=== PATIENT | female | born 1980 | race Caucasian/White ===

== ENCOUNTER 2017-04-14 06:51 | Observation (INO) | payer MEDICAID ==
[~2017-04-14] VITALS: Ht 165.1 cm; Wt 86.0 kg
[~2017-04-14 06:51] MED LIST: CIPRO 500MG TA500 MG PO; COLACE100 MG PO; DARVOCET-N 1001 EACH PO; DOXEPIN100 MG; EC NAPROSYN500 MG PO; FLAGYL 500MG.500 MG PO; FLAGYL500 MG PO; GABAPENTIN300 MG PO; HYDROCHLOROTHIA25 M1; HYDROCODONE/ACE1 T11 PO; K-DUR 2020 MEQ PO; LORTAB 5/500 501 TAB PO; MACROBID 100MG100 MG PO; MACROBID100 M3 PO; MONODOX100 MG PO; OLANZAPINE20 MG PO; PERCOCET 5/3251 EACH PO; PHENERGAN 25MG.25 M1 PO; TRAMADOL 50MG T50 MG PO; TYLENOL W/CODEI1 TAB PO; VIBRA-TABS100 MG PO; XANAX1 MG; ZOFRAN ODT4 MG PO; ZYPREXA 5MG TAB5 MG PO
[2017-04-14 06:55] VITALS: BP 136/62
[2017-04-14 07:07] LABS: HEMOGLOBIN 13.7 g/dL (12.2-16.2)
[2017-04-14 07:08] LABS: LYMPH # 3.2 K/mm3 (0.7-4.5); LYMPH % 36.7 % (10-50.0)
[2017-04-14 07:35] LABS: BUN 10 mg/dL (7-18)
[2017-04-14 07:38] LABS: GFR (ESTIMATED) 42 ML/MIN (59-)
--- NOTE | 2017-04-14 07:47 | Emergency Room Report ---
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 N Clinical Suspician of Infection? N Mental Status: 1 - Regular (Normal Baseline) Sepsis Risk:Low Sepsis Risk Have you (or family members/close friends) recently traveled outside the [place]? N If Yes, where/when: Have you had exposure to infectious disease within the past month? N TB? Other? Specify: Source patient, RN notes reviewed, family, old records Exam Limitations no limitations Comment pt with known low kcl and presents for eval as she is weak and has not responded to op rx Cardiac Chest Pain Chest pain indicative of cardiac No Timing/Duration this evening Severity moderate ALLERGIES Coded Allergies: Penicillins (Mild, 06/20/16) Home Medications Active Scripts Docusate Sodium (Colace 100MG CAP) 100 MG PO DAILY #12 CAP Prov: 11/16/16 Reported Medications Doxepin Hcl (Doxepin) Gabapentin (Gabapentin 300MG) 300 MG PO BID Potassium Chloride (K-Dur) 20 MEQ PO DAILY #60 Olanzapine 20 MG PO DAILY #30 History Medical History General CAD? No Angina: No [place]: No Hypertension? No Hyperlipidemia? No CHF? No DVT? No PE? No COPD? No Asthma? No Anemia? No GERD? No Gastric ulcers? No GI Bleed? No Hernia? No Thyroid Problems? No Hypothyroidism? No CVA? No Seizures? No Diabetes? No Renal Insuffiency? No End Stage Renal Disease? No UTI? Yes Stones? Yes BPH? No GB Disease: Yes Nephritic Syndrome? No Asplenia? No Hepatitis? No Sickle Cell Disease? No Arthritis? No Migraines? No Cataracts? No Glaucoma? No MRSA? No HIV? No TB? No Anxiety? No Depression? No Cancer? No More? Yes Additional hx: BARTTER SYNDROME CHRONIC HYPOKALEMIA Immunization Hx DT/Tetanus 1-4 Years Ago Flu Refused Pneumonia Never Had Surgical Hx Previous Surgery?Y TUBAL Appendectomy GALL BLADDER EXP LAP-ENDOMETRIOSIS L EYE KIDNEY STONE URETEROSCOPY 04/22/15 DIETARY AID Hx LMP N/A Family History Family Hx Diabetes Yes CAD Yes Hypertension Yes Hyperlipidemia Yes Cancer No TB No Social History Smoking Hx Smoker: Current Every Day Smoker Tobacco: Yes Type Cigarettes Packs/day < 1 Pack Alcohol Alcohol: No Drugs none Review of Systems All Other Systems Reviewed and Negative Constitutional see HPI, denies fever, weakness Eyes denies drainage ENT denies: ear discharge, epistaxis, throat pain. Respiratory denies cough, denies shortness of breath, denies wheezing Cardiovascular denies chest pain, denies syncope Gastrointestinal denies abdominal pain, denies diarrhea, denies vomiting Genitourinary denies: dysuria, frequency, hesitancy, hematuria. Musculoskeletal denies back pain, denies joint pain, denies joint swelling, denies neck pain Skin denies rash Psychiatric/Neurological denies headache, denies seizure Physical Exam Vital Signs Vital Signs Date Time Temp Pulse Resp B/P Pulse O2 O2 Flow FiO2 Ox Delivery Rate 04/14 0818 70 18 127/85 99 04/14 0655 98.0 74 16 136/62 98 - WBC >12,000 or <4,000 or 10% bands? 2 or more SIRS Criteria Met? B/P:136/62 MAP:86 Creatinine >2.0? UA output<0.5ml/kg/hr for 2 hrs? Platelet count >100,000? Lactate >2.0mmol/1? INR >1.2 or PTT > than 60 sec? Evidence of Organ Dysfunction? Provider documented clinical suspician of infection? N Sepsis Criteria Count: 0 Sepsis Risk: Low Sepsis Risk General Appearance no apparent distress Eye Exam - bilateral eye PERRL, bilateral eye EOMI Ear, Nose, Throat normal ENT inspection Neck supple Respiratory Status No: respiratory distress. 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 No Results/Orders Laboratory Tests 04/14/17 0656: Sodium 138, Potassium 2.2 *L, Chloride 105, Carbon Dioxide 23, BUN 10, Creatinine 1.4 H, Estimated Creat Clear 69, Estimated GFR (MDRD) 42 L, Glucose 131 H, Calcium 9.2, Total Bilirubin 0.5, AST 40 H, ALT 35, Alkaline Phosphatase 112, Creatine Kinase 56, CK-MB (CK-2) Rel Index 0.9, CK and CKMB Interp < 0.5, Troponin I < 0.02, Total Protein 8.9 H, Albumin 3.7, Globulin 5.2 H, Albumin/Globulin Ratio 0.7 L, WBC 8.6, RBC 4.73, Hgb 13.7, Hct 41.5, MCV 87.8, RDW 14.2, Plt Count 316, Gran % 57.8, Gran # 5.0, Lymphocytes % 36.7, Monocytes % 5.5, Lymphocytes # 3.2, Monocytes # 0.5, PUBS MCHC 33.0, MCH 29.0 Current Medication Orders Sig/Damien Start time Last Medication Dose Route Stop Time Status Admin Potassium Chloride 0 .STK-MED ONE 04/14 0815 DC PO Sodium Chloride 500 ML .STK-MED ONE 04/14 0806 DC IV Potassium Chloride 40 MEQ ONCE ONE 04/14 0800 DC 04/14 PO 04/14 0801 0816 Potassium Chloride/ 100 ML ONCE ONE 04/14 0800 AC 04/14 Water IV 04/14 0959 0817 Potassium Chloride/ 100 ML .STK-MED ONE 04/14 0754 DC Water IV Sodium Chloride 10 ML PRN PRN 04/14 0700 AC IV 04/15 0654 Orders Procedure Date/time Status THYROID STIMULATING HORMONE 04/14 827 Active THYROXINE (T4) 04/14 08 Active LIPID PROFILE 04/14 08 Active OP COURTSEY MEAL 04/14 0753 Active 12 LEAD EKG-LUISSON (INITIAL) 04/14 654 Active ELECTROCARDIOGRAM REQUEST 04/14 654 Active IV SALINE LOCK 04/14 654 Active URINALYSIS/COMPLETE 04/14 654 Active CBC WITH AUTO DIFF 04/14 654 Complete CARDIAC ENZYMES 04/14 654 Complete CHEM 12 PROFILE 04/14 654 Complete CM/EKG CM/digital marketing coordinator Rhythm Normal Sinus Rhythm EKG non-spec. ST/Twave chgs Departure Departure Time of Disposition 0809 Disposition Still a Patient Clinical Impression Primary Impression: Hypokalemia Condition STABLE Referrals Brennon Ayala MD discussed dr ayala ED Critical Care Critical Care No at 0837
--- NOTE | 2017-04-14 07:47 | Emergency Room Report ---
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 N Clinical Suspician of Infection? N Mental Status: 1 - Regular (Normal Baseline) Sepsis Risk:Low Sepsis Risk Have you (or family members/close friends) recently traveled outside the [place]? N If Yes, where/when: Have you had exposure to infectious disease within the past month? N TB? Other? Specify: Source patient, RN notes reviewed, family, old records Exam Limitations no limitations Comment pt with known low kcl and presents for eval as she is weak and has not responded to op rx Cardiac Chest Pain Chest pain indicative of cardiac No Timing/Duration this evening Severity moderate ALLERGIES Coded Allergies: Penicillins (Mild, 06/20/16) Home Medications Active Scripts Docusate Sodium (Colace 100MG CAP) 100 MG PO DAILY #12 CAP Prov: 11/16/16 Reported Medications Doxepin Hcl (Doxepin) Gabapentin (Gabapentin 300MG) 300 MG PO BID Potassium Chloride (K-Dur) 20 MEQ PO DAILY #60 Olanzapine 20 MG PO DAILY #30 History Medical History General CAD? No Angina: No [place]: No Hypertension? No Hyperlipidemia? No CHF? No DVT? No PE? No COPD? No Asthma? No Anemia? No GERD? No Gastric ulcers? No GI Bleed? No Hernia? No Thyroid Problems? No Hypothyroidism? No CVA? No Seizures? No Diabetes? No Renal Insuffiency? No End Stage Renal Disease? No UTI? Yes Stones? Yes BPH? No GB Disease: Yes Nephritic Syndrome? No Asplenia? No Hepatitis? No Sickle Cell Disease? No Arthritis? No Migraines? No Cataracts? No Glaucoma? No MRSA? No HIV? No TB? No Anxiety? No Depression? No Cancer? No More? 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 Respiratory denies cough, denies shortness of breath, denies wheezing Cardiovascular denies chest pain, denies syncope Gastrointestinal denies abdominal pain, denies diarrhea, denies vomiting Genitourinary denies: dysuria, frequency, hesitancy, hematuria. Musculoskeletal denies back pain, denies joint pain, denies joint swelling, denies neck pain Skin denies rash Psychiatric/Neurological denies headache, denies seizure Physical Exam Vital Signs Vital Signs Date Time Temp Pulse Resp B/P Pulse O2 O2 Flow FiO2 Ox Delivery Rate 04/14 0818 70 18 127/85 99 04/14 0655 98.0 74 16 136/62 98 - WBC >12,000 or <4,000 or 10% bands? 2 or more SIRS Criteria Met? B/P:136/62 MAP:86 Creatinine >2.0? UA output<0.5ml/kg/hr for 2 hrs? Platelet count >100,000? Lactate >2.0mmol/1? INR >1.2 or PTT > than 60 sec? Evidence of Organ Dysfunction? Provider documented clinical suspician of infection? N Sepsis Criteria Count: 0 Sepsis Risk: Low Sepsis Risk General Appearance no apparent distress Eye Exam - bilateral eye PERRL, bilateral eye EOMI Ear, Nose, Throat normal ENT inspection Neck supple Respiratory Status No: respiratory distress. 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 No Results/Orders Laboratory Tests 04/14/17 0656: Sodium 138, Potassium 2.2 *L, Chloride 105, Carbon Dioxide 23, BUN 10, Creatinine 1.4 H, Estimated Creat Clear 69, Estimated GFR (MDRD) 42 L, Glucose 131 H, Calcium 9.2, Total Bilirubin 0.5, AST 40 H, ALT 35, Alkaline Phosphatase 112, Creatine Kinase 56, CK-MB (CK-2) Rel Index 0.9, CK and CKMB Interp < 0.5, Troponin I < 0.02, Total Protein 8.9 H, Albumin 3.7, Globulin 5.2 H, Albumin/Globulin Ratio 0.7 L, WBC 8.6, RBC 4.73, Hgb 13.7, Hct 41.5, MCV 87.8, RDW 14.2, Plt Count 316, Gran % 57.8, Gran # 5.0, Lymphocytes % 36.7, Monocytes % 5.5, Lymphocytes # 3.2, Monocytes # 0.5, PUBS MCHC 33.0, MCH 29.0 Current Medication Orders Sig/Damien Start time Last Medication Dose Route Stop Time Status Admin Potassium Chloride 0 .STK-MED ONE 04/14 0815 DC PO Sodium Chloride 500 ML .STK-MED ONE 04/14 0806 DC IV Potassium Chloride 40 MEQ ONCE ONE 04/14 0800 DC 04/14 PO 04/14 0801 0816 Potassium Chloride/ 100 ML ONCE ONE 04/14 0800 AC 04/14 Water IV 04/14 0959 0817 Potassium Chloride/ 100 ML .STK-MED ONE 04/14 0754 DC Water IV Sodium Chloride 10 ML PRN PRN 04/14 0700 AC IV 04/15 0654 Orders Procedure Date/time Status THYROID STIMULATING HORMONE 04/14 827 Active THYROXINE (T4) 04/14 08 Active LIPID PROFILE 04/14 08 Active OP COURTSEY MEAL 04/14 0753 Active 12 LEAD EKG-LUISSON (INITIAL) 04/14 654 Active ELECTROCARDIOGRAM REQUEST 04/14 654 Active IV SALINE LOCK 04/14 654 Active URINALYSIS/COMPLETE 04/14 654 Active CBC WITH AUTO DIFF 04/14 654 Complete CARDIAC ENZYMES 04/14 654 Complete CHEM 12 PROFILE 04/14 654 Complete CM/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 ST/Twave chgs Departure Departure Time of Disposition 0809 Disposition Still a Patient Clinical Impression Primary Impression: Hypokalemia Condition STABLE Referrals Brennon Ayala MD discussed dr ayala ED Critical Care Critical Care No at 0837
[2017-04-14 08:39] LABS: URINE BILIRUBIN - DIPSTICK NEGATIVE (NEG); URINE BLOOD NEGATIVE (NEG)
[2017-04-14 09:30] VITALS: BP 127/73
[2017-04-14 09:31] LABS: URINE SQUAMOUS CELLS 20-50 #/hpf (0-5)
[2017-04-14] MEDS ORDERED: ALDACTONE25 MG NG (09:44)
[2017-04-14] MEDS ORDERED: LEADER OMEPRAZO20 MG PO (09:45)
[2017-04-14] MEDS ORDERED: ZYRTEC10 M2 PO (09:46)
[2017-04-14] MEDS ORDERED: K-DUR 20MEQ TA20 MEQ PO (10:17)
[2017-04-14] MEDS ORDERED: ZOFRAN ODT4 MG PO (10:18)
[2017-04-14] MEDS ORDERED: GABAPENTIN800 MG PO (10:18)
[2017-04-14] MEDS ORDERED: ACETAMINOPHEN500 M3 PO (10:19)
--- NOTE | 2017-04-14 10:25 | HISTORY AND PHYSICAL REPORT ---
See Addendum History and Physical (FCA) Date of admission: 04/14/17 Chief complaint: Hypokalemia History: History of Present Illness: Ms. 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 She is a patient of PCP Dr. Rodriguez at [facility] and Dr. Bella at [facility], however, she has not followed up in either office for a while. Pt presented to [facility] ED this morning after she experienced some cramping and weakness overnight which did not respond to outpatient prescription. She also notes that she has been SOBOE over the past 2 days. Upon arrival, her potassium was found to be low at 2.2. EKG showed NSR with non- specific ST/T wave changes. The case was discussed with Dr. Hodge and she was admitted for IV replacement. Past Medical History: Medical History: CAD? No Angina: No CA: No Hypertension? No Hyperlipidemia? Yes CHF? No DVT? No PE? No COPD? Yes Asthma? No Anemia? No GERD? Yes Gastric ulcers? No GI Bleed? No Hernia? No Thyroid Problems? Yes Hypothyroidism? No CVA? No Seizures? No Diabetes? No Renal Insuffiency? Yes UTI? Yes Stones? Yes BPH? No GB Disease: Yes Nephritic Syndrome? No Asplenia? No Hepatitis? No Sickle Cell Disease? 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 No Cataracts? No Glaucoma? No MRSA? No HIV? No TB? No Anxiety? Yes Depression? Yes Cancer? No More? Yes Additional hx: BARTTER SYNDROME CHRONIC HYPOKALEMIA Surgical history: Previous Surgery? 1. Tubal Ligation 2. Appendectomy 3. GALL BLADDER 4. EXP LAP - ENDOMETRIOSIS 5. Left EYE 6. KIDNEY STONE 7. URETEROSCOPY 04/22/15 Medications: Active Scripts Docusate Sodium (Colace 100MG CAP) 100 MG PO DAILY #12 CAP Prov: 11/16/16 Reported Medications POTASSIUM CHL (Potassium Chloride) 20 MEQ PO BID Gabapentin (Gabapentin 800MG) 800 MG PO TID Ondansetron (Zofran 4MG Odt) 4 MG PO DAILYP PRN nausea Acetaminophen (Acetaminophen Extra Strength) 1,000 MG PO Q6HP PRN pain Spironolactone (Aldactone) 25 MG NG DAILY Omeprazole 20 MG PO DAILY CETIRIZINE HCL (Zyrtec) 10 MG PO DAILY Doxepin Hcl (Doxepin) Olanzapine 20 MG PO DAILY #30 Discontinued Reported Medications Gabapentin (Gabapentin 300MG) 300 MG PO BID Potassium Chloride (K-Dur) 20 MEQ PO DAILY #60 DC: 04/14/17 1019 Allergies: Coded Allergies: Penicillins (Mild, 06/20/16) Family History: Family history: Postive for: CAD, CAD under 40 yrs of age (father), DM, HTN, TIA, hyperlipidemia , stroke. Negative for: cancer, seizure. Social History: Smoking Hx Tobacco: Yes Smoker: Current Every Day Smoker Type: Cigarettes Packs/day: < 1 Pack Are you exposed to second hand Yes Alcohol: Alcohol: Yes How much do you drink 3-6 beers per year socially For how long Longer Than 5 Years When was your last drink several months ago Hx of Drug Use: Drug Use? 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 No Constitutional Positive for: weak. No: chills, lethargy. ENT No: nasal congestion, sore throat. Cardiovascular Positive for: CALLEJAS. No: chest pain, edema, palpitations. Respiratory Positive for: dyspnea on exertion, non-productive. No: shortness of air, productive cough (sputum). GI Positive for: diarrhea. No: abdominal pain, constipation, hematochezia, nausea, vomitting. (female) No: frequency, hematuria, pelvic pain, urgency. Skin No: bruising, itching, rash. Neurological No: bladder dysfunction, bowel dysfunction, confusion, dizziness, gait problem, headache, numbness, slurred speech, syncope, vision change. Immune/allergy No: itching. Eyes No: blurry vision, itching, redness. Musculoskeletal Positive for: myalgias. No: extremity pain, extremity swelling. Heme No: bleeding, bruising. Psychiatric No: confused, change in mental status. Physical Exam: Vital signs: Laboratory Tests 04/14/17 0810: Urine Color YELLOW, Urine Appearance CLEAR, Urine pH 7.5, Ur Specific [place] 1.010, Urine Protein 1+ H, Urine Ketones NEGATIVE, Urine Blood NEGATIVE, Urine Nitrate NEGATIVE, Urine Bilirubin NEGATIVE, Urine Urobilinogen 0.2, Ur Leukocyte Esterase NEGATIVE, Urine RBC NONE, Urine WBC 3-5, Ur Squamous Epith Cells 20-50, Urine Bacteria 1+, Urine Glucose NEGATIVE 04/14/1756: TSH 4.96 H, Thyroxine (T4) 10.2 04/14/17 0656: Triglycerides 208 H, Cholesterol 231 H, LDL Cholesterol 158.4 H, VLDL Cholesterol 41.6 H, HDL Cholesterol 31.0 L 04/14/17 06: Sodium 138, Potassium 2.2 *L, Chloride 105, Carbon Dioxide 23, BUN 10, Creatinine 1.4 H, Estimated Creat Clear 69, Estimated GFR (MDRD) 42 L, Glucose 131 H, Calcium 9.2, Total Bilirubin 0.5, AST 40 H, ALT 35, Alkaline Phosphatase 112, Creatine Kinase 56, CK-MB (CK-2) Rel Index 0.9, CK and CKMB Interp < 0.5, Troponin I < 0.02, Total Protein 8.9 H, Albumin 3.7, Globulin 5.2 H, Albumin/Globulin Ratio 0.7 L, WBC 8.6, RBC 4.73, Hgb 13.7, Hct 41.5, MCV 87.8, RDW 14.2, Plt Count 316, Gran % 57.8, Gran # 5.0, Lymphocytes % 36.7, Monocytes % 5.5, Lymphocytes # 3.2, Monocytes # 0.5, PUBS MCHC 33.0, MCH 29.0 Vital Signs Date Time Temp Pulse Resp B/P Pulse O2 O2 Flow FiO2 Ox Delivery Rate 04/14 930 89 04/14 930 97.9 89 18 127/73 04/14 930 98 ROOM AIR 04/14 930 97.9 89 18 12773 98 ROOM AIR 04/14 0921 75 18 118/79 99 04/14 0818 70 18 127/85 99 04/14 0655 98.0 74 16 136/62 98 1ST Vital Signs Result Date Time Pulse Ox 98 04/14 655 B/P 136/62 04/14 655 Temp 98.0 04/14 655 Pulse 74 09/28 0655 Resp 16 04/14 655 O2 Delivery ROOM AIR 04/14 930 Exam: General appearance: alert, awake, no acute distress Eyes: anicteric, PERRLA ENT: mucous membranes moist, pharynx normal, nares patent Neck: non-tender, supple, no LAD Cardiovascular: regular rate & rhythm, normal peripheral pulses Respiratory: CTAB A&P ABD: non-distended, no rebound, soft, no tenderness, no guarding, no organomegaly, no palpable mass, bowel sounds present Extremities: moves all, no peripheral edema, warm Musculoskeletal: sensation intact Skin: dry, intact, warm Neuro: alert, oriented, speech clear, no focal deficit Lab data: Labs: Laboratory Tests 04/14/17 0810: Urine Color YELLOW, Urine Appearance CLEAR, Urine pH 7.5, Ur Specific [place] 1.010, Urine Protein 1+ H, Urine Ketones NEGATIVE, Urine Blood NEGATIVE, Urine Nitrate NEGATIVE, Urine Bilirubin NEGATIVE, Urine Urobilinogen 0.2, Ur Leukocyte Esterase NEGATIVE, Urine RBC NONE, Urine WBC 3-5, Ur Squamous Epith Cells 20-50, Urine Bacteria 1+, Urine Glucose NEGATIVE 04/14/17 0656: TSH 4.96 H, Thyroxine (T4) 10.2 04/14/17 0656: Triglycerides 208 H, Cholesterol 231 H, LDL Cholesterol 158.4 H, VLDL Cholesterol 41.6 H, HDL Cholesterol 31.0 L 04/14/17 0656: Sodium 138, Potassium 2.2 *L, Chloride 105, Carbon Dioxide 23, BUN 10, Creatinine 1.4 H, Estimated Creat Clear 69, Estimated GFR (MDRD) 42 L, Glucose 131 H, Calcium 9.2, Total Bilirubin 0.5, AST 40 H, ALT 35, Alkaline Phosphatase 112, Creatine Kinase 56, CK-MB (CK-2) Rel Index 0.9, CK and CKMB Interp < 0.5, Troponin I < 0.02, Total Protein 8.9 H, Albumin 3.7, Globulin 5.2 H, Albumin/Globulin Ratio 0.7 L, WBC 8.6, RBC 4.73, Hgb 13.7, Hct 41.5, MCV 87.8, RDW 14.2, Plt Count 316, Gran % 57.8, Gran # 5.0, Lymphocytes % 36.7, Monocytes % 5.5, Lymphocytes # 3.2, Monocytes # 0.5, PUBS MCHC 33.0, MCH 29.0 Radiology results: Results: 04/14/17 EKG: NSR with non-specific ST/T wave changes Diagnosis(es): 1. Hypokalemia 2. Bartter syndrome Status: Chronic Plan: Continue K+ replacement. Monitor labs. Telemetry. at 1025 at 0666
--- NOTE | 2017-04-14 10:25 | HISTORY AND PHYSICAL REPORT ---
See Addendum History and Physical ([facility]CA) Date of admission: 04/14/17 Chief complaint: Hypokalemia History: History of Present Illness: Ms. 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 She is a patient of PCP Dr. Rodriguez at [facility] and Dr. Bella at [facility], however, she has not followed up in either office for a while. Pt presented to [facility] ED this morning after she experienced some cramping and weakness overnight which did not respond to outpatient prescription. She also notes that she has been SOBOE over the past 2 days. Upon arrival, her potassium was found to be low at 2.2. EKG showed NSR with non- specific ST/T wave changes. The case was discussed with Dr. Hodge and she was admitted for IV replacement. Past Medical History: Medical History: CAD? No Angina: No UT: No Hypertension? No Hyperlipidemia? Yes CHF? No DVT? No PE? No COPD? Yes Asthma? No Anemia? No GERD? Yes Gastric ulcers? No GI Bleed? No Hernia? No Thyroid Problems? Yes Hypothyroidism? No CVA? No Seizures? No Diabetes? No Renal Insuffiency? Yes UTI? Yes Stones? Yes BPH? No GB Disease: Yes Nephritic Syndrome? No Asplenia? No Hepatitis? No Sickle Cell Disease? 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 No Cataracts? No Glaucoma? No MRSA? No HIV? No TB? No Anxiety? Yes Depression? Yes Cancer? No More? Yes Additional hx: BARTTER SYNDROME CHRONIC HYPOKALEMIA Surgical history: Previous Surgery? 1. Tubal Ligation 2. Appendectomy 3. GALL BLADDER 4. EXP LAP - ENDOMETRIOSIS 5. Left EYE 6. KIDNEY STONE 7. URETEROSCOPY 04/22/15 Medications: Active Scripts Docusate Sodium (Colace 100MG CAP) 100 MG PO DAILY #12 CAP Prov: 11/16/16 Reported Medications POTASSIUM CHL (Potassium Chloride) 20 MEQ PO BID Gabapentin (Gabapentin 800MG) 800 MG PO TID Ondansetron (Zofran 4MG Odt) 4 MG PO DAILYP PRN nausea Acetaminophen (Acetaminophen Extra Strength) 1,000 MG PO Q6HP PRN pain Spironolactone (Aldactone) 25 MG NG DAILY Omeprazole 20 MG PO DAILY CETIRIZINE HCL (Zyrtec) 10 MG PO DAILY Doxepin Hcl (Doxepin) Olanzapine 20 MG PO DAILY #30 Discontinued Reported Medications Gabapentin (Gabapentin 300MG) 300 MG PO BID Potassium Chloride (K-Dur) 20 MEQ PO DAILY #60 DC: 04/14/17 1019 Allergies: Coded Allergies: Penicillins (Mild, 06/20/16) Family History: Family history: Postive for: CAD, CAD under 40 yrs of age (father), DM, HTN, TIA, hyperlipidemia , stroke. Negative for: cancer, seizure. Social History: Smoking Hx Tobacco: Yes Smoker: Current Every Day Smoker Type: Cigarettes Packs/day: < 1 Pack Are you exposed to second hand Yes Alcohol: Alcohol: Yes How much do you drink 3-6 beers per year socially For how long Longer Than 5 Years When was your last drink several months ago Hx of Drug Use: Drug Use? 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 No Constitutional Positive for: weak. No: chills, lethargy. ENT No: nasal congestion, sore throat. Cardiovascular Positive for: CALLEJAS. No: chest pain, edema, palpitations. Respiratory Positive for: dyspnea on exertion, non-productive. No: shortness of air, productive cough (sputum). GI Positive for: diarrhea. No: abdominal pain, constipation, hematochezia, nausea, vomitting. (female) No: frequency, hematuria, pelvic pain, urgency. Skin No: bruising, itching, rash. Neurological No: bladder dysfunction, bowel dysfunction, confusion, dizziness, gait problem, headache, numbness, slurred speech, syncope, vision change. Immune/allergy No: itching. Eyes No: blurry vision, itching, redness. Musculoskeletal Positive for: myalgias. No: extremity pain, extremity swelling. Heme No: bleeding, bruising. Psychiatric No: confused, change in mental status. Physical Exam: Vital signs: Laboratory Tests 04/14/17 0810: Urine Color YELLOW, Urine Appearance CLEAR, Urine pH 7.5, Ur Specific [place] 1.010, Urine Protein 1+ H, Urine Ketones NEGATIVE, Urine Blood NEGATIVE, Urine Nitrate NEGATIVE, Urine Bilirubin NEGATIVE, Urine Urobilinogen 0.2, Ur Leukocyte Esterase NEGATIVE, Urine RBC NONE, Urine WBC 3-5, Ur Squamous Epith Cells 20-50, Urine Bacteria 1+, Urine Glucose NEGATIVE 04/14/1756: TSH 4.96 H, Thyroxine (T4) 10.2 04/14/17 0656: Triglycerides 208 H, Cholesterol 231 H, LDL Cholesterol 158.4 H, VLDL Cholesterol 41.6 H, HDL Cholesterol 31.0 L 04/14/17 06: Sodium 138, Potassium 2.2 *L, Chloride 105, Carbon Dioxide 23, BUN 10, Creatinine 1.4 H, Estimated Creat Clear 69, Estimated GFR (MDRD) 42 L, Glucose 131 H, Calcium 9.2, Total Bilirubin 0.5, AST 40 H, ALT 35, Alkaline Phosphatase 112, Creatine Kinase 56, CK-MB (CK-2) Rel Index 0.9, CK and CKMB Interp < 0.5, Troponin I < 0.02, Total Protein 8.9 H, Albumin 3.7, Globulin 5.2 H, Albumin/Globulin Ratio 0.7 L, WBC 8.6, RBC 4.73, Hgb 13.7, Hct 41.5, MCV 87.8, RDW 14.2, Plt Count 316, Gran % 57.8, Gran # 5.0, Lymphocytes % 36.7, Monocytes % 5.5, Lymphocytes # 3.2, Monocytes # 0.5, PUBS MCHC 33.0, MCH 29.0 Vital Signs Date Time Temp Pulse Resp B/P Pulse O2 O2 Flow FiO2 Ox Delivery Rate 04/14 930 89 04/14 930 97.9 89 18 127/73 04/14 930 98 ROOM AIR 04/14 930 97.9 89 18 12773 98 ROOM AIR 04/14 0921 75 18 118/79 99 04/14 0818 70 18 127/85 99 04/14 0655 98.0 74 16 136/62 98 1ST Vital Signs Result Date Time Pulse Ox 98 04/14 655 B/P 136/62 04/14 655 Temp 98.0 04/14 655 Pulse 74 09/28 0655 Resp 16 04/14 655 O2 Delivery ROOM AIR 04/14 930 Exam: General appearance: alert, awake, no acute distress Eyes: anicteric, PERRLA ENT: mucous membranes moist, pharynx normal, nares patent Neck: non-tender, supple, no LAD Cardiovascular: regular rate & rhythm, normal peripheral pulses Respiratory: CTAB A&P ABD: non-distended, no rebound, soft, no tenderness, no guarding, no organomegaly, no palpable mass, bowel sounds present Extremities: moves all, no peripheral edema, warm Musculoskeletal: sensation intact Skin: dry, intact, warm Neuro: alert, oriented, speech clear, no focal deficit Lab data: Labs: Laboratory Tests 04/14/17 0810: Urine Color YELLOW, Urine Appearance CLEAR, Urine pH 7.5, Ur Specific [place] 1.010, Urine Protein 1+ H, Urine Ketones NEGATIVE, Urine Blood NEGATIVE, Urine Nitrate NEGATIVE, Urine Bilirubin NEGATIVE, Urine Urobilinogen 0.2, Ur Leukocyte Esterase NEGATIVE, Urine RBC NONE, Urine WBC 3-5, Ur Squamous Epith Cells 20-50, Urine Bacteria 1+, Urine Glucose NEGATIVE 04/14/17 0656: TSH 4.96 H, Thyroxine (T4) 10.2 04/14/17 0656: Triglycerides 208 H, Cholesterol 231 H, LDL Cholesterol 158.4 H, VLDL Cholesterol 41.6 H, HDL Cholesterol 31.0 L 04/14/17 0656: Sodium 138, Potassium 2.2 *L, Chloride 105, Carbon Dioxide 23, BUN 10, Creatinine 1.4 H, Estimated Creat Clear 69, Estimated GFR (MDRD) 42 L, Glucose 131 H, Calcium 9.2, Total Bilirubin 0.5, AST 40 H, ALT 35, Alkaline Phosphatase 112, Creatine Kinase 56, CK-MB (CK-2) Rel Index 0.9, CK and CKMB Interp < 0.5, Troponin I < 0.02, Total Protein 8.9 H, Albumin 3.7, Globulin 5.2 H, Albumin/Globulin Ratio 0.7 L, WBC 8.6, RBC 4.73, Hgb 13.7, Hct 41.5, MCV 87.8, RDW 14.2, Plt Count 316, Gran % 57.8, Gran # 5.0, Lymphocytes % 36.7, Monocytes % 5.5, Lymphocytes # 3.2, Monocytes # 0.5, PUBS MCHC 33.0, MCH 29.0 Radiology results: Results: 04/14/17 EKG: NSR with non-specific ST/T wave changes Diagnosis(es): 1. Hypokalemia 2. Bartter syndrome Status: Chronic Plan: Continue K+ replacement. Monitor labs. Telemetry. at 1025 at [id number]
[2017-04-14] MEDS ORDERED: K-DUR 2020 MEQ PO (13:58)
[2017-04-14 14:07] VITALS: BP 127/73
== END 2017-04-14 14:25 | disposition home or self-care (01) ==
LOC: ER 06:51 → 2ND 08:38 → ER 08:38 → 2ND 08:51
PROVIDERS: Emergency Medicine
DX: E87.6 Hypokalemia (principal); E26.81 Bartter's syndrome; J44.9 Chronic obstructive pulmonary disease, unspecified; F17.210 Nicotine dependence, cigarettes, uncomplicated; Z87.898 Personal history of other specified conditions; Z79.818 Long term (current) use of other agents affecting estrogen receptors and estrogen levels
CPT/HCPCS: G0378

== ENCOUNTER 2017-05-09 01:22 | Observation (INO) | payer MEDICAID ==
[~2017-05-09] VITALS: Ht 165.1 cm; Wt 89.1 kg
[~2017-05-09 01:22] MED LIST changes: +ACETAMINOPHEN500 M3 PO; +ALDACTONE25 MG NG; +DOXEPIN HCL100 MG PO; -DOXEPIN100 MG; +GABAPENTIN800 MG PO; +K-DUR 20MEQ TA20 MEQ PO; +LEADER OMEPRAZO20 MG PO; +ZYRTEC10 M2 PO
[2017-05-09 01:27] VITALS: BP 144/94
--- OUTSIDE RECORDS SUMMARY | 2017-05-09 02:15 | External Medical Summary Rpt | CCD ---
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 OLGUIN LE R Q- 00 08 09 24 30 00 TO Ac PA 60 -1 -1 0. 00 TA ti P 30 0- 5- 00 00 L ve EX 26 20 20 0 95 CA -S 83 17 17 08 RE TR 2 09 PH 50 AR 0 MA MG CY TA #5 BL ET BR 00 08 09 60 30 00 TO Ac EO 17 -0 -0 .0 00 TA ti 30 4- 8- 00 00 L ve EL 88 20 20 95 CA LI 21 17 17 81 RE PT 0 07 A PH 20 AR 0- MA 25 CY MC #5 G IN H GA 71 08 09 90 30 00 TO Ac BA 09 -0 -0 .0 00 TA ti PE 30 4- 8- 00 00 L ve NT 11 20 20 95 CA IN 20 17 17 81 RE 5 08 80 PH 0 AR MG MA CY TA BL #5 ET ON 00 08 09 30 30 00 TO Ac DA 37 -0 -0 .0 00 TA ti NS 87 9- 8- 00 00 L ve ET 73 20 20 95 CA RO 29 17 17 85 RE N 3 05 OD PH T AR 4 MA MG CY TA #5 BL ET OL 33 07 09 30 30 00 TO Ac AN 34 -2 -0 .0 00 TA ti ZA 20 9- 1- 00 00 L ve PI 07 20 20 95 CA NE 21 17 17 54 RE 5 68 20 PH AR MG MA CY TA BL #5 ET CE 65 07 09 20 5 00 TO Ac PH 86 -2 -0 .0 00 TA ti AL 20 9- 1- 00 00 L ve EX 01 20 20 95 CA IN 90 17 17 74 RE 5 75 50 PH 0 AR MG MA CY CA PS #5 UL E SP 53 07 09 30 30 00 TO Ac IR 48 -2 -0 .0 00 TA ti ON 90 9- 1- 00 00 L ve OL 14 20 20 95 CA AC 31 17 17 74 RE TO 0 76 NE PH AR 25 MA CY MG #5 TA BL ET NI 00 07 09 14 14 00 TO Ac CO 53 -2 -0 .0 00 TA ti TI 65 9- 1- 00 00 L ve NE 89 20 20 95 CA 68 17 17 74 RE 21 8 77 PH MG AR /2 MA 4H CY R PA #5 TC H CE 16 07 08 30 30 00 TO Ac TI 71 -1 -1 .0 00 TA ti RI 40 4- 8- 00 00 L ve ZI 27 20 20 94 CA NE 10 17 17 18 RE 3 01 HC PH L AR 10 MA CY MG #5 TA BL ET ON 00 07 08 10 10 00 TO Ac DA 37 -1 -1 .0 00 TA ti NS 87 4- 8- 00 00 L ve ET 73 20 20 95 CA RO 29 17 17 61 RE N 3 11 OD PH T AR 4 MA MG CY TA #5 BL ET Q- 00 07 08 24 30 00 TO Ac PA 60 -1 -1 0. 00 TA ti P 30 4- 8- 00 00 L ve EX 26 20 20 0 95 CA -S 83 17 17 08 RE TR 2 09 PH 50 AR 0 MA MG CY TA #5 BL ET GA 68 07 08 90 30 00 GR Ac BA 46 -0 -1 .0 00 AN ti PE 20 7- 1- 00 01 T ve NT 12 20 20 53 CO IN 70 17 [address] 80 UG 0 S MG WI LL TA IA BL MS ET TO WN PO 00 07 08 60 30 00 TO Ac TA 78 -0 -1 .0 00 TA ti SS 15 8- 1- 00 00 L ve IU 72 20 20 92 CA M 01 17 17 75 RE CL 0 20 PH ER AR MA 20 CY ME #5 Q TA BL ET OM 00 07 08 30 30 00 TO Ac EP 78 -0 -1 .0 00 TA ti RA 12 8- 1- 00 00 L ve ZO 79 20 20 95 CA LE 01 17 [address] PH AR 20 MA CY MG #5 CA PS UL E DO 00 07 08 30 30 00 TO Ac XE 37 -0 -1 .0 00 TA ti PI 86 8- 1- 00 00 L ve N 41 20 20 95 CA 10 00 17 17 54 RE 0 1 67 MG PH AR CA MA PS CY UL E #5 BR 00 07 08 60 30 00 GR Ac EO 17 -0 -1 .0 00 AN ti 30 7- 1- 00 01 T ve EL 88 20 20 52 CO LI 21 17 [address] A UG 20 S 0- WI 25 LL IA MC MS G TO IN WN H VE 00 07 08 18 30 00 TO Ac NT 17 -1 -1 .0 00 TA ti OL 30 0- 1- 00 00 L ve IN 68 20 20 95 CA 22 17 17 55 RE HF 0 49 A PH 90 AR MA MC CY G IN #5 OLGUIN LE R OL 33 07 08 15 15 00 TO Ac AN 34 -0 -0 .0 00 TA ti ZA 20 3- 4- 00 00 L ve PI 07 20 20 95 CA NE 21 17 17 49 RE 5 89 20 PH AR MG MA CY TA BL #5 ET CL 63 06 07 21 7 00 CV Ac IN 30 -2 -2 .0 00 S ti DA 40 7- 8- 00 01 PH ve MY 69 20 20 08 AR CI 30 17 17 55 MA N 1 43 CY HC L #0 30 61 0 13 MG CA PS UL E GA 68 06 07 90 30 00 GR Ac BA 46 -0 -1 .0 00 AN ti PE 20 9- 4- 00 01 T ve NT 12 20 20 53 CO IN 70 17 [address] 80 UG 0 S MG WI LL TA IA BL MS ET TO WN VE 00 06 07 18 30 00 TO Ac NT 17 -0 -0 .0 00 TA ti OL 30 6- 7- 00 00 L ve IN 68 20 20 94 CA 22 17 17 80 RE HF 0 51 A PH 90 AR MA MC CY G IN #5 OLGUIN LE R DO 00 06 07 30 30 00 TO Ac XE 37 -0 -0 .0 00 TA ti PI 86 6- 7- 00 00 L ve N 41 20 20 95 CA 10 00 17 17 24 RE 0 1 27 MG PH AR CA MA PS CY UL E #5 OM 57 06 07 30 30 00 TO Ac EP 23 -0 -0 .0 00 TA ti RA 70 5- 7- 00 00 L ve ZO 16 20 20 95 CA LE 19 17 [address] PH AR 20 MA CY MG #5 CA PS UL E ON 00 06 07 10 10 00 TO Ac DA 78 -0 -0 .0 00 TA ti NS 15 5- 7- 00 00 L ve ET 23 20 20 95 CA RO 86 17 17 23 RE N 4 72 OD PH T AR 4 MA MG CY TA #5 BL ET CE 16 05 06 30 30 00 TO TI 71 -1 -1 .0 00 TA ti RI 40 7- 6- 00 00 L ve ZI 27 20 20 94 CA NE 10 17 17 18 RE 3 01 HC PH L AR 10 MA CY MG #5 TA BL ET MA 00 05 24 30 00 TO PA 90 -1 -1 0. 00 TA ti P 41 7- 6- 00 00 L ve 50 98 20 20 0 95 CA 0 38 17 17 08 RE MG [address] MA ET CY #5 OL 33 05 30 30 00 TO AN 34 -1 -1 .0 00 TA ti ZA 20 7- 6- 00 00 L ve PI 07 20 20 92 CA NE 21 17 17 96 RE 5 14 20 PH AR MG MA CY TA BL #5 ET PO 00 11 20 60 30 00 TO TA 78 -1 -1 .0 00 TA ti SS 15 7- 6- 00 00 L ve IU 72 20 20 92 CA M 01 17 17 75 RE CL 0 20 PH ER AR MA 20 CY ME #5 Q TA BL ET DO 00 05 06 12 12 00 TO C- 60 -0 -0 .0 00 TA ti Q- 30 5- 9- 00 00 L ve LA 15 20 20 94 CA CE 03 17 17 97 RE 2 41 10 PH 0 AR MG MA CY SO FT #5 GE L NI 16 05 06 14 7 00 TO TR 71 -0 -0 .0 00 TA ti OF 40 5- 9- 00 00 L ve UR 43 20 20 94 CA AN 90 17 17 97 RE TO 1 42 IN PH AR MO MA NO CY -M CR #5 10 0 MG OM 00 11 20 30 30 00 TO EP 78 -0 -0 .0 00 TA ti RA 12 3- 2- 00 00 L ve ZO 79 20 20 48 CA LE 01 17 [address] PH AR 20 MA CY MG # 3 CA PS UL E ON 00 11 20 30 30 00 TO DA 37 -0 -0 .0 00 TA ti NS 87 3- 2- 00 00 L ve ET 73 20 20 48 CA RO 29 17 17 51 RE N 3 96 OD PH T AR 4 MA MG CY # TA 3 BL ET GA 67 05 06 45 15 00 TO BA 87 -0 -0 .0 00 TA ti PE 70 3- 2- 00 00 L ve NT 42 20 20 48 CA IN 90 17 17 51 RE 5 58 80 PH 0 AR MG MA CY TA # BL 3 ET TR 16 04 05 15 3 00 TO Ac AM 71 -2 -2 .0 00 TA ti AD 40 5- 6- 00 00 L ve OL 48 20 20 94 CA 10 17 17 86 RE HC 3 59 L PH 50 AR MA MG CY TA #5 BL ET VE 00 04 05 18 30 00 TO Ac NT 17 -2 -2 .0 00 TA ti OL 30 0- 6- 00 00 L ve IN 68 20 20 94 CA 22 17 17 80 RE HF 0 51 A PH 90 AR MA MC CY G IN #5 OLGUIN LE R CE 65 04 05 28 7 00 TO Ac PH 86 -1 -1 .0 00 TA ti AL 20 0- 2- 00 00 L ve EX 01 20 20 94 CA IN 80 17 17 71 RE 1 89 25 PH 0 AR MG MA CY CA PS #5 UL E MENDENHALL 65 04 05 20 10 00 TO Ac LF 86 -1 -1 .0 00 TA ti AM 20 0- 2- 00 00 L ve ET 42 20 20 94 CA HO 00 17 17 71 RE XA 5 90 ZO PH LE AR -T MA MP CY DS #5 TA BL ET GA 16 04 05 90 30 00 TO Ac BA 71 -0 -0 .0 00 TA ti PE 40 4- 5- 00 00 L ve NT 33 20 20 48 CA IN 20 17 17 32 RE 2 44 80 PH 0 AR MG MA CY TA # BL 3 ET PA 36 04 05 24 30 00 TO Ac IN 80 -0 -0 0. 00 TA ti 00 4- 5- 00 00 L ve RE 48 20 20 0 48 CA LI 47 17 17 32 RE EF 8 45 PH 50 AR 0 MA MG CY # CA 3 PL ET SY 00 03 04 10 30 00 TO Ac MB 18 -2 -2 .1 00 TA ti IC 60 4- 8- 99 00 L ve OR 37 20 20 94 CA T 02 17 17 18 RE 16 0 00 0- PH 4. AR 5 MA MC CY G IN #5 OLGUIN LE R VE 00 03 04 18 30 00 TO Ac NT 17 -2 -2 .0 00 TA ti OL 30 4- 8- 00 00 L ve IN 68 20 20 94 CA 22 17 17 18 RE HF 0 05 A PH 90 AR MA MC CY G IN #5 OLGUIN LE R DO 00 03 04 30 30 00 TO Ac XE 37 -0 -0 .0 00 TA ti PI 86 3- 7- 00 00 L ve N 41 20 20 92 CA 10 00 17 17 96 RE 0 1 13 MG PH AR CA MA PS CY UL E #5 OL 33 03 04 30 30 00 TO Ac AN 34 -0 -0 .0 00 TA ti ZA 20 3- 7- 00 00 L ve PI 07 20 20 92 CA NE 21 17 17 96 RE 5 14 20 PH AR MG MA CY TA BL #5 ET GA 16 03 04 90 30 00 TO Ac BA 71 -0 -0 .0 00 TA ti PE 40 3- 7- 00 00 L ve NT 33 20 20 93 CA IN 20 17 17 77 RE 2 95 80 PH 0 AR MG MA CY TA BL #5 ET SY 00 02 03 10 30 00 TO Ac MB 18 -1 -2 .1 00 TA ti IC 60 6- 4- 99 00 L ve OR 37 20 20 94 CA T 02 17 17 18 RE 16 0 00 0- PH 4. AR 5 MA MC CY G IN #5 OLGUIN LE R CE 16 02 03 30 30 00 TO Ac TI 71 -1 -2 .0 00 TA ti RI 40 6- 4- 00 00 L ve ZI 27 20 20 94 CA NE 10 17 17 18 RE 3 01 HC PH L AR 10 MA CY MG #5 TA BL ET MA 00 02 03 24 30 00 TO Ac PA 90 -1 -2 0. 00 TA ti P 41 6- 4- 00 00 L ve 50 98 20 20 0 94 CA 0 38 17 17 18 RE MG [address] MA ET CY #5 VE 00 02 03 18 30 00 TO Ac NT 17 -1 -2 .0 00 TA ti OL 30 6- 4- 00 00 L ve IN 68 20 20 94 CA 22 17 17 18 RE HF 0 05 A PH 90 AR MA MC CY G IN #5 OLGUIN LE R DO 00 02 03 30 30 00 TO Ac XE 37 -1 -2 .0 00 TA ti PI 86 6- 4- 00 00 L ve N 41 20 20 92 CA 10 00 17 17 96 RE 0 1 13 MG PH AR CA MA PS CY UL E #5 OL 13 02 03 30 30 00 TO Ac AN 66 -1 -2 .0 00 TA ti ZA 80 6- 4- 00 00 L ve PI 17 20 20 92 CA NE 13 17 17 96 RE 0 14 20 PH AR MG MA CY TA BL #5 ET GA 16 02 03 90 30 00 TO Ac BA 71 -0 -1 .0 00 TA ti PE 40 6- 0- 00 00 L ve NT 33 20 20 93 CA IN 20 17 17 77 RE 2 95 80 PH 0 AR MG MA CY TA BL #5 ET VE 00 01 02 18 31 00 TO Ac NT 17 -1 -1 .0 00 TA ti OL 30 7- 7- 00 00 L ve IN 68 20 20 93 CA 22 17 17 25 RE HF 0 28 A PH 90 AR MA MC CY G IN #5 OLGUIN LE R SY 00 01 02 10 30 00 TO Ac MB 18 -1 -1 .1 00 TA ti IC 60 7- 7- 99 00 L ve OR 37 20 20 93 CA T 02 17 17 87 RE 16 0 66 0- PH 4. AR 5 MA MC CY G IN #5 OLGUIN LE R DO 00 01 02 30 30 00 TO Ac XE 37 -1 -1 .0 00 TA ti PI 86 7- 7- 00 00 L ve N 41 20 20 92 CA 10 00 17 17 96 RE 0 1 13 MG PH AR CA MA PS CY UL E #5 OL 13 02 30 30 00 TO Ac AN 66 -1 -1 .0 00 TA ti ZA 80 7- 7- 00 00 L ve PI 17 20 20 92 CA NE 13 17 17 96 RE 0 14 20 PH AR MG MA CY TA BL #5 ET GA 16 01 02 90 30 00 TO Ac BA 71 -0 -1 .0 00 TA ti PE 40 6- 0- 00 00 L ve NT 33 20 20 93 CA IN 20 17 17 77 RE 2 95 80 PH 0 AR MG MA CY TA BL #5 ET SY 00 12 01 10 30 00 TO Ac MB 18 -1 -2 .1 00 TA ti IC 60 6- 0- 99 00 L ve OR 37 20 20 92 CA T 02 16 17 39 RE 16 0 31 0- PH 4. AR 5 MA MC CY G IN #5 OLGUIN LE R VE 00 12 01 18 31 00 TO Ac NT 17 -1 -2 .0 00 TA ti OL 30 6- 0- 00 00 L ve IN 68 20 20 93 CA 22 16 17 25 RE HF 0 28 A PH 90 AR MA MC CY G IN #5 OLGUIN LE R DO 00 12 01 30 30 00 TO Ac XE 37 -1 -2 .0 00 TA ti PI 86 6- 0- 00 00 L ve N 41 20 20 92 CA 10 00 16 17 96 RE 0 1 13 MG PH AR CA MA PS CY UL E #5 PO 00 12 01 60 30 00 TO Ac TA 78 -1 -2 .0 00 TA ti SS 15 6- 0- 00 00 L ve IU 72 20 20 92 CA M 01 16 17 75 RE CL 0 20 PH ER AR MA 20 CY ME #5 Q TA BL ET OL 33 12 01 30 30 00 TO Ac AN 34 -1 -2 .0 00 TA ti ZA 20 6- 0- 00 00 L ve PI 07 20 20 92 CA NE 21 16 17 96 RE 5 14 20 PH AR MG MA CY TA BL #5 ET GA 62 12 01 90 30 00 RI Ac BA 75 -0 -1 .0 00 TE ti PE 60 8- 3- 00 01 ve NT 20 20 20 15 AI IN 40 16 17 73 D 1 73 PH 80 AR 0 MA MG CY TA #3 BL 93 ET 8 NH 00 10 10 1 12 4 TO 49 OLGUIN Ac OM 60 -2 -2 0. TA 21 RT ti ET 31 4- 4- 00 L 55 IG ve OLGUIN 58 20 20 0 CA ZI 55 11 11 RE DORA NE 8 SE -C PH PH OD AR E EI MA NE CY # SY 4 RU P 00 10 10 1 12 30 TO 49 OLGUIN Ac 59 -2 -2 0. TA 21 RT ti 10 4- 4- 00 L 48 IG ve 38 20 20 0 CA 50 11 11 RE DORA 5 SE PH PH AR E MA CY # 4 DO 00 08 10 5 60 30 TO 48 OLGUIN Ac XE 37 -3 -2 .0 TA 69 RT ti PI 84 0- 4- 00 L 29 IG ve N 25 20 20 CA 50 00 11 11 RE DORA 1 SE MG PH PH AR E CA MA PS CY UL # E 4 AL 59 10 10 1 90 30 TO 49 OLGUIN Ac NH 76 -0 -0 .0 TA 01 RT ti AZ 23 3- 3- 00 L 70 IG ve OL 72 20 20 CA AM 10 11 11 RE DORA 1 4 SE PH PH MG AR E MA TA CY BL # ET 4 00 10 10 5 30 30 TO 49 OLGUIN Ac 14 -0 -0 .0 TA 01 RT ti 31 3- 3- 00 L 69 IG ve 25 20 20 CA 61 11 11 RE DORA 0 SE PH PH AR E MA CY # 4 00 08 09 1 12 30 TO 48 OLGUIN Ac 59 -3 -2 0. TA 69 RT ti 10 0- 6- 00 L 28 IG ve 38 20 20 0 CA 50 11 11 RE DORA 5 SE PH PH AR E MA CY # 4 DO 00 08 09 5 60 30 TO 48 OLGUIN Ac XE 37 -3 -2 .0 TA 69 RT ti PI 84 0- 6- 00 L 29 IG ve N 25 20 20 CA 50 00 11 11 RE DORA 1 SE MG PH PH AR E CA MA PS CY UL # E 4 ZY 00 07 09 5 30 30 TO 48 OLGUIN Ac NH 00 -0 -1 .0 TA 19 RT ti EX 24 5- 9- 00 L 85 IG ve A 11 20 20 CA 10 73 11 11 RE DORA 0 SE MG PH PH AR E TA MA BL CY ET # 4 OX 00 09 09 0 30 5 TO 25 AD Ac YC 40 -0 -0 .0 TA 58 KI ti OD 60 6- 6- 00 L 64 NS ve ON 51 20 20 CA E- 20 11 11 RE TI AC 5 MO ET PH TH AM AR Y IN MA D OP CY HE # N 4 5- 32 5 AL 59 08 09 1 90 30 TO 48 OLGUIN Ac NH 76 -0 -0 .0 TA 48 RT ti AZ 23 8- 6- 00 L 59 IG ve OL 72 20 20 CA AM 10 11 11 RE DORA 1 4 SE PH PH MG AR E MA TA CY BL # ET 4 00 08 08 1 12 30 TO 48 OLGUIN Ac 59 -3 -3 0. TA 69 RT ti 10 0- 0- 00 L 28 IG ve 38 20 20 0 CA 50 11 11 RE DORA 5 SE PH PH AR E MA CY # 4 DO 00 08 08 5 60 30 TO 48 OLGUIN Ac XE 37 -3 -3 .0 TA 69 RT ti PI 84 0- 0- 00 L 29 IG ve N 25 20 20 CA 50 01 11 11 RE DORA 0 SE MG PH PH AR E CA MA PS CY UL # E 4 EN 60 08 08 0 20 3 CL 24 GR Ac DO 95 -2 -2 .0 IN 46 AY ti CE 10 9- 9- 00 IC 54 ve T 60 20 20 RO 5- 28 11 11 PH BE 32 5 AR RT 5 MA B TA CY BL ET LL C AL 59 08 08 1 90 30 TO 48 OLGUIN Ac NH 76 -0 -0 .0 TA 48 RT ti AZ 23 8- 8- 00 L 59 IG ve OL 72 20 20 CA AM 10 11 11 RE DORA 1 4 SE PH PH MG AR E MA TA CY BL # ET 4 AZ 00 08 08 0 6. 5 TO 48 OLGUIN Ac IT 78 -0 -0 00 TA 48 RT ti HR 11 8- 8- 0 L 64 IG ve OM 49 20 20 CA YC 66 11 11 RE DORA IN 8 SE PH PH 25 AR E 0 MA MG CY # TA 4 BL ET ZY 00 07 08 5 30 30 TO 48 OLGUIN Ac NH 00 -0 -0 .0 TA 19 RT ti EX 24 5- 1- 00 L 85 IG ve A 11 20 20 CA 10 73 11 11 RE DORA 0 SE MG PH PH AR E TA MA BL CY ET # 4 DO 00 07 08 5 60 30 TO 48 OLGUIN Ac XE 37 -0 -0 .0 TA 19 RT ti PI 84 5- 1- 00 L 87 IG ve N 25 20 20 CA 50 01 11 11 RE DORA 0 SE MG PH PH AR E CA MA PS CY UL # E 4 00 07 08 1 12 30 TO 48 OLGUIN Ac 59 -0 -0 0. TA 19 RT ti 10 5- 1- 00 L 88 IG ve 38 20 20 0 CA 50 11 11 RE DORA 5 SE PH PH AR E MA CY # 4 AL 59 07 07 0 90 30 TO 34 PA Ac NH 76 -1 -1 .0 TA 38 TE ti AZ 23 1- 1- 00 L 36 L ve OL 72 20 20 CA AM 10 11 11 RE RA 1 4 L PH MG AR MA TA CY BL # ET 3 ZY 00 07 07 5 30 30 TO 48 OLGUIN Ac NH 00 -0 -0 .0 TA 19 RT ti EX 24 5- 5- 00 L 85 IG ve A 11 20 20 CA 10 73 11 11 RE DORA 0 SE MG PH PH AR E TA MA BL CY ET # 4 DO 00 07 07 5 60 30 TO 48 OLGUIN Ac XE 37 -0 -0 .0 TA 19 RT ti PI 84 5- 5- 00 L 87 IG ve N 25 20 20 CA 50 01 11 11 RE DORA 0 SE MG PH PH AR E CA MA PS CY UL # E 4 00 07 07 1 12 30 TO 48 OLGUIN Ac 59 -0 -0 0. TA 19 RT ti 10 5- 5- 00 L 88 IG ve 38 20 20 0 CA 50 11 11 RE DORA 5 SE PH PH AR E MA CY # 4 AL 59 05 06 0 90 30 TO 34 PA Ac NH 76 -1 -1 .0 TA 22 TE ti AZ 23 6- 3- 00 L 68 L ve OL 72 20 20 CA AM 10 11 11 RE RA 1 4 L PH MG AR MA TA CY BL # ET 3 ZY 00 01 06 5 30 30 TO 46 OLGUIN Ac NH 00 -1 -0 .0 TA 53 RT ti EX 24 7- 6- 00 L 19 IG ve A 11 20 20 CA 10 73 11 11 RE DORA 0 SE MG PH PH AR E TA MA BL CY ET # 4 00 05 06 1 12 30 TO 47 QU Ac 59 -0 -0 0. TA 68 AT ti 10 9- 6- 00 L 39 KE ve 38 20 20 0 CA ME 50 11 11 RE YE 5 R PH BR AR AD MA FO CY RD # A 4 AL 59 05 05 1 90 30 TO 47 PA Ac NH 76 -1 -1 .0 TA 75 TE ti AZ 23 6- 6- 00 L 33 L ve OL 72 20 20 CA AM 10 11 11 RE RA 1 4 L PH MG AR MA TA CY BL # ET 4 00 05 05 1 12 30 TO 47 QU Ac 59 -0 -0 0. TA 68 AT ti 10 9- 9- 00 L 39 KE ve 38 20 20 0 CA ME 50 11 11 RE YE 5 R PH BR AR AD MA FO CY RD # A 4 00 05 05 0 53 28 TO 47 QU Ac 06 -0 -0 .0 TA 68 AT ti 90 9- 9- 00 L 40 KE ve 47 20 20 CA ME 19 11 11 RE YE 7 R PH BR AR AD MA FO CY RD # A 4 AZ 00 05 05 0 3. 3 TO 47 QU Ac IT 78 -0 -0 00 TA 68 AT ti HR 11 9- 9- 0 L 41 KE ve OM 94 20 20 CA ME YC 13 11 11 RE YE IN 3 R PH BR 50 AR AD 0 MA FO MG CY RD # A TA 4 BL ET NH 68 05 05 5 30 7 TO 47 QU Ac OM 38 -0 -0 .0 TA 68 AT ti ET 20 9- 9- 00 L 42 KE ve OLGUIN 04 20 20 CA ME ZI 11 11 11 RE YE NE 0 R PH BR 25 AR AD MA FO MG CY RD # A TA 4 BL ET DO 00 01 05 0 60 30 TO 46 QU Ac XE 37 -2 -0 .0 TA 59 AT ti PI 84 4- 6- 00 L 69 KE ve N 25 20 20 CA ME 50 01 11 11 RE YE 0 R MG PH BR AR AD CA MA FO PS CY RD UL # A E 4 ZY 00 01 04 5 30 30 TO 46 OLGUIN Ac NH 00 -1 -2 .0 TA 53 RT ti EX 24 7- 9- 00 L 19 IG ve A 11 20 20 CA 10 73 11 11 RE DORA 0 SE MG PH PH AR E TA MA BL CY ET # 4 AL 00 03 04 1 90 30 TO 47 PA Ac NH 78 -2 -1 .0 TA 22 TE ti AZ 11 2- 8- 00 L 54 L ve OL 07 20 20 CA AM 91 11 11 RE RA 1 0 L PH MG AR MA TA CY BL # ET 4 00 03 04 1 90 30 TO 47 PA Ac 59 -1 -1 .0 TA 17 TE ti 10 6- 2- 00 L 28 L ve 38 20 20 CA 50 11 11 RE RA 5 L PH AR MA CY # 4 FL 00 04 04 0 2. 5 TO 47 QU Ac UC 17 -1 -1 00 TA 41 AT ti ON 25 1- 1- 0 L 26 KE ve AZ 41 20 20 CA ME OL 21 11 11 RE YE E 1 R 15 PH BR 0 AR AD MG MA FO CY RD TA # A BL 4 ET DO 00 12 03 3 60 30 TO 33 ME Ac XE 37 -2 -2 .0 TA 16 LT ti PI 84 9- 2- 00 L 41 ON ve N 25 20 20 CA 50 00 10 11 RE GA 1 RY MG PH J AR CA MA PS CY UL # E 3 AL 00 03 03 1 90 30 TO 47 PA Ac NH 78 -2 -2 .0 TA 22 TE ti AZ 11 2- 2- 00 L 54 L ve OL 07 20 20 CA AM 91 11 11 RE RA 1 0 L PH MG AR MA TA CY BL # ET 4 ZY 00 01 03 5 30 30 TO 46 OLGUIN Ac NH 00 -1 -2 .0 TA 53 RT ti EX 24 7- 2- 00 L 19 IG ve A 11 20 20 CA 10 73 11 11 RE DORA 0 SE MG PH PH AR E TA MA BL CY ET # 4 MENDENHALL 00 03 03 0 14 7 TO 47 PA Ac LF 60 -1 -1 .0 TA 17 TE ti AM 35 6- 6- 00 L 26 L ve ET 78 20 20 CA HO 02 11 11 RE RA XA 1 L ZO PH LE AR -T MA MP CY # SS 4 TA BL ET 00 03 03 1 90 30 TO 47 PA Ac 59 -1 -1 .0 TA 17 TE ti 10 6- 6- 00 L 28 L ve 38 20 20 CA 50 11 11 RE RA 5 L PH AR MA CY # 4 AL 00 02 02 0 90 30 TO 46 ME Ac NH 78 -2 -2 .0 TA 94 LT ti AZ 11 3- 3- 00 L 44 ON ve OL 07 20 20 CA AM 91 11 11 RE GA 1 0 RY PH J MG AR MA TA CY BL # ET 4 NH 68 01 02 1 30 7 TO 46 OLGUIN Ac OM 38 -1 -1 .0 TA 53 RT ti ET 20 7- 4- 00 L 18 IG ve OLGUIN 04 20 20 CA ZI 11 11 11 RE DORA NE 0 SE PH PH 25 AR E MA MG CY # TA 4 BL ET ZY 00 01 02 5 30 30 TO 46 OLGUIN Ac NH 00 -1 -1 .0 TA 53 RT ti EX 24 7- 4- 00 L 19 IG ve A 11 20 20 CA 10 73 11 11 RE DORA 0 SE MG PH PH AR E TA MA BL CY ET # 4 00 01 02 1 90 30 TO 46 OLGUIN Ac 59 -1 -1 .0 TA 53 RT ti 10 7- 4- 00 L 21 IG ve 38 20 20 CA 50 11 11 RE DORA 5 SE PH PH AR E MA CY # 4 DO 00 12 02 3 60 30 TO 33 ME Ac XE 37 -2 -0 .0 TA 16 LT ti PI 84 9- 3- 00 L 41 ON ve N 25 20 20 CA 50 00 10 11 RE GA 1 RY MG PH J AR CA MA PS CY UL # E 3 AL 00 01 01 0 90 30 TO 46 ME Ac NH 78 -2 -2 .0 TA 62 LT ti AZ 11 6- 6- 00 L 29 ON ve OL 07 20 20 CA AM 91 11 11 RE GA 1 0 RY PH J MG AR MA TA CY BL # ET 4 NH 68 01 01 1 30 7 TO 46 OLGUIN Ac OM 38 -1 -1 .0 TA 53 RT ti ET 20 7- 7- 00 L 18 IG ve OLGUIN 04 20 20 CA ZI 11 11 11 RE DORA NE 0 SE PH PH 25 AR E MA MG CY # TA 4 BL ET ZY 00 01 01 5 30 30 TO 46 OLGUIN Ac NH 00 -1 -1 .0 TA 53 RT ti EX 24 7- 7- 00 L 19 IG ve A 11 20 20 CA 10 73 11 11 RE DORA 0 SE MG PH PH AR E TA MA BL CY ET # 4 00 01 01 1 90 30 TO 46 OLGUIN Ac 59 -1 -1 .0 TA 53 RT ti 10 7- 7- 00 L 21 IG ve 38 20 20 CA 50 11 11 RE DORA 5 SE PH PH AR E MA CY # 4 AL 00 12 12 0 90 30 TO 33 ME Ac NH 78 -2 -2 .0 TA 16 LT ti AZ 11 9- 9- 00 L 40 ON ve OL 07 20 20 CA AM 91 10 10 RE GA 1 0 RY PH J MG AR MA TA CY BL # ET 3 DO 00 12 12 3 60 30 TO 33 ME Ac XE 37 -2 -2 .0 TA 16 LT ti PI 84 9- 9- 00 L 41 ON ve N 25 20 20 CA 50 00 10 10 RE GA 1 RY MG PH J AR CA MA PS CY UL # E 3 00 12 12 0 90 30 TO 46 PA Ac 59 -2 -2 .0 TA 26 TE ti 10 0- 0- 00 L 14 L ve 38 20 20 CA 50 10 10 RE RA 5 L PH AR MA CY # 4 NH 68 12 12 0 30 8 TO 46 PA Ac OM 38 -2 -2 .0 TA 26 TE ti ET 20 0- 0- 00 L 15 L ve OLGUIN 04 20 20 CA ZI 11 10 10 RE RA NE 0 L PH 25 AR MA MG CY # TA 4 BL ET ZY 00 07 12 1 30 30 WA 76 QU Ac NH 00 -3 -1 .0 L- 06 AT ti EX 24 0- 8- 00 MA 64 KE ve A 11 20 20 RT 5 ME 10 73 10 10 YE 0 PH R MG AR BR MA AD TA CY FO BL # RD ET A 10 05 84 AL 00 11 11 0 90 30 TO 46 ME Ac NH 78 -3 -3 .0 TA 08 LT ti AZ 11 0- 0- 00 L 19 ON ve OL 07 20 20 CA AM 91 10 10 RE GA 1 0 RY PH J MG AR MA TA CY BL # ET 4 ER 45 07 11 5 46 30 TO 44 QU Ac YT 80 -1 -3 .6 TA 74 AT ti HR 20 4- 0- 00 L 83 KE ve OM 08 20 20 CA ME YC 38 10 10 RE YE IN 6 R -B PH BR EN AR AD ZO MA FO YL CY RD # A GE 4 L DO 00 10 11 5 60 30 TO 45 QU Ac XE 37 -2 -3 .0 TA 80 AT ti PI 84 7- 0- 00 L 57 KE ve N 25 20 20 CA ME 50 01 10 10 RE YE 0 R MG PH BR AR AD CA MA FO PS CY RD UL # A E 4 00 11 11 0 90 30 TO 46 OLGUIN Ac 59 -2 -2 .0 TA 02 RT ti 10 3- 3- 00 L 21 IG ve 38 20 20 CA 50 10 10 RE DORA 5 SE PH PH AR E MA CY # 4 NH 68 11 11 0 30 8 TO 46 OLGUIN Ac OM 38 -2 -2 .0 TA 02 RT ti ET 20 3- 3- 00 L 18 IG ve OLGUIN 04 20 20 CA ZI 11 10 10 RE DORA NE 0 SE PH PH 25 AR E MA MG CY # TA 4 BL ET ZY 00 07 11 5 30 30 TO 44 QU Ac NH 00 -1 -0 .0 TA 74 AT ti EX 24 4- 9- 00 L 84 KE ve A 11 20 20 CA ME 10 73 10 10 RE YE 0 R MG PH BR AR AD TA MA FO BL CY RD ET # A 4 AL 00 11 11 0 90 30 TO 45 QU Ac NH 78 -0 -0 .0 TA 81 AT ti AZ 11 3- 3- 00 L 80 KE ve OL 07 20 20 CA ME AM 91 10 10 RE YE 1 0 R PH BR MG AR AD MA FO TA CY RD BL # A ET 4 DO 00 10 11 5 60 30 TO 45 QU Ac XE 37 -2 -0 .0 TA 80 AT ti PI 84 7- 2- 00 L 57 KE ve N 25 20 20 CA ME 50 01 10 10 RE YE 0 R MG PH BR AR AD CA MA FO PS CY RD UL # A E 4 NH 68 10 10 0 30 8 TO 45 QU Ac OM 38 -2 -2 .0 TA 75 AT ti ET 20 7- 7- 00 L 10 KE ve OLGUIN 04 20 20 CA ME ZI 11 10 10 RE YE NE 0 R PH BR 25 AR AD MA FO MG CY RD # A TA 4 BL ET 00 10 10 0 90 30 TO 45 QU Ac 59 -2 -2 .0 TA 75 AT ti 10 7- 7- 00 L 12 KE ve 38 20 20 CA ME 50 10 10 RE YE 5 R PH BR AR AD MA FO CY RD # A 4 00 07 10 2 30 30 TO 44 QU Ac 14 -1 -1 .0 TA 74 AT ti 31 4- 4- 00 L 80 KE ve 25 20 20 CA ME 61 10 10 RE YE 0 R PH BR AR AD MA FO CY RD # A 4 NH 68 10 10 0 20 5 TO 32 OLGUIN Ac OM 38 -0 -0 .0 TA 66 RT ti ET 20 8- 8- 00 L 54 IG ve OLGUIN 04 20 20 CA ZI 11 10 10 RE DORA NE 0 SE PH PH 25 AR E MA MG CY # TA 3 BL ET ME 00 09 10 2 90 15 TO 45 QU Ac TH 14 -0 -0 .0 TA 19 AT ti OC 31 2- 8- 00 L 75 KE ve AR 29 20 20 CA ME BA 20 10 10 RE YE MO 5 R L PH BR 75 AR AD 0 MA FO MG CY RD # A TA 4 BL ET AL 00 10 10 0 90 30 TO 45 OLGUIN Ac NH 78 -0 -0 .0 TA 53 RT ti AZ 11 6- 6- 00 L 68 IG ve OL 07 20 20 CA AM 91 10 10 RE DOAR 1 0 SE PH PH MG AR E MA TA CY BL # ET 4 DO 00 06 09 1 60 30 TO 44 ME Ac XE 37 -2 -3 .0 TA 56 LT ti PI 84 2- 0- 00 L 39 ON ve N 25 20 20 CA 50 01 10 10 RE GA 0 RY MG PH J AR CA MA PS CY UL # E 4 00 09 09 0 90 30 TO 45 PA Ac 59 -3 -3 .0 TA 48 TE ti 10 0- 0- 00 L 83 L ve 38 20 20 CA 50 10 10 RE RA 5 L PH AR MA CY # 4 ZY 00 07 09 5 30 30 TO 44 QU Ac NH 00 -1 -3 .0 TA 74 AT ti EX 24 4- 0- 00 L 84 KE ve A 11 20 20 CA ME 10 73 10 10 RE YE 0 R MG PH BR AR AD TA MA FO BL CY RD ET # A 4 AL 00 09 09 0 60 30 TO 45 QU Ac NH 78 -0 -0 .0 TA 26 AT ti AZ 11 9- 9- 00 L 62 KE ve OL 07 20 20 CA ME AM 91 10 10 RE YE 1 0 R PH BR MG AR AD MA FO TA CY RD BL # A ET 4 ZY 00 07 09 5 30 30 TO 44 QU Ac NH 00 -1 -0 .0 TA 74 AT ti EX 24 4- 2- 00 L 84 KE ve A 11 20 20 CA ME 10 73 10 10 RE YE 0 R MG PH BR AR AD TA MA FO BL CY RD ET # A 4 PE 45 09 09 1 60 1 TO 45 QU Ac RM 80 -0 -0 .0 TA 19 AT ti ET 20 2- 2- 00 L 74 KE ve HR 26 20 20 CA ME IN 93 10 10 RE YE 7 R 5% PH BR AR AD CR MA FO EA CY RD M # A 4 ME 00 09 09 2 90 15 TO 45 QU Ac TH 14 -0 -0 .0 TA 19 AT ti OC 31 2- 2- 00 L 75 KE ve AR 29 20 20 CA ME BA 20 10 10 RE YE MO 5 R L PH BR 75 AR AD 0 MA FO MG CY RD # A TA 4 BL ET 00 09 09 0 90 30 TO 45 QU Ac 59 -0 -0 .0 TA 19 AT ti 10 2- 2- 00 L 76 KE ve 38 20 20 CA ME 50 10 10 RE YE 5 R PH BR AR AD MA FO CY RD # A 4 DO 00 07 09 5 60 30 TO 32 QU Ac XE 37 -3 -0 .0 TA 45 AT ti PI 84 0- 1- 00 L 25 KE ve N 25 20 20 CA ME 50 00 10 10 RE YE 1 R MG PH BR AR AD CA MA FO PS CY RD UL # A E 3 00 07 08 2 30 30 44 QU Ac 14 -1 -0 .0 74 AT ti 31 4- 9- 00 80 KE ve 25 20 20 ME 61 10 10 YE 0 R BR AD FO RD A AZ 00 08 08 0 3. 3 44 QU Ac IT 78 -0 -0 00 97 AT ti HR 11 9- 9- 0 17 KE ve OM 94 20 20 ME YC 13 10 10 YE IN 3 R BR 50 AD [address] A TA BL ET NH 60 08 08 0 24 6 44 QU Ac OM 43 -0 -0 0. 97 AT ti ET 20 9- 9- 00 19 KE ve OLGUIN 60 20 20 0 ME ZI 41 10 10 YE NE 6 R -D BR M AD SY FO RU RD P A FL 00 08 08 0 2. 5 44 QU Ac UC 17 -0 -0 00 94 AT ti ON 25 5- 5- 0 22 KE ve AZ 41 20 20 ME OL 21 10 10 YE E 1 R 15 BR [address] TA A BL ET 00 08 08 0 90 30 44 QU Ac 59 -0 -0 .0 94 AT ti 10 5- 5- 00 24 KE ve 38 20 20 ME 50 10 10 YE 5 R BR AD FO RD A ZY 00 07 07 5 30 30 44 QU Ac NH 00 -1 -3 .0 74 AT ti EX 24 4- 0- 00 84 KE ve A 11 20 20 ME 10 73 10 10 YE 0 R MG BR AD TA FO BL RD ET A DO 00 07 07 5 60 30 44 QU Ac XE 37 -1 -3 .0 74 AT ti PI 84 4- 0- 00 85 KE ve N 25 20 20 ME 50 01 10 10 YE 0 R MG BR AD CA FO PS RD UL A E HY 00 07 07 2 [address] 17 -1 -1 .0 74 AT ti OC 22 4- 4 00 80 KE ve HL 08 20 20 ME OR 38 10 10 YE OT 0 R HI BR AZ AD ID FO E RD 25 A MG TA B M[place] 00 07 07 0 20 10 44 QU Ac LF 60 -1 -1 .0 74 AT ti AM 35 4 4 00 81 KE ve ET 78 20 20 ME HO 12 10 10 YE XA 8 R ZO BR LE AD -T FO MP RD A DS TA BL ET MU 45 07 07 0 22 10 44 QU Ac PI 80 -1 -1 .0 74 AT ti RO 20 4 82 KE ve CI 11 20 20 ME N 22 10 10 YE 2% 2 R BR OI AD NT FO ME RD NT A ER 45 07 07 5 46 30 44 QU Ac YT 80 -1 -1 .6 74 AT ti HR 20 4 4 00 83 KE ve OM 08 20 20 ME YC 38 10 10 YE IN 6 R -B BR EN AD ZO FO YL RD A GE L 00 07 07 0 75 25 44 QU Ac 59 -1 -1 .0 74 AT ti 10 87 KE ve 38 20 20 ME 70 10 10 YE 5 R BR AD FO RD A NA 68 09 06 5 60 30 41 ME Ac NH 46 -2 -2 .0 91 LT ti OX 20 8- 2- 00 15 ON ve EN 19 20 20 00 09 10 GA 50 5 RY 0 J MG TA BL ET DO 00 06 06 1 60 30 44 ME Ac XE 37 -2 -2 .0 56 LT ti PI 84 2- 2- 00 39 ON ve N 25 20 20 50 01 10 10 GA 0 RY MG J CA PS UL E AL 00 06 06 0 60 30 44 ME Ac NH 78 -2 -2 .0 56 LT ti AZ 11 2- 2- 00 40 ON ve OL 07 20 20 AM 91 10 10 GA 1 0 RY J MG TA BL ET ZY 00 01 06 6 30 30 42 PA Ac NH 00 -0 -2 .0 93 TE ti EX 24 5- 2- 00 11 L ve A 11 20 20 10 73 10 10 RA 0 L MG TA BL ET 00 06 06 0 60 30 44 PA Ac 59 -2 -2 .0 56 TE ti 10 1- 2- 00 10 L ve 38 20 20 70 10 10 RA 5 L DO 00 09 05 2 60 30 41 ME Ac XE 37 -2 -2 .0 91 LT ti PI 84 8- 4 14 ON ve N 25 20 20 50 01 09 10 GA 0 RY MG J CA PS UL E AL 00 04 05 1 60 30 44 ME Ac NH 78 -2 -2 .0 04 LT ti AZ 11 03 ON ve OL 07 20 20 AM 91 10 10 GA 1 0 RY J MG TA BL ET 00 05 05 0 60 30 44 PA Ac 59 -2 -2 .0 30 TE ti 10 4 4- 00 29 L ve 38 20 20 70 10 10 RA 5 L GA 53 05 05 0 60 30 44 PA Ac BA 74 -2 -2 .0 30 TE ti PE 60 4- 4- 00 30 L ve NT 10 20 20 IN 10 10 10 RA 5 L 10 0 MG CA PS UL E MEND[place]ALL 00 04 04 0 20 10 44 ME Ac LF 60 -2 -2 .0 04 LT ti AM 35 7- 7 00 ON ve ET 78 20 20 HO 12 10 10 GA XA 8 RY ZO J LE -T MP DS TA BL ET CE 68 04 04 0 30 10 44 ME Ac PH 18 -2 -2 .0 04 LT ti AL 00 02 ON ve EX 12 20 20 IN 20 10 10 GA 2 RY 50 J 0 MG CA PS UL E AL 00 04 04 1 60 30 44 ME Ac NH 78 -2 -2 .0 04 LT ti AZ 11 7 7 03 ON ve OL 07 20 20 AM 91 10 10 GA 1 0 RY J MG TA BL ET 00 03 04 1 60 30 43 PA Ac 59 -2 -2 .0 77 TE ti 10 9- 4- 00 03 L ve 38 20 20 50 10 10 RA 5 L LO 45 09 04 2 30 30 41 ME Ac RA 80 -2 -2 .0 91 LT ti TA 20 8 3 13 ON ve DI 65 20 20 NE 08 09 10 GA 7 RY 10 J MG TA BL ET DO 00 09 04 2 60 30 41 ME Ac XE 37 -2 -2 .0 91 LT ti PI 84 8- 3- 00 14 ON ve N 25 20 20 50 01 09 10 GA 0 RY MG J CA PS UL E ZY 00 01 04 6 30 30 42 PA Ac NH 00 -0 -2 .0 93 TE ti EX 24 5- 3- 00 11 L ve A 11 20 20 10 73 10 10 RA 0 L MG TA BL ET 63 03 03 0 30 10 43 PA Ac 30 -2 -2 .0 77 TE ti 40 9- 9- 00 02 L ve 65 20 20 70 10 10 RA 5 L 00 03 03 1 60 30 43 PA Ac 59 -2 -2 .0 77 TE ti 10 9- 9- 00 03 L ve 38 20 20 50 10 10 RA 5 L AL 00 03 03 0 60 30 43 PA Ac NH 78 -2 -2 .0 77 TE ti AZ 11 5- 9- 00 06 L ve OL 07 20 20 AM 91 10 10 RA 1 0 L MG TA BL ET ZY 00 01 03 6 30 30 42 PA Ac NH 00 -0 -2 .0 93 TE ti EX 24 5- 7- 00 11 L ve A 11 20 20 10 73 10 10 RA 0 L MG TA BL ET DO 00 03 03 1 60 30 43 PA Ac XE 37 -0 -2 .0 50 TE ti PI 84 1- 7- 00 27 L ve N 25 20 20 50 00 10 10 RA 1 L MG CA PS UL E ZY 00 10 11 00 30 30 TO 30 ME Ac NH 00 -2 -0 .0 TA 87 LT ti EX 24 8- 5- 00 L 96 ON ve A 11 20 20 CA 10 73 09 09 RE GA 0 RY MG PH J AR TA MA BL CY ET # 3 00 09 10 00 60 30 TO 41 ME Ac 59 -1 -2 .0 TA 82 LT ti 10 7- 2- 00 L 14 ON ve 38 20 20 CA 50 09 09 RE GA 5 RY PH J AR MA CY # 4 NA 68 07 10 02 60 30 TO 41 ME Ac NH 46 -0 -2 .0 TA 39 LT ti OX 20 9- 2- 00 L 14 ON ve EN 19 20 20 CA 00 09 09 RE GA 50 5 RY 0 PH J MG AR MA TA CY BL # ET 4 AL 00 09 10 01 60 30 TO 41 ME Ac NH 78 -1 -2 .0 TA 77 LT ti AZ 11 4- 2- 00 L 75 ON ve OL 07 20 20 CA AM 91 09 09 RE GA 1 0 RY PH J MG AR MA TA CY BL # ET 4 SE 00 09 10 00 45 30 TO 41 ME Ac RO 31 -1 -0 .0 TA 82 LT ti QU 00 7- 8- 00 L 13 ON ve EL 27 20 20 CA 11 09 09 RE GA 10 0 RY 0 PH J MG AR MA TA CY BL # ET 4 DO 00 09 10 00 60 30 TO 41 ME Ac XE 37 -2 -0 .0 TA 91 LT ti PI 84 8- 8- 00 L 14 ON ve N 25 20 20 CA 50 00 09 09 RE GA 1 RY MG PH J AR CA MA PS CY UL # E 4 LO 51 09 10 00 30 30 TO 41 ME Ac RA 66 -2 -0 .0 TA 91 LT ti TA 00 8- 8- 00 L 13 ON ve DI 52 20 20 CA NE 60 09 09 RE GA 5 RY 10 PH J AR MG MA CY TA # BL 4 ET AZ 00 09 10 00 6. 5 TO 41 ME Ac IT 78 -2 -0 00 TA 91 LT ti HR 11 8- 8- 0 L 16 ON ve OM 49 20 20 CA YC 66 09 09 RE GA IN 8 RY PH J 25 AR 0 MA MG CY # TA 4 BL ET ZY 00 09 10 00 30 30 GR 93 LE Ac NH 00 -2 -0 .0 AN 80 HM ti EX 24 5- 8- 00 T 29 KU ve A 11 20 20 CO HL 10 [address] RA MG UG CH S EL TA WI J BL LL ET IA MS TO WN NH 68 09 10 00 12 3 CL 20 CL Ac OM 38 -2 -0 .0 IN 13 AR ti ET 20 4- 8- 00 IC 09 KE ve OLGUIN 04 20 20 ZI 10 09 09 PH DE NE 1 AR RE MA K 25 CY J MG TA BL ET 00 09 09 00 60 30 TO 41 ME Ac 59 -1 -2 .0 TA 76 LT ti 10 1- 4- 00 L 88 ON ve 38 20 20 CA 50 09 09 RE GA 5 RY PH J AR MA CY # 4 FL 00 09 09 00 3. 5 TO 41 ME Ac UC 17 -1 -2 00 TA 81 LT ti ON 25 7- 4- 0 L 93 ON ve AZ 41 20 20 CA OL 21 09 09 RE GA E 1 RY 15 PH J 0 AR MG MA CY TA # BL 4 ET NA 68 07 09 01 60 30 TO 41 ME Ac NH 46 -0 -2 .0 TA 39 LT ti OX 20 9- 4- 00 L 14 ON ve EN 19 20 20 CA 00 09 09 RE GA 50 5 RY 0 PH J MG AR MA TA CY BL # ET 4 DO 00 08 09 01 30 30 TO 41 ME Ac XE 37 -0 -2 .0 TA 39 LT ti PI 84 6- 4- 00 L 15 ON ve N 25 20 20 CA 50 00 09 09 RE GA 1 RY MG PH J AR CA MA PS CY UL # E 4 AL 00 09 09 00 60 30 TO 41 ME Ac NH 78 -1 -2 .0 TA 77 LT ti AZ 11 4- 4- 00 L 75 ON ve OL 07 20 20 CA AM 91 09 09 RE GA 1 0 RY PH J MG AR MA TA CY BL # ET 4 SE 00 08 09 01 60 30 TO 41 PA Ac RO 31 -1 -2 .0 TA 42 TE ti QU 00 1- 4- 00 L 37 L ve EL 27 20 20 CA 51 09 09 RE RA 25 0 L PH MG AR MA TA CY BL # ET 4 CI 60 08 09 01 15 30 TO 41 PA Ac TA 50 -1 -2 .0 TA 42 TE ti LO 52 1- 4- 00 L 36 L ve NH 51 20 20 CA AM 90 09 09 RE RA 1 L HB PH R AR 20 MA CY MG # 4 TA BL ET 00 08 08 00 60 30 TO 24 PA Ac 05 -1 -2 .0 TA 47 TE ti 44 1- 7- 00 L 59 L ve 65 20 20 CA 02 09 09 RE RA 9 L PH AR MA CY # 4 SE 00 08 08 00 60 30 TO 41 PA Ac RO 31 -1 -2 .0 TA 42 TE ti QU 00 1- 7- 00 L 37 L ve EL 27 20 20 CA 51 09 09 RE RA 25 0 L PH MG AR MA TA CY BL # ET 4 AL 00 07 08 00 60 30 TO 41 ME Ac NH 78 -0 -2 .0 TA 39 LT ti AZ 11 7- 7- 00 L 18 ON ve OL 07 20 20 CA AM 91 09 09 RE GA 1 0 RY PH J MG AR MA TA CY BL # ET 4 CI 60 08 08 00 15 30 TO 41 PA Ac TA 50 -1 -2 .0 TA 42 TE ti LO 52 1- 7- 00 L 36 L ve NH 51 20 20 CA AM 90 09 09 RE RA 1 L HB PH R AR 20 MA CY MG # 4 TA BL ET DO 00 08 08 00 30 30 TO 41 ME Ac XE 37 -0 -1 .0 TA 39 LT ti PI 84 6- 3- 00 L 15 ON ve N 25 20 20 CA 50 00 09 09 RE GA 1 RY MG PH J AR CA MA PS CY UL # E 4 NA 68 07 08 00 60 30 TO 41 ME Ac NH 46 -0 -1 .0 TA 39 LT ti OX 20 9- 3- 00 L 14 ON ve EN 19 20 20 CA 00 09 09 RE GA 50 5 RY 0 PH J MG AR MA TA CY BL # ET 4 00 07 08 00 60 30 TO 41 ME Ac 59 -0 -1 .0 TA 39 LT ti 10 9- 3- 00 L 16 ON ve 38 20 20 CA 50 09 09 RE GA 5 RY PH J AR MA CY # 4 ZY 00 07 08 00 30 30 TO 41 ME Ac NH 00 -0 -1 .0 TA 39 LT ti EX 24 7- 3- 00 L 13 ON ve A 11 20 20 CA 10 73 09 09 RE GA 0 RY MG PH J AR TA MA BL CY ET # 4 AL 00 07 07 00 60 30 TO 30 ME Ac NH 78 -0 -1 .0 TA 38 LT ti AZ 11 7- 6- 00 L 04 ON ve OL 07 20 20 CA AM 91 09 09 RE GA 1 0 RY PH J MG AR MA TA CY BL # ET 3 NA 68 07 07 00 60 30 TO 30 ME Ac NH 46 -0 -1 .0 TA 38 LT ti OX 20 9- 6- 00 L 74 ON ve EN 19 20 20 CA 00 09 09 RE GA 50 5 RY 0 PH J MG AR MA TA CY BL # ET 3 00 07 07 00 60 30 TO 30 ME Ac 59 -0 -1 .0 TA 38 LT ti 10 7- 6- 00 L 02 ON ve 38 20 20 CA 50 09 09 RE GA 1 RY PH J AR MA CY # 3 DO 00 07 07 00 30 30 TO 30 ME Ac XE 37 -0 -1 .0 TA 38 LT ti PI 84 9- 6- 00 L 73 ON ve N 25 20 20 CA 50 00 09 09 RE GA 1 RY MG PH J AR CA MA PS CY UL # E 3 ZY 00 05 07 01 30 30 TO 40 ME Ac NH 00 -1 -0 .0 TA 62 LT ti EX 24 8- 2- 00 L 04 ON ve A 11 20 20 CA 10 73 09 09 RE GA 0 RY MG PH J AR TA MA BL CY ET # 4 AL 00 05 07 01 60 30 TO 40 ME Ac NH 78 -1 -0 .0 TA 62 LT ti AZ 11 8- 2- 00 L 06 ON ve OL 07 20 20 CA AM 91 09 09 RE GA 1 0 RY PH J MG AR MA TA CY BL # ET 4 DO 00 05 07 01 30 30 TO 40 ME Ac XE 37 -1 -0 .0 TA 62 LT ti PI 84 8- 2- 00 L 03 ON ve N 25 20 20 CA 50 00 09 09 RE GA 1 RY MG PH J AR CA MA PS CY UL # E 4 00 06 07 00 12 2 RI 78 SO Ac 40 -2 -0 .0 TE 90 KA ti 60 2- 2- 00 86 N ve 35 20 20 AI BA 70 09 09 D BA 5 PH TU AR ND M E #3 O 93 8 NA 68 05 07 01 60 30 TO 40 ME Ac NH 46 -1 -0 .0 TA 62 LT ti OX 20 8- 2- 00 L 07 ON ve EN 19 20 20 CA 00 09 09 RE GA 50 5 RY 0 PH J MG AR MA TA CY BL # ET 4 00 05 07 01 60 30 TO 40 ME Ac 59 -1 -0 .0 TA 62 LT ti 10 8- 2- 00 L 02 ON ve 38 20 20 CA 50 09 09 RE GA 5 RY PH J AR MA CY # 4 00 06 07 00 20 4 TO 30 SW Ac 59 -1 -0 .0 TA 30 EE ti 10 8- 2- 00 L 49 NE ve 34 20 20 CA Y 90 09 09 RE GR 5 EG PH OR AR Y MA D CY # 3 AL 00 05 06 00 60 30 TO 40 ME Ac NH 78 -1 -0 .0 TA 62 LT ti AZ 11 8- 4- 00 L 06 ON ve OL 07 20 20 CA AM 91 09 09 RE GA 1 0 RY PH J MG AR MA TA CY BL # ET 4 HY 45 05 06 00 28 21 TO [address] 80 -1 -0 .0 TA 62 LT ti OC 20 8- 4- 00 L 08 ON ve OR 00 20 20 CA TI 40 09 09 RE GA SO 3 RY NE PH J AR 2. MA 5% CY # CR 4 EA M 00 05 06 00 60 30 TO 40 ME Ac 59 -1 -0 .0 TA 62 LT ti 10 8- 4- 00 L 02 ON ve 38 20 20 CA 50 09 09 RE GA 5 RY PH J AR MA CY # 4 ZY 00 05 06 00 30 30 TO 40 ME Ac NH 00 -1 -0 .0 TA 62 LT ti EX 24 8- 4- 00 L 04 ON ve A 11 20 20 CA 10 73 09 09 RE GA 0 RY MG PH J AR TA MA BL CY ET # 4 00 05 06 00 12 2 TO 30 BR Ac 59 -2 -0 .0 TA 19 OW ti 10 3- 4- 00 L 99 N ve 34 20 20 CA DORA 90 09 09 RE SE 5 PH PH J AR MA CY # 3 NA 68 05 06 00 60 30 TO 40 ME Ac NH 46 -1 -0 .0 TA 62 LT ti OX 20 8- 4- 00 L 07 ON ve EN 19 20 20 CA 00 09 09 RE GA 50 5 RY 0 PH J MG AR MA TA CY BL # ET 4 FL 55 05 06 00 30 30 TO 40 ME Ac UO 11 -1 -0 .0 TA 62 LT ti XE 10 8- 4- 00 L 05 ON ve TI 14 20 20 CA NE 90 09 09 RE GA 1 RY HC PH J L AR 40 MA CY MG # 4 CA PS UL E 00 05 06 00 20 4 TO 30 BR Ac 59 -2 -0 .0 TA 18 OW ti 10 0- 4- 00 L 65 N ve 54 20 20 CA DORA 00 09 09 RE SE 5 PH PH J AR MA CY # 3 DO 00 05 06 00 30 30 TO 40 ME Ac XE 37 -1 -0 .0 TA 62 LT ti PI 84 8- 4- 00 L 03 ON ve N 25 20 20 CA 50 00 09 09 RE GA 1 RY MG PH J AR CA MA PS CY UL # E 4 DO 00 12 05 05 30 30 TO 35 ME Ac XE 37 -0 -0 .0 TA 59 LT ti PI 84 9- 7- 00 L 54 ON ve N 25 20 20 CA 50 00 08 09 RE GA 1 RY MG PH J AR CA MA PS CY UL # E 4 00 03 05 01 60 30 TO 40 ME Ac 59 -2 -0 .0 TA 02 LT ti 10 6- 7- 00 L 38 ON ve 38 20 20 CA 50 09 09 RE GA 5 RY PH J AR MA CY # 4 DI 00 03 05 01 30 8 TO 40 ME Ac CY 59 -2 -0 .0 TA 02 LT ti CL 10 6- 7- 00 L 37 ON ve OM 79 20 20 CA IN 51 09 09 RE GA E 0 RY 20 PH J AR MG MA CY TA # BL 4 ET NA 68 12 05 05 60 30 TO 35 ME Ac NH 46 -0 -0 .0 TA 59 LT ti OX 20 9- 7- 00 L 50 ON ve EN 19 20 20 CA 00 08 09 RE GA 50 5 RY 0 PH J MG AR MA TA CY BL # ET 4 FL 55 12 05 03 30 30 TO 35 ME Ac UO 11 -0 -0 .0 TA 59 LT ti XE 10 9- 7- 00 L 51 ON ve TI 14 20 20 CA NE 90 08 09 RE GA 1 RY HC PH J L AR 40 MA CY MG # 4 CA PS UL E ZY 00 12 05 05 30 30 TO 35 ME Ac NH 00 -0 -0 .0 TA 59 LT ti EX 24 9- 7- 00 L 53 ON ve A 11 20 20 CA 10 73 08 09 RE GA 0 RY MG PH J AR TA MA BL CY ET # 4 AL 00 03 05 01 60 30 TO 40 ME Ac NH 78 -2 -0 .0 TA 02 LT ti AZ 11 6- 7- 00 L 39 ON ve OL 07 20 20 CA AM 91 09 09 RE GA 1 0 RY PH J MG AR MA TA CY BL # ET 4 AL 00 03 04 00 60 30 TO 40 ME Ac NH 78 -2 -0 .0 TA 02 LT ti AZ 11 6- 9- 00 L 39 ON ve OL 07 20 20 CA AM 91 09 09 RE GA 1 0 RY PH J MG AR MA TA CY BL # ET 4 DO 49 12 04 04 30 30 TO 35 ME Ac XE 88 -0 -0 .0 TA 59 LT ti PI 40 9- 9- 00 L 54 ON ve N 21 20 20 CA 50 90 08 09 RE GA 1 RY MG PH J AR CA MA PS CY UL # E 4 CI 00 03 04 00 14 7 RI 77 SW Ac NH 17 -2 -0 .0 TE 66 EE ti OF 25 3- 9- 00 12 NE ve LO 31 20 20 AI Y XA 26 09 09 D GR CI 0 PH EG N AR OR HC M Y L #3 D 50 93 0 8 MG TA B NA 68 12 04 04 60 30 TO 35 ME Ac NH 46 -0 -0 .0 TA 59 LT ti OX 20 9- 9- 00 L 50 ON ve EN 19 20 20 CA 00 08 09 RE GA 50 5 RY 0 PH J MG AR MA TA CY BL # ET 4 00 03 04 00 60 30 TO 40 ME Ac 59 -2 -0 .0 TA 02 LT ti 10 6- 9- 00 L 38 ON ve 38 20 20 CA 50 09 09 RE GA 5 RY PH J AR MA CY # 4 DI 00 03 04 00 30 8 TO 40 ME Ac CY 59 -2 -0 .0 TA 02 LT ti CL 10 6- 9- 00 L 37 ON ve OM 79 20 20 CA IN 51 09 09 RE GA E 0 RY 20 PH J AR MG MA CY TA # BL 4 ET ZY 00 12 04 04 30 30 TO 35 ME Ac NH 00 -0 -0 .0 TA 59 LT ti EX 24 9- 9- 00 L 53 ON ve A 11 20 20 CA 10 73 08 09 RE GA 0 RY MG PH J AR TA MA BL CY ET # 4 OX 00 03 04 00 15 2 RI 77 SW Ac YC 40 -2 -0 .0 TE 66 EE ti OD 60 3- 9- 00 15 NE ve ON 51 20 20 AI Y E- 20 09 09 D GR AC 1 PH EG ET AR OR AM M Y IN #3 D OP 93 HE 8 N 5- 32 5 FL 55 12 04 02 30 30 TO 35 ME Ac UO 11 -0 -0 .0 TA 59 LT ti XE 10 9- 9- 00 L 51 ON ve TI 14 20 20 CA NE 90 08 09 RE GA 1 RY HC PH J L AR 40 MA CY MG # 4 CA PS UL E MEND[place]ALL 00 12 03 00 20 10 TO 35 ME Ac LF 60 -0 -1 .0 TA 59 LT ti AM 35 9- 2- 00 L 59 ON ve ET 78 20 20 CA HO 12 08 09 RE GA XA 8 RY ZO PH J LE AR -T MA MP CY # DS 4 TA BL ET NA 68 12 03 03 60 30 TO 35 ME Ac NH 46 -0 -1 .0 TA 59 LT ti OX 20 9- 2- 00 L 50 ON ve EN 19 20 20 CA 00 08 09 RE GA 50 5 RY 0 PH J MG AR MA TA CY BL # ET 4 DO 49 12 03 03 30 30 TO 35 ME Ac XE 88 -0 -1 .0 TA 59 LT ti PI 40 9- 2- 00 L 54 ON ve N 21 20 20 CA 50 90 08 09 RE GA 1 RY MG PH J AR CA MA PS CY UL # E 4 AL 00 02 03 01 60 30 TO 36 ME Ac NH 78 -0 -1 .0 TA 24 LT ti AZ 11 3- 2- 00 L 62 ON ve OL 07 20 20 CA AM 91 09 09 RE GA 1 0 RY PH J MG AR MA TA CY BL # ET 4 ZY 00 12 03 03 30 30 TO 35 ME Ac NH 00 -0 -1 .0 TA 59 LT ti EX 24 9- 2- 00 L 53 ON ve A 11 20 20 CA 10 73 08 09 RE GA 0 RY MG PH J AR TA MA BL CY ET # 4 00 02 03 01 60 30 TO 36 ME Ac 59 -0 -1 .0 TA 24 LT ti 10 3- 2- 00 L 63 ON ve 38 20 20 CA 50 09 09 RE GA 5 RY PH J AR MA CY # 4 ZY 00 12 02 02 30 30 TO 35 ME Ac NH 00 -0 -1 .0 TA 59 LT ti EX 24 9- 2- 00 L 53 ON ve A 11 20 20 CA 10 73 08 09 RE GA 0 RY MG PH J AR TA MA BL CY ET # 4 AL 00 02 02 00 60 30 TO 36 ME Ac NH 78 -0 -1 .0 TA 24 LT ti AZ 11 3- 2- 00 L 62 ON ve OL 07 20 20 CA AM 91 09 09 RE GA 1 0 RY PH J MG AR MA TA CY BL # ET 4 DO 49 12 02 02 30 30 TO 35 ME Ac XE 88 -0 -1 .0 TA 59 LT ti PI 40 9- 2- 00 L 54 ON ve N 21 20 20 CA 50 90 08 09 RE GA 1 RY MG PH J AR CA MA PS CY UL # E 4 00 02 02 00 60 30 TO 36 ME Ac 59 -0 -1 .0 TA 24 LT ti 10 3- 2- 00 L 63 ON ve 38 20 20 CA 50 09 09 RE GA 5 RY PH J AR MA CY # 4 NA 68 12 02 02 60 30 TO 35 ME Ac NH 46 -0 -1 .0 TA 59 LT ti OX 20 9- 2- 00 L 50 ON ve EN 19 20 20 CA 00 08 09 RE GA 50 5 RY 0 PH J MG AR MA TA CY BL # ET 4 ZY 00 12 01 01 30 30 TO 35 ME Ac NH 00 -0 -1 .0 TA 59 LT ti EX 24 9- 5- 00 L 53 ON ve A 11 20 20 CA 10 73 08 09 RE GA 0 RY MG PH J AR TA MA BL CY ET # 4 FL 55 12 01 01 30 30 TO 35 ME Ac UO 11 -0 -1 .0 TA 59 LT ti XE 10 9- 5- 00 L 51 ON ve TI 14 20 20 CA NE 90 08 09 RE GA 1 RY HC PH J L AR 40 MA CY MG # 4 CA PS UL E DO 49 12 01 01 30 30 TO 35 ME Ac XE 88 -0 -1 .0 TA 59 LT ti PI 40 9- 5- 00 L 54 ON ve N 21 20 20 CA 50 90 08 09 RE GA 1 RY MG PH J AR CA MA PS CY UL # E 4 NA 68 12 01 01 60 30 TO 35 ME Ac NH 46 -0 -1 .0 TA 59 LT ti OX 20 9- 5- 00 L 50 ON ve EN 19 20 20 CA 00 08 09 RE GA 50 5 RY 0 PH J MG AR MA TA CY BL # ET 4 AL 00 12 01 01 60 30 TO 35 ME Ac NH 78 -0 -1 .0 TA 59 LT ti AZ 11 9- 5- 00 L 49 ON ve OL 07 20 20 CA AM 91 08 09 RE GA 1 0 RY PH J MG AR MA TA CY BL # ET 4 CI 00 12 01 00 14 7 CL 18 AD Ac NH 14 -3 -1 .0 IN 48 KI ti OF 39 1- 5- 00 IC 88 NS ve LO 92 20 20 XA 80 08 09 PH TI CI 1 AR MO N MA TH HC CY Y L D 50 0 MG TA B NA 68 12 12 00 60 30 TO 35 ME Ac NH 46 -0 -1 .0 TA 59 LT ti OX 20 9- 8- 00 L 50 ON ve EN 19 20 20 CA 00 08 08 RE GA 50 5 RY 0 PH J MG AR MA TA CY BL # ET 4 AL 59 12 12 00 60 30 TO 35 ME Ac NH 76 -0 -1 .0 TA 59 LT ti AZ 23 9- 8- 00 L 49 ON ve OL 72 20 20 CA AM 10 08 08 RE GA 1 4 RY PH J MG AR MA TA CY BL # ET 4 DO 49 12 12 00 30 30 TO 35 ME Ac XE 88 -0 -1 .0 TA 59 LT ti PI 40 9- 8- 00 L 54 ON ve N 21 20 20 CA 50 90 08 08 RE GA 1 RY MG PH J AR CA MA PS CY UL # E 4 FL 55 12 12 00 30 30 TO 35 ME Ac UO 11 -0 -1 .0 TA 59 LT ti XE 10 9- 8- 00 L 51 ON ve TI 14 20 20 CA NE 90 08 08 RE GA 1 RY HC PH J L AR 40 MA CY MG # 4 CA PS UL E MEND[place]ALL 00 12 12 00 20 10 TO 35 ME Ac LF 60 -0 -1 .0 TA 59 LT ti AM 35 9- 8- 00 L 59 ON ve ET 78 20 20 CA HO 12 08 08 RE GA XA 8 RY ZO PH J LE AR -T MA MP CY # DS 4 TA BL ET ZY 00 12 12 00 30 30 TO 35 ME Ac NH 00 -0 -1 .0 TA 59 LT ti EX 24 9- 8- 00 L 53 ON ve A 11 20 20 CA 10 73 08 08 RE GA 0 RY MG PH J AR TA MA BL CY ET # 4 CL 00 09 12 01 60 30 CL 17 ME Ac ON 22 -3 -0 .0 IN 93 LT ti AZ 83 0- 4- 00 IC 31 ON ve EP 00 20 20 AM 41 08 08 PH GA 1 1 AR RY MA J MG CY TA BL ET 00 11 12 00 30 5 CL 18 AD Ac 05 -2 -0 .0 IN 26 KI ti 44 5- 4- 00 IC 48 NS ve 39 20 20 22 08 08 PH TI 5 AR MO MA TH CY Y D NH 00 11 12 00 20 5 CL 18 AD Ac OM 78 -2 -0 .0 IN 26 KI ti ET 11 5- 4- 00 IC 50 NS ve OLGIUN 83 20 20 ZI 01 08 08 PH TI NE 0 AR MO MA TH 25 CY Y D MG TA BL ET 64 11 12 00 30 10 KR 62 AD Ac 37 -2 -0 .0 OG 23 KI ti 60 6- 4- 00 ER 58 NS ve 81 20 20 2 20 08 08 PH TI 1 AR MO M TH L- Y 35 D 9 00 11 12 00 30 5 CL 18 AD Ac 05 -2 -0 .0 IN 28 KI ti 44 8- 4- 00 IC 04 NS ve 39 20 20 22 08 08 PH TI 5 AR MO MA TH CY Y D NA 68 07 11 03 60 30 PH 33 ME Ac NH 46 -0 -0 .0 AR 76 LT ti OX 20 8- 7- 00 MC 87 ON ve EN 19 20 20 AR 00 08 08 E GA 50 5 CR RY 0 IT J MG TE ND TA EN BL N ET ZY 00 07 11 03 30 30 PH 33 ME Ac NH 00 -0 -0 .0 AR 76 LT ti EX 24 8 7 MC 89 ON ve A 11 20 20 AR 10 73 08 08 E GA 0 CR RY MG IT J TE TA ND BL EN ET N CL 00 09 10 00 60 30 CL 17 No Ac ON 22 -3 -2 .0 IN 93 t ti AZ 83 0- 3- 00 IC 31 Av ve EP 00 20 20 ai AM 41 08 08 PH la 1 1 AR bl MA e MG CY TA BL ET 00 09 10 00 14 7 CL 17 No Ac 09 -2 -2 .0 IN 93 t ti 30 9- 3- 00 IC 32 Av ve 85 20 20 ai 20 08 08 PH la 5 AR bl MA e CY DO 00 09 10 00 30 30 CL 17 No Ac XE 37 -0 -2 .0 IN 93 t ti PI 84 3 IC 30 Av ve N 25 20 20 ai 50 00 08 08 PH la 1 AR bl MG MA e CY CA PS UL E ZY 00 07 09 02 30 30 PH 33 ME Ac NH 00 -0 -2 .0 AR 76 LT ti EX 24 8 MC 89 ON ve A 11 20 20 AR 10 73 08 08 E GA 0 CR RY MG IT J TE TA ND BL EN ET N CL 00 08 09 01 60 30 PH 68 ME Ac ON 09 -1 -2 .0 AR 91 LT ti AZ 30 2 MC 2 ON ve EP 83 20 20 AR AM 31 08 08 E GA 1 0 CR RY IT J MG TE ND TA EN BL ET LL C NA 00 07 09 02 60 30 PH 33 ME Ac NH 09 -0 -2 .0 AR 76 LT ti OX 30 8 6 MC 87 ON ve EN 14 20 20 AR 90 08 08 E GA 50 5 CR RY 0 IT J MG TE ND TA EN BL N ET DO 00 09 09 00 30 30 PH 34 ME Ac XE 37 -0 -1 .0 AR 37 LT ti PI 84 3- 1- 00 MC 76 ON ve N 25 20 20 AR 50 00 08 08 E GA 1 CR RY MG IT J TE CA ND PS EN UL N E CL 00 08 08 00 60 30 PH 68 ME Ac ON 09 -1 -2 .0 AR 91 LT ti AZ 30 2 MC 2 ON ve EP 83 20 20 AR AM 31 08 08 E GA 1 0 CR RY IT J MG TE ND TA EN BL ET LL C CL 00 07 08 00 60 30 PH 33 ME Ac ON 09 -0 -1 .0 AR 76 LT ti AZ 30 MC 88 ON ve EP 83 20 20 AR AM 31 08 08 E GA 1 0 CR RY IT J MG TE ND TA EN BL N ET NA 00 07 08 01 60 30 PH 33 ME Ac NH 09 -0 -1 .0 AR 76 LT ti OX 30 MC 87 ON ve EN 14 20 20 AR 90 08 08 E GA 50 5 CR RY 0 IT J MG TE ND TA EN BL N ET FL 00 07 08 01 30 30 PH 33 ME Ac UO 78 -0 -1 .0 AR 76 LT ti XE 12 MC 91 ON ve TI 82 20 20 AR NE 40 08 08 E GA 1 CR RY HC IT J L TE 40 ND EN MG N CA PS UL E DO 00 08 08 00 14 7 RI 74 GA Ac XY 14 -0 -1 .0 TE 45 IN ti CY 33 7- 4 00 85 EY ve CL 14 20 20 AI IN 20 08 08 D WI E 5 PH CH HY AR AE CL M L AT #3 S E 93 10 8 0 MG CA P AC 00 08 08 00 8. 2 RI 74 GA Ac ET 09 -0 -1 00 TE 45 IN ti AM 30 7- 4- 0 84 EY ve IN 15 20 20 AI OP 01 08 08 D WI HE 0 PH CH N- AR AE CO M L D #3 S #3 93 8 TA BL ET ZY 00 07 08 01 30 30 PH 33 ME Ac NH 00 -0 -1 .0 AR 76 LT ti EX 24 MC 89 ON ve A 11 20 20 AR 10 73 08 08 E GA 0 CR RY MG IT J TE TA ND BL EN ET N FL 00 07 07 00 30 30 PH 33 ME Ac UO 78 -0 -1 .0 AR 76 LT ti XE 12 MC 91 ON ve TI 82 20 20 AR NE 40 08 08 E GA 1 CR RY HC IT J L TE 40 ND EN MG N CA PS UL E ZY 00 07 07 00 30 30 PH 33 ME Ac NH 00 -0 -1 .0 AR 76 LT ti EX 24 MC 89 ON ve A 11 20 20 AR 10 73 08 08 E GA 0 CR RY MG IT J TE TA ND BL EN ET N CL 00 07 07 00 60 30 CL 17 No Ac ON 09 -0 -1 .0 IN 37 t ti AZ 30 3- 7- 00 IC 53 Av ve EP 83 20 20 ai AM 31 08 08 PH la 1 0 AR bl MA e MG CY TA BL ET NA 00 07 07 00 60 30 PH 33 ME Ac NH 09 -0 -1 .0 AR 76 LT ti OX 30 8 7 MC 87 ON ve EN 14 20 20 AR 90 08 08 E GA 50 5 CR RY 0 IT J MG TE ND TA EN BL N ET SK 60 06 06 00 90 30 PH 33 ME Ac EL 79 -0 -1 .0 AR 42 LT ti AX 30 5- 2 MC 43 ON ve IN 13 20 20 AR 60 08 08 E GA 80 5 CR RY 0 IT J MG TE ND TA EN BL N ET 57 06 06 00 30 30 PH 33 ME Ac 66 -0 -1 .0 AR 42 LT ti 40 5- 2- MC 44 ON ve 51 20 20 AR 31 08 08 E GA 8 CR RY IT J TE ND EN N FL 50 06 06 00 30 30 PH 33 ME Ac UO 11 -0 -1 .0 AR 42 LT ti XE 10 5 2- MC 42 ON ve TI 64 20 20 AR NE 80 08 08 E GA 3 CR RY HC IT J L TE 20 ND EN MG N CA PS UL E CL 00 06 06 00 60 30 PH 33 ME Ac ON 09 -0 -1 .0 AR 42 LT ti AZ 30 5- 2- MC 46 ON ve EP 83 20 20 AR AM 31 08 08 E GA 1 0 CR RY IT J MG TE ND TA EN BL N ET ZY 00 04 05 01 30 30 KR 61 No Ac NH 00 -0 -0 .0 OG 92 t ti EX 24 4 8 00 ER 95 Av ve A 11 20 20 3 ai 10 73 08 08 PH la 0 AR bl MG M e L- TA 35 BL 9 ET DI 00 04 05 01 60 30 KR 44 No Ac AZ 37 -0 -0 .0 OG 91 t ti EP 80 4- 8- 00 ER 11 Av ve AM 47 20 20 6 ai 70 08 08 PH la 10 5 AR bl M e MG L- 35 TA 9 BL ET 00 04 05 00 7. 7 KR 60 No Ac 04 -2 -0 00 OG 13 t ti 51 9- 8- 0 ER 33 Av ve 52 20 20 6 ai 55 08 08 PH la 0 AR bl M e L- 31 5 ZY 00 02 04 00 30 30 RI 32 No Ac NH 00 -0 -1 .0 TE 76 t ti EX 24 7- 7- 00 93 Av ve A 11 20 20 AI ai 10 73 08 08 D la 0 PH bl MG AR e M TA #3 BL 94 ET 7 00 04 04 00 30 30 KR 61 No Ac 55 -0 -1 .0 OG 92 t ti 50 4- 0- 00 ER 95 Av ve 87 20 20 4 ai 70 08 08 PH la 2 AR bl M e L- 35 9 LO 60 04 04 00 30 30 KR 61 No Ac RA 50 -0 -1 .0 OG 92 t ti TA 50 4- 0- 00 ER 95 Av ve DI 14 20 20 1 ai NE 70 08 08 PH la 1 AR bl 10 M e L- MG 35 9 TA BL ET ZY 00 04 04 00 30 30 KR 61 No Ac NH 00 -0 -1 .0 OG 92 t ti EX 24 4- 0- 00 ER 95 Av ve A 11 20 20 3 ai 10 73 08 08 PH la 0 AR bl MG M e L- TA 35 BL 9 ET DI 00 04 04 00 60 30 KR 44 No Ac AZ 37 -0 -1 .0 OG 91 t ti EP 80 4- 0- 00 ER 11 Av ve AM 47 20 20 6 ai 70 08 08 PH la 10 5 AR bl M e MG L- 35 TA 9 BL ET 00 02 04 00 21 6 WA 67 No Ac 07 -2 -0 .0 LG 52 t ti 46 9- 7- 00 RE 57 Av ve 31 20 20 EN ai 61 08 08 la 3 #0 bl 55 e 74 00 02 04 00 12 2 RI 61 No Ac 40 -2 -0 .0 TE 26 t ti 60 6- 7- 00 93 Av ve 35 20 20 AI ai 70 08 08 D la 5 PH bl AR e M #3 34 7 00 02 04 00 60 30 RI 32 No Ac 40 -0 -0 .0 TE 76 t ti 60 7- 7- 00 91 Av ve 35 20 20 AI ai 80 08 08 D la 1 PH bl AR e M #3 94 7 DI 00 02 04 00 60 30 RI 32 No Ac AZ 17 -0 -0 .0 TE 76 t ti EP 23 7- 7- 00 92 Av ve AM 92 20 20 AI ai 77 08 08 D la 10 0 PH bl AR e MG M #3 TA 94 BL 7 ET 00 02 03 00 60 30 PH 31 No Ac 59 -0 -2 .0 AR 91 t ti 10 7- 6- 00 MC 81 Av ve 38 20 20 AR ai 50 08 08 E la 5 CR bl IT e TE ND EN N 00 02 03 00 12 2 RI 72 No Ac 40 -1 -2 .0 TE 02 t ti 60 5- 6- 00 25 Av ve 35 20 20 AI ai 90 08 08 D la 1 PH bl AR e M #3 93 8 63 02 03 00 20 10 PH 31 No Ac 30 -0 -2 .0 AR 91 t ti 40 7- 6- 00 MC 77 Av ve 75 20 20 AR ai 12 08 08 E la 0 CR bl IT e TE ND EN N 60 02 03 00 24 6 PH 31 No Ac 25 -0 -2 0. AR 91 t ti 80 7- 6- 00 MC 79 Av ve 23 20 20 0 AR ai 91 08 08 E la 6 CR bl IT e TE ND EN N 00 01 03 00 12 2 RI 71 No Ac 40 -1 -2 .0 TE 47 t ti 60 3- 5- 00 62 Av ve 35 20 20 AI ai 70 08 08 D la 5 PH bl AR e M #3 93 8 NH 00 01 03 00 12 2 RI 71 No Ac OM 60 -1 -2 .0 TE 47 t ti ET 35 3- 5- 00 61 Av ve OLGUIN 43 20 20 AI ai ZI 82 08 08 D la NE 1 PH bl AR e 25 M #3 MG 93 8 TA BL ET 00 01 03 00 60 30 PH 31 No Ac 59 -1 -2 .0 AR 52 t ti 10 0- 4- 00 MC 43 Av ve 38 20 20 AR ai 50 08 08 E la 5 CR bl IT e TE ND EN N DI 00 01 03 00 60 30 PH 31 No Ac AZ 17 -1 -2 .0 AR 52 t ti EP 23 0- 4- 00 MC 42 Av ve AM 92 20 20 AR ai 77 08 08 E la 10 0 CR bl IT e MG TE ND TA EN BL N ET Results Labs Lab Lab Date Result Refere Interp Status Commen Order Detail nces retati t Range on LIPASE (07-16-2014 19:00) LIPASE 12-30-2 127 U/L 23-300 complet 014 ed 19:00 COMPREHENSIVE METABOLIC PANEL (07-16-2014 19:00) ALKALIN 74 U/L 38-126 complet E 014 ed PHOSPHA 19:00 TASE ALANINE 31 U/L 13-69 complet 014 ed AMINOTR 19:00 ANSFERA SE/ALT ASPARTA 31 U/L 15-46 complet TE 014 ed AMINOTR 19:00 ANSFERA SE/AST BILIRUB 0.3 0.2-1.3 complet IN,TOTA 014 mg/dL ed L 19:00 ALBUMIN 4.5 3.5-5.0 complet 014 g/dL ed 19:00 TOTAL 8.9 6.3-8.2 complet PROTEIN 014 g/dL ed 19:00 CALCIUM 9.3 8.4-10. complet 014 mg/dL 5 ed 19:00 CARBON 23.0 22.0-30 complet DIOXIDE 014 mEq/L .0 ed 19:00 CHLORID 107 98-109 complet E 014 mEq/L ed 19:00 POTASSI 3.5 3.5-5.1 complet UM 014 mEq/L ed 19:00 SODIUM 142 137-145 complet 014 mEq/L ed 19:00 BUN/CRE 8.7 10.0-20 complet ATININE 014 .0 ed RATIO 19:00 GLOMERU > 60 >60 complet LAR 014 ed FILTRAT 19:00 ION RATE Comment: GFR is only calculated for patients over 18 years of age and Comment: does not allow for race. Units are mL/min/1.73 m2. CREATIN 0.92 0.70-1. complet INE 014 mg/dL 30 ed 19:00 BLOOD 8 mg/dL 7-25 complet UREA 014 ed NITROGE 19:00 N GLUCOSE 84 70-100 complet 014 mg/dL ed 19:00 CBC WITH AUTO DIFFERENTIAL (07-16-2014 19:00) BASO, 0.04 0.00-0. complet ABSOLUT 014 THOU/uL 20 ed E 19:00 EOS, 12-30-2 0.12 0.00-0. complet ABSOLUT 014 THOU/uL 40 ed E 19:00 MONO, 12-30-2 0.57 0.00-1. complet ABSOLUT 014 THOU/uL 00 ed E 19:00 LYMPH, 12-30-2 3.23 1.00-4. complet ABSOLUT 014 THOU/uL 00 ed E 19:00 NEUTROP 12-30-2 4.28 1.50-7. complet HIL, 014 THOU/uL 00 ed ABSOLUT 19:00 E BASO % 12-30-2 0.5 % complet 014 ed 19:00 EOS % 12-30-2 1.5 % complet 014 ed 19:00 MONO % 12-30-2 6.9 % complet 014 ed 19:00 LYMPH % 12-30-2 39.1 % complet 014 ed 19:00 NEUTROP 12-30-2 51.6 % complet HILS % 014 ed 19:00 IMM 1230-2 < 3 % <3 complet GRANULO 014 ed CYTE % 19:00 MEAN 1230-2 10.3 fL 8.6-11. complet PLATELE 014 7 ed T 19:00 VOLUME PLATELE 12-30-2 358 150-375 complet T COUNT 014 THOU/uL ed 19:00 RED 12-30-2 12.5 % 11.5-14 complet CELL 014 .5 ed DISTRIB 19:00 UTION WIDTH MEAN 30-2 33.8 31.0-36 complet CORPUSC 014 g/dL .0 ed ULAR 19:00 HGB CONC MEAN 1230-2 29.2 pg 26.0-33 complet CORPUSC 014 .0 ed ULAR 19:00 HEMOGLO BIN MEAN 12-30-2 86.3 fL 82.0-10 complet CORPUSC 014 0.0 ed ULAR 19:00 VOLUME HEMATOC 12-30-2 42.9 % 38.0-47 complet RIT 014 .0 ed 19:00 HEMOGLO 12-30-2 14.5 12.0-16 complet BIN 014 g/dL .0 ed 19:00 RED 12-30-2 4.97 4.20-5. complet BLOOD 014 MILL/uL 40 ed COUNT 19:00 WHITE 12-30-2 8.27 4.00-11 complet BLOOD 014 THOU/uL .00 ed COUNT 19:00 ,QUALITATIVE URINE (07-16-2014 18:33) SPECIFI 1.013 complet C 014 ed GRAVITY 18:33 PREGNAN 2 NEGATIV complet CY,QUAL 014 E ed ITATIVE 18:33 URINE Comment: Sensitivity: 20mIU/mL UA C\T\S IF INDICATED W/MICRO (07-16-2014 18:33) Specime CLEAN complet n Type 014 CATCH ed 18:33 MUCUS 07-16- TRACE complet 014 /lpf ed 18:33 BACTERI TRACE complet A 014 /hpf ed 18:33 SQUAMOU 5-15 complet S 014 /hpf ed EPITHEL 18:33 IAL CELLS WBC 07-16- 0-5 complet 014 /hpf ed 18:33 RBC 07-16- 0-2 complet 014 /hpf ed 18:33 LEUKOCY NEGATIV NEGATIV complet TE 014 E E ed ESTERAS 18:33 SANJIV/uL E NITRITE NEGATIV NEGATIV complet 014 E E ed 18:33 UROBILI NORMAL <2 complet NOGEN 014 mg/dL ed 18:33 PROTEIN NEGATIV NEGATIV complet 014 E mg/dL E ed 18:33 pH 7.0 5.0-9.0 complet 014 ed 18:33 BLOOD NEGATIV NEGATIV complet 014 E mg/dL E ed 18:33 SPECIFI 1.013 1.003-1 complet C 014 .035 ed GRAVITY 18:33 KETONE NEGATIV NEGATIV complet 014 E mg/dL E ed 18:33 BILIRUB NEGATIV NEGATIV complet IN 014 E mg/mL E ed 18:33 GLUCOSE 07-16-2 NEGATIV NEGATIV complet 014 E mg/dL E ed 18:33 APPEARA CLEAR complet NCE 014 ed 18:33 COLOR YELLOW complet 014 ed 18:33 THYROID STIMULATING HORMONE (06-20-2014 14:53) THYROID 1.18 0.46-4. complet 014 uIU/mL 68 ed STIMULA 14:53 TING HORMONE FREE T4 (06-20-2014 14:53) FREE T4 0.76 0.78-2. complet 014 ng/dL 19 ed 14:53 LIPID PROFILE (04-08-2014 15:02) Is the Y complet Patient 014 ed 15:02 Fasting CHOLEST 6.7 complet NELLY/HD 014 ed L RATIO 15:02 NON-HDL 176 complet 014 mg/dL ed CHOLEST 15:02 NELLY Comment: Non-HDL goal is equivalent to the LDL goal plus 30. VLDL 66 complet CHOLEST 014 mg/dL ed NELLY 15:02 LDL 110 <100 complet CHOLEST 014 mg/dL ed NELLY 15:02 Comment: Near or above Optimal (NCEP) HDL 31 >39 complet CHOLEST 014 mg/dL ed NELLY 15:02 Comment: Major risk for Heart Disease (NCEP) TRIGLYC 328 <150 complet ERIDES 014 mg/dL ed 15:02 CHOLEST 207 115-200 complet NELLY 014 mg/dL ed 15:02 Comment: Borderline High (NCEP) COMPREHENSIVE METABOLIC PANEL (04-08-2014 15:02) ALANINE 15 U/L 13-69 complet 014 ed AMINOTR 15:02 ANSFERA SE/ALT ASPARTA 27 U/L 15-46 complet TE 014 ed AMINOTR 15:02 ANSFERA SE/AST BILIRUB 0.3 0.2-1.3 complet IN,TOTA 014 mg/dL ed L 15:02 ALBUMIN 3.9 3.5-5.0 complet 014 g/dL ed 15:02 TOTAL 7.3 6.3-8.2 complet PROTEIN 014 g/dL ed 15:02 ALKALIN 75 U/L 38-126 complet E 014 ed PHOSPHA 15:02 TASE GLOMERU > 60 >60 complet LAR 014 ed FILTRAT 15:02 ION RATE Comment: GFR is only calculated for patients over 18 years of age and Comment: does not allow for race. Units are mL/min/1.73 m2. CREATIN 1.00 0.70-1. complet INE 014 mg/dL 30 ed 15:02 BLOOD 14 7-25 complet UREA 014 mg/dL ed NITROGE 15:02 N GLUCOSE 79 70-100 complet 014 mg/dL ed 15:02 BUN/CRE 14.0 10.0-20 complet ATININE 014 .0 ed RATIO 15:02 CALCIUM 9.9 8.4-10. complet 014 mg/dL 5 ed 15:02 CARBON 23.0 22.0-30 complet DIOXIDE 014 mmol/L .0 ed 15:02 CHLORID 109 98-109 complet E 014 mmol/L ed 15:02 POTASSI 4.0 3.5-5.1 complet UM 014 mmol/L ed 15:02 SODIUM 143 137-145 complet 014 mmol/L ed 15:02 CBC WITHOUT DIFFERENTIAL (04-08-2014 15:02) MEAN 33.8 31.0-36 complet CORPUSC 014 g/dL .0 ed ULAR 15:02 HGB CONC MEAN 29.5 pg 26.0-33 complet CORPUSC 014 .0 ed ULAR 15:02 HEMOGLO BIN MEAN 87.4 fL 82.0-10 complet CORPUSC 014 0.0 ed ULAR 15:02 VOLUME HEMATOC 38.8 % 38.0-47 complet RIT 014 .0 ed 15:02 HEMOGLO 13.1 12.0-16 complet BIN 014 g/dL .0 ed 15:02 RED 4.44 4.20-5. complet BLOOD 014 MILL/uL 40 ed COUNT 15:02 WHITE 7.76 4.00-11 complet BLOOD 014 THOU/uL .00 ed COUNT 15:02 MEAN 10.9 fL 8.6-11. complet PLATELE 014 7 ed T 15:02 VOLUME PLATELE 366 150-375 complet T COUNT 014 THOU/uL ed 15:02 RED 13.4 % 11.5-14 complet CELL 014 .5 ed DISTRIB 15:02 UTION WIDTH UA C\T\S IF INDICATED W/MICRO (04-02-2014 19:40) Comment: Comment repeat, prior specimen contaminated KETONE -16-2 NEGATIV NEGATIV complet 014 E mg/dL E ed 19:40 BILIRUB -16-2 NEGATIV NEGATIV complet IN 014 E mg/mL E ed 19:40 GLUCOSE -16-2 NEGATIV NEGATIV complet 014 E mg/dL E ed 19:40 APPEARA -16-2 CLEAR complet NCE 014 ed 19:40 COLOR -16-2 STRAW complet 014 ed 19:40 PROTEIN -16-2 NEGATIV NEGATIV complet 014 E mg/dL E ed 19:40 pH -16-2 6.0 5.0-9.0 complet 014 ed 19:40 BLOOD -16-2 NEGATIV NEGATIV complet 014 E mg/dL E ed 19:40 UROBILI -16-2 NORMAL <2 complet NOGEN 014 mg/dL ed 19:40 LEUKOCY -16-2 NEGATIV NEGATIV complet TE 014 E E ed ESTERAS 19:40 SANJIV/uL E NITRITE -16-2 NEGATIV NEGATIV complet 014 E E ed 19:40 BACTERI -16-2 NONE complet A 014 OBSERVE ed 19:40 D /hpf SQUAMOU -16-2 0-5 complet S 014 /hpf ed EPITHEL 19:40 IAL CELLS WBC -16-2 0-5 complet 014 /hpf ed 19:40 Specime -16-2 CLEAN complet n Type 014 CATCH ed 19:40 SPECIFI -16-2 1.009 1.003-1 complet C 014 .035 ed GRAVITY 19:40 RBC -16-2 0-2 complet 014 /hpf ed 19:40 URINE CULTURE (04-02-2014 18:34) URINE -16-2 SENSITI complet CULTURE 014 VITY ed REPORT 18:34 URINE -16-2 >100,00 complet CULTURE 014 0 ed REPORT 18:34 CFU/ml URINE -16-2 COLONY complet CULTURE 014 COUNT ed REPORT 18:34 URINE -16-2 LACSPLA complet CULTURE 014 CTOBACI ed REPORT 18:34 LLUS SPECIES URINE -16-2 SENSITI complet CULTURE 014 VITIES ed REPORT 18:34 NOT PERFORM ED UA C\T\S IF INDICATED W/MICRO (04-02-2014 18:34) Specime CLEAN complet n Type 014 CATCH ed 18:34 BACTERI 04-02- TRACE complet A 014 /hpf ed 18:34 CALCIUM 04-02-2 1+ /hpf complet 014 ed OXALATE 18:34 CRYSTAL S SQUAMOU 04-02- 15-30 complet S 014 /hpf ed EPITHEL 18:34 IAL CELLS WBC 04-02- 15-30 complet 014 /hpf ed 18:34 RBC -16-2 >30 complet 014 /hpf ed 18:34 LEUKOCY 04-02- 250 NEGATIV complet TE 014 SANJIV/uL E ed ESTERAS 18:34 E NITRITE 04-02- NEGATIV NEGATIV complet 014 E E ed 18:34 UROBILI NORMAL <2 complet NOGEN 014 mg/dL ed 18:34 PROTEIN 16- NEGATIV NEGATIV complet 014 E mg/dL E ed 18:34 pH 04-02- 6.0 5.0-9.0 complet 014 ed 18:34 BLOOD 16-2 >=1.0 NEGATIV complet 014 mg/dL E ed 18:34 SPECIFI 04-02- 1.014 1.003-1 complet C 014 .035 ed GRAVITY 18:34 KETONE 04-02-2 NEGATIV NEGATIV complet 014 E mg/dL E ed 18:34 BILIRUB 04-02- NEGATIV NEGATIV complet IN 014 E mg/mL E ed 18:34 GLUCOSE 16- NEGATIV NEGATIV complet 014 E mg/dL E ed 18:34 APPEARA 04-02- CLOUDY complet NCE 014 ed 18:34 COLOR 16- YELLOW complet 014 ed 18:34 Procedures Procedure DOS Code Location Performer Comment ALS A0398 [facility] ROUTINE 7 AMBULANCE AMBULANCE DISPOSABL SERVICE SERVICE E SUPPLIES GROUND A0425 [facility] MILEAGE 7 AMBULANCE AMBULANCE PER SERVICE SERVICE STATUTE MILE AMB A0427 [facility] SERVICE 7 AMBULANCE AMBULANCE ALS SERVICE SERVICE EMERGENCY TRANSPORT LEVEL [address] [facility] [address] [facility] DISCHARGE MANAGEMEN PHYSICIAN T > 30 S MIN SBSQ 40287 [facility] 7 KIRK CARE/DAY 25 PHYSICIAN MINUTES S INITIAL 89249 [facility] 7 DISEASE CARE/DAY CONSULTAN 50 TS I MINUTES GROUND A0425 DENNIS DENNIS MILEAGE 7 CO CO PER AMBULANCE AMBULANCE STATUTE TAXIN TAXIN MILE CRITICAL 94738 [facility] 7 EMERGENCY ILL/INJUR ED PHYSICIAN PATIENT S INIT 30-74 MIN AMBULANCE A0429 DENNIS DENNIS SERVICE 7 CO CO BLS AMBULANCE AMBULANCE EMERGENCY TAXIN TAXIN TRANSPORT CRITICAL 29736 [facility] 7 EMERGENCY ILL/INJUR ED PHYSICIAN PATIENT [place] [address] [place] [address] RADIOLOGY BRANDSER HEAD/BRAI 7 N W/O ASSOCIATE CONTRAST S OF [facility] MATERIAL COLLECTIO [address] N VENOUS 7 [facility]LOOD MARIO MARIO VENIPUNCT URE POTASSIUM 05150 [facility] SERUM 7 [facility] PLASMA/[place] [address] [facility] MAGNESIUM 7 [facility] [place] [address] VIJAY LINARES MAGNESIUM 7 [place] [address] VIJAY LINARES ABDOMEN & 7 [facility] PELVIS INC INC W/[place] [address] VIJAY LINARES LIPASE 7 [facility] INC INC BLOOD 19782 VIJAY LINARES COUNT 7 [facility] COMPLETE INC INC AUTO&AUTO DIFRNTL WBC ECG 49181 VIJAY GARCIA JR ROUTINE 7 [facility] W/LEAST P 12 LDS I&R ONLY URNLS DIP 73877 VIJAY LINARES 7 [facility] STICK/TAB INC INC [place] [address] VIJAY LINARES PHOSPHORU 7 [facility] S INC INC INORGANIC ECG 20503 VIJAY LINARES ROUTINE 7 [facility] ECG INC INC W/LEAST 12 LDS TRCG ONLY W/O [place] [address] VIJAY LINARES INFUSION 7 [facility] THERAPY/P INC INC ROPHYLAXI S /DX 1ST TO 1 HR SUSCEPTIB 94302 VIJAY LINARES LTY STDY 7 [facility] ANTIMICRB INC INC IAL MICRO/AGA R DILUTJ FINAL G9551 MIGUELITO JOHNS REPR ABD 7 MEDICAL IMAG STS IMAGING W/O ASS INCIDNT FND LES NTD: FINAL G9638 MIGUELITO JOHNS REPORTS 7 MEDICAL W/O DOC IMAGING 1/MORE ASS DOSE REDUCTION TECH CULTURE 99711 VIJAY LINARES BCT 7 [facility] ISOL&PRSM INC INC PTV ID ISOLATE EA URINE CULTURE 12969 VIJAY LINARES BACTERIAL 7 [facility] INC INC QUANTTATI VE COLONY COUNT URINE COMPREHEN 15331 VIJAY LINARES SIVE 7 [facility] [place] [address] VIJAY LINARES AMYLASE 7 [place] [address] VIJAY LINARES INFUSION 7 [facility] THER INC INC PROPH ADDL SEQUENTIA L TO 1 HR URINE 02786 VIJAY LINARES 7 [facility] TEST INC INC VISUAL COLOR CMPRSN METHS RADEX 31937 RADIOLOGY WALI FOOT 7 COMPLETE ASSOCIATE MINIMUM 3 S OF NOTH VIEWS RADEX 77632 RADIOLOGY BRANDSER ANKLE 7 COMPLETE ASSOCIATE MINIMUM 3 S OF NOTH VIEWS RADIOLOGI 29343 RADIOLOGY BRANDSER C EXAM 7 KNEE ASSOCIATE COMPLETE S OF NOTH 4/MORE VIEWS INCISION 62093 [facility] & 7 EMERGENCY DRAINAGE ABSCESS PHYSICIAN SIMPLE/SI S NGLE COMPREHEN [address] SIVE 7 [facility] METABOLIC [facility] EDGE E EDGE OBSERVATI 88979 [facility] WARNER ON CARE 6 MEDICAL DISCHARGE SERV FOUNDATIO MANAGEMEN N T CRITICAL 19805 [facility] 6 PHYSICIAN ILL/INJUR S, PLLC ED PATIENT INIT 30-74 MIN AMB A0427 [facility] SERVICE 6 AMBULANCE AMBULANCE ALS SERVICE SERVICE EMERGENCY TRANSPORT LEVEL 1 INITIAL 96264 GLADYS WARNER OBSERVATI 6 MEDICAL ON SERV CARE/DAY FOUNDATIO 70 N MINUTES GROUND A0425 ULISSES [facility] MILEAGE 6 AMBULANCE AMBULANCE PER SERVICE SERVICE STATUTE MILE RADEX 68443 GLADYS TRUE QASIM FOOT 6 MEDICAL COMPLETE SERV MINIMUM 3 FOUNDATIO VIEWS N RADIOLOGI 36218 [place] CK QASIM C 6 MEDICAL EXAMINATI SERV ON KNEE 3 FOUNDATIO VIEWS N MRI BRAIN 50098 GLADYS MEJIA BRAIN 6 MEDICAL STEM W/[place] [address] MIGUELITO JOHNS HEAD/BRAI 6 MEDICAL N W/[place] [address] [facility] CERVICAL 6 MEDICAL SPINE W/O IMAGING CONTRAST ASS MATERIAL ECG 14935 VIJAY MEYERS ROUTINE 6 [facility] W/LEAST P 12 LDS I&R ONLY BLOOD 64246 VIJAY LINARES COUNT 6 [facility] COMPLETE INC INC AUTO&AUTO DIFRNTL WBC URNLS DIP 97715 VIJAY LINARES 6 [facility] STICK/TAB INC INC [place] [address] VIJAY LINARES MAGNESIUM 6 [place] [address] VIJAY LINARES PHOSPHORU 6 [facility] [place] [address] VIJAY LINARES INFUSION 6 [facility] THERAPY/P INC INC ROPHYLAXI S /DX 1ST TO 1 HR THERAPEUT 61549 VIJAY LINARES IC 6 [facility] INJECTION INC INC IV PUSH EACH NEW DRUG URINE 29601 VIJAY LINARES 6 [facility] TEST INC INC VISUAL COLOR CMPRSN METHS COMPREHEN 93947 VIJAY LINARES SIVE 6 [facility] METABOLIC INC INC PANEL SUSCEPTIB 50091 VIJAY LINARES LTY STDY 6 [facility] ANTIMICRB INC INC IAL MICRO/AGA R DILUTJ CULTURE 35237 VIJAY LINARES BCT 6 [facility] ISOL&PRSM INC INC PTV ID ISOLATE EA URINE CULTURE 08972 VIJAY LINARES BACTERIAL 6 [facility] INC INC QUANTTATI VE COLONY COUNT URINE INJECTION J1040 ST [facility] KELSI 6 KIRK METHYLPRE DNISOLONE PHYSICIAN ACETATE S [address] SERUM 6 KIRK KIRK PLASMA/ MED CTR MED CTR OLE BLOOD FIREBRICK LAYER ST FIREBRICK [facility]AYER ST THERAPEUT [address] ST LOPEZ KELSI IC 6 KIRK PROPHYLAC TIC/DX PHYSICIAN INJECTION S SUBQ/[place] [address] MAGNESIUM 6 [facility] CTR MED CTR [address] [place] [address] VIJAY LINARES TROPONIN 6 [facility] QUANTITAT INC INC KATHIA CREATINE 64426 VIJAY LINARES KINASE 6 [facility] TOTAL INC INC BLOOD 72584 VIJAY LINARES COUNT 6 [facility] COMPLETE INC INC AUTO&AUTO DIFRNTL WBC ECG 00658 VIJAY GARCIA JR ROUTINE 6 [facility] W/LEAST P 12 LDS I&[place] [address] VIJAY LINARES HEAD/BRAI 6 [facility] N W/O INC INC CONTRAST MATERIAL RADIOLOGI 31233 VIJAY LINARES C 6 [facility] EXAMINATI INC INC ON CHEST S[place] FRONTAL ECG 56563 VIJYA LINARES ROUTINE 6 [facility] ECG INC INC W/LEAST 12 LDS TRCG ONLY W/O I&[place] [address] VIJAY LINARES INFUSION 6 [facility] THERAPY/P INC INC ROPHYLAXI S /DX 1ST TO 1 HR CULTURE 72103 VIJAY LINARES BACTERIAL 6 [facility] INC INC QUANTTATI VE COLONY COUNT URINE CULTURE 49602 VIJAY LINARES BCT 6 [facility] ISOL&PRSM INC INC PTV ID ISOLATE EA URINE AMB A0427 [facility] SERVICE 6 AMBULANCE AMBULANCE ALS SERVICE SERVICE EMERGENCY TRANSPORT LEVEL 1 DRUG TST G0477 VIJAY LINARES PRESUMP;C 6 [facility] PBL BEING INC INC READ DC OPT OBV ONLY DRUG TEST G0480 VIJAY LINARES DEFINITV [address] [facility] [address] [address] ID INC INC METH P DAY 1-7 DRUG CL GROUND A0425 [facility] 6 AMBULANCE AMBULANCE PER SERVICE SERVICE STATUTE MILE [facility] [address] VIJAY LINARES SIVE 6 [facility] METABOLIC INC INC PANEL SUSCEPTIB 46461 VIJAY LINARES LTY STDY 6 [facility] ANTIMICRB INC [place] IAL [place] [address] VIJAY LINARES INFUSION 6 [facility] THER INC INC PROPH ADDL SEQUENTIA L TO 1 HR CREATINE 44769 VIJAY LINARES KINASE MB 6 [facility] FRACTION INC INC ONLY URINE 27167 VIJAY LINARES 6 [facility] TEST INC INC VISUAL COLOR CMPRSN METHS UNCLASSIF J3490 VIJAY LINARES IED DRUGS 6 [facility] INC INC CULTURE [address] BACTERIAL 6 [facility] KIRK MARIO MARIO QUANTTATI VE COLONY COUNT URINE COLLECTIO [address] N VENOUS 6 [facility] BLOOD MARIO MARIO VENIPUNCT URE POTASSIUM [address] SERUM 6 [facility] PLASMA/WH MARIO MARIO OLE BLOOD SUSCEPTIB [address] LTY STDY 6 [facility] ANTIMICRB MED CTR MED CTR IAL FIREBRICK LAYER ST FIREBRICK LAYER ST MICRO/AGA R DILUTJ BLOOD [address] COUNT 6 [facility] COMPLETE MED CTR MED CTR AUTO&AUTO FIREBRICK LAYER ST [place] [address] MAGNESIUM 6 [facility] MED CTR [facility]REBRICK LAYER [facility] FI[address] ST CULTURE [address] BACTERIAL 6 [facility] MED CTR MED CTR QUANTTATI FIREBRICK LAYER ST FIREBRICK LAYER ST VE COLONY COUNT URINE CULTURE [address] BCT 6 [facility] ISOL&PRSM MED CTR MED CTR PTV ID FIREBRICK LAYER ST FIREBRICK LAYER ST ISOLATE EA URINE BASIC [address] ST [address] METABOLIC 6 [facility] PANEL MED CTR MED CTR CALCIUM FIREBRICK LAYER ST FIREBRICK [facility]AYER ST TOTAL URINE 76629 VIJAY LINARES 5 [facility] TEST INC INC VISUAL COLOR CMPRSN METHS CULTURE 08614 VIJAY VIJAY BACTERIAL 5 [facility] INC INC QUANTTATI VE COLONY COUNT URINE CYSTO 29435 VIJAY LINARES W/SIMPLE 5 [facility] REMOVAL INC INC STONE & STENT URNLS DIP 66709 VIJAY LINARES 5 [facility] STICK/TAB INC INC LET REAGENT AUTO MICROSCOP Y RADEX 78667 VIJAY LINARES ABDOMEN 1 5 [facility] INC INC ANTEROPOS TERIOR VIEW ANES 14938 COMMUNITY NEVAREZ ECHO TRURL 5 ANESTH FRAGMNTJ OF THE MANJ&/RMV BLUE L URETERAL CALCULUS INJECTION J0131 VIJAY LINARES 5 [facility] ACETAMINO INC INC PHEN 10 MG CYSTO/URE 76385 VIJAY ARCOS TERO 5 [facility] IPSY P &INDWELL STENT INSRT STENT C2617 VIJYA ZAMORANOON NON-COR 5 [facility] TEMPORARY [place] [address] VIJAY LINARES INFUSION 5 [facility] THERAPY INC INC PROPHYLAX IS/DX EA HOUR URINE 36875 VIJAY LINARES 5 [facility] TEST INC INC VISUAL COLOR CMPRSN METHS INTRO 63718 VIJAY LINARES URETERAL 5 [facility] CATH/STEN INC INC T PRQ RS&I INJECTION J2405 VIJAY LINARES 5 [facility] ONDANSETR INC INC ON HCL [place] [address] [place] [address] [facility] ABDOMEN & 5 MEDICAL BRIE PELVIS IMAGING W/O ASS CONTRAST MATERIAL BLOOD 03566 DANA Dempsey COUNT 5 [facility] TY COMPLETE [facility] AUTO&AUTO DIFRNTL WBC COLLECTIO 34071 KARSON Gordon VENOUS 5 PRIMARY BLOOD CARE VENIPUNCT URE BASIC 16637 DANA Dempsey METABOLIC 5 HAGGIN HAGGIN PANEL [facility] CALCIUM TOTAL CULTURE 52027 DANA Dempsey BACTERIAL 5 [facility]GIN HAGGIN [facility] QUANTTATI VE COLONY COUNT URINE INJECTION A9579 DANA Dempsey 5 HAGGIN [facility]GIN GADOLINIU [facility] M BASED MR CONTRAST NOS ML MRI BRAIN 88328 DANA Dempsey BRAIN 5 HAGGIN HAGGIN STEM W/O [facility] W/CONTRAS T MATERIAL MRI ORBIT 91642 [facility] & 5 RADIOLOGY NECK W/O & ASSOCIATE W/CONTRAS T MATRL URNLS DIP 37308 KARSON QUEEN 5 PRIMARY STICK/TAB CARE LET RGNT NON-AUTO W/O MICRSCP COMPREHEN 08123 DANA Dempsey SIVE 5 HAGGIN HAGGIN METABOLIC [place] [address] DANA Dempsey THYROID 5 HAGGIN HAGGIN STIMULATI [facility] [place] [place] [address] DANA Dempsey BLOOD/URI 5 HAGGIN HAGGIN C ACID [facility] CYANOCOBA 27274 DANA Dempsey LOLY 5 HAGGIN [facility]AGGIN VITAMIN [facility] B-12 THER 66406 DANA Dempsey PROPH/DX 5 HAGGIN HAGGIN NJX IV [facility] PUSH SINGLE/1S T SBST/[place] [address] [facility] ABDOMEN & 5 RADIOLOGY RADIOLOGY PELVIS W/O ASSOCIATE ASSOCIATE CONTRST 1/> BODY RE BASIC 38807 SURAJ SURAJ METABOLIC 5 HERNANDEZ HERNANDEZ PANEL REGIONAL REGIONAL CALCIUM ME ME TOTAL THER 02289 SURAJ SURAJ PROPH/DX 5 HERNANDEZ HERNANDEZ NJX IV REGIONAL REGIONAL PUSH ME ME SINGLE/1S T SBST/DRUG BLOOD 31140 SURAJ SURAJ COUNT 5 HERNANDEZ HERNANDEZ COMPLETE REGIONAL REGIONAL AUTO&[place] [address] SURAJ SURAJ ABDOMEN & 5 HERNANDEZ HERNANDEZ PELVIS REGIONAL REGIONAL W/O ME ME CONTRAST MATERIAL URNLS DIP 47704 SURAJ SURAJ 5 HERNANDEZ HERNANDEZ STICK/TAB REGIONAL REGIONAL LET ME ME REAGENT AUTO MICROSCOP Y ANES 17090 [facility] TRURL 5 ANESTHESI CRY FRAGMNTJ A MANJ&/RMV ASSOCIAT L URETERAL CALCULUS CYSTO 54433 [facility] TRAVIS W/INSERT 5 [facility] STENT PSC LEVEL I 21417 [facility] SURG 5 PATHOLOGY MOHAMUD PATHOLOGY ASSOCIAT GROSS EXAMINATI ON ONLY CYSTO 50758 MILY ROBLES W/URETERO 5 [facility] W/RMVL/MA PSC [place] STONES GROUND A0425 [facility] [employer] MILEAGE 5 EMERG EMERG PER MEDICALSE MEDICALSE STATUTE R R MILE INITIAL 16613 [facility] CLINIC [address] [place] [address] [facility] ABDOMEN & 5 RADIOLOGY PELVIS W/O ASSOCIATE CONTRAST MATERIAL ECG 09180 SURAJ HEMPEL ROUTINE 5 HERNANDEZ ANTONINO ECG REGG MED W/LEAST CT 12 LDS I&[place] [address] DANA Dempsey ABDOMEN & 5 KARSON HAGGIN PELVIS [facility] W/O CONTRAST MATERIAL URNLS DIP 53248 DANA Dempsey 5 HAGGIN HAGGIN STICK/TAB [facility] LET REAGENT AUTO MICROSCOP Y INJECTION J2175 DANA Dempsey 5 KARSON HAGGIN MEPERIDIN [facility] E HCL PER 100 MG THERAPEUT 21723 DANA Dempsey IC 5 HAGGIN HAGGIN PROPHYLAC [facility] TIC/DX INJECTION SUBQ/IM INJECTION J2550 DANA Dempsey 5 TRINAGIN HAGGIN PROMETHAZ [facility] INE HCL UP TO 50 MG INJECTION J1885 DANA Dempsey 5 HAGGIN HAGGIN KETOROLAC [facility] TROMETHAM INE PER 15 MG MRI [address] [facility] SPINAL 5 RADIOLOGY RUPA CANAL LUMBAR ASSOCIATE W/O CONTRAST MATERIAL RADEX 82375 [facility] RADIOLOGY LUMBOSACR AL ASSOCIATE MINIMUM 4 VIEWS THERAPEUT 21821 DANA Dempsey IC 5 HAGGIN HAGGIN INJECTION [facility] IV PUSH EACH NEW DRUG COLLECTIO 14619 DANA Dempsey N VENOUS 5 HAGGIN HAGGIN BLOOD [facility] VENIPUNCT URE THER 70720 DANA Dempsey PROPH/DX 5 HAGGIN TRIANGIN NJX IV [facility] PUSH SINGLE/1S T SBST/DRUG URNLS DIP 88955 DANA Dempsey 5 HAGGIN HAGGIN STICK/TAB [facility] LET REAGENT AUTO MICROSCOP Y BLOOD 63416 DANA Dempsey COUNT 5 HAGGIN HAGGIN COMPLETE [facility] AUTO&[place] [address] DANA Dempsey ABDOMEN & 5 HAGGIN [facility]AGGIN PELVIS [facility] W/O CONTRAST MATERIAL GONADOTRO 65701 DANA Dempsey PIN 5 HAGGIN [facility]AGGIN CHORIONIC [facility] QUALITATI VE INJECTION J1885 DANA Dempsey 5 HAGGIN [facility]AGGIN KETOROLAC [facility] TROMETHAM INE PER 15 MG UNCLASSIF J3490 DANA Dempsey IED DRUGS 5 HAGGIN HAGGIN [facility] COMPREHEN 74219 DANA Dempsey SIVE 5 HAGGIN [facility]AGGIN METABOLIC [facility] PANEL INJECTION J2405 DANA Dempsey 5 HAGGIN [facility]AGGIN ONDANSETR [facility] ON HCL PER 1 MG GROUND A0425 [employer] MILEAGE 5 EMERG EMERG PER MEDICALSE MEDICALSE STATUTE R R MILE AMBULANCE A0429 [employer] SERVICE 5 EMERG EMERG BLS MEDICALSE MEDICALSE EMERGENCY R R TRANSPORT THERAPEUT 04432 DANA Dempsey IC 5 HAGGIN HAGGIN PROPHYLAC [facility] TIC/DX INJECTION SUBQ/IM RADEX 66810 [facility] ABDOMEN 4 RADIOLOGY COMPL W/DCBTS&/ ASSOCIATE ERC VIEWS RADEX 78665 [facility] ANKLE 4 RADIOLOGY RUPA COMPLETE MINIMUM 3 ASSOCIATE VIEWS RADEX 21263 [facility] FOOT 4 RADIOLOGY RUPA COMPLETE MINIMUM 3 [place] [address] [place] FREE 4 [facility] [place] [address] [place] THYROID [facility] STIMULATI HOSP HOSP NG HORMONE TSH RADEX 22841 [facility] SPINE 4 KARIME LUMBOSACR FAMILY AL MEDICAL MINIMUM 4 VIEWS RADEX 95468 [facility] SMOOTH SPINE 4 RADIOLOGY ADA LUMBOSACR AL 2/3 ASSOCIATE VIEWS THERAPEUT 59551 SURAJ SURAJ IC 4 HERNANDEZ HERNANDEZ INJECTION REGIONAL REGIONAL [place] [address] SURAJ SURAJ INFUSION 4 HERNANDEZ HERNANDEZ THERAPY/P REGIONAL REGIONAL ROPHYLAXI ME ME S /DX 1ST TO 1 HR RADEX 64895 [facility] ABDOMEN 4 RADIOLOGY RUPA COMPL W/DCBTS&/ ASSOCIATE ERC VIEWS URNLS DIP 54344 SURAJ SURAJ 4 HERNANDEZ HERNANDEZ STICK/TAB REGIONAL REGIONAL LET [place] [address] [facility] ABDOMEN & 4 RADIOLOGY RUPA PELVIS W/O ASSOCIATE CONTRAST MATERIAL CULTURE 86461 SURAJ SURAJ BACTERIAL 4 HERNANDEZ HERNANDEZ REGIONAL REGIONAL QUANTTAT[place] [address] [place] TRANSVAGI 4 MEDICAL MEDICAL NAL SERV SERV FOUNDATIO FOUNDATIO US PELVIC [address] [place] MICHELLE 4 MEDICAL LEANNE NONOBSTET SERV ANTONINO IMAGE FOUNDATIO DCMTN LIMITED/F /U RADEX 63569 [facility] [place] WESTERFIE RIBS UNI 4 RADIOLOGY LD IV ALL W/POSTERO ANT CH MINIMUM 3 [place] [address] NICKELS NICKELS EXTREMITY 4 LATOYA LATOYA NON-VASC REAL-TIME IMG LMTD RADEX ABD 30098 NICKELS NICKELS COMPL 4 LATOYA LATOYA AQT ABD W/S/E/D VIEWS 1 VIEW CH WRIST L3908 ADVANCED ADVANCED HAND 3 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 ORTHOSIS IES INC IES INC EXT CONTROL COCK-UP PREFAB RADEX 91069 WALI WALI WRIST 3 TREVIN TREVIN COMPLETE MINIMUM 3 VIEWS AMB A0427 [place] SERVICE 3 MET[facility] OF METRO OF [facility] TRANSPORT LEVEL 1 GROUND A0425 [place] MILEAGE 3 MET[facility] OF [facility]RO OF [facility] MILE ALS A0398 [place] ROUTINE 3 METRO OF METRO OF [facility] SUPPLIES RADEX HIP 66730 [place] LERMA 3 BRA BRA UNILATERA L COMPLE[place] [address] [place] [address] UNIVERSIT MEZA ABDOMEN & 3 Y OF RAFAEL PELVIS [place] W/O I PHY CONTRAST MATERIAL RADEX 52375 BRANDSER BRANDSER SACRUM & 3 NOELLE NOELLE COCCYX MINIMUM 2 VIEWS ALS A0398 [place] ROUTINE 3 METRO OF [facility] OF [facility] SUPPLIES GROUND A0425 [place] MILEAGE 3 METRO OF METRO OF [facility] A0427 [place]URAL SERVICE 3 METRO OF METRO OF [facility] TRANSPORT LEVEL 1 RADEX 29703 RADIOLOGY LERMA ABDOMEN 1 2 BRA ASSOCIATE ANTEROPOS S OF [facility] [place] [address] RISON ALL RISON ALL DX/THER 2 SBST EPIDURAL/ SUBARACH LUMBAR/SA CRAL RINGERS J7120 RISON ALL RISON ALL LACTATE 2 INFUSION UP TO 1000 CC FLUOR 06017 RISON ALL RISON ALL NEEDLE/CA 2 TH SPINE/PAR ASPINAL DX/THER ADDON MODERATE 26909 RISON ALL RISON ALL SEDATJ 2 SAME PHYS/QHP 5/>YRS INIT 30 MIN LOCM Q9967 RISON ALL INES CAM 300-399 2 MG/ML IODINE CONCENTRA TION PER ML INJ J0702 RISON ALL RISON ALL BETAMETHA 2 SONE ACETATE & PHOSPHATE 3 MG INJ J0702 RISON ALL RISON ALL BETAMETHA 2 SONE ACETATE & PHOSPHATE 3 MG LOCM Q9967 RISON ALL RISON ALL 300-399 2 MG/ML IODINE CONCENTRA TION PER ML FLUOR 74415 RISON ALL RISON ALL NEEDLE/CA 2 TH SPINE/PAR ASPINAL DX/THER ADDON NJX 13403 RISON ALL RISON ALL DX/THER 2 SBST EPIDURAL/ SUBARACH LUMBAR/SA CRAL RADEX 12387 RADIOLOGY DOERGER FOOT 2 KIR COMPLETE ASSOCIATE MINIMUM 3 S OF NOTH VIEWS CRTCHS E0114 ADVANCED ADVANCED UNDARM 2 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 OTH THAN IES INC IES INC WOOD PAIR PAD TIP&HNDGR IP SURGICAL L3260 ADVANCED ADVANCED BOOT/SHOE 2 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 EACH IES INC IES INC THERAPEUT 73028 [facility] IC 2 RUPA RUPA PROPHYLAC TIC/DX INJECTION SUBQ/IM INJECTION J1040 CAT SPRINGKARINA CAT SPRINGIG 2 RUPA RUPA METHYLPRE DNISOLONE ACETATE 80 MG AMBULANCE A0429 RURAL/MET RURAL/MET SERVICE 1 RO RO BLS AMBULANCE AMBULANCE EMERGENCY TRANSPORT GROUND A0425 RURAL/MET RURAL/MET MILEAGE 1 RO RO PER AMBULANCE AMBULANCE STATUTE MILE INJECTION J0696 [facility] 1 KIRK GOODE CEFTRIAXO NE SODIUM PHYSICIAN PER 250 S MG THERAPEUT 38794 [facility] IC 1 KIRK GOODE PROPHYLAC TIC/DX PHYSICIAN INJECTION S SUBQ/IM GROUND A0425 [facility] MILEAGE 1 AMBULANCE AMBULANCE PER SERVICE SERVICE STATUTE MILE AMB A0427 [facility] SERVICE 1 AMBULANCE AMBULANCE ALS SERVICE SERVICE EMERGENCY TRANSPORT LEVEL 1 [place] [address] [facility] SURG 1 [place] PATHOLOGY [facility] CTR GROSS&JALYN ROSCOPIC EXAM IMHISTOCH 76617 [facility] EM/CYTCHM [address] ANTIBODY STAIN PROCEDURE ANESTHESI 67700 INDEPENDE COSTANTIN A EYE NOT 1 NT I CAR ANESTHESI OTHERWISE OLOGIST SPECIFIED CJP 39250 [facility] CEPELA RCNSTJ 1 [facility] CUL-DE-SA FOR C BUCCAL SIGHT, GRF/XTNSV REARRGMT ORBITOTOM 71676 [facility] CE[facility] Y W/O 1 CENTERS MAR BONE FLAP FOR SIGHT, W/REMOVAL LESION ANES 96917 ANESTHESI GRABMAYER TRURL 1 A RUPA JUVEMNTJ ASSOCIATE MANJ&/RMV S, PSC L URETERAL CALCULUS CYSTO 44958 NEW NEW W/INSERT 1 [facility]INIC STENT PSC PSC PROSTHETI L8699 NEW NEW C IMPLANT 1 [facility] NOT CLINIC CLINIC OTHERWISE PSC PSC SPECIFIED CYSTO 53494 NEW NEW W/URETERO 1 [facility] SCOPY [facility] CLINIC W/LITHOTR PSC PSC IPSY URNLS DIP 93378 VIJAY ARCOS 1 [facility] LET RGNT P NON-AUTO W/O MICRSCP CT ORBIT 79672 [facility] SELLA/POS 1 KIRK BRADLEY T MARIO MARIO FOSSA/EAR W/CONTRAS T MATRL XTRNL 65017 [facility] CEPELA OCULAR 1 CENTERS MAR PHOTOG FOR W/I&[place], [place] [address] VIJAY LINARES INFUSION 1 [facility] THERAPY/P INC INC ROPHYLAXI S /DX 1ST [place] [address] [place] [address] VIJAY LINARES ABDOMEN & 1 [facility] PELVIS INC INC W/O CONTRAST MATERIAL URNLS DIP 54672 VIJAY LINARES 1 [facility] STICK/TAB INC INC LET REAGENT AUTO MICROSCOP Y URINE 22929 VIJAY LINARES 1 [facility] TEST INC INC VISUAL COLOR CMPRSN METHS 3D 92826 VIJAY LINARES RENDERING 1 [facility] INC INC W/INTERP& POSTPROC DIFF WORK STATION DETERMINA 03190 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 TION 1 VLADIMIR GABY REFRACTIV E STATE RADIOLOGI 72436 VIJAY LINARES C 0 [facility] EXAMINATI INC INC ON PELVIS 1/2 VIEWS RADEX 72362 VIJAY LINARES SPINE 0 [facility] CERVICAL INC INC 6 OR MORE VIEWS RADEX 97726 VIJAY LINARES ANKLE 0 [facility] COMPLETE INC INC MINIMUM 3 VIEWS RADIOLOGI 84811 VIJAY LINARES C 0 [facility] EXAMINATI INC INC ON CHEST SINGLE VIEW FRONTAL RADEX 15868 VIJAY LINARES ELBOW 0 [facility] COMPLETE INC INC MINIMUM 3 VIEWS RADEX 45967 VIJAY LINARES HAND 0 [facility] MINIMUM 3 INC INC VIEWS THERAPEUT 09061 [facility] IC 0 KIRK URPA PROPHYLAC TIC/DX PHYSICIAN INJECTION S SUBQ/IM BLOOD [address] COUNT 0 KIRK BRADLEY COMPLETE AUTO&AUTO MEDICALCE MEDICALCE DIFRNTL NTER NTER WBC HEMOGLOBI [address] N 0 KIRK BRADLEY GLYCOSYLA BLAIRE A1C MEDICALCE MEDICALCE NTER NTER GROUND A0425 GALLATIN GALLATIN MILEAGE 0 CO KERRI CO KERRI PER COURT COURT STATUTE MILE AMBULANCE A0429 GALLATIN GALLATIN SERVICE 0 CO KERRI CO KERRI BLS [address] [place] [address] SURG 0 KIRK BRADLEY PATHOLOGY MEDICALCE MEDICALCE GROSS&JALYN NTER NTER ROSCOPIC EXAM ANTIBODY 12113 COMBINED COMBINED CHLAMYDIA 9 PHYSICIAN PHYSICIAN S LAB S LAB CUL BACT 30040 COMBINED COMBINED XCPT 9 PHYSICIAN PHYSICIAN URINE S LAB S LAB BLOOD/STO OL AEROBIC ISOL MRI 13941 RADIOLOGY AVI, SPINAL 9 HEAVEN G CANAL ASSOCIATE LUMBAR S PSC W/O CONTRAST MATERIAL SERVICES 44270 Christian FLORES PROVIDED 9 MEDICAL J OFFICE GROUP OTH/THN REG SCHED HOURS URINE 82242 VIJAY VIJAY 9 [facility] TEST INC INC VISUAL COLOR CMPRSN METHS RADEX 44415 VIJAY LINARES ANKLE 9 [facility] COMPLETE INC INC MINIMUM 3 VIEWS RADEX 87797 VIJAYMARCUS LINARES FOOT 9 [facility] COMPLETE INC INC MINIMUM 3 VIEWS RADEX 69222 KUNATH, COLGLAZIE SPINE 9 LOPEZ & R, LUMBOSACR TEMMING MAYCO AL 2/3 ER L VIEWS RADEX 98455 KUNATH, COLGLAZIE HAND 2 9 LOPEZ & R, VIEWS TEMLEO MAYCO ER L RADIOLOGI 66318 KUNATH, COLGLAZIE C 9 LOPEZ & R, EXAMINATI TEMLEO SOLOMONOPH ON FOOT 2 ER L VIEWS BLOOD 02535 SUMMDIAMOND Christian WEBB COUNT 9 MEDICAL J COMPLETE GROUP AUTO&AUTO DIFRNTL WBC RADEX 09905 OFFICE NATA, ABDOMEN 1 8 ISA Gonzales DIAGNOSTI ANTEROPOS C TERIOR SERVICES VIEW CYSTO 18545 COMMONWEA ARCOS, W/SIMPLE 8 LTH MAGY D REMOVAL UROLOGY STONE & PSC STENT URNLS DIP 05057 COMMONWEA ARCOS, 8 LTH MAGY D STICK/TAB UROLOGY LET RGNT PSC AUTO W/O MICROSCOP Y URNLS DIP 98107 TRUMANChristian HILTON 8 MEDICAL J STICK/TAB GROUP LET RGNT AUTO W/O MICROSCOP Y CULTURE [address] BACTERIAL 8 KIRK BRADLEY QUANTTATI MEDICALCE MEDICALCE VE COLONY NTER NTER COUNT URINE CYSTO 95281 COMMONWEA ARCOS, W/URETERO 8 LTH MAGY D SCOPY UROLOGY W/LITHOTR PSC IPSY ANES 47282 ANESTHESI KIRK, LITHOTRP 8 A SAM A [employer] ASSOCIATE SHOCK S, PSC WAVE W/O WATER BATH RADEX 93537 [facility] [place] TAMI, ABDOMEN 1 8 RADIOLOGY NUPUR M ANTEROPOS TERIOR VIEW URNLS DIP 64073 VIJAY LINARES 8 [facility] STICK/TAB INC INC LET REAGENT AUTO MICROSCOP Y BLOOD 56908 VIJAY LINARES COUNT 8 [facility] COMPLETE INC INC AUTO&AUTO DIFRNTL WBC SUSCEPTIB 93518 VIJAY LINARES LTY STDY 8 [facility] ANTIMICRB INC INC IAL MICRO/AGA R DILUTJ CULTURE 89722 VIJAY LINARES BACTERIAL 8 [facility] INC INC QUANTTATI VE COLONY COUNT URINE URINE 45549 VIJAY LINARES 8 [facility] TEST INC INC VISUAL COLOR CMPRSN METHS CT PELVIS 71934 VIJAY LINARES W/O 8 [facility] [place] [address] [place] [facility], ABDOMEN 8 MEDICAL PHIL P W/O IMAGING CONTRAST ASSOCIATE MATERIAL S 3D 46411 [place] PHYLLIS, RENDERING 8 MEDICAL PHIL P IMAGING W/INTERP& ASSOCIATE POSTPROC S DIFF WORK STATION BASIC 63844 VIJAY LINARES METABOLIC 8 [facility] PANEL INC INC CALCIUM TOTAL BASIC [address] [facility]OLIC 8 [facility] PANEL CALCIUM MEDICALCE [place] [address] ST BLOOD/URI 8 [facility] C ACID MEDICALCE MEDICALCE NTER NTER SEDIMENTA [address] ST TION RATE 8 [facility] RBC AUTOMATED [place] [address] ST THYROID 8 [facility] STIMULATI NG MEDICALCE MEDICALCE HORMONE NTER NTER TSH RHEUMATOI [address] D [facility] VE MEDICALCE MEDICALCE NTER NTER HEPATIC [address]0916 ST FUNCTION 8 KIRK [facility] PANEL MEDICALCE MEDICALCE NTER NTER COLLECTIO 99342 [facility] WEBB N VENOUS 8 MEDICAL J BLOOD GROUP VENIPUNCT URE CHOLESTER [address]1076 ST OL 8 [facility] SERUM/WHO LE BLOOD MEDICALCE MEDICALCE TOTAL NTER NTER BLOOD [address] COUNT 8 [facility] COMPLETE AUTO&AUTO MEDICALCE MEDICALCE DIFRNTL NTER NTER WBC RADEX [address] SPINE 8 [facility] AL 2/3 VIEWS RADEX 13104 RADIOLOGY KERMAN, SPINE 8 [facility] THORACIC ASSOCIATE 3 VIEWS S PSC INCISION 46675 ATA BECERRIL, & 8 EMERG DREUX DRAINAGE SERV ABSCESS ASSOC COMPLICAT ED/MULTIP LE AMBULANCE A0429 TRANSCARE TRANSCARE SERVICE 8 OF OF [facility] EMERGENCY , INC. , INC. TRANSPORT GROUND A0425 TRANSCARE TRANSCARE MILEAGE 8 OF OF [facility] , [employer]. , INC. MILE BASIC 46199 VIJAY LINARES METABOLIC 8 [facility] PANEL INC INC CALCIUM TOTAL URINE 78282 VIJAY LINARES 8 [facility] TEST INC [place] [address] VIJAY LINARES TRANSVAGI 8 [facility] NAL INC INC BLOOD 57601 VIJAY LINARES COUNT 8 [facility] COMPLETE INC INC AUTO&AUTO DIFRNTL WBC URNLS DIP 63371 VIJAY LINARES 8 [facility] STICK/TAB INC INC LET REAGENT AUTO MICROSCOP Y Encounters Encounter Start End Date Code Location Performer Type Date EMERGENCY 26004 FRANCO LALA DEPT 7 7 PHYSICIAN VISIT S, PLLC HIGH SEVERITY& THREAT FUNJ OFFICE 24525 [facility] OUTPATI 7 7 KIRK T VISIT 15 PHYSICIAN MINUTES S OFFICE 42008 [facility] OUTPATI 7 7 KIRK T VISIT 25 PHYSICIAN [address]ES S [facility] [facility] - 7 7 KIRK OUTPATIEN MARIO T EMERGENCY 67633 VIJAY 7 7 [facility] DEPARTMEN INC T VISIT HIGH/URGE NT SEVERITY HOSPITAL VIJAY - 7 7 [facility] OUTPATIEN INC T EMERGENCY 61336 MAISHA MURRIETA 7 7 EMERGENCY DEPARTMEN T VISIT PHYSICIAN HIGH/URGE S NT SEVERITY EMERGENCY 89856 MAISHA GUZMAN 7 7 EMERGENCY DEPARTMEN T VISIT PHYSICIAN HIGH/URGE S NT SEVERITY [facility]OSPITAL ST - 7 7 [facility] OUTPATIEN [facility]ER[facility] 07537 [facility] DEPT 6 6 MEDICAL VISIT SERV HIGH FOUNDATIO SEVERITY& N THREAT FUNCJ EMERGENCY 73304 FRANCO LALA 6 6 PHYSICIAN JALYN DEPARTMEN S, [facility] T VISIT HIGH/URGE NT SEVERITY EMERGENCY 34617 VIJAY 6 6 MEM H[facility]P DEPARTMEN [facility] T VISIT MODERATE SEVERITY HOSPITAL VIJAY - 6 6 [facility] OUTPATIEN [facility] HOSPITAL ST - 6 6 [facility] OUTPATIEN MED CTR T [facility] OFFICE 86709 [facility] OUTPATI 6 6 KIRK T VISIT 25 PHYSICIAN MINUTES S EMERGENCY 22786 VIJAY DEPT 6 6 MEM HOS[facility] VISIT INC HIGH SEVERITY& THREAT [facility] HOSPITAL VIJAY - 6 6 [facility] OUTPATIEN [facility] OFFICE 25970 KIDNEY KATIA OUTPATIEN 6 6 DISEASE HORACIO T NEW 60 CONSULTAN MINUTES [facility] - 6 6 [facility] OUTPATIEN [facility] OFFICE 08164 [facility] 6 KIRK II ALETHA T VISIT 15 PHYSICIAN MINUTES [facility] ST - 6 6 [facility] OUTPATIEN MED CTR T [facility] VIJAY - 5 5 MEM [facility] OUTPATIEN [facility] HOSPITAL VIJAY - 5 5 [facility] OUTPATIEN [facility] VIJAY - 5 5 [facility] OUTPATIEN [facility] VIJAY - 5 5 [facility] OUTPATIEN [facility] T OFFICE 99870 VIJAY ARCOS OUTPATIEN 5 5 [facility] ST[facility] T NEW 20 HOSPITAL MINUTES HOSPITAL DANA Dempsey - OTHER 5 5 [facility] OFFICE 78065 [facility] 5 5 [facility] T VISIT CARE 15 MINUTES HOSPITAL DANA Dempsey - 5 5 [facility] T OFFICE 10425 [facility] 5 5 PRIMARY T VISIT CARE 15 MINUTES HOSPITAL DANA B - OTHER 5 5 [facility] EMERGENCY 01434 [facility] GENE W DEPT 5 5 RIMMA VISIT EMERGENCY HIGH PHYS SEVERITY& THREAT [facility] DANA Dempsey - 5 5 [facility] OUTPATIEN [facility] T EMERGENCY 42640 SURAJ 5 5 [facility] REGIONAL T VISIT ME MODERATE SEVERITY EMERGENCY 94597 [facility] DEPT 5 5 RIMMA VISIT EMERGENCY HIGH PHYS SEVERITY& THREAT [facility] SURAJ - 5 5 HERNANDEZ OUTPATIEN REGIONAL T [facility] DANA Dempsey - 5 5 [facility] OUT[facility]IEN [facility] T EMERGENCY 91160 DANA Dempsey 5 5 [facility] DEPARTMEN MEM HOS T VISIT MODERATE SEVERITY EMERGENCY 39147 [facility] DEPT 5 5 RIMMA SANTOSH VISIT EMERGENCY HIGH PHYS SEVERITY& THREAT [facility] DANA Dempsey - 5 5 [facility] T EMERGENCY 53815 DANA Dempsey 5 5 [facility] DEPARTMEN MEM HOS T VISIT MODERATE SEVERITY EMERGENCY 95250 [facility] FISH 5 5 RIMMA MAGDALENA DEPARTMEN EMERGENCY T VISIT PHYS MODERATE SEVERITY HOSPITAL DANA Dempsey - 5 5 [facility]EN [facility] T EMERGENCY 44484 [facility] [place] 5 5 RIMMA DEPARTMEN EMERGENCY T VISIT PHYS HIGH/URGE NT SEVERITY EMERGENCY 98170 [facility] WELLS SHA 5 5 RIMMA DEPARTMEN EMERGENCY T VISIT PHYS HIGH/URGE NT SEVERITY EMERGENCY 38064 DANA Dempsey 5 5 [facility] DEPARTMEN [facility] H[facility] T VISIT MODERATE SEVERITY HOSPITAL DANA B - 5 5 [facility]EN [facility] T EMERGENCY 83521 [facility] GREISER DEPT 5 5 RIMMA ALETHA VISIT EMERGENCY HIGH PHYS SEVERITY& THREAT [facility] DA[facility] B - 5 5 [facility] T EMERGENCY 03260 DANA Dempsey 5 5 [facility] DEPARTMEN [facility] H[facility] T VISIT HIGH/URGE NT SEVERITY HOSPITAL DANA Dempsey - 5 5 [facility] T EMERGENCY 82297 [facility] 5 5 RIMMA DEPARTMEN EMERGENCY T VISIT PHYS MODERATE SEVERITY EMERGENCY 26911 [facility] DEPT 4 4 RIMMA VISIT EMERGENCY HIGH PHYS SEVERITY& THREAT [facility] SUR[facility] - 4 4 [facility] ME EMERGENCY 91373 SURAJ 4 4 [facility] REG[facility]AL T VISIT ME HIGH/URGE NT SEVERITY EMERGENCY 83295 [facility] 4 4 RIMMA DEPARTMEN EMERGENCY T VISIT PHYS HIGH/URGE NT SEVERITY HOSPITAL [facility] - 4 4 [facility] T EMERGENCY 63197 [facility] 4 4 [facility] DEPARTMEN HOSP T VISIT MODERATE SEVERITY HOSPITAL FORT - 4 4 [facility]P T EMERGENCY 81171 [facility] DE[facility] 4 4 RIMMA N RUPA VISIT EMERGENCY HIGH PHYS SEVERITY& THREAT [facility] EMERGENCY 13296 SURAJ 4 4 [facility] REGIONAL T VISIT ME MODERATE SEVERITY HOSPITAL SURAJ - 4 4 HERNANDEZ OUTPATIEN REGIONAL T ME OFFICE 76694 [facility] GRIFFIN OUTPATIEN 4 4 KARIME T VISIT FAMILY 15 MEDICAL MINUTES EMERGENCY 32742 [facility] ITZEL 4 4 RIMMA PENG DEPARTMEN EMERGENCY T VISIT SERV HIGH/URGE NT SEVERITY EMERGENCY 58474 [facility] PASCALE CASTRO 4 4 RIMMA DEPARTMEN EMERGENCY T VISIT PHYS MODERATE SEVERITY OFFICE 04450 [facility] GRI[facility] OUTPATIEN 4 4 KARIME T VISIT FAMILY 15 MEDICAL MINUTES EMERGENCY 73571 [facility] JEF REEDER 4 4 RIMMA DEPARTMEN EMERGENCY T VISIT PHYS MODERATE SEVERITY OFFICE 79838 [facility] GRIFFIN OUTPATIEN 4 4 KARIME T NEW 30 FAMILY MINUTES MEDICAL EMERGENCY 21189 SURAJ DEPT 4 4 HERNANDEZ VISIT REGIONAL HIGH ME SEVERITY& THREAT [facility] SURAJ - 4 [facility] 92289 [facility] PARI TANGF DEPT 4 4 RIMMA VISIT EMERGENCY HIGH PHYSI SEVERITY& THREAT FUN EMERGENCY 12962 FAM GOODE DEPT 4 4 VISIT HIGH SEVERITY& THREAT FUN EMERGENCY 97447 [facility] 4 4 DEPARTMEN T VISIT HIGH/URGE NT SEVERITY [facility]OSPITAL [facility] 98736 [facility] 4 4 Y [facility] T VISIT HIGH/URGE NT SEVERITY OFFICE 24228 REILLY GROVER OUTPATIEN 3 3 ANTONINO ANTONINO T NEW 30 MINUTES EMERGENCY 74904 MADINA Justin 3 3 HOWIE DENISE DEPARTMEN T VISIT MODERATE SEVERITY EMERGENCY 84187 TIMMY CHRIS 3 3 DEPARTMEN T VISIT MODERATE SEVERITY EMERGENCY 25760 KEITA Anastacia KEITA Anastacia 3 3 DEPARTMEN T VISIT HIGH/URGE NT SEVERITY EMERGENCY 65735 RONNA FRIEND 3 3 MARK FLORES DEPARTMEN T VISIT MODERATE SEVERITY EMERGENCY 43543 MEGAN GUZMAN 3 3 LATOYA LATOYA DEPARTMEN T VISIT HIGH/URGE NT SEVERITY EMERGENCY 45444 DENISE HAMMONDY 3 3 GRE GRE DEPARTMEN T VISIT MODERATE SEVERITY EMERGENCY 02284 SELPH SCO SELPH SCO 3 3 DEPARTMEN T VISIT HIGH/URGE NT SEVERITY EMERGENCY 89033 TIMMY ARIES TIMMY CHRIS 3 3 DEPARTMEN T VISIT HIGH/URGE NT SEVERITY OFFICE 08325 RISON ALL RISON ALL OUTPATIEN 2 2 T VISIT 10 MINUTES OFFICE 60855 PARIS PARIS OUTPATIEN 2 2 JALYN JALYN T VISIT 10 MINUTES OFFICE 88758 [facility] PARIS OUTPATIEN 2 2 JALYN JALYN T VISIT [address] [facility] 2 [facility] T VISIT MODERATE SEVERITY OFFICE 36363 RISON ALL RISON ALL OUTPATIEN 2 2 T VISIT [address] [facility] 2 2 [facility]IS[facility] HIGH/URGE NT SEVERITY OFFICE 35977 CASEY VIR CASEY VIR OUTPATIEN 2 2 T VISIT 25 MINUTES EMERGENCY 53235 GANIM HUGH GANIM HUGH 2 2 DEPARTMEN T VISIT MODERATE SEVERITY OFFICE 87704 MELISSA HARTIG OUTPATIEN 2 2 RUPA RUPA T VISIT 25 MINUTES OFFICE 58642 RISON ALL RISON ALL OUTPATIEN 2 2 T NEW 30 MINUTES OFFICE 90253 HARTKARINA HARTIG OUTPATIEN 2 2 RUPA RUPA T VISIT 15 MINUTES OFFICE 97098 HARTKARINA HARTKARINA OUTPATIEN 2 2 RUPA RUPA T VISIT [address] [facility] 1 1 [facility] T VISIT PRACTICE MODERATE SEVERITY OFFICE 35068 CASEY VIR CASEY VIR OUTPATIEN 1 1 T VISIT [address] [facility] OUTPATIEN 1 1 [facility] JOHNS T VISIT 15 PHYSICIAN MINUTES S OFFICE 7[address] [facility] 1 [facility] JOHNS T VISIT 15 PHYSICIAN MINUTES [facility] VIJAY - 1 1 [facility] T EMERGENC[facility] 80766 ATA MELO 1 1 EMERGENCY III [facility] SERVICES T VISIT MODERATE SEVERITY EMERGENCY 37558 VIJAY 1 1 [facility] [place] T VISIT LIMITED/M INOR PROB OFFICE 08125 [facility] CEPELA OUTPATIEN 1 1 [facility]AT [facility] VISIT FOR 25 SIGHT, MINUTES OFFICE 81307 VIJAY ARCOS OUTPATIEN 1 1 [facility] [address] [facility] 51392 [facility] CEPELA [facility]PATIEN 1 1 RETREAT [facility] NEW 30 FOR MINUTES SIGHT, HOSPITAL VIJAY - 1 1 [facility] T EMERGENCY 78012 VIJAY 1 1 [facility] INC T VISIT HIGH/URGE NT SEVERITY EMERGENCY 12469 ATA FROST DEPT 1 1 EMERGENCY VISIT SERVICES HIGH SEVERITY& THREAT FUNCJ OFFICE 33323 [facility] OUTPATIEN 1 1 [facility] RUPA T VISIT 15 PHYSICIAN MINUTES S OFFICE 42501 SHEWMAKER SHEWMAKER OUTPATIEN 1 1 VLADIMIR GRIFFIN T NEW [address] [facility]ARTIG OUTPATIEN 0 0 [facility] RUPA T VISIT 15 PHYSICIAN MINUTES S EMERGENCY 90464 ATA MAOEY DEPT 0 0 EMERGENCY JALYN VISIT SERVICES HIGH SEVERITY& THREAT FUNCJ EMERGENCY 49646 [facility]JAY 0 0 [facility] DEPART[facility] T VISIT LOW/MODER SEVERITY [facility]OSPITAL [facility]JAY - 0 0 [facility] OUTPAT[facility] T OFFICE [address] [facility]ARTIG OUTPATIEN 0 0 [facility] RUPA T VISIT 15 PHYSICIAN MINUTES S EMERGENCY 83957 ST PERAZZO 0 0 [facility] GIOVANY DEPARTMEN MED CTR T VISIT MODERATE SEVERITY OFFICE 03746 [facility] OUTPATIEN 0 0 [facility] RUPA T VISIT 15 PHYSICIAN MINUTES S OFFICE 04523 [facility] OUTPATIEN 0 0 [facility] RUPA T VISIT 15 PHYSICIAN MINUTES S OFFICE [address] [facility] QUATKEMEY OUTPATIEN 0 0 [facility] ER BRA T VISIT 25 PHYSICIAN MINUTES S OFFICE 918[address] [facility] OUTPATIEN 0 0 [facility] ER BRA T VISIT [address] - 0 0 [facility] OUTPATIEN T MEDICALCE NTER OFFICE [facility]64 [facility] OUTPATIEN 0 0 [facility] ER BRA T VISIT 15 PHYSICIAN MINUTES S OFFICE 76920 [facility] OUTPATIEN 0 0 [facility] ER, T VISIT CRANE 25 PHYSICIAN A MINUTES [facility] - 0 0 [facility] OUTPATIEN T MEDICALCE NTER OFFICE 77567 [facility] 9 [facility] T VISIT CLINIC OF 25 MINUTES [facility] OFFICE 51203 Christian FLORES 9 9 MEDICAL J T VISIT GROUP [address] - 9 9 [facility] T EMERGENCY 71322 ATA RANDALL, 9 9 EMERGENCY MOHAN DEPARTMEN SERVICES O T VISIT MODERATE ASSOCIATE SEVERITY S EMERGENCY 39996 VIJAY 9 9 [facility] DEPARTMEN INC T VISIT LOW/MODER SEVERITY HOSPITAL VIJYA - 9 9 [facility] INC T EMERGENCY 44140 [facility], 9 9 [facility] H[facility]/URGE NT SEVERITY EMERGENCY 42361 [facility], 9 9 KIRK [place] DEPARTMEN MED CTR T VISIT HIGH/URGE NT SEVERITY OFFICE 38771 FAITH DASILVA CONSULTAT 9 9 LOPEZ & RKHOI/ESTAB ER L PATIENT 60 MIN OFFICE 45752 Christian FLORES 9 9 MEDICAL J T VISIT GROUP 15 MINUTES OFFICE 60819 Christian FLORES 9 9 MEDICAL J T VISIT GROUP 25 MINUTES EMERGENCY 48229 WALKER, DEPT 9 9 KIRK [place] VISIT MED CTR HIGH SEVERITY& THREAT FUNCJ OFFICE 59808 Christian FLORES 9 9 MEDICAL J T VISIT GROUP [address] - 8 8 [facility] NTER OFFICE 66005 [facility]O DAS 8 8 [place] [place] T VISIT UROLOGY 25 PSC MINUTES EMERGENCY 98537 VIJAY 8 8 [facility] DEPARTMEN INC T VISIT HIGH/URGE NT SEVERITY HOSPITAL VIJAY - 8 8 [facility]EN [facility] HOSPITAL VIJAY - 8 8 [facility]PAT[facility]EN [facility] T EMERGENCY 92192 MARK ANTHONY VARELA, 8 8 [facility] CORPORATI T VISIT ON HIGH/URGE NT SEVERITY EMERGENCY 94581 VIJAY 8 8 [facility] LOW/MODER SEVERITY [facility] - 8 8 [facility] T OFFICE 22447 [facility] J T VISIT GROUP 25 MINUTES HOSPITAL - 8 8 [facility] MEDICALCE [facility] - 8 8 [facility] T OFFICE 47264 Christian FL[facility] 8 MEDICAL J T VISIT GROUP 25 MINUTES EMERGENCY 58476 ATA BECERRIL, 8 8 [facility]ERG [facility] SERV T VISIT ASSOC HIGH/URGE NT SEVERITY EMERGENCY 52244 ATA YAO, 8 8 EMERG SONY D DEPARTMEN SERV T VISIT ASSOC HIGH/URGE NT SEVERITY OFFICE 46118 WOMEN'S ROLANDO VU 8 8 HEALTH QUYEN J T VISIT CLINIC OF 15 MINUTES [facility] EMERGENCY 23359 VIJAY 8 8 [facility] DEPARTMEN INC T VISIT HIGH/URGE NT SEVERITY HOSPITAL VIJAY - 8 8 [facility]
--- OUTSIDE RECORDS SUMMARY | 2017-05-09 02:15 | External Medical Summary Rpt | CCD ---
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 35 ME Ac FL 00 -0 -1 .0 TA 59 LT [...] 01 60 30 TO 35 ME Ac FL 46 -0 -1 .0 TA 59 LT ti OX 20 9- 5- 00 L 50 ON ve EN 19 20 20 CA 00 08 09 RE GA 50 5 RY 0 PH J MG AR MA TA CY BL # ET 4 AL 00 12 01 01 60 30 TO 35 ME Ac FL 78 -0 -1 .0 TA 59 LT ti AZ 11 9- 5- 00 L 49 ON ve OL 07 20 20 CA AM 91 08 09 RE GA 1 0 RY PH J MG AR MA TA CY BL # ET 4 CI 00 12 01 00 14 7 CL 18 AD Ac FL 14 -3 -1 .0 IN 48 KI ti OF 39 1- 5- 00 IC 88 NS ve LO 92 20 20 XA 80 08 09 PH TI CI 1 AR MO N MA TH HC CY Y L D 50 0 MG TA B NA 68 12 12 00 60 30 TO 35 ME Ac FL 46 -0 -1 .0 TA 59 LT ti OX 20 9- 8- 00 L 50 ON ve EN 19 20 20 CA 00 08 08 RE GA 50 5 RY 0 PH J MG AR MA TA CY BL # ET 4 AL 59 12 12 00 60 30 TO 35 ME Ac FL 76 -0 -1 .0 TA 59 LT [...] 00 30 30 TO 35 ME Ac FL 00 -0 -1 .0 TA 59 LT [...] AR MO MA TH CY Y D FL 00 11 12 00 20 5 CL 18 AD Ac OM 78 -2 -0 .0 IN 26 KI ti ET 11 5- 4- 00 IC 50 NS ve OLGUIN 83 20 20 ZI 01 08 08 [...] 03 60 30 PH 33 ME Ac FL 46 -0 -0 .0 AR 76 LT ti OX 20 8- 7- 00 MC 87 ON ve EN 19 20 20 AR 00 08 08 E GA 50 5 CR RY 0 IT J MG TE ND TA EN BL N ET ZY 00 07 11 03 30 30 PH 33 ME Ac FL 00 -0 -0 .0 AR 76 LT [...] 02 30 30 PH 33 ME Ac FL 00 -0 -2 .0 AR 76 LT [...] 02 60 30 PH 33 ME Ac FL 09 -0 -2 .0 AR 76 LT [...] 01 60 30 PH 33 ME Ac FL 09 -0 -1 .0 AR 76 LT [...] 20 AI IN 20 08 08 D NM E 5 PH CH HY AR AE CL M L AT #3 S E 93 10 8 0 MG CA P AC 00 08 08 00 8. 2 RI 74 GA Ac ET 09 -0 -1 00 TE 45 IN ti AM 30 7- 4- 0 84 EY ve IN 15 20 20 AI OP 01 08 08 D NM HE 0 PH CH N- AR AE CO M L D #3 S #3 93 8 TA BL ET ZY 00 07 08 01 30 30 PH 33 ME Ac FL 00 -0 -1 .0 AR 76 LT [...] 00 30 30 PH 33 ME Ac FL 00 -0 -1 .0 AR 76 LT [...] 00 60 30 PH 33 ME Ac FL 09 -0 -1 .0 AR 76 LT [...] 01 30 30 KR 61 No Ac FL 00 -0 -0 .0 OG 92 t [...] 00 30 30 RI 32 No Ac FL 00 -0 -1 .0 TE 76 t [...] 00 30 30 KR 61 No Ac FL 00 -0 -1 .0 OG 92 t [...] bl AR e M #3 93 8 FL 00 01 03 00 12 2 RI [...] ALS SERVICE SERVICE EMERGENCY TRANSPORT LEVEL 1 [facility] [address] [facility] DISCHARGE MANAGEMEN PHYSICIAN T > 30 S MIN SBSQ 18819 [facility] 7 KIRK CARE/DAY 25 PHYSICIAN MINUTES S INITIAL 30947 [facility] 7 DISEASE CARE/DAY CONSULTAN 50 TS I MINUTES GROUND A0425 DENNIS DENNIS MILEAGE 7 CO CO PER AMBULANCE AMBULANCE STATUTE TAXIN TAXIN MILE CRITICAL 83267 [facility] 7 EMERGENCY ILL/INJUR ED PHYSICIAN PATIENT S INIT 30-74 MIN AMBULANCE A0429 DENNIS DENNIS SERVICE 7 CO CO BLS AMBULANCE AMBULANCE EMERGENCY TAXIN TAXIN TRANSPORT CRITICAL 18733 [facility] 7 EMERGENCY ILL/INJUR ED PHYSICIAN PATIENT [place] [place] [address] RADIOLOGY BRANDSER HEAD/BRAI 7 N W/O ASSOCIATE CONTRAST S OF [facility] MATERIAL COLLECTIO [address] N VENOUS 7 [facility] BLOOD MARIO MAROI VENIPUNCT URE POTASSIUM [address] [facility] SERUM 7 [facility] PLASMA/[place] [address] [facility] MAGNESIUM 7 [facility] [place] [address] VIJAY LINARES MAGNESIUM 7 [place] [address] VIJAY LINARES ABDOMEN & 7 [facility] PELVIS INC INC W/[place] [address] VIJAY LINARES LIPASE 7 [facility] H[facility] INC INC BLOOD 97203 VIJAY LINARES COUNT 7 [facility] COMPLETE INC INC AUTO&AUTO DIFRNTL WBC ECG 88205 VIJAY GARCIA JR ROUTINE 7 [facility] W/LEAST P 12 LDS I&R ONLY URNLS DIP 62082 VIJAY LINARES 7 [facility] STICK/TAB INC INC [place] [address] VIJAY LINARES PHOSPHORU 7 [facility] S INC INC INORGANIC ECG 46910 VIJAY LINARES ROUTINE 7 [facility] ECG INC INC W/LEAST 12 LDS TRCG ONLY W/[place] [address] VIJAY LINARES INFUSION 7 [facility] THERAPY/P INC INC ROPHYLAXI S /DX 1ST TO 1 HR SUSCEPTIB 91487 VIJAY LINARES LTY STDY 7 [facility] ANTIMICRB INC INC IAL MICRO/AGA R DILUTJ FINAL G9551 MIGUELITO JOHNS REPR ABD 7 MEDICAL IMAG STS IMAGING W/O ASS INCIDNT FND LES NTD: FINAL G9638 MIGUELITO JOHNS REPORTS 7 MEDICAL W/O DOC IMAGING 1/MORE ASS DOSE REDUCTION TECH CULTURE 65998 VIJAY LINARES BCT 7 [facility] ISOL&PRSM INC INC PTV ID ISOLATE EA URINE CULTURE 01119 VIJAY LINARES BACTERIAL 7 [facility] INC INC QUANTTATI VE COLONY COUNT URINE COMPREHEN 01433 VIJAY LINARES SIVE 7 [facility] [address] VIJAY LINARES AMYLASE 7 [place] [address] VIJAY LINARES INFUSION 7 [facility] THER INC INC PROPH ADDL SEQUENTIA L TO 1 HR URINE 33518 VIJAY LINARES 7 [facility] TEST INC INC VISUAL COLOR CMPRSN METHS RADEX 76903 RADIOLOGY WALI FOOT 7 COMPLETE ASSOCIATE MINIMUM 3 S OF NOTH VIEWS RADEX 48081 RADIOLOGY BRANDSER ANKLE 7 COMPLETE ASSOCIATE MINIMUM 3 S OF NOTH VIEWS RADIOLOGI 26868 RADIOLOGY BRANDSER C EXAM 7 KNEE ASSOCIATE COMPLETE S OF NOTH 4/MORE VIEWS INCISION 07844 [facility] & 7 EMERGENCY DRAINAGE ABSCESS PHYSICIAN SIMPLE/SI S NGLE COMPREHEN [address] ST ST SIVE 7 [facility] METABOLIC [facility] ED[facility] E EDGE OBSERVATI 70727 [facility] WARNER ON CARE 6 MEDICAL DISCHARGE SERV FOUNDATIO MANAGEMEN N T CRITICAL 92984 [facility] 6 PHYSICIAN ILL/INJUR S, PLLC ED PATIENT INIT 30-74 MIN AMB A0427 [facility] SERVICE 6 AMBULANCE AMBULANCE ALS SERVICE SERVICE EMERGENCY TRANSPORT LEVEL 1 INITIAL 14587 [facility] WARNER OBSERVATI 6 MEDICAL ON SERV CARE/DAY FOUNDATIO 70 N MINUTES GROUND A0425 ULISSES [facility] MILEAGE 6 AMBULANCE AMBULANCE PER SERVICE SERVICE STATUTE MILE RADEX 10495 [facility] TRUE QASIM FOOT 6 MEDICAL COMPLETE SERV MINIMUM 3 FOUNDATIO VIEWS N RADIOLOGI 02962 [place] CK QASIM C 6 MEDICAL EXAMINATI SERV ON KNEE 3 FOUNDATIO VIEWS N MRI BRAIN 79038 [facility] MEJIA BRAIN 6 MEDICAL STEM W/[place] [address] MIGUELITO JOHNS HEAD/BRAI 6 MEDICAL N W/[place] [address] [facility] C[facility] 6 MEDICAL SPINE W/O IMAGING CONTRAST ASS MATERIAL ECG 04669 VIJAY MEYERS ROUTINE 6 [facility] W/LEAST P 12 LDS I&R ONLY BLOOD 64802 VIJAY LINARES COUNT 6 [facility] COMPLETE INC INC AUTO&AUTO DIFRNTL WBC URNLS DIP 56439 VIJAY LINARES 6 [facility] STICK/TAB INC INC [place] [address] VIJAY LINARES MAGNESIUM 6 [place] [address] VIJAY LINARES PHOSPHORU 6 [facility] [place] [place] [address] VIJAY LINARES INFUSION 6 [facility] THERAPY/P INC INC ROPHYLAXI S /DX 1ST TO 1 HR THERAPEUT 13114 VIJAY LINARES IC 6 [facility] INJECTION INC INC IV PUSH EACH NEW DRUG URINE 30127 VIJAY LINARES 6 [facility] TEST INC INC VISUAL COLOR CMPRSN METHS COMPREHEN 73183 VIJAY LINARES SIVE 6 [facility] METABOLIC INC INC PANEL SUSCEPTIB 17606 VIJAY LINARES LTY STDY 6 [facility] ANTIMICRB INC INC IAL MICRO/AGA R DILUTJ CULTURE 73420 VIJAY LINARES BCT 6 [facility] ISOL&PRSM INC INC PTV ID ISOLATE EA URINE CULTURE 78058 VIJAY LINARES BACTERIAL 6 [facility] INC INC QUANTTATI VE COLONY COUNT URINE INJECTION J1040 ST [facility] KELSI 6 KIRK METHYLPRE DNISOLONE PHYSICIAN ACETATE S [address] SERUM 6 KIRK KIRK PLASMA/ MED CTR MED CTR OLE BLOOD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 ST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 ST THERAPEUT [address] ST LOPEZ KELSI IC 6 KIRK PROPHYLAC TIC/DX PHYSICIAN INJECTION S SUBQ/[place] [address] MAGNESIUM 6 [facility] CTR MED CTR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 [address] VIJAY LINARES TROPONIN 6 [facility] QUANTITAT INC INC KATHIA CREATINE 67583 VIJAY LINARES KINASE 6 [facility] TOTAL INC INC BLOOD 97442 VIJAY LINARES COUNT 6 [facility] COMPLETE INC INC AUTO&AUTO DIFRNTL WBC ECG 38079 VIJAY GARCIA JR ROUTINE 6 [facility] W/LEAST P 12 LDS I&[place] [address] VIJAY LINARES HEAD/BRAI 6 [facility] N W/O INC INC CONTRAST MATERIAL RADIOLOGI 19945 VIJAY LINARES C 6 [facility] EXAMINATI INC INC ON CHEST SINGLE VIEW FRONTAL ECG 45442 VIJAY LINARES ROUTINE 6 [facility] ECG INC INC W/LEAST 12 LDS TRCG ONLY W/[place] I&[place] [address] VIJAY LINARES INFUSION 6 [facility] THERAPY/P INC INC ROPHYLAXI S /DX 1ST TO 1 HR CULTURE 67248 VIJAY LINARES BACTERIAL 6 [facility] INC INC QUANTTATI VE COLONY COUNT URINE CULTURE 15725 VIJAY LINARES BCT 6 MEM HOS[facility] ISOL&PRSM INC INC PTV ID ISOLATE EA URINE AMB A0427 [facility] SERVICE 6 AMBULANCE AMBULANCE ALS SERVICE SERVICE EMERGENCY TRANSPORT LEVEL 1 DRUG TST G0477 VIJAY LINARES PRESUMP;C 6 [facility] PBL BEING INC INC READ DC OPT OBV ONLY DRUG TEST G0480 VIJAY LINARES DEFINITV [address] [address] ID INC INC METH P DAY 1-7 DRUG CL GROUND A0425 [facility] 6 AMBULANCE AMBULANCE PER SERVICE SERVICE STATUTE MILE [facility] 27406 VIJAY LINARES SIVE 6 [facility] METABOLIC INC INC PANEL SUSCEPTIB 53053 VIJAY LINARES LTY STDY 6 [facility] ANTIMICRB INC [place] IAL [place] [address] VIJAY LINARES INFUSION 6 [facility] THER INC INC PROPH ADDL SEQUENTIA L TO 1 HR CREATINE 38902 VIJAY LINARES KINASE MB 6 [facility] FRACTION INC INC ONLY URINE 05162 VIJAY LINARES 6 [facility] TEST INC INC VISUAL COLOR CMPRSN METHS UNCLASSIF J3490 VIJAY LINARES IED DRUGS 6 [facility] INC INC CULTURE [address] BACTERIAL 6 KIRK KIRK MARIO MARIO QUANTTATI VE COLONY COUNT URINE COLLECTIO [address] N VENOUS 6 [facility] BLOOD MARIO MARIO VENIPUNCT URE POTASSIUM [address] SERUM 6 [facility]IR[facility] PLASMA/WH MARIO MARIO OLE BLOOD SUSCEPTIB [address] LTY STDY 6 [facility] ANTIMICRB MED CTR MED CTR IAL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 ST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 ST MICRO/AGA R DILUTJ BLOOD [address] COUNT 6 [facility] COMPLETE MED CTR MED CTR AUTO&AUTO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 ST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 [address] MAGNESIUM 6 [facility] MED CTR MED CTR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 ST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 ST CULTURE [address] BACTERIAL 6 [facility] MED CTR MED CTR QUANTTATI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 ST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 ST VE COLONY COUNT URINE CULTURE [address] BCT 6 KIRK [facility] ISOL&PRSM MED CTR MED CTR PTV ID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 ST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 ST ISOLATE EA URINE BASIC [address] METABOLIC 6 KIRK KIRK PANEL MED CTR MED CTR CALCIUM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 ST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 ST TOTAL URINE 83961 VIJAY LINARES 5 [facility] TEST INC INC VISUAL COLOR CMPRSN METHS CULTURE 16301 VIJAY VIJAY BACTERIAL 5 [facility] INC INC QUANTTATI VE COLONY COUNT URINE CYSTO 13267 VIJAY LINARES W/SIMPLE 5 [facility] REMOVAL INC INC STONE & STENT URNLS DIP 93412 VIJAY LINARES 5 [facility] STICK/TAB INC INC LET REAGENT AUTO MICROSCOP Y RADEX 63697 VIJAY LINARES ABDOMEN 1 5 [facility] INC INC ANTEROPOS TERIOR VIEW ANES 28750 COMMUNITY NEVAREZ ECHO TRURL 5 ANESTH FRAGMNTJ OF THE MANJ&/RMV BLUE L URETERAL CALCULUS INJECTION J0131 VIJAY LINARES 5 [facility] H[facility] ACETAMINO INC INC PHEN 10 MG CYSTO/URE 76546 VIJAY ARCOS TERO 5 [facility] IPSY P &INDWELL STENT INSRT STENT C2617 VIJAY ZAMORANOON NON-COR 5 [facility] [place] [address] VIJAY LINARES INFUSION 5 [facility] THERAPY INC INC PROPHYLAX IS/DX EA HOUR URINE 64222 VIJAY LINARES 5 [facility] TEST INC INC VISUAL COLOR CMPRSN METHS INTRO 92156 VIJAY LINARES URETERAL 5 [facility] CATH/STEN INC INC T PRQ RS&I INJECTION J2405 VIJAY LINARES 5 [facility] H[facility] ONDANSETR INC INC ON HCL [place] [address] [place] [address] [facility] ABDOMEN & 5 MEDICAL BRIE PELVIS IMAGING W/O ASS CONTRAST MATERIAL BLOOD 86814 DANA Dempsey COUNT 5 [facility] TY COMPLETE [facility] AUTO&AUTO DIFRNTL WBC COLLECTIO 09851 KARSON Gordon VENOUS 5 PRIMARY BLOOD CARE VENIPUNCT URE BASIC 65678 DANA Dempsey METABOLIC 5 HAGGIN HAGGIN PANEL [facility] HOS CALCIUM TOTAL CULTURE 17106 DANA Dempsey BACTERIAL 5 HAGGIN HAGGIN [facility] MEM HOS QUANTTATI VE COLONY COUNT URINE INJECTION A9579 DANA Dempsey 5 HAGGIN HAGGIN GADOLINIU MEM [facility] M BASED MR CONTRAST NOS ML MRI BRAIN 79463 DANA Dempsey BRAIN 5 HAGGIN HAGGIN STEM W/O MEM H[facility] W/CONTRAS T MATERIAL MRI ORBIT 18379 [facility] & 5 RADIOLOGY NECK W/O & ASSOCIATE W/CONTRAS T MATRL URNLS DIP 81530 KARSON QUEEN 5 PRIMARY STICK/TAB CARE LET RGNT NON-AUTO W/O MICRSCP COMPREHEN 91143 DANA Dempsey SIVE 5 HAGGIN HAGGIN METABOLIC [place] [address] DANA Dempsey THYROID 5 HAGGIN HAGGIN STIMULATI [facility] [place] [address] DANA Dempsey BLOOD/URI 5 HAGGIN HAGGIN C ACID [facility] CYANOCOBA 14210 DANA Dempsey LOLY 5 HAGGIN HAGGIN VITAMIN [facility] MEM HOS B-12 THER 82473 DANA Dempsey PROPH/DX 5 HAGGIN HAGGIN NJX IV [facility] PUSH SINGLE/1S T SBST/[place] [address] [facility] ABDOMEN & 5 RADIOLOGY RADIOLOGY PELVIS W/O ASSOCIATE ASSOCIATE CONTRST 1/> BODY RE BASIC 87982 SURAJ SURAJ METABOLIC 5 HERNANDEZ HERNANDEZ PANEL REGIONAL REGIONAL CALCIUM ME ME TOTAL THER 59345 SURAJ SURAJ PROPH/DX 5 HERNANDEZ HERNANDEZ NJX IV REGIONAL REGIONAL PUSH ME ME SINGLE/1S T SBST/DRUG BLOOD 95030 SURAJ SURAJ COUNT 5 HERNANDEZ HERNANDEZ COMPLETE REGIONAL REGIONAL AUTO&[place] [address] SURAJ SURAJ ABDOMEN & 5 HERNANDEZ HERNANDEZ PELVIS REGIONAL REGIONAL W/O ME ME CONTRAST MATERIAL URNLS DIP 68864 SURAJ SURAJ 5 HERNANDEZ HERNANDEZ STICK/TAB REGIONAL REGIONAL LET ME ME REAGENT AUTO MICROSCOP Y ANES 20557 [place] BARCLAY TRURL 5 ANESTHESI CRY FRAGMNTJ A MANJ&/RMV ASSOCIAT L URETERAL CALCULUS CYSTO 05779 [facility] TRAVIS W/INSERT 5 [facility] [place]AL [place] [address] [place] [facility] SURG 5 PATHOLOGY MOHAMUD PATHOLOGY ASSOCIAT GROSS EXAMINATI ON ONLY CYSTO 44527 MILY ROBLES W/URETERO 5 [facility] SCOPY CLINIC W/RMVL/MA PSC [place] STONES GROUND A0425 JEAN [facility] [employer] (IM[employer]) CO MILEAGE 5 EMERG EMERG PER MEDICALSE MEDICALSE STATUTE R R MILE INITIAL 58383 [facility] 5 [facility] CARE/DAY CLINIC CLINIC [address] [place] [address] [facility] ABDOMEN & 5 RADIOLOGY PELVIS W/O ASSOCIATE CONTRAST MATERIAL ECG 90759 SURAJ HEMPEL ROUTINE 5 HERNANDEZ ANTONINO ECG REGG MED W/LEAST CT 12 LDS I&[place] [address] DANA Dempsey ABDOMEN & 5 KARSON HAGGIN PELVIS [facility] W/O CONTRAST MATERIAL URNLS DIP 46036 DANA Dempsey 5 HAGGIN HAGGIN STICK/TAB [facility]OS LET REAGENT AUTO MICROSCOP Y INJECTION J2175 DANA Dempsey 5 KARSON HAGGIN MEPERIDIN [facility] E HCL PER 100 MG THERAPEUT 26601 DANA Dempsey IC 5 HAGGIN HAGGIN PROPHYLAC [facility] TIC/DX INJECTION SUBQ/IM INJECTION J2550 DANA Dempsey 5 TRINAGIN HAGGIN PROMETHAZ [facility] MEM HOS INE HCL UP TO 50 MG INJECTION J1885 DANA Dempsey 5 HAGGIN HAGGIN KETOROLAC MEM HOS MEM HOS TROMETHAM INE PER 15 MG MRI 47006 [place] HOU SPINAL 5 RADIOLOGY RUPA CANAL LUMBAR ASSOCIATE W/O CONTRAST MATERIAL RADEX 21980 [facility] 5 RADIOLOGY LUMBOSACR AL ASSOCIATE MINIMUM 4 VIEWS THERAPEUT 84510 DANA Dempsey IC 5 HAGGIN HAGGIN INJECTION [facility]OS IV PUSH EACH NEW DRUG COLLECTIO 31325 DANA Dempsey N VENOUS 5 HAGGIN HAGGIN BLOOD [facility] MEM HOS VENIPUNCT URE THER 71459 DANA Dempsey PROPH/DX 5 HAGGIN TRINAGIN NJX IV MEM HOS [facility] PUSH SINGLE/1S T SBST/DRUG URNLS DIP 61014 DANA Dempsey 5 HAGGIN HAGGIN STICK/TAB [facility] MEM HOS LET REAGENT AUTO MICROSCOP Y BLOOD 27447 DANA Dempsey COUNT 5 HAGGIN HAGGIN COMPLETE [facility] AUTO&[place] [address] DANA Dempsey ABDOMEN & 5 HAGGIN HAGGIN PELVIS [facility] W/O CONTRAST MATERIAL GONADOTRO 26661 DANA Dempsey PIN 5 HAGGIN HAGGIN CHORIONIC [facility] MEM HOS QUALITATI VE INJECTION J1885 DANA Dempsey 5 HAGGIN HAGGIN KETOROLAC [facility] MEM HOS TROMETHAM INE PER 15 MG UNCLASSIF J3490 DANA Dempsey IED DRUGS 5 HAGGIN HAGGIN [facility] COMPREHEN 80819 DANA Dempsey SIVE 5 HAGGIN HAGGIN METABOLIC [facility] MEM HOS PANEL INJECTION J2405 DANA Dempsey 5 HAGGIN HAGGIN ONDANSETR MEM HOS MEM HOS ON HCL PER 1 MG GROUND A0425 Pixc MILEAGE 5 EMERG EMERG PER MEDICALSE MEDICALSE STATUTE R R MILE AMBULANCE A0429 Pixc SERVICE 5 EMERG EMERG BLS MEDICALSE MEDICALSE EMERGENCY R R TRANSPORT THERAPEUT 63718 DANA Dempsey IC 5 HAGGIN HAGGIN PROPHYLAC MEM HOS MEM [facility]OS TIC/DX INJECTION SUBQ/IM RADEX 97276 [facility] 4 RADIOLOGY COMPL W/DCBTS&/ ASSOCIATE ERC VIEWS RADEX 64979 [place] HOU ANKLE 4 RADIOLOGY RUPA COMPLETE MINIMUM 3 ASSOCIATE VIEWS RADEX 31102 [place] HOU FOOT 4 RADIOLOGY RUPA COMPLETE MINIMUM [place] [address] [place] 4 [facility] [place] [address] [place] THYROID 4 [facility] STIMULATI HOSP HOSP NG HORMONE TSH RADEX 85218 [facility] KARIME LUMBOSACR FAMILY AL MEDICAL MINIMUM 4 VIEWS RADEX 78105 [place] SMOOTH SPINE 4 RADIOLOGY ADA LUMBOSACR AL 2/3 ASSOCIATE VIEWS THERAPEUT 26176 SURAJ SURAJ IC 4 HERNANDEZ HERNANDEZ INJECTION REGIONAL REGIONAL [place] [address] SURAJ SURAJ INFUSION 4 HERNANDEZ HERNANDEZ THERAPY/P REGIONAL REGIONAL ROPHYLAXI ME ME S /DX 1ST TO 1 HR RADEX 03402 [place] HOU ABDOMEN 4 RADIOLOGY RUPA COMPL W/DCBTS&/ ASSOCIATE ERC VIEWS URNLS DIP 42331 SURAJ SURAJ 4 HERNANDEZ HERNANDEZ STICK/TAB REGIONAL REGIONAL [place] [address] [place] HOU ABDOMEN & 4 RADIOLOGY RUPA PELVIS W/O ASSOCIATE CONTRAST MATERIAL CULTURE 41138 SURAJ SURAJ BACTERIAL 4 HERNANDEZ HERNANDEZ REGIONAL REGIONAL [place]TTAT[place] [address] [place] TRANSVAGI 4 MEDICAL MEDICAL NAL SERV SERV FOUNDATIO FOUNDATIO US PELVIC [address] [place] MICHELLE 4 MEDICAL LEANNE NONOBSTET SERV ANTONINO IMAGE FOUNDATIO DCMTN LIMITED/F /U RADEX 87126 [facility] [place] WE[place] RIBS UNI 4 RADIOLOGY LD IV ALL W/POSTERO ANT CH MINIMUM 3 [place] [address] NICKELS NICKELS EXTREMITY 4 LATOYA LATOYA NON-VASC REAL-TIME IMG LMTD RADEX ABD 02796 NICKELS NICKELS COMPL 4 LATOYA LATOYA AQT ABD W/S/E/D VIEWS 1 VIEW CH WRIST L3908 ADVANCED ADVANCED HAND 3 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 ORTHOSIS IES INC IES INC EXT CONTROL COCK-UP PREFAB RADEX 52019 WALI WALI WRIST 3 TREVIN TREVIN COMPLETE MINIMUM 3 VIEWS AMB A0427 [facility] SERVICE 3 [facility] TRANSPORT LEVEL 1 GROUND A0425 [facility] MILEAGE 3 [facility] MILE ALS A0398 [facility] [place] ROUTINE 3 [facility] SUPPLIES RADEX HIP 77889 [place] LERMA 3 BRA BRA UNILATERA L [place] [address] [place] [address] UNIVERSIT MEZA ABDOMEN & 3 Y OF RAFAEL PELVIS [place] W/O I PHY CONTRAST MATERIAL RADEX 23585 BRANDSER BRANDSER SACRUM & 3 NOELLE NOELLE COCCYX MINIMUM 2 VIEWS ALS A0398 [facility] [place] ROUTINE 3 [facility] SUPPLIES GROUND A0425 [facility] MILEAGE 3 [facility] OF [facility] OF [facility] A0427 RURAL [facility]URAL SERVICE 3 [facility] TRANSPORT LEVEL 1 RADEX 65181 RADIOLOGY LERMA ABDOMEN 1 2 BRA ASSOCIATE ANTEROPOS S OF [facility] [place] [address] RISON ALL RISON ALL DX/THER 2 SBST EPIDURAL/ SUBARACH LUMBAR/SA CRAL RINGERS J7120 RISON ALL RISON ALL LACTATE 2 INFUSION UP TO 1000 CC FLUOR 16816 RISON ALL RISON ALL NEEDLE/CA 2 TH SPINE/PAR ASPINAL DX/THER ADDON MODERATE 51116 RISON ALL RISON ALL SEDATJ 2 SAME [...] MG/ML IODINE CONCENTRA TION PER ML FLUOR 03972 RISON ALL RISON ALL NEEDLE/CA 2 TH SPINE/PAR ASPINAL DX/[place]X [address] RISON ALL RISON ALL DX/THER 2 SBST EPIDURAL/ SUBARACH LUMBAR/SA CRAL RADEX 64410 RADIOLOGY DOERGER FOOT 2 KIR COMPLETE ASSOCIATE MINIMUM 3 S OF NOTH VIEWS CRTCHS E0114 ADVANCED ADVANCED UNDARM 2 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 OTH THAN IES INC IES INC WOOD PAIR PAD TIP&HNDGR IP SURGICAL L3260 ADVANCED ADVANCED BOOT/SHOE 2 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 EACH IES INC IES INC THERAPEUT 11524 [facility] IC 2 RUPA RUPA PROPHYLAC TIC/DX INJECTION SUBQ/IM INJECTION J1040 [facility] BLACK[facility]IG 2 RUPA RUPA METHYLPRE DNISOLONE ACETATE 80 MG AMBULANCE A0429 RURAL/MET RURAL/MET SERVICE 1 RO RO BLS AMBULANCE AMBULANCE EMERGENCY TRANSPORT GROUND A0425 RURAL/MET RURAL/MET MILEAGE 1 RO RO PER AMBULANCE AMBULANCE STATUTE MILE INJECTION J0696 [facility] 1 KIRK GOODE CEFTRIAXO NE SODIUM PHYSICIAN PER 250 S MG THERAPEUT 52626 [facility] IC 1 KIRK GOODE PROPHYLAC TIC/DX PHYSICIAN INJECTION S SUBQ/IM GROUND A0425 [facility] MILEAGE 1 AMBULANCE AMBULANCE PER SERVICE SERVICE STATUTE MILE AMB A0427 [facility] SERVICE 1 AMBULANCE AMBULANCE ALS SERVICE SERVICE EMERGENCY TRANSPORT LEVEL 1 [place] [address] [facility] SURG 1 [facility] CTR GROSS&JALYN ROSCOPIC EXAM IMHISTOCH 73197 [facility] EM/CYTCHM [address] CTR ANTIBODY STAIN PROCEDURE ANESTHESI 56521 INDEPENDE COSTANTIN A EYE NOT 1 NT I CAR ANESTHESI OTHERWISE OLOGIST SPECIFIED CJP 46948 [facility] CEPELA RCNSTJ 1 [facility] CUL-DE-SA FOR C BUCCAL SIGHT, GRF/XTNSV REARRGMT ORBITOTOM 85350 [facility] CEPELA Y W/O 1 [facility] MAR BONE FLAP FOR SIGHT, W/REMOVAL LESION ANES 60745 ANESTHESI GRABMAYER TRURL 1 A RUPA JUVEMNTJ ASSOCIATE MANJ&/RMV S, PSC L URETERAL CALCULUS CYSTO 69941 NEW NEW W/INSERT 1 [facility] URETERAL CLINIC CLINIC STENT PSC PSC PROSTHETI L8699 NEW NEW C IMPLANT 1 [facility] NOT CLINIC CLINIC OTHERWISE PSC PSC SPECIFIED CYSTO 66815 NEW NEW W/URETERO 1 [facility] SCOPY CLINIC CLINIC W/LITHOTR PSC PSC IPSY URNLS DIP 99863 VIJAY ARCOS 1 [facility] LET RGNT P NON-AUTO W/O MICRSCP CT ORBIT 24955 [facility] SELL[facility]POS 1 KIRK BRADLEY T MARIO MARIO FOSSA/EAR W/CONTRAS T MATRL XTRNL 67389 [facility] CE[facility] OCULAR 1 [facility]ENTERS MAR PHOTOG FOR W/I&[place], [place] [address] VIJAY LINARES INFUSION 1 [facility] THERAPY/P INC INC ROPHYLAXI S /DX [address]ST [place] [address] [place] [address] VIJAY LINARES ABDOMEN & 1 [facility] PELVIS INC INC W/O CONTRAST MATERIAL URNLS DIP 60477 VIJAY LINARES 1 [facility] STICK/TAB INC INC LET REAGENT AUTO MICROSCOP Y URINE 90280 VIJAY LINARES 1 [facility] TEST INC INC VISUAL COLOR CMPRSN METHS 3D 39478 VIJAY LINARES RENDERING 1 [facility] INC INC W/INTERP& POSTPROC DIFF WORK STATION DETERMINA 90687 SHEWMAKER SHEWMAKER TION 1 VLADIMIR GABY REFRACTIV E STATE RADIOLOGI 43434 VIJAY LINARES C 0 [facility] EXAMINATI INC INC ON PELVIS 1/2 VIEWS RADEX 45229 VIJAY LINARES SPINE 0 [facility] CERVICAL INC INC 6 OR MORE VIEWS RADEX 56428 VIJAY LINARES ANKLE 0 [facility] COMPLETE INC INC MINIMUM 3 VIEWS RADIOLOGI 68872 VIJAY LINARES C 0 [facility] EXAMINATI INC INC ON CHEST SINGLE VIEW FRONTAL RADEX 95318 VIJAY LINARES ELBOW 0 [facility] COMPLETE INC INC MINIMUM 3 VIEWS RADEX 96571 VIJAY LINARES HAND 0 [facility] MINIMUM 3 INC INC VIEWS THERAPEUT 07457 [facility] IC 0 KIRK RUPA PROPHYLAC TIC/DX PHYSICIAN INJECTION S SUBQ/IM BLOOD [address] COUNT 0 KIRK BRADLEY COMPLETE AUTO&AUTO MEDICALCE MEDICALCE DIFRNTL NTER NTER WBC HEMOGLOBI [address] N 0 KIRK BRADLEY GLYCOSYLA BLAIRE A1C MEDICALCE MEDICALCE NTER NTER GROUND A0425 GALLATIN GALLATIN MILEAGE 0 CO KERRI [place] KERRI PER COURT COURT STATUTE MILE AMBULANCE A0429 GALLATIN GALLATIN SERVICE 0 CO K[place]RI CO KERRI BLS [place] [address] SURG 0 KIRK BRADLEY PATHOLOGY MEDICALCE MEDICALCE GROSS&JALYN NTER NTER ROSCOPIC EXAM ANTIBODY 68092 COMBINED COMBINED CHLAMYDIA 9 PHYSICIAN PHYSICIAN S LAB S LAB CUL BACT 29670 COMBINED COMBINED XCPT 9 PHYSICIAN PHYSICIAN URINE S LAB S LAB BLOOD/STO OL AEROBIC ISOL MRI 09539 RADIOLOGY AVI, SPINAL 9 HEAVEN G CANAL ASSOCIATE LUMBAR S PSC W/O CONTRAST MATERIAL SERVICES 48147 Christian FLORES PROVIDED 9 MEDICAL J OFFICE GROUP OTH/THN REG SCHED HOURS URINE 03229 VIJAY VIJAY 9 [facility] TEST INC INC VISUAL COLOR CMPRSN METHS RADEX 40951 VIJAY LINARES ANKLE 9 [facility] COMPLETE INC INC MINIMUM 3 VIEWS RADEX 53855 VIJAYMARCUS LINARES FOOT 9 [facility] COMPLETE INC INC MINIMUM 3 VIEWS RADEX 16230 KUNATH, COLGLAZIE SPINE 9 LOPEZ & R, LUMBOSACR TEMMING MAYCO AL 2/3 ER L VIEWS RADEX 85403 KUNATH, COLGLAZIE HAND 2 9 LOPEZ & R, VIEWS TEMLEO MAYCO ER L RADIOLOGI 87041 KUNATH, COLGLAZIE C 9 LOPEZ & R, EXAMINATI TEMLEO SOLOMONOPH ON FOOT 2 ER L VIEWS BLOOD 15519 SUMMDIAMOND Christian WEBB COUNT 9 MEDICAL J COMPLETE GROUP AUTO&AUTO DIFRNTL WBC RADEX 97102 OFFICE NATA, ABDOMEN 1 8 ISA Gonzales DIAGNOSTI ANTEROPOS C TERIOR SERVICES VIEW CYSTO 30507 COMMONWEA ARCOS, W/SIMPLE 8 LTH MAGY D REMOVAL UROLOGY STONE & PSC STENT URNLS DIP 64019 COMMONWEA ARCOS, 8 LTH MAGY D STICK/TAB UROLOGY LET RGNT PSC AUTO W/O MICROSCOP Y URNLS DIP 60847 TRUMANChristian HILTON 8 MEDICAL J STICK/TAB GROUP LET RGNT AUTO W/O MICROSCOP Y CULTURE [address] BACTERIAL 8 KIRK BRADLEY QUANTTATI MEDICALCE MEDICALCE VE COLONY NTER NTER COUNT URINE CYSTO 16596 COMMONWEA ARCOS, W/URETERO 8 LTH MAGY D SCOPY UROLOGY W/LITHOTR PSC IPSY ANES 31154 ANESTHESI KIRK, LITHOTRP 8 A SAM A [employer] ASSOCIATE SHOCK S, PSC WAVE W/O WATER BATH RADEX 93968 CNTRL [place] TAMI, ABDOMEN 1 8 RADIOLOGY NUPUR M ANTEROPOS TERIOR VIEW URNLS DIP 28903 VIJAY LINARES 8 [facility] STICK/TAB INC INC LET REAGENT AUTO MICROSCOP Y BLOOD 12581 VIJAY LINARES COUNT 8 [facility] COMPLETE INC INC AUTO&AUTO DIFRNTL WBC SUSCEPTIB 96140 VIJAY LINARES LTY STDY 8 [facility] ANTIMICRB INC INC IAL MICRO/AGA R DILUTJ CULTURE 00497 VIJAY LINARES BACTERIAL 8 [facility] INC INC QUANTTATI VE COLONY COUNT URINE URINE 52998 VIJAY LINARES 8 [facility] TEST INC INC VISUAL COLOR CMPRSN METHS CT PELVIS 60423 VIJAY LINARES W/O 8 [facility] [place] [address] [place] PHYLLIS, ABDOMEN 8 MEDICAL PHIL P W/O IMAGING CONTRAST ASSOCIATE MATERIAL S 3D 39706 [place] PHYLLIS, RENDERING 8 MEDICAL PHIL P IMAGING W/INTERP& ASSOCIATE POSTPROC S DIFF WORK STATION BASIC 12016 VIJAY LINARES METABOLIC 8 [facility] PANEL INC INC CALCIUM TOTAL BASIC [address] METABOLIC 8 [facility] PANEL CALCIUM MEDICALCE [place] [address] ST BLOOD/URI 8 [facility] C ACID MEDICALCE MEDICALCE NTER NTER SEDIMENTA 67120 ST TION RATE 8 [facility] RBC AUTOMATED [place] [address] ST THYROID 8 [facility] STIMULATI NG MEDICALCE MEDICALCE HORMONE NTER NTER TSH RHEUMATOI [address] D FACTOR 8 [facility] QUALITATI VE MEDICALCE MEDICALCE NTER NTER HEPATIC 80725 ST FUNCTION 8 KIRK KIRK PANEL MEDICALCE MEDICALCE NTER NTER COLLECTIO 17108 [facility] WEBB N VENOUS 8 MEDICAL J BLOOD GROUP VENIPUNCT URE CHOLESTER 47508 ST OL 8 [facility] SERUM/WHO LE BLOOD MEDICALCE MEDICALCE TOTAL NTER NTER BLOOD [address] COUNT 8 [facility] COMPLETE AUTO&AUTO MEDICALCE MEDICALCE DIFRNTL NTER NTER WBC RADEX [address] SPINE 8 [facility] AL 2/3 VIEWS RADEX 08621 RADIOLOGY KERMAN, SPINE 8 [facility] THORACIC ASSOCIATE 3 VIEWS S PSC INCISION 44866 ATA BECERRIL, & 8 EMERG DREUX DRAINAGE SERV ABSCESS ASSOC COMPLICAT ED/MULTIP LE AMBULANCE A0429 TRANSCARE TRANSCARE SERVICE 8 OF OF PSYCHIATRIC EMERGENCY , INC. , INC. TRANSPORT GROUND A0425 TRANSCARE TRANSCARE MILEAGE 8 OF OF [facility] , [employer]. , INC. MILE BASIC 56983 VIJAY LINARES METABOLIC 8 [facility] PANEL INC INC CALCIUM TOTAL URINE 54137 VIJAY LINARES 8 [facility] TEST INC [place] [address] VIJAY LINARES TRANSVAGI 8 [facility] NAL INC INC BLOOD 86886 VIJAY LINARES COUNT 8 [facility] COMPLETE INC INC AUTO&AUTO DIFRNTL WBC URNLS DIP 93711 VIJAY LINARES 8 [facility] STICK/TAB INC INC LET REAGENT AUTO MICROSCOP Y Encounters Encounter Start End Date Code Location Performer Type Date EMERGENCY 06979 FRANCO LALA DEPT 7 7 PHYSICIAN VISIT S, PLLC HIGH SEVERITY& THREAT FUNJ OFFICE 10247 [facility] OUTPATI 7 7 KIRK T VISIT 15 PHYSICIAN MINUTES S OFFICE 36920 [facility] OUTPATI 7 7 KIRK T VISIT [address]IC[address] [facility] - 7 7 KIRK OUTPATIEN MARIO T EMERGENCY 88879 VIJAY 7 7 [facility] DEPARTMEN INC T VISIT HIGH/URGE NT SEVERITY HOSPITAL VIJAY - 7 7 [facility] OUTPATIEN INC T EMERGENCY 70552 MAISHA MURRIETA 7 7 EMERGENCY DEPARTMEN T VISIT PHYSICIAN HIGH/URGE S NT SEVERITY EMERGENCY 64435 MAISHA GUZMAN 7 7 EMERGENCY DEPARTMEN T VISIT PHYSICIAN HIGH/URGE S NT SEVERITY [facility]OSPITAL ST - 7 7 KIRK OUTPATIEN [facility] EMERGENCY 72461 [facility] DEPT 6 6 MEDICAL VISIT SERV HIGH FOUNDATIO SEVERITY& N THREAT FUNCJ EMERGENCY 23425 FRANCO LALA 6 6 PHYSICIAN JALYN DEPARTMEN S, [facility] T VISIT HIGH/URGE NT SEVERITY EMERGENCY 23221 VIJAY 6 6 [facility] DEPARTMEN [facility] T VISIT MODERATE SEVERITY HOSPITAL VIJAY - 6 6 [facility] OUTPATIEN [facility] H[facility]PITAL ST - 6 6 [facility] OUTPATIEN MED CTR T [facility] OFFICE 16715 [facility] OUTPATI 6 6 KIRK T VISIT 25 PHYSICIAN MINUTES S EMERGENCY 63432 VIJAY DEPT 6 6 MEM HOS[facility] VISIT INC HIGH SEVERITY& THREAT [facility] VIJAY - 6 6 [facility] OUTPATIEN [facility] OFFICE 45880 K[facility]NEY [place] OUTPATIEN 6 6 DISEASE HORACIO T NEW 60 CONSULTAN MINUTES [facility] ST[facility] - 6 6 [facility] OUTPATIEN [facility] OFFICE 12640 [facility] 6 6 KIRK II ALETHA T VISIT 15 PHYSICIAN MINUTES [facility] ST - 6 6 K[facility] OUTPATIEN MED CTR T [facility] VIJAY - 5 5 [facility] OUTPATIEN [facility] VIJAY - 5 5 [facility]PATIEN [facility] VIJAY - 5 5 [facility] VIJAY - 5 5 [facility] OUTPATIEN [facility] T OFFICE 84939 VIJAY ARCOS OUTPATIEN 5 5 [facility] STEFANY T NEW 20 HOSPITAL MINUTES HOSPITAL DANA Dempsey - OTHER 5 5 [facility] OFFICE 71705 [facility] 5 5 PRIMARY T VISIT CARE 15 MINUTES HOSPITAL DANA Dempsey - 5 5 [facility] T OFFICE 41860 [facility] 5 5 PRIMARY T VISIT CARE 15 MINUTES HOSPITAL DANA B - OTHER 5 5 [facility] EMERGENCY 54713 [facility] GENE W DEPT 5 5 RIMMA VISIT EMERGENCY HIGH PHYS SEVERITY& THREAT [facility] DANA Dempsey - 5 5 [facility] OUTPATIEN [facility] HOS T EMERGENCY 92759 SURAJ 5 5 [facility] T VISIT ME MODERATE SEVERITY EMERGENCY 50236 [facility] DEPT 5 5 RIMMA VISIT EMERGENCY HIGH PHYS SEVERITY& THREAT [facility] SURAJ - 5 5 HERNANDEZ OUTPATIEN REGIONAL T [facility] DANA Dempsey - 5 5 [facility] OUTPATIEN [facility] H[facility] T EMERGENCY 42174 DANA Dempsey 5 5 [facility] DEPARTMEN MEM HOS T VISIT MODERATE SEVERITY EMERGENCY 67128 [facility] DE[facility] 5 5 RIMMA SANTOSH VISIT EMERGENCY HIGH PHYS SEVERITY& THREAT [facility] DANA Dempsey - 5 5 [facility] OUTPATIEN [facility] H[facility] T EMERGENCY 84622 DANA Dempsey 5 5 [facility] DEPARTMEN MEM HOS T VISIT MODERATE SEVERITY EMERGENCY 88871 [facility] FISH 5 5 RIMMA MAGDALENA DEPARTMEN EMERGENCY T VISIT PHYS MODERATE SEVERITY HOSPITAL DANA Dempsey - 5 5 [facility] OUTPATIEN [facility] T EMERGENCY 56609 [facility] 5 5 RIMMA DEPARTMEN EMERGENCY T VISIT PHYS HIGH/URGE NT SEVERITY EMERGENCY 53430 [facility] WELLS SHA 5 5 RIMMA DEPARTMEN EMERGENCY T VISIT PHYS HIGH/URGE NT SEVERITY EMERGENCY 21188 DANA Dempsey 5 5 [facility] DEPARTMEN MEM H[facility] T VISIT MODERATE SEVERITY HOSPITAL DANA B - 5 5 [facility] OUTPATIEN [facility] T EMERGENCY 29179 [facility] GREISER DEPT 5 5 RIMMA ALETHA VISIT EMERGENCY HIGH PHYS SEVERITY& THREAT [facility] DANA B - 5 5 [facility] OUTPATIEN [facility] T EMERGENCY 60221 DANA Dempsey 5 5 [facility] DEPARTMEN MEM H[facility] T VISIT HIGH/URGE NT SEVERITY HOSPITAL DANA Dempsey - 5 5 [facility] OUTPATIEN [facility] T EMERGENCY 51561 [facility] 5 5 RIMMA DEPARTMEN EMERGENCY T VISIT PHYS MODERATE SEVERITY EMERGENCY 31399 [facility] DEPT 4 4 RIMMA VISIT EMERGENCY HIGH PHYS SEVERITY& THREAT [facility] SURAJ - 4 4 [facility] ME EMERGENCY 83466 SURAJ 4 4 [facility] T VISIT ME HIGH/URGE NT SEVERITY EMERGENCY 61219 [facility] 4 4 RIMMA DEPARTMEN EMERGENCY T VISIT PHYS HIGH/URGE NT SEVERITY HOSPITAL [facility] - 4 4 [facility] OUTPATIEN HOSP T EMERGENCY 25803 FORT 4 4 CYR[facility] DEPARTMEN HOSP T VISIT MODERATE SEVERITY HOSPITAL FORT - 4 4 [facility] OUTPATIEN HOSP T EMERGENCY 83167 [facility] DEPT 4 4 RIMMA N RUPA VISIT EMERGENCY HIGH PHYS SEVERITY& THREAT FUNCJ EMERGENCY 57481 SURAJ 4 4 [facility] T VISIT ME MODERATE SEVERITY HOSPITAL SURAJ - 4 4 HERNANDEZ OUTPATIEN REGIONAL T ME OFFICE 51477 SWEETSER TALIA GRIFFIN OUTPATIEN 4 4 KARIME T VISIT FAMILY 15 MEDICAL MINUTES EMERGENCY 38575 [facility] ITZEL 4 4 RIMMA PENG DEPARTMEN EMERGENCY T VISIT SERV HIGH/URGE NT SEVERITY EMERGENCY 70789 [facility] PASCALE CASTRO 4 4 RIMMA DEPARTMEN EMERGENCY T VISIT PHYS MODERATE SEVERITY OFFICE 01071 SWEETSER TALIA GRIFFIN OUTPATIEN 4 4 KARIME T VISIT FAMILY 15 MEDICAL MINUTES EMERGENCY 00042 [facility] JEF REEDER 4 4 RIMMA DEPARTMEN EMERGENCY T VISIT PHYS MODERATE SEVERITY OFFICE 19223 SWEETSER TALIA GRIFFIN OUTPATIEN 4 4 KAIRME T NEW 30 FAMILY MINUTES MEDICAL EMERGENCY 57575 SURAJ DEPT 4 4 HERNANDEZ VISIT REGIONAL HIGH ME SEVERITY& THREAT [facility] SURAJ - 4 4 HERNANDEZ [facility] ME EMERGENCY 66431 [facility] PARI TANGF DEPT 4 4 RIMMA VISIT EMERGENCY HIGH PHYSI SEVERITY& THREAT FUN EMERGENCY 97220 FAM GOODE DEPT 4 4 VISIT HIGH SEVERITY& THREAT FUN EMERGENCY 60121 [facility] 4 4 DEPARTMEN T VISIT HIGH/URGE NT SEVERITY HOSPITAL UNIVERSIT - 4 4 [facility] T EMERGENC[facility] 59858 UNIVERSIT 4 4 Y [facility] T VISIT HIGH/URGE NT SEVERITY OFFICE 40537 REILLY GROVER OUTPATIEN 3 3 ANTONINO ANTONINO T NEW 30 MINUTES EMERGENCY 94425 MADINA Justin 3 3 HOWIE DENISE DEPARTMEN T VISIT MODERATE SEVERITY EMERGENCY 72493 TIMMY CHRIS 3 3 DEPARTMEN T VISIT MODERATE SEVERITY EMERGENCY 84638 KEITA Anastacia KEITA Anastacia 3 3 DEPARTMEN T VISIT HIGH/URGE NT SEVERITY EMERGENCY 26935 RONNA FRIEND 3 3 MARK FLORES DEPARTMEN T VISIT MODERATE SEVERITY EMERGENCY 89944 MEGAN GUZMAN 3 3 LATOYA LATOYA DEPARTMEN T VISIT HIGH/URGE NT SEVERITY EMERGENCY 04799 DENISE HAMMONDY 3 3 GRE GRE DEPARTMEN T VISIT MODERATE SEVERITY EMERGENCY 46202 SELPH SCO SELPH SCO 3 3 DEPARTMEN T VISIT HIGH/URGE NT SEVERITY EMERGENCY 73819 TIMMY ARIES TIMMY CHRIS 3 3 DEPARTMEN T VISIT HIGH/URGE NT SEVERITY OFFICE 25837 RISON ALL RISON ALL OUTPATIEN 2 2 T VISIT 10 MINUTES OFFICE 44985 PARIS PARIS OUTPATIEN 2 2 JALYN JALYN T VISIT 10 MINUTES OFFICE 87253 [facility] OUTPATIEN 2 2 JALYN JALYN T VISIT [address] [facility] T VISIT MODERATE SEVERITY OFFICE 10158 RISON ALL RISON ALL OUTPATIEN 2 2 T VISIT [address] [facility] T VISIT HIGH/URGE NT SEVERITY OFFICE 51664 CASEY VIR CASEY VIR OUTPATIEN 2 2 T VISIT 25 MINUTES EMERGENCY 55864 GANIM HUGH GANIM HUGH 2 2 DEPARTMEN T VISIT MODERATE SEVERITY OFFICE 82273 MELISSA HARTIG OUTPATIEN 2 2 RUPA RUPA T VISIT 25 MINUTES OFFICE 49437 RISON ALL RISON ALL OUTPATIEN 2 2 T NEW 30 MINUTES OFFICE 53843 HARTKARINA HARTIG OUTPATIEN 2 2 RUPA RUPA T VISIT 15 MINUTES OFFICE 01670 HARTKARINA HARTKARINA OUTPATIEN 2 2 RUPA RUPA T VISIT [address] [facility] 1 1 [facility] T VISIT PRACTICE MODERATE SEVERITY OFFICE 03005 CASEY VIR CASEY VIR OUTPATIEN 1 1 T VISIT [address] [facility] OUTPATIEN 1 1 KIRK JOHNS T VISIT 15 PHYSICIAN MINUTES S OFFICE 38331 [facility] 1 1 KIRK JOHNS T VISIT 15 PHYSICIAN MINUTES [facility] VIJAY - 1 1 [facility] T EMERGENCY 65846 ATA MELO 1 1 EMERGENCY III [facility] T VISIT MODERATE SEVERITY EMERGENCY 26493 VIJAY 1 1 [facility] T VISIT LIMITED/M INOR PROB OFFICE 96610 [facility] CEPELA OUTPATIEN 1 1 [facility] VISIT FOR 25 SIGHT, MINUTES OFFICE 13297 VIJAY ARCOS OUTPATIEN 1 1 [facility] [address] - 1 1 [facility] MARIO T OFFICE 70334 [facility] CEPELA OUTPATIEN 1 1 [facility] NEW 30 FOR MINUTES SIGHT, HOSPITAL VIJAY - 1 1 [facility] OUTPATIEN INC T EMERGENCY 43999 VIJAY 1 1 [facility] INC T VISIT HIGH/URGE NT SEVERITY EMERGENCY 46653 ATA FROST DEPT 1 1 EMERGENCY VISIT SERVICES HIGH SEVERITY& THREAT FUNCJ OFFICE 76602 [facility] OUTPATIEN 1 1 KIRK RUPA T VISIT 15 PHYSICIAN MINUTES S OFFICE 06333 SHEWMAKER SHEWMAKER OUTPATIEN 1 1 VLADIMIR GRIFFIN T NEW [address] HARTIG OUTPATIEN 0 0 KIRK RUPA T VISIT 15 PHYSICIAN MINUTES S EMERGENCY 60228 ATA MAOEY DEPT 0 0 EMERGENCY JALYN VISIT SERVICES HIGH SEVERITY& THREAT FUNCJ EMERGENCY 25061 VIJAY 0 0 [facility] DEPARTMEN INC T VISIT LOW/MODER SEVERITY HOSPITAL VIJAY - 0 0 [facility] OUTPATIEN INC T OFFICE 78662 ST HARTIG OUTPATIEN 0 0 KIRK RUPA T VISIT 15 PHYSICIAN MINUTES S EMERGENCY 09563 ST PERAZZO 0 0 KIRK GIOVANY DEPARTMEN MED CTR T VISIT MODERATE SEVERITY OFFICE 23959 ST HARTIG OUTPATIEN 0 0 KIRK RUPA T VISIT 15 PHYSICIAN MINUTES S OFFICE 32620 ST HARTIG OUTPATIEN 0 0 KIRK RUPA T VISIT 15 PHYSICIAN MINUTES S OFFICE 28343 ST QUATKEMEY OUTPATIEN 0 0 KIRK ER BRA T VISIT 25 PHYSICIAN MINUTES S OFFICE 48415 [facility] QUATKEMEY OUTPATIEN 0 0 KIRK ER BRA T VISIT [address] - 0 0 KIRK OUTPATIEN T MEDICALCE NTER OFFICE 76590 ST QUATKEMEY OUTPATIEN 0 0 KIRK ER BRA T VISIT 15 PHYSICIAN MINUTES S OFFICE [address] ST QUATKEMEY OUTPATIEN 0 0 KIRK ER, T VISIT CRANE 25 PHYSICIAN A MINUTES [facility]PITAL ST - 0 0 KIRK OUTPATIEN T MEDICALCE NTER OFFICE 97058 [facility] 9 9 [facility]ALTH QUYEN J T VISIT CLINIC OF 25 MINUTES ALIZAKEYONRADHA [facility] OFFICE 80539 Christian FLORES 9 9 MEDICAL J T VISIT GROUP [address] - 9 9 [facility] T EMERGENCY 04239 ATA RANDALL, 9 9 EMERGENCY MOHAN DEPARTMEN SERVICES O T VISIT MODERATE ASSOCIATE SEVERITY S EMERGENCY 22926 VIJAY 9 9 MEM HOS[facility] DEPARTMEN INC T VISIT LOW/MODER SEVERITY HOSPITAL VIJAY - 9 9 [facility] OUTPATI INC T EMERGENCY 49537 [facility], 9 9 [facility] T VISIT HIGH/URGE NT SEVERITY EMERGENCY 51525 [facility], 9 9 KIRK [place] DEPARTMEN MED CTR T VISIT HIGH/URGE NT SEVERITY OFFICE 56717 FAITH DASILVA CONSULTAT 9 9 LOPEZ & RKHOI/ESTAB ER L PATIENT 60 MIN OFFICE 84644 Christian FLORES 9 9 MEDICAL J T VISIT GROUP 15 MINUTES OFFICE 18438 Christian FLORES 9 9 MEDICAL J T VISIT GROUP 25 MINUTES EMERGENCY 80988 [facility]ALK[facility], DEPT 9 9 KIR[place] VISIT MED CTR HIGH SEVERITY& THREAT FUNCJ OFFICE 08560 Christian FLORES 9 9 MEDICAL J T VISIT GROUP [address] - 8 8 [facility] MEDICALCE NTER OFFICE 34447 ROLANDO DAS 8 8 [place]Prince [place] T VISIT UROLOGY 25 PSC MINUTES EMERGENCY 42981 VIJAY 8 8 [facility] DEPARTMEN INC T VISIT HIGH/URGE NT SEVERITY HOSPITAL VIJAY - 8 8 [facility] OUTPATIEN [facility] HOSPITAL VIJAY - 8 8 [facility] OUTPATIEN [facility] T EMERGENCY 28471 MARK ANTHONY VARELA, 8 8 [facility] T VISIT ON HIGH/URGE NT SEVERITY EMERGENCY 32435 VIJAY 8 8 [facility] VISIT LOW/MODER SEVERITY HOSPITAL VIJAY - 8 8 [facility] OUTPATIEN [facility] T OFFICE 72393 Christian [facility] 8 8 MEDICAL J T VISIT GROUP 25 MINUTES HOSPITAL - 8 8 [facility] - 8 8 [facility] T OFFICE [id number] Christian FL[facility]ES [facility] 8 8 MEDICAL J T VISIT GROUP 25 MINUTES EMERGENCY 16372 ATA BECERRIL, 8 8 EMERG [facility] SERV T VISIT ASSOC HIGH/URGE NT SEVERITY EMERGENCY 06154 ATA YAO, 8 8 EMERG SONY D DEPARTMEN SERV T VISIT ASSOC HIGH/URGE NT SEVERITY OFFICE [id number] [facility] VU 8 8 HEALTH QU[facility] J T VISIT [facility]IN[facility] 15 MIN[facility]ES [facility] [id number] VIJAY 8 8 [facility] DEPARTMEN INC T VISIT HIGH/URGE NT SEVERITY HOSPITAL VIJAY - 8 8 [facility] T
--- OUTSIDE RECORDS SUMMARY | 2017-05-09 02:21 | External Medical Summary Rpt ---
Author Author TOAN Clemente, TOAN Clemente Organization [employer] Address Unknown Phone Unavailable
--- OUTSIDE RECORDS SUMMARY | 2017-05-09 02:21 | External Medical Summary Rpt | CCD ---
Demographics Preferred Language Samoan Marital Status Unknown Restorationist Affiliation Unknown Race Unknown Ethnic Group Unknown Author Author , TOAN JOYA Address Unknown Phone Immunization Unable to retrieve immunization data due to connection failure with Immunization Registry. Please try again later.
--- OUTSIDE RECORDS SUMMARY | 2017-05-09 02:21 | External Medical Summary Rpt | CCD ---
Demographics Preferred Language Salvadorean Marital Status Unknown Jewish Affiliation Unknown Race Unknown Ethnic Group Unknown Author Author , TOAN JOYA Address Unknown Phone Immunization Unable to retrieve immunization data due to connection failure with Immunization Registry. Please try again later.
[2017-05-09 02:33] LABS: HEMOGLOBIN 12.6 g/dL (12.2-16.2); LYMPH # 2.9 K/mm3 (0.7-4.5); LYMPH % 25.8 % (10-50.0)
[2017-05-09 03:01] LABS: URINE BLOOD TRACE-INTACT (NEG)
[2017-05-09 03:03] LABS: URINE BILIRUBIN - DIPSTICK NEGATIVE (NEG)
[2017-05-09 03:04] LABS: URINE SQUAMOUS CELLS FEW #/hpf (0-5)
[2017-05-09 03:08] LABS: AMPHETAMINES/METAMPHETAMINES POSITIVE ng/mL (<1000)
--- NOTE | 2017-05-09 03:10 | Emergency Room Report ---
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 COMES IN BY AMBULANCE STATING SHE THINKS SHE HAS A STAPH INFECTION. PT IS VERY ANXIOUS, CAN NOT SIT STILL, AND EMOTIONAL. PT. STATES SHE DID NOT TAKE ANY ILLEGEAL DRUGS. PT IS POOR HISTORIAN. 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 N Clinical Suspician of Infection? N Mental Status: 3 - Acutely Altered Sepsis Risk:Severe Sepsis Risk Have you (or family members/close friends) recently traveled outside the [place]? N If Yes, where/when: Have you had exposure to infectious disease within the past month? N TB? Other? Specify: Source patient, RN notes reviewed, RN/MD Exam Limitations no limitations Comment This is a 36-year-old female brought in by EMS with agitation, stating that she has a "staph infection", and that her brougher committed suicide 2 nights ago, by shooting himslef with a gun. Patient is an extremely poor historian. Initially she denied any drug abuse but subsequently she had advised that she has been doing heavy doses of meth. ALLERGIES Coded Allergies: Penicillins (Mild, 06/20/16) Home Medications Active Scripts Potassium Chloride (K-Dur) 20 MEQ PO TID #90 TER Prov: 04/14/17 Reported Medications Gabapentin (Gabapentin 800MG) 800 MG PO TID Ondansetron (Zofran 4MG Odt) 4 MG PO DAILYP PRN nausea Acetaminophen (Acetaminophen Extra Strength) 1,000 MG PO Q6HP PRN pain Spironolactone (Aldactone) 25 MG NG DAILY Omeprazole 20 MG PO DAILY CETIRIZINE HCL (Zyrtec) 10 MG PO DAILY Doxepin Hcl (Doxepin) Olanzapine 20 MG PO DAILY #30 History Medical History General CAD? No Angina: No [place]: No Hypertension? No Hyperlipidemia? Yes CHF? No DVT? No PE? No COPD? Yes Asthma? No Anemia? No GERD? Yes Gastric ulcers? No GI Bleed? No Hernia? No Thyroid Problems? No Hypothyroidism? No CVA? No Seizures? No Diabetes? No Renal Insuffiency? Yes End Stage Renal Disease? No UTI? Yes Stones? Yes BPH? No GB Disease: Yes Nephritic Syndrome? No Asplenia? No Hepatitis? No Sickle Cell Disease? No Arthritis? Yes Migraines? No Cataracts? No Glaucoma? No MRSA? No HIV? No TB? No Anxiety? Yes Depression? Yes Cancer? No More? Yes Additional hx: BARTTER SYNDROME CHRONIC HYPOKALEMIA Immunization Hx DT/Tetanus 1-4 Years Ago Flu Refused Pneumonia Refuses Surgical Hx Previous Surgery?Y TUBAL Appendectomy GALL BLADDER EXP LAP-ENDOMETRIOSIS L EYE KIDNEY STONE URETEROSCOPY 04/22/15 DIRECTORY COMPILER Hx LMP 3 Months Ago Family History Family Hx Diabetes Yes CAD Yes Hypertension Yes Hyperlipidemia Yes Cancer No TB No Social History Smoking Hx Smoker: Current Every Day Smoker Tobacco: No Type Cigarettes Packs/day < 1 Pack Are you/the child exposed to second-hand smoke: Yes Alcohol Alcohol: Yes Review of Systems All Other Systems Reviewed and Negative Psychiatric/Neurological emotional problems (grieving brother's loss), other (agitated) Physical Exam Vital Signs Vital Signs Date Time Temp Pulse Resp B/P Pulse O2 O2 Flow FiO2 Ox Delivery Rate 05/09 0505 20 05/09 0354 66 20 115/64 94 05/09 0342 20 05/09 0243 110 20 100/71 96 05/09 0127 99.4 121 22 144/94 97 General Appearance normal appearance, WD/WN, severe distress, very agitated, unable to hold still, walking all over the room Eye Exam - bilateral eye normal exam, bilateral eye PERRL, bilateral eye EOMI Ear, Nose, Throat hearing grossly normal, normal ENT inspection Neck normal inspection, non-tender, supple, full range of motion Respiratory Status Yes: trachea midline, chest symmetrical, non tender chest. No: respiratory distress. Lung Sounds bilateral: normal breath sounds, lungs clear. Cardiovascular normal exam, regular rate/rhythm, no peripheral edema, no gallop, no JVD, no murmur, no rub, normal peripheral pulses Gastrointestinal normal bowel sounds, normal exam, non tender, soft, no organomegaly Extremities non-tender, normal range of motion, normal inspection Neurologic alert, tailor fitter II-XII nml as tested, oriented x 3 initially +++ flight of ideas, very agitated, manic, denies hallucinations, denies being suicidal or homicidal Mental status normal mood/affect Skin intact, warm/dry, rash (erythematous lesions ), patient has multiple erythematous lesions, LEFT proximal arm, LEFT lower back, bilateral proximal thighs, RIGHT dorsal hand, RIGHT axilla, warm to touch, blanches with pressure Medical Decision Making LABS/Meds/Orders Pt receiving controlled substance in ED? No Comment 04:30am-patient's condition continued to deteriorate, unable to control her symptoms with IV Benadryl, IV Ativan. Patient is agitated, with flight of ideas, walking 05:10am-case d/w Dr Hatfield covering for Dr Cary, advised of the patient's presentation and findings, agreeable with management and admission. All right temporary admission orders per hospital protocol. Upon patient's arrival to the floor the unit nurse will contact PCP in order to obtain a full inpatient admission orders. 05;30am-after additional doses of IV Haldol and IV Ativan patient is finally calm, sleeping in bed, in no obvious distress. Results/Orders Laboratory Tests 05/09/17234: Opiates Screen NEGATIVE, Urine Methadone Screen NEGATIVE, Barbiturates NEGATIVE, Phencyclidine Screen NEGATIVE, Amphetamines Screen POSITIVE H, Benzodiazepines Screen NEGATIVE, Cocaine Screen NEGATIVE, Marijuana (THC) Screen NEGATIVE, Urine Color DK YELLOW, Urine Appearance CLOUDY, Urine pH 6.0, Ur Specific [place] >= 1.030, Urine Protein 2+ H, Urine Ketones TRACE H, Urine Blood TRACE-INTACT, Urine Nitrate POSITIVE H, Urine Bilirubin NEGATIVE, Urine Urobilinogen 1.0, Ur Leukocyte Esterase NEGATIVE, Urine RBC 3-5, Urine WBC 3-5, Ur Squamous Epith Cells FEW, Urine Bacteria 4+, Urine Glucose NEGATIVE 05/09/17219: Lactic Acid 1.0 05/09/17219: Sodium 137, Potassium 3.2 L, Chloride 104, Carbon Dioxide 20 L, BUN 15, Creatinine 1.4 H, Estimated Creat Clear 73, Estimated GFR (MDRD) 42 L, Glucose 91, Calcium 9.1, Total Bilirubin 0.6, AST 39 H, ALT 26, Alkaline Phosphatase 102, Total Protein 8.2, Albumin 3.6, Globulin 4.6 H, Albumin/Globulin Ratio 0.8 L, WBC 11.1 H, RBC 4.30, Hgb 12.6, Hct 36.8 L, MCV 85.7, RDW 13.0, Plt Count 298, MPV 8.8, Gran % 64.3, Gran # 7.2, Lymphocytes % 25.8, Monocytes % 7.0, Eosinophils % 2.5, Basophils % 0.4, Lymphocytes # 2.9, Monocytes # 0.8, Eosinophils # 0.3, Basophils # 0.0, PUBS MCHC 34.3, MCH 29.4 Current Medication Orders Sig/Damien Start time Last Medication Dose Route Stop Time Status Admin Haloperidol Lactate 5 MG ONCE ONE 05/09 515 DC 05/09 IV 05/09 516 0515 Lorazepam 2 MG ONCE ONE 05/09 515 DC 05/09 IV 05/09 516 0505 Lorazepam 0 .STK-MED ONE 05/09 456 DC .ROUTE Lorazepam 2 MG ONCE ONE 05/09 345 DC 05/09 IV 05/09 346 0342 Lorazepam 0 .STK-MED ONE 05/09 341 DC .ROUTE Diphenhydramine HCl 0 .STK-MED ONE 05/09 335 DC .ROUTE Benztropine Mesylate 2 MG ONCE ONE 05/09 330 DC 05/09 IV 05/09 033 0336 Diphenhydramine HCl 25 MG ONCE ONE 05/09 033 DC 05/09 IV 05/09 033 0338 Sodium Chloride 1,000 ML .Q1H1M 05/09 0330 DC 05/09 IV 05/09 043 0336 Sodium Chloride 10 ML PRN PRN 05/09 0330 AC IV 05/10 0320 Sodium Chloride 1,000 ML .STK-MED ONE 05/09 330 DC IV Benztropine Mesylate 0 .STK-MED ONE 05/09 0329 DC .ROUTE Potassium Chloride 40 MEQ ONCE ONE 05/09 315 DC 05/09 PO 05/09 316 0312 Trimethoprim/ 1 TABLET ONCE ONE 05/09 315 DCr 05/09 Sulfamethoxazole PO 05/09 316 031 Potassium Chloride 0 .STK-MED ONE 05/09 312 DC PO Trimethoprim/ 0 .STK-MED ONE 05/09 312 DC Sulfamethoxazole PO Diphenhydramine HCl 25 MG ONCE ONE 05/09 020 DC 05/09 IV 05/09 201 0226 Sodium Chloride 10 ML PRN PRN 05/09 0200 AC IV 05/10 0150 Sodium Chloride 1,000 ML .Q1H1M 05/09 0200 DC 05/09 IV 05/09 0300 0226 Sodium Chloride 10 ML PRN PRN 05/09 0200 AC IV 05/10 0153 Diphenhydramine HCl 0 .STK-MED ONE 05/09 0154 DC .ROUTE Sodium Chloride 1,000 ML .STK-MED ONE 05/09 015 DC IV Orders Procedure Date/time Status URINALYSIS/COMPLETE 05/09 237 Complete DRUG ABUSE SCREEN (10) 05/09 237 Complete CULTURE, URINE 05/09 235 Active IV SALINE LOCK 05/09 151 Active CULTURE, BLOOD 05/09 151 Active LACTIC ACID 05/09 151 Complete CBC WITH AUTO DIFF 05/09 151 Complete CHEM 12 PROFILE 05/09 151 Complete Departure Departure Time of Disposition 0510 Disposition Still a Patient Clinical Impression Primary Impression: [place] Secondary Impressions: Amphetamine overdose Qualifiers: Encounter type: initial encounter Injury intent: undetermined intent Qualified Code: T43.624A - Poisoning by amphetamines, undetermined, initial encounter Cellulitis Qualifiers: Site of cellulitis: unspecified site Qualified Code: L03.90 - Cellulitis, unspecified Dehydration Hypokalemia Condition STABLE ED Critical Care Critical Care Yes Time spent 30-74 min Vital system(s) involved: manic episode I was present at bedside for Coordinating pt's care, During my initial exam, Reviewing lab results, Reviewing old records, Discussing pt condition, For re- examinations If Critical Care minutes are documented, the time involved in the performance of seperately reportable procedures was not counted toward critical care time documented. I directly delivered medical care to this critically ill and/or injured patient. Timely evaluation and treatment was necessary to address the significant organ system(s) dysfunction present in this patient. at 0531 I directly delivered medical care to this critically ill and/or injured patient. Timely evaluation and treatment was necessary to address the significant organ system(s) dysfunction present in this patient.
--- OUTSIDE RECORDS SUMMARY | 2017-05-09 05:31 | External Medical Summary Rpt | CCD ---
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 OLGUIN LE R OL 33 03 04 30 30 00 [...] MG MA CY TA BL #5 ET DO 00 03 04 30 30 00 TO Ac XE 37 -0 -0 .0 00 TA ti PI 86 3- 7- 00 00 L ve N 41 20 20 92 CA 10 00 17 17 96 RE 0 1 13 MG PH AR CA MA PS CY UL E #5 CE 16 02 03 30 30 00 [...] CY G IN #5 OLGUIN LE R GA 16 02 03 90 30 00 [...] PS CY UL E #5 OL 13 01 02 30 30 00 TO Ac AN [...] MG MA CY TA BL #5 ET DO 00 12 01 30 30 00 TO Ac XE 37 -1 -2 .0 00 TA ti PI 86 6- 0- 00 00 L ve N 41 20 20 92 CA 10 00 16 17 96 RE 0 1 13 MG PH AR CA MA PS CY UL E #5 OL 33 12 01 30 30 00 TO Ac AN 34 -1 -2 .0 00 TA ti ZA 20 6- 0- 00 00 L ve PI 07 20 20 92 CA NE 21 16 17 96 RE 5 14 20 PH AR MG MA CY TA BL #5 ET PO 00 12 01 60 30 00 TO Ac TA 78 -1 -2 .0 00 TA ti SS 15 6- 0- 00 00 L ve IU 72 20 20 92 CA M 01 16 17 75 RE CL 0 20 PH ER AR MA 20 CY ME #5 Q TA BL ET SY 00 12 01 10 30 [...] CY G IN #5 OLGUIN LE R GA 62 12 01 90 30 00 RI Ac BA 75 -0 -1 .0 00 TE ti PE 60 8- 3- 00 01 ve NT 20 20 20 15 AI IN 40 16 17 73 D 1 73 PH 80 AR 0 MA MG CY TA #3 BL 93 ET 8 00 10 10 1 12 30 TO 49 OLGUIN Ac 59 -2 -2 0. TA 21 RT ti 10 4- 4- 00 L 48 IG ve 38 20 20 0 CA 50 11 11 RE DORA 5 SE PH PH AR E MA CY # 4 MO 00 10 10 1 12 4 TO 49 OLGUIN Ac OM 60 -2 -2 0. TA 21 RT ti ET 31 4- 4- 00 L 55 IG ve OLGUIN 58 20 20 0 CA ZI 55 11 11 RE DORA NE 8 SE -C PH PH OD AR E EI MA NE CY # SY 4 RU P DO 00 08 10 5 60 30 TO 48 OLGUIN Ac XE 37 -3 -2 .0 TA 69 RT ti PI 84 0- 4- 00 L 29 IG ve N 25 20 20 CA 50 00 11 11 RE DORA 1 SE MG PH PH AR E CA MA PS CY UL # E 4 00 10 10 5 30 30 TO 49 OLGUIN Ac 14 -0 -0 .0 TA 01 RT ti 31 3- 3- 00 L 69 IG ve 25 20 20 CA 61 11 11 RE DORA 0 SE PH PH AR E MA CY # 4 AL 59 10 10 1 90 30 TO 49 OLGUIN Ac MO 76 -0 -0 .0 TA 01 RT ti AZ 23 3- 3- 00 L 70 IG ve OL 72 20 20 CA AM 10 11 11 RE DORA 1 4 SE PH PH MG AR E MA TA CY BL # ET 4 00 08 09 1 12 30 [...] 5 30 30 TO 48 OLGUIN Ac MO 00 -0 -1 .0 TA 19 RT ti EX 24 5- 9- 00 L 85 IG ve A 11 20 20 CA 10 73 11 11 RE DORA 0 SE MG PH PH AR E TA MA BL CY ET # 4 AL 59 08 09 1 90 30 TO 48 OLGUIN Ac MO 76 -0 -0 .0 TA 48 RT ti AZ 23 8- 6- 00 L 59 IG ve OL 72 20 20 CA AM 10 11 11 RE DORA 1 4 SE PH PH MG AR E MA TA CY BL # ET 4 OX 00 09 09 0 30 5 TO 25 AD Ac YC 40 -0 -0 .0 TA 58 KI ti OD 60 6- 6- 00 L 64 NS ve ON 51 20 20 CA E- 20 11 11 RE TI AC 5 MO ET PH TH AM AR Y IN MA D OP CY HE # N 4 5- 32 5 00 08 08 1 12 30 TO [...] 1 90 30 TO 48 OLGUIN Ac MO 76 -0 -0 .0 TA 48 RT [...] MG CY # TA 4 BL ET 00 07 08 1 12 30 TO 48 OLGUIN Ac 59 -0 -0 0. TA 19 RT ti 10 5- 1- 00 L 88 IG ve 38 20 20 0 CA 50 11 11 RE DORA 5 SE PH PH AR E MA CY # 4 ZY 00 07 08 5 30 30 TO 48 OLGUIN Ac MO 00 -0 -0 .0 TA 19 RT [...] CY UL # E 4 AL 59 07 07 0 90 30 TO 34 PA Ac MO 76 -1 -1 .0 TA 38 TE ti AZ 23 1- 1- 00 L 36 L ve OL 72 20 20 CA AM 10 11 11 RE RA 1 4 L PH MG AR MA TA CY BL # ET 3 ZY 00 07 07 5 30 30 TO 48 OLGUIN Ac MO 00 -0 -0 .0 TA 19 RT [...] 0 90 30 TO 34 PA Ac MO 76 -1 -1 .0 TA 22 TE ti AZ 23 6- 3- 00 L 68 L ve OL 72 20 20 CA AM 10 11 11 RE RA 1 4 L PH MG AR MA TA CY BL # ET 3 ZY 00 01 06 5 30 30 TO 46 OLGUIN Ac MO 00 -1 -0 .0 TA 53 RT [...] 1 90 30 TO 47 PA Ac MO 76 -1 -1 .0 TA 75 TE [...] RD # A TA 4 BL ET MO 68 05 05 5 30 7 TO [...] 5 30 30 TO 46 OLGUIN Ac MO 00 -1 -2 .0 TA 53 RT ti EX 24 7- 9- 00 L 19 IG ve A 11 20 20 CA 10 73 11 11 RE DORA 0 SE MG PH PH AR E TA MA BL CY ET # 4 AL 00 03 04 1 90 30 TO 47 PA Ac MO 78 -2 -1 .0 TA 22 TE [...] RD TA # A BL 4 ET ZY 00 01 03 5 30 30 TO 46 OLGUIN Ac MO 00 -1 -2 .0 TA 53 RT ti EX 24 7- 2- 00 L 19 IG ve A 11 20 20 CA 10 73 11 11 RE DORA 0 SE MG PH PH AR E TA MA BL CY ET # 4 DO 00 12 03 3 60 30 [...] 1 90 30 TO 47 PA Ac MO 78 -2 -2 .0 TA 22 TE ti AZ 11 2- 2- 00 L 54 L ve OL 07 20 20 CA AM 91 11 11 RE RA 1 0 L PH MG AR MA TA CY BL # ET 4 MENDENHALL 00 03 03 0 14 [...] 0 90 30 TO 46 ME Ac MO 78 -2 -2 .0 TA 94 LT ti AZ 11 3- 3- 00 L 44 ON ve OL 07 20 20 CA AM 91 11 11 RE GA 1 0 RY PH J MG AR MA TA CY BL # ET 4 MO 68 01 02 1 30 7 TO [...] 5 30 30 TO 46 OLGUIN Ac MO 00 -1 -1 .0 TA 53 RT [...] 0 90 30 TO 46 ME Ac MO 78 -2 -2 .0 TA 62 LT ti AZ 11 6- 6- 00 L 29 ON ve OL 07 20 20 CA AM 91 11 11 RE GA 1 0 RY PH J MG AR MA TA CY BL # ET 4 00 01 01 1 90 30 TO 46 OLGUIN Ac 59 -1 -1 .0 TA 53 RT ti 10 7- 7- 00 L 21 IG ve 38 20 20 CA 50 11 11 RE DORA 5 SE PH PH AR E MA CY # 4 MO 68 01 01 1 30 7 TO [...] 5 30 30 TO 46 OLGUIN Ac MO 00 -1 -1 .0 TA 53 RT ti EX 24 7- 7- 00 L 19 IG ve A 11 20 20 CA 10 73 11 11 RE DORA 0 SE MG PH PH AR E TA MA BL CY ET # 4 AL 00 12 12 0 90 30 TO 33 ME Ac MO 78 -2 -2 .0 TA 16 LT [...] L PH AR MA CY # 4 MO 68 12 12 0 30 8 TO [...] 1 30 30 WA 76 QU Ac MO 00 -3 -1 .0 L- 06 AT ti EX 24 0- 8- 00 MA 64 KE ve A 11 20 20 RT 5 ME 10 73 10 10 YE 0 PH R MG AR BR MA AD TA CY FO BL # RD ET A 10 05 84 ER 45 07 11 5 46 30 [...] CY RD UL # A E 4 AL 00 11 11 0 90 30 TO 46 ME Ac MO 78 -3 -3 .0 TA 08 LT ti AZ 11 0- 0- 00 L 19 ON ve OL 07 20 20 CA AM 91 10 10 RE GA 1 0 RY PH J MG AR MA TA CY BL # ET 4 MO 68 11 11 0 30 8 TO 46 OLGUIN Ac OM 38 -2 -2 .0 TA 02 RT ti ET 20 3- 3- 00 L 18 IG ve OLGUIN 04 20 20 CA ZI 11 10 10 RE DORA NE 0 SE PH PH 25 AR E MA MG CY # TA 4 BL ET 00 11 11 0 90 30 TO 46 OLGUIN Ac 59 -2 -2 .0 TA 02 RT ti 10 3- 3- 00 L 21 IG ve 38 20 20 CA 50 10 10 RE DORA 5 SE PH PH AR E MA CY # 4 ZY 00 07 11 5 30 30 TO 44 QU Ac MO 00 -1 -0 .0 TA 74 AT ti EX 24 4- 9- 00 L 84 KE ve A 11 20 20 CA ME 10 73 10 10 RE YE 0 R MG PH BR AR AD TA MA FO BL CY RD ET # A 4 AL 00 11 11 0 90 30 TO 45 QU Ac MO 78 -0 -0 .0 TA 81 AT [...] CY RD UL # A E 4 MO 68 10 10 0 30 8 TO [...] MA FO CY RD # A 4 ME 00 09 10 2 90 15 TO 45 QU Ac TH 14 -0 -0 .0 TA 19 AT ti OC 31 2- 8- 00 L 75 KE ve AR 29 20 20 CA ME BA 20 10 10 RE YE MO 5 R L PH BR 75 AR AD 0 MA FO MG CY RD # A TA 4 BL ET MO 68 10 10 0 20 5 TO 32 OLGUIN Ac OM 38 -0 -0 .0 TA 66 RT ti ET 20 8- 8- 00 L 54 IG ve OLGUIN 04 20 20 CA ZI 11 10 10 RE DORA NE 0 SE PH PH 25 AR E MA MG CY # TA 3 BL ET AL 00 10 10 0 90 30 TO 45 OLGUIN Ac MO 78 -0 -0 .0 TA 53 RT ti AZ 11 6- 6- 00 L 68 IG ve OL 07 20 20 CA AM 91 10 10 RE DORA 1 0 SE PH PH MG AR E MA TA CY BL # ET 4 ZY 00 07 09 5 30 30 TO 44 QU Ac MO 00 -1 -3 .0 TA 74 AT ti EX 24 4- 0- 00 L 84 KE ve A 11 20 20 CA ME 10 73 10 10 RE YE 0 R MG PH BR AR AD TA MA FO BL CY RD ET # A 4 DO 00 06 09 1 60 [...] AR MA CY # 4 AL 00 09 09 0 60 30 TO 45 QU Ac MO 78 -0 -0 .0 TA 26 AT ti AZ 11 9- 9- 00 L 62 KE ve OL 07 20 20 CA ME AM 91 10 10 RE YE 1 0 R PH BR MG AR AD MA FO TA CY RD BL # A ET 4 ZY 00 07 09 5 30 30 TO 44 QU Ac MO 00 -1 -0 .0 TA 74 AT [...] FO MG RD A TA BL ET MO 60 08 08 0 24 6 44 [...] 5 R BR AD FO RD A DO 00 07 07 5 60 30 44 QU Ac XE 37 -1 -3 .0 74 AT ti PI 84 4- 0- 00 85 KE ve N 25 20 20 ME 50 01 10 10 YE 0 R MG BR AD CA FO PS RD UL A E ZY 00 07 07 5 30 30 44 QU Ac MO 00 -1 -3 .0 74 AT ti EX 24 4- 0- 00 84 KE ve A 11 20 20 ME 10 73 10 10 YE 0 R MG BR AD TA FO BL RD ET A HY 00 07 07 2 30 [address] 17 -1 -1 .0 74 AT ti OC 22 4- 4- 00 80 KE ve HL 08 20 20 ME OR 38 10 10 YE OT 0 R HI BR AZ AD ID FO E RD 25 A MG TA B MENDENHALL 00 07 07 0 20 10 44 QU Ac LF 60 -1 -1 .0 74 AT ti AM 35 4- 4- 00 81 KE ve ET 78 20 20 ME HO 12 10 10 YE XA 8 R ZO BR LE AD -T FO MP RD A DS TA BL ET MU 45 07 07 0 22 10 44 QU Ac PI 80 -1 -1 .0 74 AT ti RO 20 4- 4- 00 82 KE ve CI 11 20 20 ME N 22 10 10 YE 2% 2 R BR OI AD NT FO ME RD NT A ER 45 07 07 5 46 30 44 QU Ac YT 80 -1 -1 .6 74 AT ti HR 20 4- 4- 00 83 KE ve OM 08 20 20 ME YC 38 10 10 YE IN 6 R -B BR EN AD ZO FO YL RD A GE L 00 07 07 0 75 25 44 QU Ac 59 -1 -1 .0 74 AT ti 10 4- 4- 00 87 KE ve 38 20 20 ME 70 10 10 YE 5 R BR AD FO RD A NA 68 09 06 5 60 30 41 ME Ac MO 46 -2 -2 .0 91 LT ti [...] 06 0 60 30 44 ME Ac MO 78 -2 -2 .0 56 LT ti AZ 11 2- 2- 00 40 ON ve OL 07 20 20 AM 91 10 10 GA 1 0 RY J MG TA BL ET ZY 00 01 06 6 30 30 42 PA Ac MO 00 -0 -2 .0 93 TE ti EX 24 5- 2- 00 11 L ve A 11 20 20 10 73 10 10 RA 0 L MG TA BL ET 00 06 06 0 60 30 44 PA Ac 59 -2 -2 .0 56 TE ti 10 1- 2- 00 10 L ve 38 20 20 70 10 10 RA 5 L 00 05 05 0 60 30 44 PA Ac 59 -2 -2 .0 30 TE ti 10 4- 4- 00 29 L ve 38 20 20 70 10 10 RA 5 L GA 53 05 05 0 60 30 44 PA Ac BA 74 -2 -2 .0 30 TE ti PE 60 4- 4- 00 30 L ve NT 10 20 20 IN 10 10 10 RA 5 L 10 0 MG CA PS UL E AL 00 04 05 1 60 30 44 ME Ac MO 78 -2 -2 .0 04 LT ti AZ 11 03 ON ve OL 07 20 20 AM 91 10 10 GA 1 0 RY J MG TA BL ET DO 00 09 05 2 60 30 41 ME Ac XE 37 -2 -2 .0 91 LT ti PI 84 8- 4- 00 14 ON ve N 25 20 20 50 01 09 10 GA 0 RY MG J CA PS UL E MENDENHALL 00 04 04 0 20 10 44 ME Ac LF 60 -2 -2 .0 04 LT ti AM 35 7- 7- 00 ON ve ET 78 20 20 HO 12 10 10 GA XA 8 RY ZO J LE -T MP DS TA BL ET CE 68 04 04 0 30 10 44 ME Ac PH 18 -2 -2 .0 04 LT ti AL 00 7 02 ON ve EX 12 20 20 IN 20 10 10 GA 2 RY 50 J 0 MG CA PS UL E AL 00 04 04 1 60 30 44 ME Ac MO 78 -2 -2 .0 04 LT ti AZ 11 7 7 03 ON ve OL 07 20 20 AM 91 10 10 GA 1 0 RY J MG TA BL ET 00 03 04 1 60 30 43 PA Ac 59 -2 -2 .0 77 TE ti 10 9- 4- 00 03 L ve 38 20 20 50 10 10 RA 5 L ZY 00 01 04 6 30 30 42 PA Ac MO 00 -0 -2 .0 93 TE ti EX 24 5- 3- 00 11 L ve A 11 20 20 10 73 10 10 RA 0 L MG TA BL ET LO 45 09 04 2 30 30 41 ME Ac RA 80 -2 -2 .0 91 LT ti TA 20 8- 3- 00 13 ON ve DI 65 20 20 NE 08 09 10 GA 7 RY 10 J MG TA BL ET DO 00 09 04 2 60 30 41 ME Ac XE 37 -2 -2 .0 91 LT ti PI 84 8- 3- 00 14 ON ve N 25 20 20 50 01 09 10 GA 0 RY MG J CA PS UL E 63 03 03 0 30 10 43 [...] 03 0 60 30 43 PA Ac MO 78 -2 -2 .0 77 TE ti AZ 11 5- 9- 00 06 L ve OL 07 20 20 AM 91 10 10 RA 1 0 L MG TA BL ET ZY 00 01 03 6 30 30 42 PA Ac MO 00 -0 -2 .0 93 TE ti [...] 00 30 30 TO 30 ME Ac MO 00 -2 -0 .0 TA 87 LT ti EX 24 8- 5- 00 L 96 ON ve A 11 20 20 CA 10 73 09 09 RE GA 0 RY MG PH J AR TA MA BL CY ET # 3 NA 68 07 10 02 60 30 TO 41 ME Ac MO 46 -0 -2 .0 TA 39 LT ti OX 20 9- 2- 00 L 14 ON ve EN 19 20 20 CA 00 09 09 RE GA 50 5 RY 0 PH J MG AR MA TA CY BL # ET 4 00 09 10 00 60 30 TO 41 ME Ac 59 -1 -2 .0 TA 82 LT ti 10 7- 2- 00 L 14 ON ve 38 20 20 CA 50 09 09 RE GA 5 RY PH J AR MA CY # 4 AL 00 09 10 01 60 30 TO 41 ME Ac MO 78 -1 -2 .0 TA 77 LT ti AZ 11 4- 2- 00 L 75 ON ve OL 07 20 20 CA AM 91 09 09 RE GA 1 0 RY PH J MG AR MA TA CY BL # ET 4 AZ 00 09 10 00 6. 5 TO 41 ME Ac IT 78 -2 -0 00 TA 91 LT ti HR 11 8- 8- 0 L 16 ON ve OM 49 20 20 CA YC 66 09 09 RE GA IN 8 RY PH J 25 AR 0 MA MG CY # TA 4 BL ET DO 00 09 10 00 60 30 TO 41 ME Ac XE 37 -2 -0 .0 TA 91 LT ti PI 84 8- 8- 00 L 14 ON ve N 25 20 20 CA 50 00 09 09 RE GA 1 RY MG PH J AR CA MA PS CY UL # E 4 SE 00 09 10 00 45 30 TO 41 ME Ac RO 31 -1 -0 .0 TA 82 LT ti QU 00 7- 8- 00 L 13 ON ve EL 27 20 20 CA 11 09 09 RE GA 10 0 RY 0 PH J MG AR MA TA CY BL # ET 4 LO 51 09 10 00 30 30 TO 41 ME Ac RA 66 -2 -0 .0 TA 91 LT ti TA 00 8- 8- 00 L 13 ON ve DI 52 20 20 CA NE 60 09 09 RE GA 5 RY 10 PH J AR MG MA CY TA # BL 4 ET MO 68 09 10 00 12 3 CL 20 CL Ac OM 38 -2 -0 .0 IN 13 AR ti ET 20 4- 8- 00 IC 09 KE ve OLGUIN 04 20 20 ZI 10 09 09 PH DE NE 1 AR RE MA K 25 CY J MG TA BL ET ZY 00 09 10 00 30 30 GR 93 LE Ac MO 00 -2 -0 .0 AN 80 HM ti EX 24 5- 8- 00 T 29 KU ve A 11 20 20 CO HL 10 [address] RA MG UG CH S EL TA WI J BL LL ET IA MS TO WN AL 00 09 09 00 60 30 TO 41 ME Ac MO 78 -1 -2 .0 TA 77 LT ti AZ 11 4- 4- 00 L 75 ON ve OL 07 20 20 CA AM 91 09 09 RE GA 1 0 RY PH J MG AR MA TA CY BL # ET 4 NA 68 07 09 01 60 30 TO 41 ME Ac MO 46 -0 -2 .0 TA 39 LT [...] UL # E 4 00 09 09 00 60 30 TO [...] MA CY TA # BL 4 ET CI 60 08 09 01 15 30 TO 41 PA Ac TA 50 -1 -2 .0 TA 42 TE ti LO 52 1- 4- 00 L 36 L ve MO 51 20 20 CA AM 90 09 09 RE RA 1 L HB PH R AR 20 MA CY MG # 4 TA BL ET SE 00 08 09 01 60 30 TO 41 PA Ac RO 31 -1 -2 .0 TA 42 TE ti QU 00 1- 4- 00 L 37 L ve EL 27 20 20 CA 51 09 09 RE RA 25 0 L PH MG AR MA TA CY BL # ET 4 SE 00 08 08 00 60 30 TO 41 PA Ac RO 31 -1 -2 .0 TA 42 TE ti QU 00 1- 7- 00 L 37 L ve EL 27 20 20 CA 51 09 09 RE RA 25 0 L PH MG AR MA TA CY BL # ET 4 00 08 08 00 60 30 TO 24 PA Ac 05 -1 -2 .0 TA 47 TE ti 44 1- 7- 00 L 59 L ve 65 20 20 CA 02 09 09 RE RA 9 L PH AR MA CY # 4 CI 60 08 08 00 15 30 TO 41 PA Ac TA 50 -1 -2 .0 TA 42 TE ti LO 52 1- 7- 00 L 36 L ve MO 51 20 20 CA AM 90 09 09 RE RA 1 L HB PH R AR 20 MA CY MG # 4 TA BL ET AL 00 07 08 00 60 30 TO 41 ME Ac MO 78 -0 -2 .0 TA 39 LT ti AZ 11 7- 7- 00 L 18 ON ve OL 07 20 20 CA AM 91 09 09 RE GA 1 0 RY PH J MG AR MA TA CY BL # ET 4 ZY 00 07 08 00 30 30 TO 41 ME Ac MO 00 -0 -1 .0 TA 39 LT ti EX 24 7- 3- 00 L 13 ON ve A 11 20 20 CA 10 73 09 09 RE GA 0 RY MG PH J AR TA MA BL CY ET # 4 00 07 08 00 60 30 TO 41 ME Ac 59 -0 -1 .0 TA 39 LT ti 10 9- 3- 00 L 16 ON ve 38 20 20 CA 50 09 09 RE GA 5 RY PH J AR MA CY # 4 NA 68 07 08 00 60 30 TO 41 ME Ac MO 46 -0 -1 .0 TA 39 LT ti OX 20 9- 3- 00 L 14 ON ve EN 19 20 20 CA 00 09 09 RE GA 50 5 RY 0 PH J MG AR MA TA CY BL # ET 4 DO 00 08 08 00 30 30 TO 41 ME Ac XE 37 -0 -1 .0 TA 39 LT ti PI 84 6- 3- 00 L 15 ON ve N 25 20 20 CA 50 00 09 09 RE GA 1 RY MG PH J AR CA MA PS CY UL # E 4 00 07 07 00 60 30 TO [...] CY UL # E 3 AL 00 07 07 00 60 30 TO 30 ME Ac MO 78 -0 -1 .0 TA 38 LT ti AZ 11 7- 6- 00 L 04 ON ve OL 07 20 20 CA AM 91 09 09 RE GA 1 0 RY PH J MG AR MA TA CY BL # ET 3 NA 68 07 07 00 60 30 TO 30 ME Ac MO 46 -0 -1 .0 TA 38 LT ti OX 20 9- 6- 00 L 74 ON ve EN 19 20 20 CA 00 09 09 RE GA 50 5 RY 0 PH J MG AR MA TA CY BL # ET 3 ZY 00 05 07 01 30 30 TO 40 ME Ac MO 00 -1 -0 .0 TA 62 LT ti EX 24 8- 2- 00 L 04 ON ve A 11 20 20 CA 10 73 09 09 RE GA 0 RY MG PH J AR TA MA BL CY ET # 4 NA 68 05 07 01 60 30 TO 40 ME Ac MO 46 -1 -0 .0 TA 62 LT [...] PS CY UL # E 4 00 05 07 01 60 30 TO 40 ME Ac 59 -1 -0 .0 TA 62 LT ti 10 8- 2- 00 L 02 ON ve 38 20 20 CA 50 09 09 RE GA 5 RY PH J AR MA CY # 4 AL 00 05 07 01 60 30 TO 40 ME Ac MO 78 -1 -0 .0 TA 62 LT ti AZ 11 8- 2- 00 L 06 ON ve OL 07 20 20 CA AM 91 09 09 RE GA 1 0 RY PH J MG AR MA TA CY BL # ET 4 00 06 07 00 12 2 RI 78 SO Ac 40 -2 -0 .0 TE 90 KA ti 60 2- 2- 00 86 N ve 35 20 20 AI BA 70 09 09 D BA 5 PH TU AR ND M E #3 O 93 8 00 06 07 00 20 4 TO 30 SW Ac 59 -1 -0 .0 TA 30 EE ti 10 8- 2- 00 L 49 NE ve 34 20 20 CA Y 90 09 09 RE GR 5 EG PH OR AR Y MA D CY # 3 00 05 06 00 20 4 TO 30 BR Ac 59 -2 -0 .0 TA 18 OW ti 10 0- 4- 00 L 65 N ve 54 20 20 CA DORA 00 09 09 RE SE 5 PH PH J AR MA CY # 3 00 05 06 00 12 2 TO 30 BR Ac 59 -2 -0 .0 TA 19 OW ti 10 3- 4- 00 L 99 N ve 34 20 20 CA DORA 90 09 09 RE SE 5 PH PH J AR MA CY # 3 ZY 00 05 06 00 30 30 TO 40 ME Ac MO 00 -1 -0 .0 TA 62 LT ti EX 24 8- 4- 00 L 04 ON ve A 11 20 20 CA 10 73 09 09 RE GA 0 RY MG PH J AR TA MA BL CY ET # 4 FL 55 05 06 00 30 30 TO 40 ME Ac UO 11 -1 -0 .0 TA 62 LT ti XE 10 8- 4- 00 L 05 ON ve TI 14 20 20 CA NE 90 09 09 RE GA 1 RY HC PH J L AR 40 MA CY MG # 4 CA PS UL E 00 05 06 00 60 30 TO 40 ME Ac 59 -1 -0 .0 TA 62 LT ti 10 8- 4- 00 L 02 ON ve 38 20 20 CA 50 09 09 RE GA 5 RY PH J AR MA CY # 4 HY 45 05 06 00 28 21 TO [address] 80 -1 -0 .0 TA 62 LT ti OC 20 8- 4- 00 L 08 ON ve OR 00 20 20 CA TI 40 09 09 RE GA SO 3 RY NE PH J AR 2. MA 5% CY # CR 4 EA M AL 00 05 06 00 60 30 TO 40 ME Ac MO 78 -1 -0 .0 TA 62 LT ti AZ 11 8- 4- 00 L 06 ON ve OL 07 20 20 CA AM 91 09 09 RE GA 1 0 RY PH J MG AR MA TA CY BL # ET 4 DO 00 05 06 00 30 30 TO 40 ME Ac XE 37 -1 -0 .0 TA 62 LT ti PI 84 8- 4- 00 L 03 ON ve N 25 20 20 CA 50 00 09 09 RE GA 1 RY MG PH J AR CA MA PS CY UL # E 4 NA 68 05 06 00 60 30 TO 40 ME Ac MO 46 -1 -0 .0 TA 62 LT ti OX 20 8- 4- 00 L 07 ON ve EN 19 20 20 CA 00 09 09 RE GA 50 5 RY 0 PH J MG AR MA TA CY BL # ET 4 DI 00 03 05 01 30 8 TO 40 ME Ac CY 59 -2 -0 .0 TA 02 LT ti CL 10 6- 7- 00 L 37 ON ve OM 79 20 20 CA IN 51 09 09 RE GA E 0 RY 20 PH J AR MG MA CY TA # BL 4 ET DO 00 12 05 05 30 30 TO 35 ME Ac XE 37 -0 -0 .0 TA 59 LT ti PI 84 9- 7- 00 L 54 ON ve N 25 20 20 CA 50 00 08 09 RE GA 1 RY MG PH J AR CA MA PS CY UL # E 4 ZY 00 12 05 05 30 30 TO 35 ME Ac MO 00 -0 -0 .0 TA 59 LT ti EX 24 9- 7- 00 L 53 ON ve A 11 20 20 CA 10 73 08 09 RE GA 0 RY MG PH J AR TA MA BL CY ET # 4 AL 00 03 05 01 60 30 TO 40 ME Ac MO 78 -2 -0 .0 TA 02 LT ti AZ 11 6- 7- 00 L 39 ON ve OL 07 20 20 CA AM 91 09 09 RE GA 1 0 RY PH J MG AR MA TA CY BL # ET 4 00 03 05 01 60 30 TO 40 ME Ac 59 -2 -0 .0 TA 02 LT ti 10 6- 7- 00 L 38 ON ve 38 20 20 CA 50 09 09 RE GA 5 RY PH J AR MA CY # 4 FL 55 12 05 03 30 30 TO 35 ME Ac UO 11 -0 -0 .0 TA 59 LT ti XE 10 9- 7- 00 L 51 ON ve TI 14 20 20 CA NE 90 08 09 RE GA 1 RY HC PH J L AR 40 MA CY MG # 4 CA PS UL E NA 68 12 05 05 60 30 TO 35 ME Ac MO 46 -0 -0 .0 TA 59 LT [...] MA CY # 4 ZY 00 12 04 04 30 30 TO 35 ME Ac MO 00 -0 -0 .0 TA 59 LT ti EX 24 9- 9- 00 L 53 ON ve A 11 20 20 CA 10 73 08 09 RE GA 0 RY MG PH J AR TA MA BL CY ET # 4 NA 68 12 04 04 60 30 TO 35 ME Ac MO 46 -0 -0 .0 TA 59 LT ti OX 20 9- 9- 00 L 50 ON ve EN 19 20 20 CA 00 08 09 RE GA 50 5 RY 0 PH J MG AR MA TA CY BL # ET 4 DI 00 03 04 00 30 8 TO 40 ME Ac CY 59 -2 -0 .0 TA 02 LT ti CL 10 6- 9- 00 L 37 ON ve OM 79 20 20 CA IN 51 09 09 RE GA E 0 RY 20 PH J AR MG MA CY TA # BL 4 ET AL 00 03 04 00 60 30 TO 40 ME Ac MO 78 -2 -0 .0 TA 02 LT ti AZ 11 6- 9- 00 L 39 ON ve OL 07 20 20 CA AM 91 09 09 RE GA 1 0 RY PH J MG AR MA TA CY BL # ET 4 FL 55 12 04 02 30 30 TO 35 ME Ac UO 11 -0 -0 .0 TA 59 LT ti XE 10 9- 9- 00 L 51 ON ve TI 14 20 20 CA NE 90 08 09 RE GA 1 RY HC PH J L AR 40 MA CY MG # 4 CA PS UL E DO 49 12 04 04 30 30 TO 35 ME Ac XE 88 -0 -0 .0 TA 59 LT ti PI 40 9- 9- 00 L 54 ON ve N 21 20 20 CA 50 90 08 09 RE GA 1 RY MG PH J AR CA MA PS CY UL # E 4 OX 00 03 04 00 15 2 RI 77 SW Ac YC 40 -2 -0 .0 TE 66 EE ti OD 60 3- 9- 00 15 NE ve ON 51 20 20 AI Y E- 20 09 09 D GR AC 1 PH EG ET AR OR AM M Y IN #3 D OP 93 HE 8 N 5- 32 5 CI 00 03 04 00 14 7 RI 77 SW Ac MO 17 -2 -0 .0 TE 66 EE ti OF 25 3- 9- 00 12 NE ve LO 31 20 20 AI Y XA 26 09 09 D GR CI 0 PH EG N AR OR HC M Y L #3 D 50 93 0 8 MG TA B MENDENHALL 00 12 03 00 20 10 [...] 03 60 30 TO 35 ME Ac MO 46 -0 -1 .0 TA 59 LT ti OX 20 9- 2- 00 L 50 ON ve EN 19 20 20 CA 00 08 09 RE GA 50 5 RY 0 PH J MG AR MA TA CY BL # ET 4 00 02 03 01 60 30 TO 36 ME Ac 59 -0 -1 .0 TA 24 LT ti 10 3- 2- 00 L 63 ON ve 38 20 20 CA 50 09 09 RE GA 5 RY PH J AR MA CY # 4 DO 49 12 03 03 30 [...] 01 60 30 TO 36 ME Ac MO 78 -0 -1 .0 TA 24 LT ti AZ 11 3- 2- 00 L 62 ON ve OL 07 20 20 CA AM 91 09 09 RE GA 1 0 RY PH J MG AR MA TA CY BL # ET 4 ZY 00 12 03 03 30 30 TO 35 ME Ac MO 00 -0 -1 .0 TA 59 LT ti EX 24 9- 2- 00 L 53 ON ve A 11 20 20 CA 10 73 08 09 RE GA 0 RY MG PH J AR TA MA BL CY ET # 4 DO 49 12 02 02 30 30 TO 35 ME Ac XE 88 -0 -1 .0 TA 59 LT ti PI 40 9- 2- 00 L 54 ON ve N 21 20 20 CA 50 90 08 09 RE GA 1 RY MG PH J AR CA MA PS CY UL # E 4 ZY 00 12 02 02 30 30 TO 35 ME Ac MO 00 -0 -1 .0 TA 59 LT ti EX 24 9- 2- 00 L 53 ON ve A 11 20 20 CA 10 73 08 09 RE GA 0 RY MG PH J AR TA MA BL CY ET # 4 AL 00 02 02 00 60 30 TO 36 ME Ac MO 78 -0 -1 .0 TA 24 LT ti AZ 11 3- 2- 00 L 62 ON ve OL 07 20 20 CA AM 91 09 09 RE GA 1 0 RY PH J MG AR MA TA CY BL # ET 4 00 02 02 00 60 30 TO 36 ME Ac 59 -0 -1 .0 TA 24 LT ti 10 3- 2- 00 L 63 ON ve 38 20 20 CA 50 09 09 RE GA 5 RY PH J AR MA CY # 4 NA 68 12 02 02 60 30 TO 35 ME Ac MO 46 -0 -1 .0 TA 59 LT ti OX 20 9- 2- 00 L 50 ON ve EN 19 20 20 CA 00 08 09 RE GA 50 5 RY 0 PH J MG AR MA TA CY BL # ET 4 CI 00 12 01 00 14 7 CL 18 AD Ac MO 14 -3 -1 .0 IN 48 KI ti OF 39 1- 5- 00 IC 88 NS ve LO 92 20 20 XA 80 08 09 PH TI CI 1 AR MO N MA TH HC CY Y L D 50 0 MG TA B AL 00 12 01 01 60 30 TO 35 ME Ac MO 78 -0 -1 .0 TA 59 LT ti AZ 11 9- 5- 00 L 49 ON ve OL 07 20 20 CA AM 91 08 09 RE GA 1 0 RY PH J MG AR MA TA CY BL # ET 4 ZY 00 12 01 01 30 30 TO 35 ME Ac MO 00 -0 -1 .0 TA 59 LT ti EX 24 9- 5- 00 L 53 ON ve A 11 20 20 CA 10 73 08 09 RE GA 0 RY MG PH J AR TA MA BL CY ET # 4 NA 68 12 01 01 60 30 TO 35 ME Ac MO 46 -0 -1 .0 TA 59 LT ti OX 20 9- 5- 00 L 50 ON ve EN 19 20 20 CA 00 08 09 RE GA 50 5 RY 0 PH J MG AR MA TA CY BL # ET 4 FL 55 12 01 01 30 [...] MA PS CY UL # E 4 MENDENHALL 00 12 12 00 20 10 TO 35 ME Ac LF 60 -0 -1 .0 TA 59 LT ti AM 35 9- 8- 00 L 59 ON ve ET 78 20 20 CA HO 12 08 08 RE GA XA 8 RY ZO PH J LE AR -T MA MP CY # DS 4 TA BL ET AL 59 12 12 00 60 30 TO 35 ME Ac MO 76 -0 -1 .0 TA 59 LT ti AZ 23 9- 8- 00 L 49 ON ve OL 72 20 20 CA AM 10 08 08 RE GA 1 4 RY PH J MG AR MA TA CY BL # ET 4 FL 55 12 12 00 30 30 TO 35 ME Ac UO 11 -0 -1 .0 TA 59 LT ti XE 10 9- 8- 00 L 51 ON ve TI 14 20 20 CA NE 90 08 08 RE GA 1 RY HC PH J L AR 40 MA CY MG # 4 CA PS UL E NA 68 12 12 00 60 30 TO 35 ME Ac MO 46 -0 -1 .0 TA 59 LT ti OX 20 9- 8- 00 L 50 ON ve EN 19 20 20 CA 00 08 08 RE GA 50 5 RY 0 PH J MG AR MA TA CY BL # ET 4 ZY 00 12 12 00 30 30 TO 35 ME Ac MO 00 -0 -1 .0 TA 59 LT ti EX 24 9- 8- 00 L 53 ON ve A 11 20 20 CA 10 73 08 08 RE GA 0 RY MG PH J AR TA MA BL CY ET # 4 DO 49 12 12 00 30 30 TO 35 ME Ac XE 88 -0 -1 .0 TA 59 LT ti PI 40 9- 8- 00 L 54 ON ve N 21 20 20 CA 50 90 08 08 RE GA 1 RY MG PH J AR CA MA PS CY UL # E 4 00 11 12 00 30 5 CL 18 AD Ac 05 -2 -0 .0 IN 28 KI ti 44 8- 4- 00 IC 04 NS ve 39 20 20 22 08 08 PH TI 5 AR MO MA TH CY Y D 64 11 12 00 30 10 KR [...] AR MO MA TH CY Y D MO 00 11 12 00 20 5 CL 18 AD Ac OM 78 -2 -0 .0 IN 26 KI ti ET 11 5- 4- 00 IC 50 NS ve OLGUIN 83 20 20 ZI 01 08 08 PH TI NE 0 AR MO MA TH 25 CY Y D MG TA BL ET CL 00 09 12 01 60 30 CL 17 ME Ac ON 22 -3 -0 .0 IN 93 LT ti AZ 83 0- 4- 00 IC 31 ON ve EP 00 20 20 AM 41 08 08 PH GA 1 1 AR RY MA J MG CY TA BL ET NA 68 07 11 03 60 30 PH 33 ME Ac MO 46 -0 -0 .0 AR 76 LT ti OX 20 8- 7- 00 MC 87 ON ve EN 19 20 20 AR 00 08 08 E GA 50 5 CR RY 0 IT J MG TE ND TA EN BL N ET ZY 00 07 11 03 30 30 PH 33 ME Ac MO 00 -0 -0 .0 AR 76 LT ti EX 24 8- 7- 00 MC 89 ON ve A 11 20 20 AR 10 73 08 08 E GA 0 CR RY MG IT J TE TA ND BL EN ET N 00 09 10 00 14 7 CL 17 No Ac 09 -2 -2 .0 IN 93 t ti 30 9- 3- 00 IC 32 Av ve 85 20 20 ai 20 08 08 PH la 5 AR bl MA e CY DO 00 09 10 00 30 30 CL 17 No Ac XE 37 -0 -2 .0 IN 93 t ti PI 84 3- 3- 00 IC 30 Av ve N 25 20 20 ai 50 00 08 08 PH la 1 AR bl MG MA e CY CA PS UL E CL 00 09 10 00 60 30 CL 17 No Ac ON 22 -3 -2 .0 IN 93 t ti AZ 83 0- 3- 00 IC 31 Av ve EP 00 20 20 ai AM 41 08 08 PH la 1 1 AR bl MA e MG CY TA BL ET NA 00 07 09 02 60 30 PH 33 ME Ac MO 09 -0 -2 .0 AR 76 LT ti OX 30 8- 6- 00 MC 87 ON ve EN 14 20 20 AR 90 08 08 E GA 50 5 CR RY 0 IT J MG TE ND TA EN BL N ET ZY 00 07 09 02 30 30 PH 33 ME Ac MO 00 -0 -2 .0 AR 76 LT ti EX 24 8- 6 00 MC 89 ON ve A 11 20 20 AR 10 73 08 08 E GA 0 CR RY MG IT J TE TA ND BL EN ET N CL 00 08 09 01 60 30 PH 68 ME Ac ON 09 -1 -2 .0 AR 91 LT ti AZ 30 2- 6- 00 MC 2 ON ve EP 83 20 20 AR AM 31 08 08 E GA 1 0 CR RY IT J MG TE ND TA EN BL ET LL C DO 00 09 09 00 30 30 [...] .0 AR 91 LT ti AZ 30 2- 8- 00 MC 2 ON ve EP 83 20 20 AR AM 31 08 08 E GA 1 0 CR RY IT J MG TE ND TA EN BL ET LL C CL 00 07 08 00 60 30 PH 33 ME Ac ON 09 -0 -1 .0 AR 76 LT ti AZ 30 8- 4- MC 88 ON ve EP 83 20 20 AR AM 31 08 08 E GA 1 0 CR RY IT J MG TE ND TA EN BL N ET NA 00 07 08 01 60 30 PH 33 ME Ac MO 09 -0 -1 .0 AR 76 LT ti OX 30 8 4 MC 87 ON ve EN 14 20 20 AR 90 08 08 E GA 50 5 CR RY 0 IT J MG TE ND TA EN BL N ET FL 00 07 08 01 30 30 PH 33 ME Ac UO 78 -0 -1 .0 AR 76 LT ti XE 12 8 MC 91 ON ve TI 82 20 20 AR NE 40 08 08 E GA 1 CR RY HC IT J L TE 40 ND EN MG N CA PS UL E ZY 00 07 08 01 30 30 PH 33 ME Ac MO 00 -0 -1 .0 AR 76 LT ti EX 24 8 4 MC 89 ON ve A 11 20 20 AR 10 73 08 08 E GA 0 CR RY MG IT J TE TA ND BL EN ET N DO 00 08 08 00 14 7 RI 74 GA Ac XY 14 -0 -1 .0 TE 45 IN ti CY 33 7- 4- 00 85 EY ve CL 14 20 20 AI IN 20 08 08 D NE E 5 PH CH HY AR AE CL M L AT #3 S E 93 10 8 0 MG CA P AC 00 08 08 00 8. 2 RI 74 GA Ac ET 09 -0 -1 00 TE 45 IN ti AM 30 7- 4- 0 84 EY ve IN 15 20 20 AI OP 01 08 08 D NE HE 0 PH CH N- AR AE CO M L D #3 S #3 93 8 TA BL ET FL 00 07 07 00 30 30 PH 33 ME Ac UO 78 -0 -1 .0 AR 76 LT ti XE 12 8- 7- MC 91 ON ve TI 82 20 20 AR NE 40 08 08 E GA 1 CR RY HC IT J L TE 40 ND EN MG N CA PS UL E ZY 00 07 07 00 30 30 PH 33 ME Ac MO 00 -0 -1 .0 AR 76 LT ti EX 24 8- 7- 00 MC 89 ON ve A 11 20 20 AR 10 73 08 08 E GA 0 CR RY MG IT J TE TA ND BL EN ET N NA 00 07 07 00 60 30 PH 33 ME Ac MO 09 -0 -1 .0 AR 76 LT ti OX 30 8- 7- 00 MC 87 ON ve EN 14 20 20 AR 90 08 08 E GA 50 5 CR RY 0 IT J MG TE ND TA EN BL N ET CL 00 07 07 00 60 30 CL 17 No Ac ON 09 -0 -1 .0 IN 37 t ti AZ 30 3- 7- 00 IC 53 Av ve EP 83 20 20 ai AM 31 08 08 PH la 1 0 AR bl MA e MG CY TA BL ET FL 50 06 06 00 30 30 PH 33 ME Ac UO 11 -0 -1 .0 AR 42 LT ti XE 10 5- 2- 00 MC 42 ON ve TI 64 20 20 AR NE 80 08 08 E GA 3 CR RY HC IT J L TE 20 ND EN MG N CA PS UL E CL 00 06 06 00 60 30 PH 33 ME Ac ON 09 -0 -1 .0 AR 42 LT ti AZ 30 5- 2- 00 MC 46 ON ve EP 83 20 20 AR AM 31 08 08 E GA 1 0 CR RY IT J MG TE ND TA EN BL N ET SK 60 06 06 00 90 30 PH 33 ME Ac EL 79 -0 -1 .0 AR 42 LT ti AX 30 5- 2- 00 MC 43 ON ve IN 13 20 20 AR 60 08 08 E GA 80 5 CR RY 0 IT J MG TE ND TA EN BL N ET 57 06 06 00 30 30 PH 33 ME Ac 66 -0 -1 .0 AR 42 LT ti 40 5- 2- 00 MC 44 ON ve 51 20 20 AR 31 08 08 E GA 8 CR RY IT J TE ND EN N DI 00 04 05 01 60 30 [...] M e L- 31 5 ZY 00 04 05 01 30 30 KR 61 No Ac MO 00 -0 -0 .0 OG 92 t ti EX 24 4- 8- 00 ER 95 Av ve A 11 20 20 3 ai 10 73 08 08 PH la 0 AR bl MG M e L- TA 35 BL 9 ET ZY 00 02 04 00 30 30 RI 32 No Ac MO 00 -0 -1 .0 TE 76 t [...] L- MG 35 9 TA BL ET DI 00 04 04 00 60 30 KR 44 No Ac AZ 37 -0 -1 .0 OG 91 t ti EP 80 4- 0- 00 ER 11 Av ve AM 47 20 20 6 ai 70 08 08 PH la 10 5 AR bl M e MG L- 35 TA 9 BL ET ZY 00 04 04 00 30 30 KR 61 No Ac MO 00 -0 -1 .0 OG 92 t ti EX 24 4- 0- 00 ER 95 Av ve A 11 20 20 3 ai 10 73 08 08 PH la 0 AR bl MG M e L- TA 35 BL 9 ET DI 00 02 04 00 60 30 RI 32 No Ac AZ 17 -0 -0 .0 TE 76 t ti EP 23 7- 7- 00 92 Av ve AM 92 20 20 AI ai 77 08 08 D la 10 0 PH bl AR e MG M #3 TA 94 BL 7 ET 00 02 04 00 60 30 RI 32 No Ac 40 -0 -0 .0 TE 76 t ti 60 7- 7- 00 91 Av ve 35 20 20 AI ai 80 08 08 D la 1 PH bl AR e M #3 94 7 00 02 04 00 12 2 RI 61 No Ac 40 -2 -0 .0 TE 26 t ti 60 6- 7- 00 93 Av ve 35 20 20 AI ai 70 08 08 D la 5 PH bl AR e M #3 34 7 00 02 04 00 21 6 WA 67 No Ac 07 -2 -0 .0 LG 52 t ti 46 9- 7- 00 RE 57 Av ve 31 20 20 EN ai 61 08 08 la 3 #0 bl 55 e 74 60 02 03 00 24 6 PH [...] ND EN N 00 02 03 00 60 30 PH 31 No Ac 59 -0 -2 .0 AR 91 t ti 10 7- 6- 00 MC 81 Av ve 38 20 20 AR ai 50 08 08 E la 5 CR bl IT e TE ND EN N MO 00 01 03 00 12 2 RI 71 No Ac OM 60 -1 -2 .0 TE 47 t ti ET 35 3- 5- 00 61 Av ve OLGUIN 43 20 20 AI ai ZI 82 08 08 D la NE 1 PH bl AR e 25 M #3 MG 93 8 TA BL ET 00 01 03 00 12 2 RI 71 No Ac 40 -1 -2 .0 TE 47 t ti 60 3- 5- 00 62 Av ve 35 20 20 AI ai 70 08 08 D la 5 PH bl AR e M #3 93 8 00 01 03 00 60 30 PH [...] Order Detail nces retati t Range on Urine 9-analyte drugs of abuse screening (05-09-2017 02:35) Comment: Positive urine drug screen samples are stored for 7 days. Comment: Contact the Lab if confirmation of positives is needed. 11-hydr 05-09-2 NEGATIV <50 complet oxy 017 E ed delta-9 02:35 NEGATIV E L tetrahy ng/mL drocann abinol Phencyc = <25 complet lidine 017 NEGATIV ed measure 02:35 E ng/mL ment (mass/v olume) Opiates = <300 complet 017 NEGATIV ed measure 02:35 E ng/mL ment (mass/v olume) Methado = <300 complet ne 017 NEGATIV ed measure 02:35 E ng/mL ment (mass/v olume) Cocaine = <300 complet 017 NEGATIV ed measure 02:35 E ng/g ment (mass/v olume) Serum = 200 complet or 017 NEGATIV ng/mL ed plasma 02:35 E ng/mL benzodi azepine s measure m Urine = <200 complet barbitu 017 NEGATIV ed rates 02:35 E ng/mL measure ment by screen Urine POSITIV <1000 complet ampheta 017 E ed mine 02:35 POSITIV screeni E L ng test ng/mL Comment: This is an UNCONFIRMED result. This result is for medical Comment: purposes and/or treatment only. Urinalysis with microscopy (05-09-2017 02:35) Urine 3 - 5 O complet leukocy 017 wbc/hpf ed mary 02:35 count (number /volume ) Urine 1.0 1.0 NEG complet urobili 017 L ed nogen 02:35 E.U./dL detecti on by test str Squamou FEW FEW 0-5 complet s 017 L ed epithel 02:35 #/hpf ial cells detecti on in u Urine > = 1.005-1 complet specifi 017 1.030 .030 ed c 02:35 gravity measure ment Erythro 3-5 3-5 0 complet cytes 017 L ed detecti 02:35 rbc/hpf on in urine sedimen t Urine 2 + NEG complet protein 017 mg/dL ed 02:35 measure ment by automat ed t Urine = 6.0 5.0-8.5 complet pH 017 ed 02:35 Urine POSITIV NEG complet nitrite 017 E ed 02:35 POSITIV detecti E L on by test strip Mucus NEGATIV NEG complet detecti 017 E ed on in 02:35 NEGATIV urine E L sedimen t by lig Urine TRACE NEG complet ketones 017 TRACE L ed 02:35 mg/dL detecti on by automat ed mary Glucose = NEG complet ur 017 NEGATIV ed test 02:35 E strip Urine DK YELLOW complet color 017 YELLOW ed 02:35 DK YELLOW L Urine TRACE-I NEG complet blood 017 NTACT ed detecti 02:35 TRACE-I on NTACT L Urine NEGATIV NEG complet total 017 E ed bilirub 02:35 NEGATIV in E L detecti on by test Comment: BILIRUBIN CONFIRMED WITH ICTOTEST Bacteri 4+ 4+ L O complet a 017 ed detecti 02:35 on in urine sedimen t by Urine CLOUDY CLEAR complet appeara 017 CLOUDY ed nce 02:35 L determi nation Blood lactic acid measurement (moles/vol (05-09-2017 02:20) Blood = 1.0 0.4-2.0 complet lactic 017 mmol/L ed acid 02:20 measure ment (moles/ vol Comprehensive metabolic panel (05-09-2017 02:20) Protein = 8.2 6.4-8.2 complet total 017 gm/dL ed ser/mary kay 02:20 s ALT = 26 12-78 complet (SGPT) 017 U/L ed ser/mary kay 02:20 s Serum = 39 15-37 complet or 017 U/L ed plasma 02:20 asparta te aminotr ansfera Serum = 137 136-145 complet sodium 017 mmoL/L ed measure 02:20 ment Serum = 3.2 3.5-5.1 complet potassi 017 mmoL/L ed um 02:20 measure ment Serum = 91 74-106 complet or 017 mg/dL ed plasma 02:20 glucose measure ment (mas Serum = 4.6 1.3-3.2 complet globuli 017 gm/dL ed n 02:20 measure ment (mass/v olume) Estimat = 42 59- complet ed 017 ML/MIN ed glomeru 02:20 lar filtrat ion rate (GF Comment: REFERENCE RANGE: >60 ML/MIN/1.73 SQUARE METERS Comment: If this patient is -Norwegian, then multiply the Comment: result by 1.210. Estimat = 73 50-200 complet ion of 017 ML/MIN ed creatin 02:20 ine renal clearan ce Serum = 1.4 0.55-1. complet or 017 mg/dL 02 ed plasma 02:20 creatin ine measure ment ( Carbon = 20 21.0-32 complet dioxide 017 mmoL/L .0 ed 02:20 measure ment Serum = 104 98-107 complet or 017 mmoL/L ed plasma 02:20 chlorid e measure ment (mo Serum = 9.1 8.5-10. complet or 017 mg/dL 1 ed plasma 02:20 calcium measure ment (mas Serum = 15 7-18 complet or 017 mg/dL ed plasma 02:20 urea nitroge n measure men Serum = 0.6 0.2-1.0 complet or 017 mg/dL ed plasma 02:20 total bilirub in measure m Serum = 102 46-116 complet or 017 U/L ed plasma 02:20 alkalin e phospha tase debra Serum = 3.6 3.4-5.0 complet or 017 gm/dL ed plasma 02:20 albumin measure ment (mas Serum = 0.8 1.1-1.8 complet or 017 ed plasma 02:20 albumin /globul in mass ra CBC w auto diff (05-09-2017 02:20) Blood 05-09- = 11.1 4.8-10. complet leukocy 017 K/MM3 8 ed mary 02:20 count (number /volume ) Automat = 13.0 11.5-17 complet ed 017 % .5 ed erythro 02:20 cyte distrib ution width Red = 4.30 4.2-5.4 complet blood 017 M/mm3 ed cell 02:20 count Blood = 298 142-424 complet platele 017 K/mm3 ed t count 02:20 Automat = 8.8 7.4-10. complet ed 017 fl 4 ed blood 02:20 platele t mean volume debra Gilmer % = 7.0 % 1.7-9.3 complet 017 ed 02:20 Absolut = 0.8 0.1-1.0 complet e 017 K/mm3 ed monocyt 02:20 e count Automat = 85.7 82.2-97 complet ed 017 fl .8 ed erythro 02:20 cyte mean corpusc ular v Automat = 34.3 31.8-35 complet ed 017 g/dl .4 ed erythro 02:20 cyte mean corpusc ular h Mean = 29.4 27-31.2 complet corpusc 017 pg ed ular 02:20 hemoglo bin (MCH) determ Lymphoc = 25.8 10-50.0 complet yte 017 % ed count, 02:20 blood, automat ed Absolut = 2.9 0.7-4.5 complet e 017 K/mm3 ed lymphoc 02:20 yte count Blood = 12.6 12.2-16 complet hemoglo 017 g/dL .2 ed bin 02:20 measure ment (mass/v olum Blood = 36.8 37.0-47 complet hematoc 017 % .0 ed rit 02:20 (volume fractio n) Granulo = 64.3 37.0-80 complet cyte 017 % .0 ed percent 02:20 age Blood = 7.2 1.8-7.8 complet granulo 017 K/mm3 ed cytes 02:20 automat ed count (numb Automat 2 = 2.5 % 0.1-12. complet ed 017 0 ed blood 02:20 eosinop hils/10 0 leukocy t Automat 2 = 0.3 0.0-0.4 complet ed 017 K/mm3 ed blood 02:20 eosinop hil count Baso % 05-09-2 = 0.4 % 0.1-2.0 complet 017 ed 02:20 Automat 05-09-2 = 0.0 0-0.2 complet ed 017 K/MM3 ed blood 02:20 basophi l count (count/ vo LIPASE (07-16-2014 19:00) LIPASE 127 U/L 23-300 complet 014 ed 19:00 [...] ATININE 014 .0 ed RATIO 19:00 GLOMERU 12-30-2 > 60 >60 complet LAR 014 ed FILTRAT 19:00 ION RATE Comment: GFR is only calculated for patients over 18 years of age and Comment: does not allow for race. Units are mL/min/1.73 m2. CREATIN 30-2 0.92 0.70-1. complet INE 014 mg/dL 30 ed 19:00 BLOOD 07-16-2 8 mg/dL 7-25 complet UREA 014 ed NITROGE 19:00 N GLUCOSE 07-16-2 84 70-100 complet 014 mg/dL ed 19:00 CBC WITH AUTO DIFFERENTIAL (07-16-2014 19:00) BASO, 30-2 0.04 0.00-0. complet ABSOLUT 014 THOU/uL 20 ed E 19:00 EOS, 30-2 0.12 0.00-0. complet ABSOLUT 014 THOU/uL 40 ed E 19:00 MONO, 30-2 0.57 0.00-1. complet ABSOLUT 014 THOU/uL 00 ed E 19:00 LYMPH, 30-2 3.23 1.00-4. complet ABSOLUT 014 THOU/uL 00 ed E 19:00 NEUTROP 30-2 4.28 1.50-7. complet HIL, 014 THOU/uL 00 ed ABSOLUT 19:00 E BASO % 30-2 0.5 % complet 014 ed 19:00 EOS % 30-2 1.5 % complet 014 ed 19:00 MONO % 30-2 6.9 % complet 014 ed 19:00 LYMPH % 30-2 39.1 % complet 014 ed 19:00 NEUTROP 30-2 51.6 % complet HILS % 014 ed 19:00 IMM 1230-2 < 3 % <3 complet GRANULO 014 ed CYTE % 19:00 MEAN 07-16-2 10.3 fL 8.6-11. complet PLATELE 014 7 ed T 19:00 VOLUME PLATELE 07-16-2 358 150-375 complet T COUNT 014 THOU/uL ed 19:00 RED -30-2 12.5 % 11.5-14 complet CELL 014 .5 ed DISTRIB 19:00 UTION WIDTH MEAN 07-16-2 33.8 31.0-36 complet CORPUSC 014 g/dL .0 ed ULAR 19:00 HGB CONC MEAN 12-2 29.2 pg 26.0-33 complet CORPUSC 014 .0 ed ULAR 19:00 HEMOGLO BIN MEAN 86.3 fL 82.0-10 complet CORPUSC 014 0.0 ed ULAR 19:00 VOLUME HEMATOC 42.9 % 38.0-47 complet RIT 014 .0 ed 19:00 HEMOGLO 14.5 12.0-16 complet BIN 014 g/dL .0 ed 19:00 RED 4.97 4.20-5. complet BLOOD 014 MILL/uL 40 ed COUNT 19:00 WHITE 8.27 4.00-11 complet BLOOD 014 THOU/uL .00 ed COUNT 19:00 UA C\T\S IF INDICATED W/MICRO (07-16-2014 18:33) Specime CLEAN complet n Type 014 CATCH ed 18:33 MUCUS TRACE complet 014 /lpf ed 18:33 BACTERI TRACE complet A 014 /hpf ed 18:33 SQUAMOU 5-15 complet S 014 /hpf ed EPITHEL 18:33 IAL CELLS WBC 0-5 complet 014 /hpf ed 18:33 RBC 0-2 complet 014 /hpf ed 18:33 LEUKOCY [...] 014 E mg/mL E ed 18:33 GLUCOSE NEGATIV NEGATIV complet 014 E mg/dL E ed 18:33 APPEARA CLEAR complet NCE 014 ed 18:33 COLOR YELLOW complet 014 ed 18:33 ,QUALITATIVE URINE (07-16-2014 18:33) SPECIFI 1.013 complet C 014 ed GRAVITY 18:33 PREGNAN NEGATIV complet CY,QUAL 014 E ed ITATIVE 18:33 URINE Comment: Sensitivity: 20mIU/mL THYROID STIMULATING HORMONE (06-20-2014 14:53) THYROID 1.18 [...] Comment: Near or above Optimal (NCEP) HDL 04-08- 31 >39 complet CHOLEST 014 mg/dL ed NELLY 15:02 Comment: Major risk for Heart Disease (NCEP) TRIGLYC 328 <150 complet ERIDES 014 mg/dL ed 15:02 CHOLEST 04-08- 207 115-200 complet NELLY 014 mg/dL ed 15:02 Comment: Borderline High (NCEP) COMPREHENSIVE METABOLIC PANEL (04-08-2014 15:02) ALANINE 04-08- 15 U/L 13-69 complet 014 ed AMINOTR 15:02 ANSFERA SE/ALT ASPARTA 04-08- 27 U/L 15-46 complet TE 014 ed [...] BIN 014 g/dL .0 ed 15:02 RED 04-08-2 4.44 4.20-5. complet BLOOD 014 MILL/uL 40 ed COUNT 15:02 WHITE 04-08-2 7.76 4.00-11 complet BLOOD 014 THOU/uL .00 ed COUNT 15:02 MEAN 10.9 fL 8.6-11. complet PLATELE 014 7 ed T 15:02 VOLUME PLATELE 366 150-375 complet T COUNT 014 THOU/uL ed 15:02 RED 13.4 % 11.5-14 complet CELL 014 .5 ed DISTRIB 15:02 UTION WIDTH UA C\T\S IF INDICATED W/MICRO (04-02-2014 19:40) Comment: Comment repeat, prior specimen contaminated KETONE 04-02-2 NEGATIV NEGATIV complet 014 E mg/dL E ed 19:40 BILIRUB 16-2 NEGATIV NEGATIV complet IN 014 E mg/mL [...] 014 E mg/dL E ed 19:40 UROBILI 16-2 NORMAL <2 complet NOGEN 014 mg/dL ed [...] n Type 014 CATCH ed 19:40 SPECIFI 04-02-2 1.009 1.003-1 complet C 014 .035 ed GRAVITY 19:40 RBC --2 0-2 complet 014 /hpf ed 19:40 UA C\T\S IF INDICATED W/MICRO (04-02-2014 18:34) Specime 04-02-2 CLEAN complet n Type 014 CATCH ed 18:34 BACTERI 04-02- TRACE complet A 014 /hpf ed 18:34 CALCIUM 04-02-2 1+ /hpf complet 014 ed OXALATE 18:34 CRYSTAL S SQUAMOU 04-02- 15-30 complet S 014 /hpf ed EPITHEL 18:34 IAL CELLS WBC 04-02- 15-30 complet 014 /hpf ed 18:34 RBC -16-2 >30 complet 014 /hpf ed 18:34 LEUKOCY 04-02-2 250 NEGATIV complet TE 014 SANJIV/uL E ed ESTERAS 18:34 E NITRITE 04-02- NEGATIV NEGATIV complet 014 E E ed 18:34 UROBILI NORMAL <2 complet NOGEN 014 mg/dL ed 18:34 PROTEIN 04-02- NEGATIV NEGATIV complet 014 E mg/dL E ed 18:34 pH 04-02- 6.0 5.0-9.0 complet 014 ed 18:34 BLOOD 16-2 >=1.0 NEGATIV complet 014 mg/dL E ed 18:34 SPECIFI 04-02-2 1.014 1.003-1 complet C 014 .035 ed GRAVITY 18:34 KETONE 04-02-2 NEGATIV NEGATIV complet 014 E mg/dL E ed 18:34 BILIRUB 04-02-2 NEGATIV NEGATIV complet IN 014 E mg/mL E ed 18:34 GLUCOSE -16-2 NEGATIV NEGATIV complet 014 E mg/dL E ed 18:34 APPEARA 04-02- CLOUDY complet NCE 014 ed 18:34 COLOR 16- YELLOW complet 014 ed 18:34 URINE CULTURE (04-02-2014 18:34) URINE 04-02-2 SENSITI complet CULTURE 014 VITY ed REPORT 18:34 URINE >100,00 complet CULTURE 014 0 ed REPORT 18:34 CFU/ml URINE COLONY complet CULTURE 014 COUNT ed REPORT 18:34 URINE LACSPLA complet CULTURE 014 CTOBACI ed REPORT 18:34 LLUS SPECIES URINE SENSITI complet CULTURE 014 VITIES ed REPORT 18:34 NOT PERFORM ED Procedures Procedure DOS Code Location Performer Comment ALS [id number] [facility] ROUTINE 7 AMBULANCE AMBULANCE DISPOSABL SERVICE SERVICE E SUPPLIES GROUND A0425 [facility] MILEAGE 7 AMBULANCE AMBULANCE PER SERVICE SERVICE STATUTE MILE AMB A0427 [facility] SERVICE 7 AMBULANCE AMBULANCE ALS SERVICE SERVICE EMERGENCY TRANSPORT LEVEL 1 HOSPITAL [address] [facility] 7 [facility] BARBOUR MANAGEMEN PHYSICIAN T > 30 S MIN SBSQ [address]/DAY 25 PHYSICIAN MINUTES S INITIAL [address] [facility] 7 DISEASE CARE/DAY CONSULTAN 50 TS I MINUTES GROUND A0425 [facility] MILEAGE 7 CO CO PER AMBULANCE AMBULANCE STATUTE TAXIN TAXIN MILE AMBULANCE A0429 [facility] SERVICE 7 CO CO BLS AMBULANCE AMBULANCE EMERGENCY TAXIN TAXIN TRANSPORT CRITICAL 00423 [facility] 7 EMERGENCY ILL/INJUR ED PHYSICIAN PATIENT S ADDL 30 MIN CRITICAL 04519 [facility] CARE 7 EMERGENCY ILL/INJUR ED PHYSICIAN PATIENT [place] INIT 30-[address] [place] [address] RADIOLOGY BRANDSER HEAD/BRAI 7 N W/O ASSOCIATE CONTRAST S OF [facility] MATERIAL COLLECTIO [address] [facility] N VENOUS [address] [place] [address] BLOOD MARIO MARIO VENIPUNCT URE POTASSIUM 513[address] [facility] SERUM 7 [facility] PLASMA/[place] [address] [facility] MAGNESIUM [address] [place] [address] [place] [address] VIJAY LINARES MAGNESIUM 7 [place] [address] VIJAY LINARES LIPASE 7 [place] [address] VIJAY LINARES PHOSPHORU 7 [facility] S INC INC INORGANIC URINE 44135 VIJAY LINARES 7 [facility] TEST INC INC VISUAL COLOR CMPRSN METHS SUSCEPTIB 76296 VIJAY ZAMORANOON LTY STDY 7 [facility] ANTIMICRB INC INC IAL MICRO/AGA R DILUTJ FINAL G9551 MIGUELITO JOHNS REPR ABD 7 MEDICAL IMAG STS IMAGING W/O ASS INCIDNT FND L[place] NTD: [place] [address] VIJAY LINARES AMYLASE 7 [facility] INC INC BLOOD 24853 IVJAY LINARES COUNT 7 [facility] COMPLETE INC INC AUTO&AUTO DIFRNTL WBC URNLS DIP 13152 VIJAY LINARES 7 [facility] STICK/TAB INC INC LET REAGENT AUTO MICROSCOP Y COMPREHEN 54392 VIJAY LINARES SIVE 7 [facility] METABOLIC INC INC PANEL FINAL G9638 MIGUELITO JOHNS REPORTS 7 MEDICAL W/O DOC IMAGING 1/MORE ASS DOSE REDUCTION TECH ECG 69285 VIJAY GARCIA JR ROUTINE 7 [facility] W/LEAST P 12 LDS I&[place] [address] VIJAY LINARES INFUSION 7 [facility] THERAPY/P INC INC ROPHYLAXI S /DX 1ST TO 1 [place] [address] VIJAY LINARES INFUSION 7 [facility] THER INC INC PROPH ADDL SEQUENTIA L TO 1 HR ECG 54912 VIJAY LINARES ROUTINE 7 [facility] ECG INC INC W/LEAST 12 LDS TRCG ONLY W/O I&[place] [address] VIJAY LINARES ABDOMEN & 7 [facility] PELVIS INC INC W/O CONTRAST MATERIAL CULTURE 19275 VIJAY LINARES BACTERIAL 7 MEM H[facility] INC INC QUANTTATI VE COLONY COUNT URINE CULTURE 12781 VIJAY LINARES BCT 7 [facility] HOSP ISOL&PRSM INC INC PTV ID ISOLATE EA URINE RADEX 63932 RADIOLOGY WALI FOOT 7 COMPLETE ASSOCIATE MINIMUM 3 S OF NOTH VIEWS RADEX 61984 RADIOLOGY BRANDSER ANKLE 7 COMPLETE ASSOCIATE MINIMUM 3 S OF NOTH VIEWS RADIOLOGI 32058 RADIOLOGY BRANDSER C EXAM 7 KNEE ASSOCIATE COMPLETE S OF NOTH 4/MORE VIEWS INCISION 64616 [facility] & 7 EMERGENCY DRAINAGE ABSCESS PHYSICIAN SIMPLE/SI S NGLE COMPREHEN [address] SIVE 7 [facility] METABOLIC PANEL HEALTHCAR HEALTHCAR E CYNDY E CYNDY OBSERVATI 99353 [facility] ON CARE 6 MEDICAL DISCHARGE SERV FOUNDATIO MANAGEMEN N T CRITICAL 64429 [facility] 6 PHYSICIAN ILL/INJUR S, [facility] ED PATIENT INIT 30-74 MIN ECG 64763 VIJAY MEYERS ROUTINE 6 [facility] W/LEAST P 12 LDS I&R ONLY AMB A0427 [facility] SERVICE 6 AMBULANCE AMBULANCE ALS SERVICE SERVICE EMERGENCY TRANSPORT LEVEL 1 INITIAL 45966 [facility] WARNER OBSERVATI 6 MEDICAL ON SERV CARE/DAY FOUNDATIO 70 N MINUTES GROUND A0425 [facility] MILEAGE 6 AMBULANCE AMBULANCE [place] [address] MIGUELITO JOHNS CERVICAL 6 MEDICAL SPINE W/O IMAGING CONTRAST ASS MATERIAL RADEX 87116 [place] TRUE QASIM FOOT 6 MEDICAL COMPLETE SERV MINIMUM [address] [place] [address] MIGUELITO JOHNS HEAD/BRAI 6 MEDICAL N W/O IMAGING CONTRAST ASS MATERIAL MRI BRAIN 60832 [place] FAM ROBERTO BRAIN 6 MEDICAL STEM W/O SERV CONTRAST FOUNDATIO MATERIAL N RADIOLOGI 71000 [place] TRUE QASIM C 6 MEDICAL EXAMINATI SERV ON KNEE 3 FOUNDATIO VIEWS N CULTURE 22617 VIJAY LINARES BCT 6 [facility] ISOL&PRSM INC INC PTV ID ISOLATE EA URINE CULTURE 12000 VIJAY LINARES BACTERIAL 6 [facility] INC INC QUANTTATI VE COLONY COUNT URINE THERAPEUT 10030 VIJAY LINARES IC 6 [facility] INJECTION INC [place] [address] [facility] INFUSION 6 [facility] THERAPY/P INC INC ROPHYLAXI S /DX 1ST TO 1 HR COMPREHEN 61563 [facility] SIVE 6 [facility] METABOLIC INC INC PANEL URNLS DIP 52249 [facility] 6 [facility] STICK/TAB INC INC LET REAGENT AUTO MICROSCOP Y BLOOD 20403 [facility] COUNT 6 [facility] COMPLETE INC INC AUTO&AUTO DIFRNTL WBC SUSCEPTIB 45778 [facility] LTY STDY 6 [facility] ANTIMICRB INC INC IAL MICRO[place] [address] [facility] PHOSPHORU 6 [facility] [place] [address] [facility]ES MAGNESIUM 6 [facility] INC INC URINE 10909 [facility]ES 6 [facility] TEST INC [place] [address] MAGNESIUM 6 [facility] DOOR REPAIRER BUS ST DOOR REPAIRER BUS ST POTASSIUM [address] SERUM 6 [facility] PLASMA/ MED CTR MED [facility] OLE BLOOD DOOR REPAIRER BUS ST DOOR REPAIRER BUS ST INJECTION J1040 [facility] KELSI 6 [facility] METHYLPRE DNISOLONE PHYSICIAN ACETATE S [address] [facility] KELSI IC 6 [facility] PROPHYLAC TIC/DX PHYSICIAN INJECTION S SUBQ/IM ECG 98550 [facility] ROUTINE 6 [facility] ECG INC INC W/LEAST 12 LDS TRCG ONLY W/O I&R CULTURE 19319 VIJAY LINARES BCT 6 [facility] ISOL&PRSM INC INC PTV ID ISOLATE EA URINE RADIOLOGI 86936 [facility] C 6 [facility] EXAMINATI INC [place] [address] [facility] LIN[facility]ES HEAD/BRAI 6 [facility] N W/O INC INC CONTRAST MATERIAL CULTURE 14554 [facility] LIN[facility] BACTERIAL 6 [facility] INC INC QUANTTATI VE COLONY COUNT URINE DRUG TST G0477 [facility] LIN[facility] PRESUMP;C 6 [facility] PBL BEING INC INC READ DC OPT OBV ONLY DRUG TEST G0480 [facility] DEFINITV [address] [facility] [address] [facility] [address] ID INC INC METH P DAY 1-[place] [address] [facility] LIN[facility] INFUSION 6 [facility] THER INC INC PROPH ADDL [place] L [place] [address] VIJAY VIJAY INFUSION 6 [facility] THERAPY/P INC INC ROPHYLAXI S /DX 1ST TO 1 HR URINE 41465 [facility] LIN[facility]ES 6 [facility] TEST INC INC VISUAL COLOR CMPRSN METHS CREATINE 29197 [facility] LIN[facility] KINASE 6 [facility] TOTAL INC INC AMB A0427 ULISSES [facility] 6 [facility] AM[facility] ALS SERVICE SERVICE EMERGENCY TRANSPORT LEVEL 1 ECG 84272 VIJAY GARCIA JR ROUTINE 6 [facility] W/LEAST P 12 LDS I&R ONLY COMPREHEN 11257 [facility] LINARES SIVE 6 [facility] METABOLIC INC INC PANEL SUSCEPTIB 06767 VIJAY LINARES LTY STDY 6 [facility] ANTIMICRB INC INC IAL MICRO/AGA R DILUTJ BLOOD 28224 VI[facility] LINARES COUNT 6 [facility] COMPLETE INC INC AUTO&[place] [address] VIJ[facility] LINARES TROPONIN 6 [facility] QUANTITAT INC INC KATHIA GROUND A0425 ULISSES [facility] DIV[facility] MILEAGE 6 AMBULANCE AMBULANCE PER SERVICE SERVICE STATUTE MILE CREATINE 16682 VIJAY LINARES KINASE MB 6 [facility] FRACTION INC INC ONLY UNCLASSIF J3490 VIJAY LINARES IED DRUGS 6 [facility] INC INC POTASSIUM [address] SERUM 6 [facility] PLASMA/WH MARIO MARIO OLE BLOOD COLLECTIO [address] [facility] N VENOUS 6 [facility] BLOOD MARIO MARIO VENIPUNCT URE CULTURE [address] [facility] BACTERIAL 6 [facility] MARIO MARIO QUANTTATI VE COLONY COUNT URINE CULTURE [address] BACTERIAL 6 [facility] MED CTR MED CTR QUANTTATI DOOR REPAIRER BUS ST DOOR REPAIRER BUS ST VE COLONY COUNT URINE BASIC 81107 ST ST METABOLIC 6 [facility] PANEL MED CTR MED CTR CALCIUM DOOR REPAIRER BUS ST DOOR REPAIRER BUS ST TOTAL CULTURE [address] BCT 6 [facility] [place] ISOL&PRSM MED CTR MED CTR PTV ID DOOR REPAIRER BUS ST DOOR REPAIRER [place] [address] MAGNESIUM 6 [facility] MED CTR MED CTR DOOR REPAIRER BUS ST DOOR REPAIRER BUS ST SUSCEPTIB [address] LTY STDY 6 [facility] ANTIMICRB MED CTR MED CTR IAL DOOR REPAIRER BUS ST DOOR REPAIRER BUS ST MICRO/AGA R DILUTJ BLOOD [address] COUNT 6 [facility] COMPLETE MED CTR MED CTR AUTO&AUTO DOOR REPAIRER BUS ST DOOR REPAIRER BUS ST DIFRNTL WBC URNLS DIP 81732 VIJAY LINARES 5 [facility] STICK/TAB INC INC LET REAGENT AUTO MICROSCOP Y CYSTO 65821 VIJAY LINARES W/SIMPLE 5 [facility] REMOVAL INC INC STONE & STENT URINE 61726 VIJAY LINARES 5 [facility] TEST INC INC VISUAL COLOR CMPRSN METHS CULTURE 06753 VIJAY LINARES BACTERIAL 5 [facility] INC INC QUANTTATI VE COLONY COUNT URINE RADEX 83967 VIJAY LINARES ABDOMEN 1 5 [facility] INC INC ANTEROPOS TERIOR VIEW STENT C2617 VIJAY LINARES NON-COR 5 [facility] [place]ARY [place] [address] VIJAY LINARES INFUSION 5 [facility] THERAPY INC INC PROPHYLAX IS/DX EA HOUR INJECTION J0131 VIJAY LINARES 5 [facility] ACETAMINO INC INC PHEN 10 MG INTRO 96150 VIJAY LINARES URETERAL 5 [facility] CATH/STEN INC INC T PRQ RS&I INJECTION J2405 VIJAY LINARES 5 [facility] ONDANSETR INC INC ON HCL PER 1 MG URINE 46434 VIJAY LINARES 5 [facility] TEST INC INC VISUAL COLOR CMPRSN METHS CYSTO/URE 55334 VIJAY LINARES TERO 5 [facility] W/LITHOTR INC INC IPSY &INDWELL STENT INSRT ANES 46094 COMMUNITY NEVAREZ ECHO TRURL 5 ANESTH FRAGMNTJ OF THE MANJ&/[place] [address] [facility] ABDOMEN & 5 MEDICAL BRIE PELVIS IMAGING W/O ASS CONTRAST MATERIAL BASIC 63349 DANA Dempsey METABOLIC 5 HAGGIN HAGGIN PANEL [facility] CALCIUM TOTAL CULTURE 05818 DANA Dempsey BACTERIAL 5 [facility]AGGIN HAGGIN [facility] QUANTTATI VE COLONY COUNT URINE COLLECTIO 14483 KARSON GUIDRYDEISY BRET N VENOUS 5 PRIMARY BLOOD CARE VENIPUNCT URE BLOOD 02586 DANA Dempsey COUNT 5 HAGGIN HAGGIN COMPLETE [facility] AUTO&AUTO DIFRNTL WBC INJECTION A9579 DANA Dempsey 5 HAGGIN HAGGIN GADOLINIU [facility] M BASED MR CONTRAST NOS ML MRI ORBIT 90007 [facility] SPAL[facility] MARY FACE & 5 RADIOLOGY NECK W/O & ASSOCIATE W/CONTRAS T MATRL MRI BRAIN 73655 DANA Dempsey BRAIN 5 HAGGIN HAGGIN STEM W/O [facility] W/CONTRAS T MATERIAL URNLS DIP 66774 KARSON LORDEISY BRET 5 PRIMARY STICK/TAB CARE LET RGNT NON-AUTO W/[place] [address] DANA Dempsey THYROID 5 HAGGIN HAGGIN STIMULATI [facility] NG HORMONE TSH COMPREHEN 68870 DANA Dempsey SIVE 5 HAGGIN HAGGIN METABOLIC [facility] PANEL CYANOCOBA 05182 DANA Dempsey LOLY 5 HAGGIN HAGGIN VITAMIN [facility] [place] B-[address] [place] [address] DANA Dempsey BLOOD/URI 5 HAGGIN [place] [address] [facility] ABDOMEN & 5 RADIOLOGY RADIOLOGY PELVIS W/O ASSOCIATE ASSOCIATE CONTRST 1/> BODY RE THER 39229 DANA Dempsey PROPH/DX 5 HAGGIN HAGGIN NJX IV [facility] PUSH SINGLE/1S T SBST/DRUG THER 71329 SURAJ SURAJ PROPH/DX 5 DAVID HERNANDEZ NJX IV REGIONAL REGIONAL PUSH ME ME SINGLE/1S T SBST/DRUG BASIC 59340 SURAJ SURAJ METABOLIC 5 DAVID HERNANDEZ PANEL REGIONAL [place] [address] SURAJ SURAJ ABDOMEN & 5 DAVID HERNANDEZ PELVIS REGIONAL REGIONAL W/O ME ME CONTRAST MATERIAL BLOOD 08514 SURAJ SURAJ COUNT 5 DAVID HERNANDEZ COMPLETE REGIONAL REGIONAL AUTO&AUTO ME ME DIFRNTL WBC URNLS DIP 14375 SURAJ SURAJ 5 DAVID HERNANDEZ STICK/TAB REGIONAL REGIONAL LET ME ME REAGENT AUTO MICROSCOP Y CYSTO 07592 MILY ROBLES W/INSERT 5 [facility] URETERAL CLINIC STENT PSC CYSTO 44476 MILY ROBLES W/URETERO 5 [facility] SCOPY CLINIC W/RMVL/MA PSC NJ STONES ANES 88703 [place] TRURL 5 ANESTHESI CRY FRAGMNTJ A MANJ&/RMV ASSOCIAT L URETERAL CALCULUS LEVEL I 28853 [facility] SURG 5 PATHOLOGY MOHAMUD PATHOLOGY ASSOC[place] [address] [facility] STEFANY ABDOMEN & 5 RADIOLOGY PELVIS W/O ASSOCIATE CONTRAST MATERIAL ECG 55718 SURAJ HEMPEL ROUTINE 5 [facility] ANTONINO ECG REGG MED W/LEAST CT 12 LDS I&R ONLY INITIAL 61055 [facility] EMERGENCY CARE/DAY CLINIC CLINIC 50 PSC PSC MINUTES GROUND A0425 JEAN CO JEAN CO MILEAGE 5 EMERG EMERG PER MEDICALSE MEDICALSE STATUTE R R MILE URNLS DIP 16800 DANA Dempsey 5 HAGGIN HAGGIN STICK/TAB [facility] [place] [address] DANA Dempsey ABDOMEN & 5 TRINAGIN HAGGIN PELVIS [facility] W/O CONTRAST MATERIAL THERAPEUT 23696 DANA Dempsey IC 5 HAGGIN HAGGIN PROPHYLAC [facility] TIC/DX INJECTION SUBQ/IM INJECTION J1885 DANA Dempsey 5 HAGGIN HAGGIN KETOROLAC [facility] TROMETHAM INE PER 15 MG INJECTION J2550 DANA Dempsey 5 HAGGIN HAGGIN PROMETHAZ [facility] INE HCL UP TO 50 MG INJECTION J2175 DANA Dempsey 5 HAGGIN HAGGIN MEPERIDIN [facility] E HCL PER 100 MG MRI 74647 [place] SPINAL 5 RADIOLOGY RUPA CANAL LUMBAR ASSOCIATE W/O CONTRAST MATERIAL RADEX 24027 [facility] MIC[facility] STEFANY SPINE 5 RADIOLOGY LUMBOSACR AL ASSOCIATE MINIMUM 4 VIEWS THERAPEUT 13951 DANA Dempsey IC 5 HAGGIN HAGGIN INJECTION [facility] IV PUSH EACH NEW DRUG COLLECTIO 37900 DANA Dempsey N VENOUS 5 HAGGIN HAGGIN BLOOD [facility] VENIPUNCT URE INJECTION J2405 DANA Dempsey 5 HAGGIN TRINAGIN ONDANSETR MEM [facility] ON HCL PER 1 MG INJECTION J1885 DANA Dempsey 5 HAGGIN HAGGIN KETOROLAC [facility] TROMETHAM INE PER 15 MG UNCLASSIF J3490 DANA Dempsey IED DRUGS 5 HAGGIN HAGGIN [facility] THER 85333 DANA Dempsey PROPH/DX 5 TRINAGIN TRINAGIN NJX IV [facility] PUSH SINGLE/1S T SBST/[place] [address] DANA Dempsey ABDOMEN & 5 TRINAGIN HAGGIN PELVIS [facility] W/O CONTRAST MATERIAL URNLS DIP 24142 DANA Dempsey 5 HAGGIN HAGGIN STICK/TAB [facility] LET REAGENT AUTO MICROSCOP Y GONADOTRO 88873 DANA Dempsey PIN 5 HAGGIN HAGGIN CHORIONIC [facility] QUALITATI VE BLOOD 83097 DANA Dempsey COUNT 5 HAGGIN HAGGIN COMPLETE [facility] AUTO&AUTO DIFRNTL WBC GROUND A0425 [employer] MILEAGE 5 EMERG EMERG PER MEDICALSE MEDICALSE STATUTE R R MILE AMBULANCE A0429 [employer] SERVICE 5 EMERG EMERG BLS MEDICALSE MEDICALSE EMERGENCY R R TRANSPORT COMPREHEN 43263 DANA Dempsey SIVE 5 HAGGIN HAGGIN METABOLIC [facility] PANEL THERAPEUT 71935 DANA Dempsey IC 5 HAGGIN HAGGIN PROPHYLAC [facility] TIC/DX INJECTION SUBQ/IM [facility] 51674 [facility] RADIOLOGY COMPL W/DCBTS&/ ASSOCIATE ERC VIEWS RADEX 94993 [place] FOOT 4 RADIOLOGY RUPA COMPLETE MINIMUM 3 ASSOCIATE VIEWS RADEX 83020 [place] ANKLE 4 RADIOLOGY RUPA COMPLETE MINIMUM 3 [place] [address] [place] FREE 4 [facility] [place] [address] [place] THYROID 4 [facility] STIMULATI HOSP HOSP NG HORMONE TSH RADEX 54499 [place] SMOOTH SPINE 4 RADIOLOGY ADA LUMBOSACR AL 2/3 ASSOCIATE VIEWS RADEX 71632 [facility] SPINE 4 KARIME LUMBOSACR FAMILY AL MEDICAL MINIMUM 4 [place] [address] SURAJ SURAJ INFUSION 4 HERNANDEZ HERNANDEZ THERAPY/P REGIONAL REGIONAL ROPHYLAXI ME ME S /DX 1ST TO 1 HR THERAPEUT 91017 SURAJ SURAJ IC 4 HERNANDEZ HERNANDEZ INJECTION REGIONAL REGIONAL IV PUSH ME ME EACH NEW DRUG RADEX 91486 SURAJ SURAJ ABDOMEN 4 HERNANDEZ HERNANDEZ COMPL REGIONAL REGIONAL W/DCBTS&/ [place] [address] SURAJ SURAJ ABDOMEN & 4 HERNANDEZ HERNANDEZ PELVIS REGIONAL REGIONAL W/O ME ME CONTRAST MATERIAL CULTURE 57400 SURAJ SURAJ BACTERIAL 4 HERNANDEZ HERNANDEZ REGIONAL REGIONAL QUANTTATI ME ME VE COLONY COUNT URINE URNLS DIP 09190 SURAJ SURAJ 4 HERNANDEZ HERNANDEZ STICK/TAB REGIONAL REGIONAL [place] [address] [place] TRANSVAGI 4 MEDICAL MEDICAL NAL SERV SERV FOUNDATIO FOUNDATIO US PELVIC [address] [place] MICHELLE 4 MEDICAL LEANNE NONOBSTET SERV ANTONINO IMAGE FOUNDATIO DCMTN LIMITED/F /U RADEX 58136 [facility] [place] WESTERFI[place] RIBS UNI 4 RADIOLOGY LD IV ALL W/POSTERO ANT CH MINIMUM 3 [place] [address] NICKELS NICKELS EXTREMITY 4 LATOYA LATOYA NON-VASC REAL-TIME IMG LMTD RADEX ABD 99616 NICKELS NICKELS COMPL 4 LATOYA LATOYA AQT ABD W/S/E/D VIEWS 1 VIEW CH RADEX 70063 WALI WALI WRIST 3 TREVIN TREVIN COMPLETE MINIMUM 3 VIEWS WRIST L3908 ADVANCED ADVANCED HAND 3 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 ORTHOSIS IES INC IES INC EXT CONTROL COCK-UP PREFAB [facility] A0398 [place] ROUTINE 3 MET[facility] OF METRO [facility] SUPPLIES GROUND A0425 [place] MILEAGE 3 MET[facility] OF [facility] OF [facility] AMB A0427 [place] SERVICE 3 [facility] TRANSPORT LEVEL 1 RADEX HIP 02345 LERMA [place]ORENT[place] 3 BRA BRA UNILATERA L COMPLETE MINIMUM [address] [place] [address] [facility] ABDOMEN & 3 Y [facility]EL [facility]VIS [facility] W/O I PHY CONTRAST MATERIAL RADEX 09284 BRANDSER BRANDSER SACRUM & 3 NOELLE NOELLE COCCYX MINIMUM 2 VIEWS AMB A0427 [place] SERVICE 3 MET[facility] OF [facility] OF [facility] TRANSPORT LEVEL 1 GROUND A0425 [place] MILEAGE 3 [facility] A0398 [place] ROUTINE 3 METRO OF METRO OF [facility] SUPPLIES RADEX 78912 RADIOLOGY [place] ABDOMEN 1 2 BRA ASSOCIATE ANTEROPOS S OF NOTH TERIOR VIEW INJ J0702 RISON ALL RISON ALL BETAMETHA 2 SONE ACETATE & PHOSPHATE 3 MG MODERATE 54112 RISON ALL RISON ALL SEDATJ 2 SAME PHYS/QHP 5/>YRS INIT 30 MIN LOCM Q9967 RISON ALL INES CAM 300-399 2 MG/ML IODINE [place]X 00710 RISON ALL RISON ALL DX/THER 2 SBST EPIDURAL/ SUBARACH LUMBAR/SA CRAL FLUOR 72493 RISON ALL RISON ALL NEEDLE/CA 2 TH SPINE/PAR ASPINAL DX/THER ADDON RINGERS J7120 RISON ALL RISON ALL LACTATE 2 INFUSION UP TO 1000 CC FLUOR 31821 RISON ALL RISON ALL NEEDLE/CA 2 TH SPINE/PAR ASPINAL DX/THER [place] NJX 31176 RISON ALL RISON ALL DX/THER 2 SBST EPIDURAL/ SUBARACH LUMBAR/SA CRAL LOCM Q9967 RISON ALL RISON ALL 300-399 2 MG/ML IODINE CONCENTRA TION PER ML INJ J0702 RISON ALL RISON ALL BETAMETHA 2 SONE ACETATE & PHOSPHATE 3 MG RADEX 73013 RADIOLOGY DOERGER FOOT 2 KIR COMPLETE ASSOCIATE MINIMUM 3 S OF NOTH VIEWS SURGICAL L3260 ADVANCED ADVANCED BOOT/SHOE 2 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 EACH IES INC IES INC CRTCHS E0114 ADVANCED ADVANCED UNDARM 2 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 OTH THAN IES INC IES INC WOOD PAIR PAD TIP&HNDGR IP INJECTION J1040 MELISSA [facility] 2 RUPALeonela GOODE METHYLPRE DNISOLONE ACETATE 80 MG THERAPEUT 95848 [facility] IC 2 RUPA RUPA PROPHYLAC TIC/DX INJECTION SUBQ/IM AMBULANCE A0429 RURAL/MET RURAL/MET SERVICE 1 RO RO BLS AMBULANCE AMBULANCE EMERGENCY TRANSPORT GROUND A0425 RURAL/MET RURAL/MET MILEAGE 1 RO RO PER AMBULANCE AMBULANCE STATUTE MILE THERAPEUT 88889 [facility] IC 1 KIRK GOODE PROPHYLAC TIC/DX PHYSICIAN INJECTION S SUBQ/IM INJECTION J0696 [facility] 1 KIRK RUPA CEFTRIAXO NE SODIUM PHYSICIAN PER 250 S MG GROUND A0425 [facility] MILEAGE 1 AMBULANCE AMBULANCE PER SERVICE SERVICE STATUTE MILE AMB A0427 [facility] SERVICE 1 AMBULANCE AMBULANCE ALS SERVICE SERVICE EMERGENCY TRANSPORT LEVEL 1 CJP 73217 [facility] CEPELA RCNSTJ 1 [facility] CUL-DE-SA FOR C BUCCAL SIGHT, GRF/XTNSV REARRGMT ORBITOTOM 16100 [facility] CEPELA Y W/O 1 [facility] BONE FLAP FOR SIGHT, W/[place] [address] [facility] SURG 1 [facility] CTR GROSS&JALYN ROSCOPIC EXAM IMHISTOCH 47447 [facility] EM/CYTCHM [address] ANTIBODY STAIN PROCEDURE ANESTHESI 61608 INDEPENDE COSTANTIN A EYE NOT 1 NT I CAR ANESTHESI OTHERWISE OLOGIST SPECIFIED ANES 17417 ANESTHESI GRABMAYER TRURL 1 A RUPA FRAGMNTJ ASSOCIATE MANJ&/RMV S, PSC L URETERAL CALCULUS CYSTO 30073 NEW NEW W/URETERO 1 [facility] EMERGENCY SCOPY CLINIC CLINIC W/LITHOTR PSC PSC IPSY PROSTHETI L8699 NEW NEW C IMPLANT 1 [facility] EMERGENCY NOT CLINIC CLINIC OTHERWISE PSC PSC SPECIFIED CYSTO 48730 NEW NEW W/INSERT 1 [facility] EMERGENCY URETERAL CLINIC CLINIC STENT PSC PSC URNLS DIP 59010 VIJAY ARCOS 1 [facility] LET RGNT P NON-AUTO W/O MICRSCP CT ORBIT 88194 RADIOLOGY GEORGE BYR SELLA/POS 1 T ASSOCIATE FOSSA/EAR S PSC W/CONTRAS T MATRL XTRNL 09214 [facility] CEPELA OCULAR 1 [facility] PHOTOG FOR W/I&R SIGHT, DOCMT MEDICAL PROGRE 3D 48022 [facility] JESSICA RENDERING 1 MEDICAL GUTIERREZ IMAGING W/INTERP& ASS POSTPROC DIFF WORK STATION URINE 75708 VIJAY LINARES 1 [facility] TEST INC INC VISUAL COLOR CMPRSN METHS URNLS DIP 77687 VIJAY LINARES 1 [facility] STICK/TAB INC [place] [address] [facility] J[facility] ABDOMEN & 1 MEDICAL GUTIERREZ PELVIS IMAGING W/[place] [address] VIJAY LINARES INFUSION 1 [facility] THERAPY/P INC INC ROPHYLAXI S /DX 1ST TO 1 HR DETERMINA 37217 VENKAT ROBLEDO TION 1 VLADIMIR GRIFFIN REFRACTIV E STATE RADIOLOGI 46304 [place] JESSICA C 0 MEDICAL GUTIERREZ EXAMINATI IMAGING ON PELVIS ASS 1/2 VIEWS RADEX 91428 [place] JESSICA ELBOW 0 MEDICAL GUTIERREZ COMPLETE IMAGING MINIMUM 3 ASS VIEWS RADEX 82944 [place] JESSICA HAND 0 MEDICAL GUTIERREZ MINIMUM 3 IMAGING VIEWS ASS RADEX 20494 [place] JESSICA ANKLE 0 MEDICAL GUTIERREZ COMPLETE IMAGING MINIMUM 3 ASS VIEWS RADEX 37718 [place] JESSICA SPINE 0 MEDICAL GUTIERREZ CERVICAL IMAGING 6 OR MORE ASS VIEWS RADIOLOGI 12595 [place] JESSICA C 0 MEDICAL GUTIERREZ EXAMINATI IMAGING ON CHEST ASS SINGLE VIEW FRONTAL THERAPEUT 78741 [facility] IC 0 KIRK GOODE PROPHYLAC TIC/DX PHYSICIAN INJECTION S SUBQ/IM HEMOGLOBI [address] N 0 [facility]IR[facility] BRAD[facility] GLYCOSYLA BLAIRE A1C MEDICALCE MEDICALCE NTER NTER BLOOD [address] COUNT 0 [facility] COMPLETE AUTO&AUTO MEDICALCE MEDICALCE DIFRNTL NTER NTER WBC AMBULANCE A0429 GALLATIN GALLATIN SERVICE 0 [place] KERRI BLS [address] COURT EMERGENCY TRANSPORT GROUND A0425 GALLATIN GALLATIN MILEAGE 0 CO KERRI CO K[place] [address] ST ROSS, SURG 0 [facility] MED CTR GROSS&JALYN ROSCOPIC EXAM ANTIBODY 97919 COMBINED COMBINED CHLAMYDIA 9 PHYSICIAN PHYSICIAN S LAB S LAB CUL BACT 86693 COMBINED COMBINED XCPT 9 PHYSICIAN PHYSICIAN URINE S LAB S LAB BLOOD/STO OL AEROB[place] 50520 RADIOLOGY AVI, SPINAL 9 HEAVEN Christian CANAL ASSOCIATE LUMBAR S PSC W/O CONTRAST MATERIAL SERVICES 19595 BERNABE Christian WEBB PROVIDED 9 MEDICAL J OFFICE GROUP OTH/THN REG SCHED HOURS URINE 51228 VIJAY LINARES 9 [facility] TEST INC INC VISUAL COLOR CMPRSN METHS RADEX 19865 [place] JESSICA, FOOT 9 MEDICAL BISI COMPLETE IMAGING MINIMUM 3 ASSOCIATE VIEWS S RADEX 80886 [facility] JESSICA, ANKLE 9 MEDICAL BISI COMPLETE IMAGING MINIMUM 3 ASSOCIATE VIEWS S RADEX 63821 KUNATH, COLGLAZIE SPINE 9 LOPEZ & R, LUMBOSACR TEMMING MAYCO AL 2/3 ER L VIEWS RADEX 54311 BORISATH COLGLAZIE HAND 2 9 LOPEZ & R, VIEWS TEMMING MAYCO ER L RADIOLOGI 73230 KUNATH COLGLAZIE C 9 LOPEZ & R, EXAMINATI TEMLEO MAYCO ON FOOT 2 ER L VIEWS BLOOD 61752 TRMUANChristian HILTON COUNT 9 MEDICAL J COMPLETE GROUP AUTO&AUTO DIFRNTL WBC URNLS DIP 40344 COMMONCEASAR ARCOS, 8 LTH MAGY D STICK/TAB UROLOGY LET RGNT PSC AUTO W/O MICROSCOP Y CYSTO 11489 JOANA ARCOS, W/SIMPLE 8 LTH MAGY D REMOVAL UROLOGY STONE & PSC STENT RADEX 02504 OFFICE NATA, ABDOMEN 1 8 ISA AMANDA G DIAGNOSTI ANTEROPOS C TERIOR SERVICES VIEW CULTURE [address] BACTERIAL 8 KIRK BRADLEY QUANTTATI MEDICALCE MEDICALCE VE COLONY NTER NTER COUNT URINE URNLS DIP 19000 TRUMANChristian HLITON 8 MEDICAL J STICK/TAB GROUP LET RGNT AUTO W/O MICROSCOP Y CYSTO 22309 COMMONWEAlison ARCOS, W/URETERO 8 LTH MAGY D SCOPY UROLOGY W/LITHOTR PSC IPSY RADEX 34636 [facility] [place] TAMI, ABDOMEN 1 8 RADIOLOGY NUPUR M ANTEROPOS TERIOR VIEW ANES 91983 ANESTHESI KIRK LITHOTRP 8 A SAM A [employer] ASSOCIATE SHOCK S, PSC WAVE W/[place] [address] VENUSUCKJanis PHYLLIS, ABDOMEN 8 MEDICAL PHIL P W/O IMAGING CONTRAST ASSOCIATE MATERIAL S CULTURE 88729 VIJAY LINARES BACTERIAL 8 [facility] INC INC QUANTTATI VE COLONY COUNT URINE BASIC 17655 VIJAY LINARES METABOLIC 8 [facility] PANEL INC INC CALCIUM TOTAL CT PELVIS 79818 VIJAY LINARES W/O 8 [facility] CONTRAST INC INC MATERIAL URINE 28891 VIJAY LINARES 8 [facility] TEST INC INC VISUAL COLOR CMPRSN METHS 3D 17661 VIJAY LINARES RENDERING 8 [facility] INC INC W/INTERP& POSTPROC DIFF WORK STATION SUSCEPTIB 66732 VIJAY LINARES LTY STDY 8 [facility] ANTIMICRB INC INC IAL MICRO/AGA R DILUTJ URNLS DIP 10939 VIJAY LINARES 8 [facility] STICK/TAB INC INC LET REAGENT AUTO MICROSCOP Y BLOOD 63496 VIJAY LINARES COUNT 8 [facility] COMPLETE INC INC AUTO&AUTO DIFRNTL WBC BLOOD [address] COUNT 8 [facility] COMPLETE AUTO&AUTO MEDICALCE MEDICALCE DIFRNTL NTER NTER WBC CHOLESTER [address] OL 8 [facility] SERUM/WHO LE BLOOD MEDICALCE [place] [address] THYROID 8 [facility] STIMULATI NG MEDICALCE MEDICALCE HORMONE NTER NTER TSH HEPATIC [address] FUNCTION 8 [facility] PANEL [place] [address] BLOOD/URI 8 [facility] C ACID MEDICALCE MEDICALCE NTER NTER BASIC [address] METABOLIC 8 [facility] PANEL CALCIUM MEDICALCE MEDICALCE TOTAL NTER NTER SEDIMENTA [address] TION RATE 8 [facility] RBC AUTOMATED MEDICALCE MEDICALCE NTER NTER RHEUMATOI [address] D FACTOR 8 [facility] QUALITATI VE MEDICALCE MEDICALCE NTER NTER COLLECTIO 92162 [facility] WEBB VENOUS 8 MEDICAL J BLOOD GROUP VENIPUNCT URE RADEX [address] SPINE 8 [facility] AL 2/[address] SPINE 8 [facility] 3 VIEWS INCISION 54083 ATA BECERRIL, & 8 EMERG DREUX DRAINAGE SERV ABSCESS ASSOC COMPLICAT ED/MULTIP LE AMBULANCE A0429 TRANSCARE TRANSCARE SERVICE 8 OF OF [facility] EMERGENCY , INC. , INC. TRANSPORT GROUND A0425 TRANSCARE TRANSCARE MILEAGE 8 OF OF [facility] STATUTE , [employer]. , INC. MIL BLOOD 62047 VIJAY LINARES COUNT 8 [facility] COMPLETE INC INC AUTO&AUTO DIFRNTL WBC URNLS DIP 33436 VIJAY LINARES 8 [facility] STICK/TAB INC INC LET REAGENT AUTO MICROSCOP Y URINE 91593 VIJAY LINARES 8 [facility] TEST INC INC VISUAL COLOR CMPRSN METHS BASIC 55971 VIJAY LINARES METABOLIC 8 [facility] [place] [address] [place] NEERU FERGUSON 8 MEDICAL PHIL DUEÑAS IMAGING ASSOCIATE S Encounters Encounter Start End Date Code Location Performer Type Date EMERGENCY 60850 [facility] DEPT 7 7 PHYSICIAN VISIT S, PLLC HIGH SEVERITY& THREAT FUNCJ OFFICE 85966 [facility] OUT[facility] 7 7 KIRK T VISIT 15 PHYSICIAN MINUTES S OFFICE [address] [facility] OUTPATIEN 7 7 KIRK T VISIT [address] [facility] - 7 7 [facility] OUTPATIEN [facility] VIJAY - 7 7 [facility] OUTPATIEN INC T EMERGENCY 84551 VIJAY 7 7 [facility] DEPARTMEN INC T VISIT HIGH/URGE NT SEVERITY EMERGENCY 80094 [facility] VAR[facility]LL 7 7 EMERGENCY DEPARTMEN T VISIT PHYSICIAN HIGH/URGE S NT SEVERITY EMERGENCY 41045 [facility] BRACKEN 7 7 EMERGENCY DEPARTMEN T VISIT PHYSICIAN HIGH/URGE S NT SEVERITY [facility]PITAL ST - 7 7 [facility] 76537 [facility] GLEZ DEPT 6 6 MEDICAL VISIT SERV HIGH FOUNDATIO SEVERITY& N THREAT FUN EMERGENCY 27686 VIJAY 6 6 [facility] DEPARTMEN INC T VISIT MODERATE SEVERITY HOSPITAL VIJAY - 6 6 [facility] OUTPATIEN INC T EMERGENCY 09132 FRANCO LALA 6 6 PHYSICIAN JALYN DEPARTMEN S, [facility] T VISIT HIGH/URGE NT SEVERITY [facility]PITAL [facility] - 6 6 [facility] T DOOR REPAIRER BUS [facility] OFFICE [address] [facility] LOPEZ KELIS OUTPATIEN 6 6 [facility] T VISIT 25 PHYSICIAN MINUTES S EMERGENCY 73552 VIJAY DEPT 6 6 [facility] VISIT INC HIGH SEVERITY& THREAT FUN HOSPITAL VIJAY - 6 6 [facility] OUTPATIEN INC T OFFICE 95905 KIDNEY KATIA OUTPATIEN 6 6 DISEASE HORACIO T NEW 60 CONSULTAN MINUTES TS [address] THRELKELD OUTPATIEN 6 6 [facility] II ALETHA T VISIT [address] [facility] - 6 6 [facility] - 6 6 [facility]PATIEN [facility] VIJAY - 5 5 [facility] - 5 5 [facility] VI[facility] - 5 5 [facility] VIJAY [facility] 5 5 [facility] OUTPATIEN [facility] OFFICE 75237 VIJAY ARCOS OUTPATIEN [address] DANA Dempsey - OTHER 5 5 TRINAGIN [facility] OFFICE 36274 TRINAJAZMYNE QUEEN OUTPATIEN 5 5 PRIMARY T VISIT CARE 15 [facility] DANA Dempsey - 5 5 HAGGIN OUTPATIEN [facility] T OFFICE [address] QUEEN OUTPATIEN 5 5 PRIMARY T VISIT CARE 15 [facility] DANA Dempsey - OTHER 5 5 HAGGIN [facility] HOSPITAL DANA Dempsey - 5 5 [place] OUTPATIEN [facility] T EMERGENCY 98575 [facility] GENE Ribeiro DEPT 5 5 RIMMA VISIT EMERGENCY HIGH PHYS SEVERITY& THREAT [facility] SURAJ - 5 5 [facility] ME EMERGENCY 40072 SURAJ 5 5 [facility] VISIT ME MODERATE SEVERITY EMERGENCY 91353 [facility] EVELIN PERDOMO DEPT 5 5 [facility]IMMA VISIT EMERGENCY HIGH PHYS SEVERITY& THREAT FUN EMERGENCY 64936 [facility] FRANCOIS DEPT 5 5 RIMMA SANTOSH VISIT EMERGENCY HIGH PHYS SEVERITY& THREAT FUN EMERGENCY 95791 DANA Dempsey 5 5 [facility] T VISIT MODERATE SEVERITY HOSPITAL DANA Dempsey - 5 5 [facility] DANA Dempsey - 5 5 [facility] EMERGENCY 28235 DANA Dempsey 5 5 [facility] T VISIT MODERATE SEVERITY EMERGENCY 10702 [facility] FISH 5 5 RIMMA MAGDALENA DEPARTMEN EMERGENCY T VISIT PHYS MODERATE SEVERITY EMERGENCY 85130 DANA Dempsey 5 5 [facility] T VISIT HIGH/URGE NT SEVERITY HOSPITAL DANA Dempsey - 5 5 [facility] DANA Dempsey - 5 5 [facility] T EMERGENCY 38706 [facility] [place] SHA 5 5 RIMMA DEPARTMEN EMERGENCY T VISIT PHYS HIGH/URGE NT SEVERITY EMERGENCY 21595 DANA Dempsey 5 5 [facility] VISIT MODERATE SEVERITY EMERGENCY 42489 [facility] GREISER DEPT 5 5 RIMMA ALETHA VISIT EMERGENCY HIGH PHYS SEVERITY& THREAT [facility] DANA Dempsey - 5 5 [facility] EMERGENCY 27981 DANA Dempsey 5 5 [facility]PART[facility] T VISIT HIGH/URGE NT SEVERITY EMERGENCY 06757 [facility] 5 5 RIM[facility] DEPARTMEN EMERGENCY T VISIT PHYS MODERATE SEVERITY HOSPITAL DANA Dempsey - 5 5 [facility] SURAJ - 4 4 [facility] ME EMERGENCY 71970 SURAJ 4 4 [facility] DEPARTMEN [facility] T VISIT ME HIGH/URGE NT SEVERITY EMERGENCY 28536 [facility] [place] JALYN DEPT 4 4 [facility] VISIT EMERGENCY HIGH PHYS SEVERITY& THREAT [facility] FORT - 4 4 [facility] T EMERGENCY 35192 FORT 4 4 [facility] DEPARTMEN HOSP T VISIT MODERATE SEVERITY EMERGENCY 16610 [facility] [place] EHS 4 4 RIMMA DEPARTMEN EMERGENCY T VISIT PHYS HIGH/URGE NT SEVERITY HOSPITAL FORT - 4 4 CYRIL OUTPATIEN HOSP T EMERGENCY 43483 [facility] DEPT 4 4 RIMMA Heidi RUPA VISIT EMERGENCY HIGH PHYS SEVERITY& THREAT FUN HOSPITAL SURAJ - 4 4 HERNANDEZ OUTPATIEN REGIONAL T ME EMERGENCY 36898 [facility] GUERRANT 4 4 RIMMA NOELLE DEPARTMEN EMERGENCY T VISIT PHYS MODERATE SEVERITY OFFICE 72717 [facility] OUTPATI[facility] 4 4 KARIME T VISIT FAMILY 15 MEDICAL MINUTES EMERGENCY 60201 [facility] ROBBINS 4 4 RIMMA PENG DEPARTMEN EMERGENCY T VISIT SERV HIGH/URGE NT SEVERITY EMERGENCY 88238 [facility] PASCALE GLORIA 4 4 RIMMA DEPARTMEN EMERGENCY T VISIT PHYS MODERATE SEVERITY OFFICE 56191 [facility] 4 KARIME T VISIT FAMILY 15 MEDICAL MINUTES EMERGENCY 53521 [facility] JEF REEDER 4 4 RIMMA DEPARTMEN EMERGENCY T VISIT PHYS MODERATE SEVERITY HOSPITAL SURAJ - 4 4 HERNANDEZ OUTPATIEN REGIONAL T ME EMERGENCY 86284 [facility] DEPT 4 4 RIMMA VISIT EMERGENCY HIGH PHYS SEVERITY& THREAT FUNCJ OFFICE 82406 [facility] 4 4 KARIME T NEW 30 FAMILY MINUTES MEDICAL EMERGENCY 29266 [facility] PARI MAGDALENA DEPT 4 4 RIMMA VISIT EMERGENCY HIGH PHYSI SEVERITY& THREAT FUNCJ EMERGENCY 79804 FAM GOODE DEPT 4 4 VISIT HIGH SEVERITY& THREAT FUNCJ EMERGENCY 61571 [facility] 4 4 DEPARTMEN T VISIT HIGH/URGE NT SEVERITY HOSPITAL UNIVERSIT - 4 4 Y [facility] HOSP[facility] T EMERGENCY [address] [facility] T VISIT HIGH/URGE NT SEVERITY OFFICE 34742 HOBLITZEL HOBLITZEL OUTPATIEN 3 3 ANTONINO ANTONINO T NEW 30 MINUTES EMERGENCY 93428 MADINA Justin 3 3 VILLARI VILLARI DEPARTMEN T VISIT MODERATE SEVERITY EMERGENCY 71016 TIMMY CHRIS 3 3 DEPARTMEN T VISIT MODERATE SEVERITY EMERGENCY 83952 BOSSMAN Galaviz 3 3 DEPARTMEN T VISIT HIGH/URGE NT SEVERITY EMERGENCY 82281 RONNA FRIEND 3 3 KRI KRI DEPARTMEN T VISIT MODERATE SEVERITY EMERGENCY 49494 MEGAN GUZMAN 3 3 LATOYA LATOYA DEPARTMEN T VISIT HIGH/URGE NT SEVERITY EMERGENCY 58599 DENISE WALKER 3 3 GRE GRE DEPARTMEN T VISIT MODERATE SEVERITY EMERGENCY 52615 SELPH SCO SELPH SCO 3 3 DEPARTMEN T VISIT HIGH/URGE NT SEVERITY EMERGENCY 09418 TIMMY CHRIS 3 3 DEPARTMEN T VISIT HIGH/URGE NT SEVERITY OFFICE 16794 RISON ALL RISON ALL OUTPATIEN 2 2 T VISIT 10 MINUTES OFFICE 98770 PARIS PARIS OUTPATIEN 2 2 JALYN JALYN T VISIT 10 MINUTES OFFICE 84553 [facility] PARIS OUTPATIEN 2 2 JALYN JALYN T VISIT [address] SELPH SCO [address] [facility] MED CTR T VISIT MODERATE SEVERITY OFFICE 80368 RISON ALL RISON ALL OUTPATIEN 2 2 T VISIT [address] CHAMPLAIN TRO [address] [facility] MED CTR T VISIT HIGH/URGE NT SEVERITY OFFICE 35379 CASEY VIR CASEY VIR OUTPATIEN 2 2 T VISIT 25 MINUTES EMERGENCY 32336 GANIM HUGH GANIM HUGH 2 2 DEPARTMEN T VISIT MODERATE SEVERITY OFFICE 10746 HARTIG HARTIG OUTPATIEN 2 2 RUPA RUPA T VISIT 25 MINUTES OFFICE 34948 RISON ALL RISON ALL OUTPATIEN 2 2 T NEW 30 MINUTES OFFICE 15314 MELISSA HARTKARINA OUTPATIEN 2 2 RUPA RUPA T VISIT 15 MINUTES OFFICE 14226 MELISSA HARTKARINA OUTPATIEN 2 2 RUPA RUPA T VISIT [address] [facility] [address] [facility] FAMILY T VISIT PRACTICE MODERATE SEVERITY OFFICE 44168 CASEY VIR CASEY VIR OUTPATIEN 1 1 T VISIT [address] MELISSA OUTPATIEN 1 1 [facility]IRK RUPA T VISIT 15 PHYSICIAN MINUTES S OFFICE [address] [facility] MELISSA OUTPATIEN 1 1 [facility] RUPA T VISIT 15 PHYSICIAN MINUTES S EMERGENCY 64258 ATA MELO 1 1 EMERGENCY III [facility] T VISIT MODERATE SEVERITY EMERGENCY 39742 VIJAY 1 1 [facility] DEPARTMEN INC T VISIT LIMITED/M INOR [facility] VIJAY - 1 1 [facility] OUTPATIEN INC T OFFICE 43585 [facility] CEPELA OUTPATIEN 1 1 [facility] T VISIT FOR 25 SIGHT, MINUTES OFFICE 94492 VIJAY ARCOS OUTPATIEN 1 1 [facility] T VISIT HOSPITAL [address] - 1 1 [facility] OUTPATIEN MARIO T OFFICE 07405 [facility] CEPELA OUTPATIEN 1 1 [facility] 30 FOR MINUTES [facility] VIJAY - 1 1 [facility] OUT[facility]IEN INC T EMERGENCY 08913 ATA FROST DEPT 1 1 EMERGENCY VISIT SERVICES HIGH SEVERITY& THREAT FUNCJ EMERGENCY 16791 VIJAY 1 1 [facility] DEPARTMEN INC T VISIT HIGH/URGE NT SEVERITY OFFICE 86039 ST HARTIG OUTPATIEN 1 1 [facility] RUPA T VISIT 15 PHYSICIAN MINUTES S OFFICE 44702 MATHEWWNEELAM SHEWMAPENNY OUTPATIEN 1 1 VLADIMIR GRIFFIN T NEW [address] HARTIG OUTPATIEN 0 0 [facility] RUPA T VISIT 15 PHYSICIAN MINUTES S EMERGENCY 26538 ATA LALA DEPT 0 0 EMERGENCY JALYN VISIT SERVICES HIGH SEVERITY& THREAT [facility] VIJAY - 0 0 [facility] OUTPATIEN INC T EMERGENCY 70340 VIJAY 0 0 [facility] DEPARTMEN INC T VISIT LOW/MODER SEVERITY OFFICE 87542 ST HARTIG OUTPATIEN 0 0 [facility] RUPA T VISIT 15 PHYSICIAN MINUTES S EMERGENCY 27445 ST PERAZZO 0 0 [facility] GIOVANY DEPARTMEN MED CTR T VISIT MODERATE SEVERITY OFFICE 31599 ST HARTIG OUTPATIEN 0 0 [facility] RUPA T VISIT 15 PHYSICIAN MINUTES S OFFICE 199[address] [facility] HARTIG OUTPATIEN 0 0 [facility] RUPA T VISIT 15 PHYSICIAN MINUTES S OFFICE 45406 ST GENO OUTPATIEN 0 0 [facility] ER BRA T VISIT 25 PHYSICIAN MINUTES S OFFICE [address] ST QUATKEMEY OUTPATIEN 0 0 [facility] ER BRA T VISIT 15 PHYSICIAN MINUTES [facility] ST - 0 0 [facility] OUTPATIEN T MEDICALCE NTER OFFICE 99241 ST QUATKEMEY OUTPATIEN 0 0 [facility] ER BRA T VISIT 15 PHYSICIAN MINUTES S OFFICE 99923 ST QUATKEMEY OUTPATIEN 0 0 [facility] ER, T VISIT CRANE 25 PHYSICIAN A MINUTES [facility] ST - 0 0 [facility] OUTPATIEN T MEDICALCE NT OFFICE 97306 WOMEN'S VU, OUTSTEPHANYEN 9 9 HEALTH QUYEN J T VISIT CLINIC OF 25 MINUTES [facility] OFFICE 60488 Christian FLORES 9 9 MEDICAL J T VISIT GROUP 15 MINUTES [facility] ST - 9 9 [facility] VIJAY - 9 9 [facility] 03849 VIJAY 9 9 [facility] DEPARTMEN INC T VISIT LOW/MODER SEVERITY EMERGENCY 64609 ATA RANDALL, 9 9 EMERGENCY MOHAN DEPARTMEN SERVICES O T VISIT MODERATE ASSOCIATE SEVERITY S EMERGENCY [address] ST MENDIETA, 9 9 [facility] Willett DEPARTMEN MED CTR T VISIT HIGH/URGE NT SEVERITY EMERGENCY 89033 ST WALKER, 9 9 [facility] [place] DEPARTMEN MED CTR T VISIT HIGH/URGE NT SEVERITY OFFICE 20439 [facility]ITH DASILVA CONSULTAT 9 9 [facility] RKHO[facility] NEW/ESTAB ER L PATIENT 60 MIN OFFICE 49157 Christian FLORES 9 9 MEDICAL J T VISIT GROUP 15 MINUTES OFFICE 08046 Christian FLORES 9 9 MEDICAL J T VISIT GROUP 25 MINUTES EMERGENCY 20769 [facility] K[facility] SIU Fer VISIT MED CTR HIGH SEVERITY& THREAT FUNCJ OFFICE 15394 Christian FLORES 9 9 MEDICAL J T VISIT GROUP 15 MINUTES HOSPITAL - 8 8 [facility] T MEDICALCE NTER OFFICE 07374 ROLANDO DAS 8 8 [facility] MAGY Fer T VISIT UROLOGY 25 PSC MINUTES EMERGENCY 19257 VIJAY 8 8 [facility] DEPARTMEN INC T VISIT HIGH/URGE NT SEVERITY HOSPITAL VIJAY - 8 8 [facility] OUTPATIEN INC T HOSPITAL VIJAY - 8 8 [facility] OUTPATIEN INC T EMERGENCY 72589 MARK ANTHONY VARELA, 8 8 [facility] T VISIT ON HIGH/URGE NT SEVERITY HOSPITAL VIJAY - 8 8 [facility] OUTPATIEN INC T EMERGENCY 54980 [facility] 8 8 [facility] DEPARTMEN INC T VISIT LOW/MODER SEVERITY HOSPITAL [facility] 12326 Christian FLORES 8 8 MEDICAL J T VISIT GROUP 25 MINUTES HOSPITAL [facility] 8 8 [facility] T OFFICE 00238 Christian FLORES 8 8 MEDICAL J T VISIT GROUP 25 MINUTES EMERGENCY 20418 ATA BECERRIL, 8 8 EMERG DREUX DEPARTMEN SERV T VISIT ASSOC HIGH/URGE NT SEVERITY EMERGENCY 90872 ATA YAO, 8 8 [facility] S[facility]Y [facility] HIGH/URGE NT SEVERITY OFFICE 60009 [facility] ROLANDO VU [address] [facility] QUYEN Willett T VISIT CLINIC OF 15 MINUTES [facility] VIJAY - 8 8 [facility] OUTPATIEN INC T EMERGENCY 59814 VIJAY 8 8 [facility] DEPARTMEN INC T VISIT HIGH/URGE NT SEVERITY
--- OUTSIDE RECORDS SUMMARY | 2017-05-09 05:31 | External Medical Summary Rpt | CCD ---
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 MA TH HC CY Y L D 50 0 MG TA B AL 00 12 01 01 60 30 TO 35 ME Ac NM 78 -0 -1 .0 TA 59 LT ti AZ 11 9- 5- 00 L 49 ON ve OL 07 20 20 CA AM 91 08 09 RE GA 1 0 RY PH J MG AR MA TA CY BL # ET 4 ZY 00 12 01 01 30 30 TO 35 ME Ac NM 00 -0 -1 .0 TA 59 LT ti EX 24 9- 5- 00 L 53 ON ve A 11 20 20 CA 10 73 08 09 RE GA 0 RY MG PH J AR TA MA BL CY ET # 4 NA 68 12 01 01 60 30 TO 35 ME Ac NM 46 -0 -1 .0 TA 59 LT [...] 00 60 30 TO 35 ME Ac NM 76 -0 -1 .0 TA 59 LT [...] 00 60 30 TO 35 ME Ac NM 46 -0 -1 .0 TA 59 LT ti OX 20 9- 8- 00 L 50 ON ve EN 19 20 20 CA 00 08 08 RE GA 50 5 RY 0 PH J MG AR MA TA CY BL # ET 4 ZY 00 12 12 00 30 30 TO 35 ME Ac NM 00 -0 -1 .0 TA 59 LT [...] AR MO MA TH CY Y D NM 00 11 12 00 20 5 CL [...] 03 60 30 PH 33 ME Ac NM 46 -0 -0 .0 AR 76 LT ti OX 20 8- 7- 00 MC 87 ON ve EN 19 20 20 AR 00 08 08 E GA 50 5 CR RY 0 IT J MG TE ND TA EN BL N ET ZY 00 07 11 03 30 30 PH 33 ME Ac NM 00 -0 -0 .0 AR 76 LT [...] 02 60 30 PH 33 ME Ac NM 09 -0 -2 .0 AR 76 LT ti OX 30 8- 6- 00 MC 87 ON ve EN 14 20 20 AR 90 08 08 E GA 50 5 CR RY 0 IT J MG TE ND TA EN BL N ET ZY 00 07 09 02 30 30 PH 33 ME Ac NM 00 -0 -2 .0 AR 76 LT [...] 01 60 30 PH 33 ME Ac NM 09 -0 -1 .0 AR 76 LT [...] 01 30 30 PH 33 ME Ac NM 00 -0 -1 .0 AR 76 LT [...] 20 AI IN 20 08 08 D LA E 5 PH CH HY AR AE CL M L AT #3 S E 93 10 8 0 MG CA P AC 00 08 08 00 8. 2 RI 74 GA Ac ET 09 -0 -1 00 TE 45 IN ti AM 30 7- 4- 0 84 EY ve IN 15 20 20 AI OP 01 08 08 D LA HE 0 PH CH N- AR AE [...] 00 30 30 PH 33 ME Ac NM 00 -0 -1 .0 AR 76 LT ti EX 24 8- 7- 00 MC 89 ON ve A 11 20 20 AR 10 73 08 08 E GA 0 CR RY MG IT J TE TA ND BL EN ET N NA 00 07 07 00 60 30 PH 33 ME Ac NM 09 -0 -1 .0 AR 76 LT [...] 01 30 30 KR 61 No Ac NM 00 -0 -0 .0 OG 92 t ti EX 24 4- 8- 00 ER 95 Av ve A 11 20 20 3 ai 10 73 08 08 PH la 0 AR bl MG M e L- TA 35 BL 9 ET ZY 00 02 04 00 30 30 RI 32 No Ac NM 00 -0 -1 .0 TE 76 t [...] 00 30 30 KR 61 No Ac NM 00 -0 -1 .0 OG 92 t [...] bl IT e TE ND EN N NM 00 01 03 00 12 2 RI [...] SQUARE METERS Comment: If this patient is -Colombian, then multiply the Comment: result by 1.210. [...] blood 02:20 platele t mean volume debra [place] % = 7.0 % 1.7-9.3 complet 017 [...] DOS Code Location Performer Comment ALS A0398 [facility] ROUTINE 7 AMBULANCE AMBULANCE DISPOSABL SERVICE SERVICE E SUPPLIES GROUND A0425 [facility] MILEAGE 7 AMBULANCE AMBULANCE PER SERVICE SERVICE STATUTE MILE AMB A0427 [facility] SERVICE 7 AMBULANCE AMBULANCE ALS SERVICE SERVICE EMERGENCY TRANSPORT LEVEL 1 HOSPITAL 13251 [facility] 7 [facility] MANAGEMEN PHYSICIAN T > 30 S MIN SBSQ [address]/DAY 25 PHYSICIAN MINUTES S INITIAL 37508 [facility] 7 DISEASE CARE/DAY CONSULTAN 50 TS I MINUTES GROUND A0425 [facility] MILEAGE 7 CO CO PER AMBULANCE AMBULANCE STATUTE TAXIN TAXIN MILE AMBULANCE A0429 [facility] SERVICE 7 CO CO BLS AMBULANCE AMBULANCE EMERGENCY TAXIN TAXIN TRANSPORT CRITICAL 73045 [facility] 7 EMERGENCY ILL/INJUR ED PHYSICIAN PATIENT S ADDL 30 MIN CRITICAL 99802 [facility] CARE 7 EMERGENCY ILL/INJUR ED PHYSICIAN PATIENT S INIT 30-[address] [place] [address] RADIOLOGY BRANDSER HEAD/BRAI 7 N W/O ASSOCIATE CONTRAST S OF [facility] MATERIAL COLLECTIO 54264 [facility] N VENOUS [address] [place] [address] BLOOD MARIO MARIO VENIPUNCT URE POTASSIUM 82248 [facility] SERUM 7 [facility] PLASMA/WH [place] [address] [facility] MAGNESIUM [address] [place] [address] [place] [address] VIJAY LINARES MAGNESIUM 7 [place] [address] VIJAY LINARES LIPASE 7 [place] [address] VIJAY LINARES PHOSPHORU 7 [facility] S INC INC INORGANIC URINE 47049 VIJAY LINARES 7 [facility] TEST INC INC VISUAL COLOR CMPRSN METHS SUSCEPTIB 97188 VIJAY ZAMORANOON LTY STDY 7 [facility] ANTIMICRB INC INC IAL MICRO/AGA R DILUTJ FINAL G9551 MIGUELITO JOHSN REPR ABD 7 MEDICAL IMAG STS IMAGING W/O ASS INCIDNT F[place]: [place] [address] VIJAY LINARES AMYLASE 7 [facility] INC INC BLOOD 59322 VIJAY LINARES COUNT 7 [facility] COMPLETE INC INC AUTO&AUTO DIFRNTL WBC URNLS DIP 07214 VIJAY LINARES 7 [facility] STICK/TAB INC INC LET REAGENT AUTO MICROSCOP Y COMPREHEN 53918 VIJAY LINARES SIVE 7 [facility] METABOLIC INC INC PANEL FINAL G9638 MIGUELITO JOHNS REPORTS 7 MEDICAL W/O DOC IMAGING 1/MORE ASS DOSE REDUCTION TECH ECG 81587 VIJAY GARCIA JR ROUTINE 7 [facility] W/LEAST P 12 LDS I&[place] [address] VIJAY LINARES INFUSION 7 [facility] THERAPY/P INC INC ROPHYLAXI S /DX 1ST TO 1 [place] [address] VIJAY LINARES INFUSION 7 [facility] THER INC INC PROPH ADDL SEQUENTIA L TO 1 HR ECG 89865 VIJAY LINARES ROUTINE 7 [facility] ECG INC INC W/LEAST 12 LDS TRCG ONLY W/O I&[place] [address] VIJAY LINARES ABDOMEN & 7 [facility] PELVIS INC INC W/O CONTRAST MATERIAL CULTURE 51982 VIJAY LINARES BACTERIAL 7 [facility] INC INC QUANTTATI VE COLONY COUNT URINE CULTURE 79776 VIJAY LINARES BCT 7 [facility] ISOL&PRSM INC INC PTV ID ISOLATE EA URINE RADEX 32643 RADIOLOGY WALI FOOT 7 COMPLETE ASSOCIATE MINIMUM 3 S OF NOTH VIEWS RADEX 67133 RADIOLOGY BRANDSER ANKLE 7 COMPLETE ASSOCIATE MINIMUM 3 S OF NOTH VIEWS RADIOLOGI 32274 RADIOLOGY BRANDSER C EXAM 7 KNEE ASSOCIATE COMPLETE S OF NOTH 4/MORE VIEWS INCISION 66937 [facility] & 7 EMERGENCY DRAINAGE ABSCESS PHYSICIAN SIMPLE/SI S NGLE COMPREHEN [address] SIVE 7 [facility] METABOLIC PANEL HEALTHCAR HEALTHCAR E CYNDY E CYNDY OBSERVATI 81337 [facility] WARNER ON CARE 6 MEDICAL DISCHARGE SERV FOUNDATIO MANAGEMEN N T CRITICAL 62154 [facility] 6 PHYSICIAN ILL/INJUR S, [facility] ED PATIENT INIT 30-74 MIN ECG 80245 VIJAY MEYERS ROUTINE 6 [facility] W/LEAST P 12 LDS I&R ONLY AMB A0427 [facility] 6 AMBULANCE AMBULANCE ALS SERVICE SERVICE EMERGENCY TRANSPORT LEVEL 1 INITIAL 29888 [facility]AD[facility] WARNER OBSERVATI 6 MEDICAL ON SERV CARE/DAY FOUNDATIO 70 N MINUTES GROUND A0425 [facility] MILEAGE 6 AMBULANCE AMBULANCE [place] [address] MIGUELITO JOHNS CERVICAL 6 MEDICAL SPINE W/O IMAGING CONTRAST ASS MATERIAL RADEX 38691 [place] TRUE QASIM FOOT 6 MEDICAL COMPLETE SERV MINIMUM [address] [place] [address] MIGUELITO JOHNS HEAD/BRAI 6 MEDICAL N W/O IMAGING CONTRAST ASS MATERIAL MRI BRAIN 31412 [place] FAM ROBERTO BRAIN 6 MEDICAL STEM W/O SERV CONTRAST FOUNDATIO MATERIAL N RADIOLOGI 56441 [place] TRUE QASIM C 6 MEDICAL EXAMINATI SERV ON KNEE 3 FOUNDATIO VIEWS N CULTURE 00906 VIJAY LINARES BCT 6 [facility] ISOL&PRSM INC INC PTV ID ISOLATE EA URINE CULTURE 05613 VIJAY LINARES BACTERIAL 6 [facility] INC INC QUANTTATI VE COLONY COUNT URINE THERAPEUT 91747 VIJAY LINARES IC 6 [facility] INJECTION INC [place] [address] VIJAY LINARES INFUSION 6 [facility] THERAPY/P INC INC ROPHYLAXI S /DX 1ST TO 1 HR COMPREHEN 18479 VIJAY LINARES SIVE 6 [facility] METABOLIC INC INC PANEL URNLS DIP 57304 VIJAY LINARES 6 [facility] STICK/TAB INC INC LET REAGENT AUTO MICROSCOP Y BLOOD 02149 VIJAY LINARES COUNT 6 [facility] COMPLETE INC INC AUTO&AUTO DIFRNTL WBC SUSCEPTIB 49816 VIJAY LINARES LTY STDY 6 [facility] ANTIMICRB INC INC IAL MICRO/[place] [address] VIJAY LINARES PHOSPHORU 6 [facility] [place] [address] VIJAY LINARES MAGNESIUM 6 [facility] INC INC URINE 26496 VIJAY LINARES 6 [facility] TEST INC INC [place] [address] MAGNESIUM 6 [facility] MED CTR MED CTR DIESEL ENGINE MECHANIC APPRENTICE ST DIESEL ENGINE MECHANIC APPRENTICE ST POTASSIUM [address] SERUM 6 [facility] PLASMA/ MED CTR MED CTR OLE BLOOD DIESEL ENGINE MECHANIC APPRENTICE ST DIESEL ENGINE MECHANIC APPRENTICE ST INJECTION J1040 ST LOPEZ KELSI 6 [facility] METHYLPRE DNISOLONE PHYSICIAN ACETATE S [address] LOPEZ KELSI IC 6 [facility] PROPHYLAC TIC/DX PHYSICIAN INJECTION S SUBQ/IM ECG 07065 VIJAY LINARES ROUTINE 6 [facility] ECG INC INC W/LEAST 12 LDS TRCG ONLY W/O I&R CULTURE 93147 VIJAY LINARES BCT 6 [facility] ISOL&PRSM INC INC PTV ID ISOLATE EA URINE RADIOLOGI 19629 VIJAY LINARES C 6 [facility] EXAMINATI INC [place] [address] VIJAY LINARES HEAD/BRAI 6 [facility] N W/O INC INC CONTRAST MATERIAL CULTURE 98981 VIJAY LINARES BACTERIAL 6 [facility] INC INC QUANTTATI VE COLONY COUNT URINE DRUG TST G0477 VIJAY LINARES PRESUMP;C 6 [facility] PBL BEING INC INC READ DC OPT OBV ONLY DRUG TEST G0480 VIJAY LINARES DEFINITV [address] ID INC INC METH P DAY 1-[place] [address] VIJAY LINARES INFUSION 6 [facility] THER INC INC PROPH ADDL SEQUENT[place] L TO 1 [place] [address] VIJAY VIJAY INFUSION 6 [facility] THERAPY/P INC INC ROPHYLAXI S /DX 1ST TO 1 HR URINE 00656 VIJAY LINARES 6 [facility] TEST INC INC VISUAL COLOR CMPRSN METHS CREATINE 06139 VIJAY LINARES KINASE 6 [facility] TOTAL INC INC AMB A0427 ULISSES [facility] SERVICE 6 AMBULANCE AMBULANCE ALS SERVICE SERVICE EMERGENCY TRANSPORT LEVEL 1 ECG 26500 VIJAY GARCIA JR ROUTINE 6 [place] W/LEAST P 12 LDS I&R ONLY COMPREHEN 69015 VIJAY LINARES SIVE 6 [facility] METABOLIC INC INC PANEL SUSCEPTIB 15617 VIJAY LINARES LTY STDY 6 [facility] ANTIMICRB INC INC IAL MICRO/AGA R DILUTJ BLOOD 47697 VIJAY LINARES COUNT 6 [facility] COMPLETE INC INC AUTO&[place] [address] VIJAY LINARES TROPONIN 6 [facility] QUANTITAT INC INC KATHIA GROUND A0425 ULISSES [facility] MILEAGE 6 AMBULANCE AMBULANCE PER SERVICE SERVICE STATUTE MILE CREATINE 06338 VIJAY LINARES KINASE MB 6 [facility] FRACTION INC INC ONLY UNCLASSIF J3490 VIJAY LINARES IED DRUGS 6 [facility] INC INC POTASSIUM [address] SERUM 6 [facility] PLASMA/WH MARIO MARIO OLE BLOOD COLLECTIO [address] N VENOUS 6 [facility] BLOOD MARIO MARIO VENIPUNCT URE CULTURE [address] BACTERIAL 6 [facility] MARIO MARIO QUANTTATI VE COLONY COUNT URINE CULTURE [address] BACTERIAL 6 [facility] MED CTR MED CTR QUANTTATI DIESEL ENGINE MECHANIC APPRENTICE ST DIESEL ENGINE MECHANIC APPRENTICE ST VE COLONY COUNT URINE BASIC [address] METABOLIC 6 [facility] PANEL MED CTR MED CTR CALCIUM DIESEL ENGINE MECHANIC APPRENTICE ST DIESEL ENGINE MECHANIC APPRENTICE ST TOTAL CULTURE [address] BCT 6 [facility] [place] ISOL&PRSM MED CTR MED CTR PTV ID DIESEL ENGINE MECHANIC APPRENTICE ST DIESEL ENGINE MECHANIC [place] [address] MAGNESIUM 6 [facility] MED CTR MED CTR DIESEL ENGINE MECHANIC APPRENTICE ST DIESEL ENGINE MECHANIC APPRENTICE ST SUSCEPTIB [address] LTY STDY 6 [facility] ANTIMICRB MED CTR MED CTR IAL DIESEL ENGINE MECHANIC APPRENTICE ST DIESEL ENGINE MECHANIC APPRENTICE ST MICRO/AGA R DILUTJ BLOOD [address] COUNT 6 [facility] [place] COMPLETE MED CTR MED CTR AUTO&AUTO DIESEL ENGINE MECHANIC APPRENTICE ST DIESEL ENGINE MECHANIC APPRENTICE ST DIFRNTL WBC URNLS DIP 44404 VIJAY LINARES 5 [facility] STICK/TAB INC INC LET REAGENT AUTO MICROSCOP Y CYSTO 83873 VIJAY LINARES W/SIMPLE 5 [facility] REMOVAL INC INC STONE & STENT URINE 29405 VIJAY LINARES 5 [facility] TEST INC INC VISUAL COLOR CMPRSN METHS CULTURE 60428 VIJAY LINARES BACTERIAL 5 [facility] INC INC QUANTTATI VE COLONY COUNT URINE RADEX 93129 VIJAY LINARES ABDOMEN 1 5 [facility] INC INC ANTEROPOS TERIOR VIEW STENT C2617 VIJAY LINARES NON-COR 5 [facility] TEMPORARY [place] [address] VIJAY LINARES INFUSION 5 [facility] THERAPY INC INC PROPHYLAX IS/DX EA HOUR INJECTION J0131 VIJAY LINARES 5 [facility] ACETAMINO INC INC PHEN 10 MG INTRO 25896 VIJAY LINARES URETERAL 5 [facility] CATH/STEN INC INC T PRQ RS&I INJECTION J2405 VIJAY LINARES 5 [facility] ONDANSETR INC INC ON HCL PER 1 MG URINE 58335 VIJAY LINARES 5 [facility] TEST INC INC VISUAL COLOR CMPRSN METHS CYSTO/URE 57844 VIJAY LINARES TERO 5 [facility] W/LITHOTR INC INC IPSY &INDWELL STENT INSRT ANES 20728 [facility] NEVAREZ ECHO TRURL 5 ANESTH FRAGMNTJ OF THE MANJ&/[place] [address] [facility] ABDOMEN & 5 MEDICAL BRIE PELVIS IMAGING W/O ASS CONTRAST MATERIAL BASIC 50089 DANA Dempsey METABOLIC 5 HAGGIN HAGGIN PANEL [facility] HOS CALCIUM TOTAL CULTURE 62994 DANA Dempsey BACTERIAL 5 [facility]AGGIN HAGGIN [facility]OS QUANTTATI VE COLONY COUNT URINE COLLECTIO 26288 KARSON GUIDRYDEISY BRET N VENOUS 5 PRIMARY BLOOD CARE VENIPUNCT URE BLOOD 10187 DANA Dempsey COUNT 5 HAGGIN HAGGIN COMPLETE [facility] AUTO&AUTO DIFRNTL WBC INJECTION A9579 DANA Dempsey 5 HAGGIN HAGGIN GADOLINIU [facility] M BASED MR CONTRAST NOS ML MRI ORBIT 50708 [facility] F[facility] & 5 RADIOLOGY NECK W/O & ASSOCIATE W/CONTRAS T MATRL MRI BRAIN 73279 DANA Dempsey BRAIN 5 HAGGIN HAGGIN STEM W/O MEM HOS [facility]OS W/CONTRAS T MATERIAL URNLS DIP 59197 KARSON LORDEISY BRET 5 PRIMARY STICK/TAB CARE LET RGNT NON-AUTO W/[place] [address] DANA Dempsey THYROID 5 HAGGIN HAGGIN STIMULATI MEM [facility]OS [facility] HOS NG HORMONE TSH COMPREHEN 32171 DANA Dempsey SIVE 5 HAGGIN HAGGIN METABOLIC [facility] PANEL CYANOCOBA 85651 DANA Dempsey LOLY 5 [facility]AGGIN HAGGIN VITAMIN [facility] [place] B-[address] [place] [address] DANA Dempsey BLOOD/URI 5 HAGGIN [place] [address] [facility] ABDOMEN & 5 RADIOLOGY RADIOLOGY PELVIS W/O ASSOCIATE ASSOCIATE CONTRST 1/> BODY RE THER 57537 DANA Dempsey PROPH/DX 5 HAGGIN HAGGIN NJX IV [facility] H[facility] PUSH SINGLE/1S T SBST/DRUG THER 78104 SURAJ SURAJ PROPH/DX 5 DAVID HERNANDEZ NJX IV REGIONAL REGIONAL PUSH ME ME SINGLE/1S T SBST/DRUG BASIC 26722 SURAJ SURAJ METABOLIC 5 DAVID HERNANDEZ PANEL REGIONAL [place] [address] SURAJ SURAJ ABDOMEN & 5 DAVID HERNANDEZ PELVIS REGIONAL REGIONAL W/O ME ME CONTRAST MATERIAL BLOOD 21354 SURAJ SURAJ COUNT 5 DAVID HERNANDEZ COMPLETE REGIONAL REGIONAL AUTO&AUTO ME ME DIFRNTL WBC URNLS DIP 31420 SURAJ SURAJ 5 DAVID HERNANDEZ STICK/TAB REGIONAL REGIONAL LET ME ME REAGENT AUTO MICROSCOP Y CYSTO 76323 MILY ROBLES W/INSERT 5 [facility] URETERAL CLINIC STENT PSC CYSTO 41852 MILY ROBLES W/URETERO 5 [facility] SCOPY CLINIC W/RMVL/MA PSC NJ STONES ANES 02598 [facility]VER[facility] BARCLAY TRURL 5 ANESTHESI CRY FRAGMNTJ A MANJ&/RMV ASSOCIAT L URETERAL CALCULUS LEVEL I [address] [facility] SURG 5 PATHOLOGY MOHAMUD PATHOLOGY ASSOCI[place] [address] [facility] LANIER STEFANY ABDOMEN & 5 RADIOLOGY PELVIS W/O ASSOCIATE CONTRAST MATERIAL ECG 17020 SURAJ HEMPEL ROUTINE 5 [facility] ECG REGG MED W/LEAST CT 12 LDS I&R ONLY INITIAL 66252 [facility] 5 [facility] CARE/DAY CLINIC CLINIC 50 PSC PSC MINUTES GROUND A0425 JEAN CO JEAN CO MILEAGE 5 EMERG EMERG PER MEDICALSE MEDICALSE STATUTE R R MILE URNLS DIP 81109 DANA Dempsey 5 HAGGIN HAGGIN STICK/TAB [facility] [place] [address] DANA Dempsey ABDOMEN & 5 TRINAGIN HAGGIN PELVIS [facility]OS W/O CONTRAST MATERIAL THERAPEUT 42533 DANA Dempsey IC 5 HAGGIN HAGGIN PROPHYLAC [...] HOS E HCL PER 100 MG MRI 53227 [facility] SPINAL 5 RADIOLOGY RUPA CANAL LUMBAR ASSOCIATE W/O CONTRAST MATERIAL RADEX 64566 [facility] MIC[facility] STEFANY SPINE 5 RADIOLOGY LUMBOSACR AL ASSOCIATE MINIMUM 4 VIEWS THERAPEUT 16767 DANA Dempsey IC 5 HAGGIN HAGGIN INJECTION [facility] IV PUSH EACH NEW DRUG COLLECTIO 25616 DANA Dempsey N VENOUS 5 HAGGIN HAGGIN BLOOD [facility] MEM HOS VENIPUNCT URE INJECTION J2405 DANA Dempsey 5 HAGGIN TRINAGIN ONDANSETR MEM [facility]OS MEM HOS ON HCL PER 1 MG INJECTION J1885 DANA Dempsey 5 HAGGIN HAGGIN KETOROLAC MEM HOS MEM HOS TROMETHAM INE PER 15 MG UNCLASSIF J3490 DANA Dempsey IED DRUGS 5 HAGGIN HAGGIN [facility] THER 37699 DANA Dempsey PROPH/DX 5 TRINAGIN TRINAGIN NJX IV MEM H[facility] PUSH SINGLE/1S T SBST/[place] [address] DANA Dempsey ABDOMEN & 5 TRINAGIN HAGGIN PELVIS MEM HOS MEM HOS W/O CONTRAST MATERIAL URNLS DIP 51957 DANA Dempsey 5 HAGGIN HAGGIN STICK/TAB [facility] MEM HOS LET REAGENT AUTO MICROSCOP Y GONADOTRO 62737 DANA Dempsey PIN 5 HAGGIN HAGGIN CHORIONIC [facility] MEM HOS QUALITATI VE BLOOD 21410 DANA Dempsey COUNT 5 HAGGIN HAGGIN COMPLETE [facility] MEM HOS AUTO&AUTO DIFRNTL WBC GROUND A0425 [employer] MILEAGE 5 EMERG EMERG PER MEDICALSE MEDICALSE STATUTE R R MILE AMBULANCE A0429 [employer] SERVICE 5 EMERG EMERG BLS MEDICALSE MEDICALSE EMERGENCY R R TRANSPORT COMPREHEN 96685 DANA Dempsey SIVE 5 HAGGIN HAGGIN METABOLIC MEM [facility]OS PANEL THERAPEUT 36896 DANA Dempsey IC 5 HAGGIN HAGGIN PROPHYLAC MEM H[facility] TIC/DX INJECTION SUBQ/IM RADEX 17722 [facility] ABDOMEN 4 RADIOLOGY COMPL W/DCBTS&/ ASSOCIATE ERC VIEWS RADEX 60245 [facility] FOOT 4 RADIOLOGY RUPA COMPLETE MINIMUM 3 ASSOCIATE VIEWS RADEX 26844 [facility] ANKLE 4 RADIOLOGY RUPA COMPLETE MINIMUM 3 [place] [address] [place] 4 [facility] [place] [address] [place] THYROID 4 [facility] STIMULATI HOSP HOSP [place] TSH RADEX 61995 CONVERSE SMOOTH SPINE 4 RADIOLOGY ADA LUMBOSACR AL 2/3 ASSOCIATE VIEWS RADEX 60538 [facility] SPINE 4 KARIME LUMBOSACR FAMILY AL MEDICAL MINIMUM 4 [place] [address] SURAJ SURAJ INFUSION 4 HERNANDEZ HERNANDEZ THERAPY/P REGIONAL REGIONAL ROPHYLAXI ME ME S /DX 1ST TO 1 HR THERAPEUT 80433 SURAJ SURAJ IC 4 HERNANDEZ HERNANDEZ INJECTION REGIONAL REGIONAL IV PUSH ME ME EACH NEW DRUG RADEX 18470 SURAJ SURAJ ABDOMEN 4 HERNANDEZ HERNANDEZ COMPL REGIONAL REGIONAL W/DCBTS&/ [place] [address] SURAJ SURAJ ABDOMEN & 4 HERNANDEZ HERNANDEZ PELVIS REGIONAL REGIONAL W/O ME ME CONTRAST MATERIAL CULTURE 99567 SURAJ SURAJ BACTERIAL 4 HERNANDEZ HERNANDEZ REGIONAL REGIONAL QUANTTATI ME ME VE COLONY COUNT URINE URNLS DIP 70410 SURAJ SRUAJ 4 HERNANDEZ HERNANDEZ STICK/TAB REGIONAL REGIONAL LET [place] [address] [place] TRANSVAGI 4 MEDICAL MEDICAL NAL SERV SERV FOUNDATIO FOUNDATIO US PELVIC [address] [place] MICHELLE 4 MEDICAL LEANNE NONOBSTET SERV ANTONINO IMAGE FOUNDATIO DCMTN LIMITED/F /U RADEX 72576 [facility] [place] WESTERFIE RIBS UNI 4 RADIOLOGY LD IV ALL W/POSTERO ANT CH MINIMUM 3 [place] [address] NICKELS NICKELS EXTREMITY 4 LATOYA LATOYA NON-VASC REAL-TIME IMG LMTD RADEX ABD 16385 NICKELS NICKELS COMPL 4 LATOYA LATOYA AQT ABD W/S/E/D VIEWS 1 VIEW CH RADEX 75428 WALI WALI WRIST 3 TREIVN TREVIN COMPLETE MINIMUM 3 VIEWS WRIST L3908 ADVANCED ADVANCED HAND 3 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 ORTHOSIS IES INC IES INC EXT CONTROL COCK-UP PREFAB [facility] A0398 [place] ROUTINE 3 [facility] OF [facility] SUPPLIES GROUND A0425 [place] MILEAGE 3 [facility] OF [facility] OF [facility] AMB A0427 [place] SERVICE 3 [facility]EL 1 RADEX HIP 80725 LERMA FLORENTIN 3 BRA BRA UNILATERA L COMPLETE MINIMUM [address] [place] [address] [facility] ABDOMEN & 3 Y OF RAFAEL PELVIS [facility] ALLEGHANY[facility] W/O I PHY CONTRAST MATERIAL RADEX 78742 BRANDSER BRANDSER SACRUM & 3 NOELLE NOELLE COCCYX MINIMUM 2 VIEWS AMB A0427 [place] SERVICE 3 [facility] TRANSPORT LEVEL 1 GROUND A0425 [place] MILEAGE 3 METRO OF [facility] OF [facility] A0398 [place] ROUTINE 3 METRO OF METRO OF [facility] SUPPLIES RADEX 94739 RADIOLOGY FLORENTIN ABDOMEN 1 2 BRA ASSOCIATE ANTEROPOS S OF NOTH TERIOR VIEW INJ J0702 RISON ALL RISON ALL BETAMETHA 2 SONE ACETATE & PHOSPHATE 3 MG MODERATE 15800 RISON ALL RISON ALL SEDATJ 2 SAME PHYS/QHP 5/>YRS INIT 30 MIN LOCM Q9967 RISON ALL INES CAM 300-399 2 MG/ML [place]OD[place] [address] RISON ALL RISON ALL DX/THER 2 SBST EPIDURAL/ SUBARACH LUMBAR/SA CRAL FLUOR 56343 RISON ALL RISON ALL NEEDLE/CA 2 TH SPINE/PAR ASPINAL DX/THER ADDON RINGERS J7120 RISON ALL RISON ALL LACTATE 2 INFUSION UP TO 1000 CC FLUOR 01917 RISON ALL RISON ALL NEEDLE/CA 2 TH SPINE/PAR ASPINAL DX/[place] NJX 22752 RISON ALL RISON ALL DX/THER 2 SBST EPIDURAL/ SUBARACH LUMBAR/SA CRAL LOCM Q9967 RISON ALL RISON ALL 300-399 2 MG/ML IODINE CONCENTRA TION PER ML INJ J0702 RISON ALL RISON ALL BETAMETHA 2 SONE ACETATE & PHOSPHATE 3 MG RADEX 27494 RADIOLOGY DOERGER FOOT 2 KIR COMPLETE ASSOCIATE MINIMUM 3 S OF NOTH VIEWS SURGICAL L3260 ADVANCED ADVANCED BOOT/SHOE 2 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 EACH IES INC IES INC CRTCHS E0114 ADVANCED ADVANCED UNDARM 2 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 OTH THAN IES INC IES INC WOOD PAIR PAD TIP&HNDGR IP INJECTION J1040 [facility] 2 RUPALeonela GOODE METHYLPRE DNISOLONE ACETATE 80 MG THERAPEUT 98313 [facility] IC 2 RUPA RUPA PROPHYLAC TIC/DX INJECTION SUBQ/IM AMBULANCE A0429 RURAL/MET RURAL/MET SERVICE 1 RO RO BLS AMBULANCE AMBULANCE EMERGENCY TRANSPORT GROUND A0425 RURAL/MET RURAL/MET MILEAGE 1 RO RO PER AMBULANCE AMBULANCE STATUTE MILE THERAPEUT 70891 [facility] IC 1 KIRK GOODE PROPHYLAC TIC/DX PHYSICIAN INJECTION S SUBQ/IM INJECTION [id number] [facility] 1 KIRK RUPA CEFTRIAXO NE SODIUM PHYSICIAN PER 250 S MG GROUND A0425 [facility] MILEAGE 1 AMBULANCE AMBULANCE PER SERVICE SERVICE STATUTE MILE AMB A0427 [facility] SERVICE 1 AMBULANCE AMBULANCE ALS SERVICE SERVICE EMERGENCY TRANSPORT LEVEL 1 CJP 26787 [facility] CE[facility]LA RCNSTJ 1 [facility] CUL-DE-SA FOR C BUCCAL SIGHT, GRF/XTNSV REARRGMT ORBITOTOM 37750 [facility] CEPELA Y W/O 1 [facility] BONE FLAP FOR SIGHT, W/[place] [address] [facility] SURG 1 [facility] CTR GROSS&JALYN ROSCOPIC EXAM IMHISTOCH 65363 [facility] EM/CYTCHM [address] ANTIBODY STAIN PROCEDURE ANESTHESI 54195 INDEPENDE COSTANTIN A EYE NOT 1 NT I CAR ANESTHESI OTHERWISE OLOGIST SPECIFIED ANES 74549 ANESTHESI GRABMAYER TRURL 1 A RUPA FRAGMNTJ ASSOCIATE MANJ&/RMV S, PSC L URETERAL CALCULUS CYSTO 24458 NEW NEW W/URETERO 1 [facility] SCOPY CLINIC CLINIC W/LITHOTR PSC PSC IPSY PROSTHETI L8699 NEW NEW C IMPLANT 1 [facility] NOT CLINIC CLINIC OTHERWISE PSC PSC SPECIFIED CYSTO 01818 NEW NEW W/INSERT 1 [facility] URETERAL CLINIC CLINIC STENT PSC PSC URNLS DIP 92605 VIJAY ARCOS 1 [facility] LET RGNT P NON-AUTO W/O MICRSCP CT ORBIT 09521 RADIOLOGY GEORGE BYR SELLA/POS 1 T ASSOCIATE FOSSA/EAR S PSC W/CONTRAS T MATRL XTRNL 28196 [facility] CEPELA OCULAR 1 [facility] PHOTOG FOR W/I&R SIGHT, DOCMT MEDICAL PROGRE 3D 72201 [facility] JESSICA RENDERING 1 MEDICAL GUTIERREZ IMAGING W/INTERP& ASS POSTPROC DIFF WORK STATION URINE 12479 VIJAY LINARES 1 [facility] TEST INC INC VISUAL COLOR CMPRSN METHS URNLS DIP 77672 VIJAY LINARES 1 [facility] STICK/TAB INC [place] [address] [facility] JESSICA ABDOMEN & 1 MEDICAL GUTIERREZ PELVIS IMAGING [place] [address] VIJAY LINARES INFUSION 1 [facility] THERAPY/P INC INC ROPHYLAXI S /DX 1ST TO 1 HR DETERMINA 26107 VENKAT ROBLEDO TION 1 VLADIMIR GRIFFIN REFRACTIV E STATE RADIOLOGI 74362 [place] JESSICA C 0 MEDICAL GUTIERREZ EXAMINATI IMAGING ON PELVIS ASS 1/2 VIEWS RADEX 41088 [place] JESSICA ELBOW 0 MEDICAL GUTIERREZ COMPLETE IMAGING MINIMUM 3 ASS VIEWS RADEX 63313 [place] JESSICA HAND 0 MEDICAL GUTIERREZ MINIMUM 3 IMAGING VIEWS ASS RADEX 64539 [place] JESSICA ANKLE 0 MEDICAL GUTIERREZ COMPLETE IMAGING MINIMUM 3 ASS VIEWS RADEX 89738 [place] JESSICA SPINE 0 MEDICAL GUTIERREZ CERVICAL IMAGING 6 OR MORE ASS VIEWS RADIOLOGI 47628 [place] JESSICA C 0 MEDICAL GUTIERREZ EXAMINATI IMAGING ON CHEST ASS SINGLE VIEW FRONTAL THERAPEUT 41527 [facility] IC 0 KIRK GOODE PROPHYLAC TIC/DX PHYSICIAN INJECTION S SUBQ/IM HEMOGLOBI [address] N 0 [facility] GLYCOSYLA BLAIRE A1C MEDICALCE MEDICALCE NTER NTER BLOOD [address] COUNT 0 [facility] COMPLETE AUTO&AUTO MEDICALCE MEDICALCE DIFRNTL NTER NTER WBC AMBULANCE A0429 GALLATIN GALLATIN SERVICE 0 [place] [address] [address] COURT EMERGENCY TRANSPORT GROUND A0425 GALLATIN GALLATIN MILEAGE 0 CO [place] K[place] [address] ST ROSS, SURG 0 [facility] CTR GROSS&JALYN ROSCOPIC EXAM ANTIBODY 43438 COMBINED COMBINED CHLAMYDIA 9 PHYSICIAN PHYSICIAN S LAB S LAB CUL BACT 23432 COMBINED COMBINED XCPT 9 PHYSICIAN PHYSICIAN URINE S LAB S LAB BLOOD/STO OL AEROBIC ISOL MRI 72493 RADIOLOGY AVI, SPINAL 9 HEAVEN Christian CANAL ASSOCIATE LUMBAR S PSC W/O CONTRAST MATERIAL SERVICES 09722 BERNABE Christian WEBB PROVIDED 9 MEDICAL J OFFICE GROUP OTH/THN REG SCHED HOURS URINE 97023 VIJAY LINARES 9 [facility] TEST INC INC VISUAL COLOR CMPRSN METHS RADEX 89423 [place] JESSICA, FOOT 9 MEDICAL BISI COMPLETE IMAGING MINIMUM 3 ASSOCIATE VIEWS S RADEX 90434 [facility] JESSICA, ANKLE 9 MEDICAL BISI COMPLETE IMAGING MINIMUM 3 ASSOCIATE VIEWS S RADEX 72055 KUNATH, COLGLAZIE SPINE 9 LOPEZ & R, LUMBOSACR TEMMING MAYCO AL 2/3 ER L VIEWS RADEX 24363 BORISATH COLGLAZIE HAND 2 9 LOPEZ & R, VIEWS TEMMING MAYCO ER L RADIOLOGI 46235 KUNATH COLGLAZIE C 9 LOPEZ & R, EXAMINATI TEMLEO MAYCO ON FOOT 2 ER L VIEWS BLOOD 44722 TRUMANChristian HILTON COUNT 9 MEDICAL J COMPLETE GROUP AUTO&AUTO DIFRNTL WBC URNLS DIP 09447 COMMONCEASAR ARCOS, 8 LTH MAGY D STICK/TAB UROLOGY LET RGNT PSC AUTO W/O MICROSCOP Y CYSTO 87144 JOANA ARCOS, W/SIMPLE 8 LTH MAGY D REMOVAL UROLOGY STONE & PSC STENT RADEX 39607 OFFICE NATA, ABDOMEN 1 8 ISA AMANDA G DIAGNOSTI ANTEROPOS C TERIOR SERVICES VIEW CULTURE [address] BACTERIAL 8 KIRK [facility] QUANTTATI MEDICALCE MEDICALCE VE COLONY NTER NTER COUNT URINE URNLS DIP 62797 TRUMANChristian HILTON 8 MEDICAL J STICK/TAB GROUP LET RGNT AUTO W/O MICROSCOP Y CYSTO 23276 COMMONWEAlison ARCOS, W/URETERO 8 LTH MAGY D SCOPY UROLOGY W/LITHOTR PSC IPSY RADEX 20538 CNTRL [place] TAMI, ABDOMEN 1 8 RADIOLOGY NUPUR M ANTEROPOS TERIOR VIEW ANES 56740 ANESTHESI KIRK LITHOTRP 8 A SAM A [employer] ASSOCIATE SHOCK S, PSC WAVE W/[place] [address] VENUSUCKJanis PHYLLIS, ABDOMEN 8 MEDICAL PHIL P W/O IMAGING CONTRAST ASSOCIATE MATERIAL S CULTURE 20219 VIJAY LINARES BACTERIAL 8 [facility] INC INC QUANTTATI VE COLONY COUNT URINE BASIC 04386 VIJAY LINARES METABOLIC 8 [facility] PANEL INC INC CALCIUM TOTAL CT PELVIS 08971 VIJAY LINARES W/O 8 [facility] CONTRAST INC INC MATERIAL URINE 02120 VIJAY LINARES 8 [facility] TEST INC INC VISUAL COLOR CMPRSN METHS 3D 91642 VIJAY LINARES RENDERING 8 [facility] INC INC W/INTERP& POSTPROC DIFF WORK STATION SUSCEPTIB 22754 VIJAY LINARES LTY STDY 8 [facility] ANTIMICRB INC INC IAL MICRO/AGA R DILUTJ URNLS DIP 73455 VIJAY LINARES 8 [facility] STICK/TAB INC INC LET REAGENT AUTO MICROSCOP Y BLOOD 21549 VIJAY LINARES COUNT 8 [facility] COMPLETE INC INC AUTO&AUTO DIFRNTL WBC BLOOD [address] COUNT 8 [facility] COMPLETE AUTO&AUTO MEDICALCE MEDICALCE DIFRNTL NTER NTER WBC CHOLESTER [address] OL 8 [facility] SERUM/WHO LE BLOOD MEDICALCE [place] [address] THYROID 8 [facility] STIMULATI NG MEDICALCE MEDICALCE HORMONE NTER NTER TSH HEPATIC [address] FUNCTION 8 [facility] PANEL [place] [address] BLOOD/URI 8 [facility] C ACID MEDICALCE MEDICALCE NTER NTER BASIC [address] METABOLIC 8 [facility] PANEL CALCIUM MEDICALCE MEDICALCE TOTAL NTER NTER SEDIMENTA [address] TION RATE 8 [facility] RBC AUTOMATED MEDICALCE MEDICALCE NTER NTER RHEUMATOI [address] D FACTOR 8 [facility] QUALITATI VE MEDICALCE MEDICALCE NTER NTER COLLECTIO 21592 [facility] WEBB VENOUS 8 MEDICAL J BLOOD GROUP VENIPUNCT URE RADEX [address] SPINE 8 [facility] AL 2/[address] SPINE 8 [facility] 3 VIEWS INCISION 89871 ATA BECERRIL, & 8 EMERG DREUX DRAINAGE SERV ABSCESS ASSOC COMPLICAT ED/MULTIP LE AMBULANCE A0429 TRANSCARE TRANSCARE SERVICE 8 OF OF [facility] EMERGENCY , INC. , INC. TRANSPORT GROUND A0425 TRANSCARE TRANSCARE MILEAGE 8 OF OF [facility] STATUTE , [employer]. , INC. MIL BLOOD 70765 VIJAY LINARES COUNT 8 [facility] COMPLETE INC INC AUTO&AUTO DIFRNTL WBC URNLS DIP 42966 VIJAY LINARES 8 [facility] STICK/TAB INC INC LET REAGENT AUTO MICROSCOP Y URINE 51452 VIJAY LINARES 8 [facility] TEST INC INC VISUAL COLOR CMPRSN METHS BASIC 13308 VIJAY LINARES METABOLIC 8 [facility] [place] [address] [place] NEERU FERGUSON 8 MEDICAL PHIL DUEÑAS IMAGING ASSOCIATE S Encounters Encounter Start End Date Code Location Performer Type Date EMERGENCY 26693 FRANCO LALA DEPT 7 7 PHYSICIAN VISIT S, PLLC HIGH SEVERITY& THREAT FUNCJ OFFICE 39405 [facility] OUT[facility]IEN 7 7 KIRK T VISIT 15 PHYSICIAN MINUTES S OFFICE 89[address] [facility] OUTPATIEN 7 7 KIRK T VISIT [address] [facility] - 7 7 KIRK OUTPATIEN [facility] VIJAY - 7 7 [facility] OUTPATIEN INC T EMERGENCY 93728 VIJAY 7 7 [facility] DEPARTMEN INC T VISIT HIGH/URGE NT SEVERITY EMERGENCY 18160 [facility] VARNELL 7 7 EMERGENCY DEPARTMEN T VISIT PHYSICIAN HIGH/URGE S NT SEVERITY EMERGENCY 79162 [facility] BRACKEN 7 7 EMERGENCY DEPARTMEN T VISIT PHYSICIAN HIGH/URGE S NT SEVERITY [facility]OSPITAL ST - 7 7 [facility]ENC[facility] 17312 GLADYS GLEZ DEPT 6 6 MEDICAL VISIT SERV HIGH FOUNDATIO SEVERITY& N THREAT FUN EMERGENCY 12294 VIJAY 6 6 [facility] DEPARTMEN INC T VISIT MODERATE SEVERITY HOSPITAL VIJAY - 6 6 [facility] OUTPATIEN INC T EMERGENCY 99760 FRANCO LALA 6 6 PHYSICIAN JALYN DEPARTMEN S, [facility] T VISIT HIGH/URGE NT SEVERITY HOSPITAL ST - 6 6 KIRK OUTPATIEN MED CTR T DIESEL ENGINE MECHANIC APPRENTICE ST OFFICE [address] [facility] KELSI OUTPATIEN 6 6 KIRK T VISIT 25 PHYSICIAN MINUTES S EMERGENCY 27173 VIJAY DEPT 6 6 [facility] VISIT INC HIGH SEVERITY& THREAT FUN HOSPITAL VIJAY - 6 6 [facility] OUTPATIEN INC T OFFICE 42693 KIDNEY KATIA OUTPATIEN 6 6 DISEASE HORACIO T NEW 60 CONSULTAN MINUTES TS I OFF[address] THRELKELD OUTPATIEN 6 6 KIRK II ALETHA T VISIT [address] - 6 6 [facility] OUTPATIEN [facility] ST - 6 6 [facility] OUTPATIEN [facility] VIJAY - 5 5 [facility] OUTPATIEN [facility] VIJAY - 5 5 [facility] OUTPATIEN [facility] VIJAY - 5 5 [facility] OUTPATIEN [facility] VIJAY - 5 5 [facility] OUTPATIEN [facility] OFFICE 15269 VIJAY ARCOS OUTPATIEN [address] DANA Dempsey - OTHER 5 5 TRINAGIN [facility] OFFICE 31520 TRINAJAZMYNE QUEEN OUTPATIEN 5 5 PRIMARY T VISIT CARE 15 [facility] DANA Dempsey - 5 5 HAGGIN OUTPATIEN [facility] T OFFICE [address] QUEEN OUTPATIEN 5 5 PRIMARY T VISIT CARE 15 [facility] DANA Dempsey - OTHER 5 5 HAGGIN [facility] HOSPITAL DANA Dempsey - 5 5 HAGGIN OUTPATIEN [facility] T EMERGENCY 51146 [facility] GENE Ribeiro DEPT 5 5 RIMMA VISIT EMERGENCY HIGH PHYS SEVERITY& THREAT [facility] SURAJ - 5 5 HER[facility]DEZ [facility] EMERGENCY 17128 SURAJ 5 5 [facility] VISIT ME MODERATE SEVERITY EMERGENCY 42532 [facility] EVELIN PERDOMO DEPT 5 5 RIMMA VISIT EMERGENCY HIGH PHYS SEVERITY& THREAT FUN EMERGENCY 23643 [facility] FRANCOIS DEPT 5 5 RIMMA SANTOSH VISIT EMERGENCY HIGH PHYS SEVERITY& THREAT FUN EMERGENCY 88227 DANA Dempsey 5 5 HAGGIN DEPARTMEN MEM HOS T VISIT MODERATE SEVERITY HOSPITAL DANA Dempsey - 5 5 [facility] OUTPATIEN [facility]PITAL DANA Dempsey - 5 5 [facility]GIN OUTPATIEN [facility] T EMERGENCY 15789 DANA Dempsey 5 5 HAGGIN DEPARTMEN MEM HOS T VISIT MODERATE SEVERITY EMERGENCY 08325 [facility] FISH 5 5 RIMMA MAGDALENA DEPARTMEN EMERGENCY T VISIT PHYS MODERATE SEVERITY EMERGENCY 05763 DANA Dempsey 5 5 HAGGIN DEPARTMEN MEM HOS T VISIT HIGH/URGE NT SEVERITY HOSPITAL DANA Dempsey - 5 5 [facility] OUTPATIEN [facility] H[facility]PITAL DANA Dempsey - 5 5 HAGGIN OUTPATIEN MEM HOS T EMERGENCY 89790 [facility] WELLS SHA 5 5 RIMMA DEPARTMEN EMERGENCY T VISIT PHYS HIGH/URGE NT SEVERITY EMERGENCY 47230 DANA Dempsey 5 5 HAGGIN DEPARTMEN MEM HOS T VISIT MODERATE SEVERITY EMERGENCY 91323 [facility] GREISER DEPT 5 5 RIMMA ALETHA VISIT EMERGENCY HIGH PHYS SEVERITY& THREAT [facility] DANA Dempsey - 5 5 [facility] OUTPATIEN MEM HOS T EMERGENCY 80117 DANA Dempsey 5 5 HAGGIN DEPARTMEN MEM HOS T VISIT HIGH/URGE NT SEVERITY EMERGENCY 49091 [facility] W 5 5 RIMMA DEPARTMEN EMERGENCY T VISIT PHYS MODERATE SEVERITY HOSPITAL DANA Dempsey - 5 5 [facility] OUTPATIEN [facility]OSPITAL SURAJ - 4 4 HERNANDEZ OUTPATIEN REGIONAL T ME EMERGENCY 44239 SURAJ 4 4 HERNANDEZ DEPARTMEN REGIONAL T VISIT ME HIGH/URGE NT SEVERITY EMERGENCY 47596 [facility] ROBINSON JALYN DEPT 4 4 RIMMA VISIT EMERGENCY HIGH PHYS SEVERITY& THREAT [facility] FORT - 4 4 [facility] OUTPATIEN HOSP T EMERGENCY 01027 FORT 4 4 [place] DEPARTMEN HOSP T VISIT MODERATE SEVERITY EMERGENCY 79376 [facility] TIMBO EHS 4 4 RIMMA DEPARTMEN EMERGENCY T VISIT PHYS HIGH/URGE NT SEVERITY HOSPITAL FORT - 4 4 [facility] OUTPATIEN HOSP T EMERGENCY 79080 [facility] DEPT 4 4 RIMMA Heidi RUPA VISIT EMERGENCY HIGH PHYS SEVERITY& THREAT FUN HOSPITAL SURAJ - 4 4 HERNANDEZ OUTPATIEN REGIONAL T ME EMERGENCY 70661 [facility] GUERRANT 4 4 RIMMA NOELLE DEPARTMEN EMERGENCY T VISIT PHYS MODERATE SEVERITY OFFICE 51414 [facility] MELGAR GABY OUTPATIEN 4 4 KARIME T VISIT FAMILY 15 MEDICAL MINUTES EMERGENCY 47659 [facility] ROBBINS 4 4 RIMMA PENG DEPARTMEN EMERGENCY T VISIT SERV HIGH/URGE NT SEVERITY EMERGENCY 53163 [facility] PASCALE GLORIA 4 4 RIMMA DEPARTMEN EMERGENCY T VISIT PHYS MODERATE SEVERITY OFFICE 33452 [facility] 4 4 KARIME T VISIT FAMILY 15 MEDICAL MINUTES EMERGENCY 84803 [facility] JEF REEDER 4 4 RIMMA DEPARTMEN EMERGENCY T VISIT PHYS MODERATE SEVERITY HOSPITAL SURAJ - 4 4 HERNANDEZ OUTPATIEN REGIONAL T ME EMERGENCY 09486 [facility] DEPT 4 4 RIMMA VISIT EMERGENCY HIGH PHYS SEVERITY& THREAT FUNCJ OFFICE 15492 [facility]RIFF[facility]PATI[facility] 4 4 KARIME T NEW 30 FAMILY MINUTES MEDICAL EMERGENCY 96112 [facility] PARI MAGDALENA DEPT 4 4 RIMMA VISIT EMERGENCY HIGH PHYSI SEVERITY& THREAT FUNCJ EMERGENCY 72141 FAM GOODE DEPT 4 4 VISIT HIGH SEVERITY& THREAT FUNCJ EMERGENCY 67430 [facility]OL 4 4 DEPARTMEN T VISIT HIGH/URGE NT SEVERITY HOSPITAL [facility] - 4 4 [facility] 61187 UNIVERSIT 4 4 Y [facility] T VISIT HIGH/URGE NT SEVERITY OFFICE 23158 HOBLITZEL HOBLITZEL OUTPATIEN 3 3 ANTONINO ANTONINO T NEW 30 MINUTES EMERGENCY 13471 MADINA Justin 3 3 VILLARI VILLARI DEPARTMEN T VISIT MODERATE SEVERITY EMERGENCY 40608 TIMMY CHRIS 3 3 DEPARTMEN T VISIT MODERATE SEVERITY EMERGENCY 76406 BOSSMAN Galaviz 3 3 DEPARTMEN T VISIT HIGH/URGE NT SEVERITY EMERGENCY 81834 RONNA FRIEND 3 3 KRI KRI DEPARTMEN T VISIT MODERATE SEVERITY EMERGENCY 84364 MEGAN GUZMAN 3 3 LATOYA LATOYA DEPARTMEN T VISIT HIGH/URGE NT SEVERITY EMERGENCY 03436 DENISE WALKER 3 3 GRE GRE DEPARTMEN T VISIT MODERATE SEVERITY EMERGENCY 72977 SELPH SCO SELPH SCO 3 3 DEPARTMEN T VISIT HIGH/URGE NT SEVERITY EMERGENCY 33383 TIMMY CHRIS 3 3 DEPARTMEN T VISIT HIGH/URGE NT SEVERITY OFFICE 95162 RISON ALL RISON ALL OUTPATIEN 2 2 T VISIT 10 MINUTES OFFICE 73026 PARIS PARIS OUTPATIEN 2 2 JALYN JALYN T VISIT 10 MINUTES OFFICE 37864 PARIS PARIS OUTPATIEN 2 2 JALYN JALYN T VISIT [address] SELPH SCO 2 2 KIRK [facility] CTR T VISIT MODERATE SEVERITY OFFICE 34682 RISON ALL RISON ALL OUTPATIEN 2 2 T VISIT [address] [facility] TRO 2 2 KIRK [facility] CTR T VISIT HIGH/URGE NT SEVERITY OFFICE 62283 CASEY VIR CASEY VIR OUTPATIEN 2 2 T VISIT 25 MINUTES EMERGENCY 57456 GANIM HUGH GANIM HUGH 2 2 DEPARTMEN T VISIT MODERATE SEVERITY OFFICE 93537 HARTIG HARTIG OUTPATIEN 2 2 RUPA RUPA T VISIT 25 MINUTES OFFICE 81828 RISON ALL RISON ALL OUTPATIEN 2 2 T NEW 30 MINUTES OFFICE 34650 MELISSA HARTKARINA OUTPATIEN 2 2 RUPA RUPA T VISIT 15 MINUTES OFFICE 41811 MELISSA HARTKARINA OUTPATIEN 2 2 RUPA RUPA T VISIT [address] [facility] 1 KIRK LATOYA [facility] FAMILY T VISIT PRACTICE MODERATE SEVERITY OFFICE 76022 CASEY VIR CASEY VIR OUTPATIEN 1 1 T VISIT [address] MELISSA OUTPATIEN 1 1 KIRK RUPA T VISIT 15 PHYSICIAN MINUTES S OFFICE 07[address] ST MELISSA OUTPATIEN 1 1 KIRK RUPA T VISIT 15 PHYSICIAN MINUTES S EMERGENCY 72706 ATA MELO 1 1 EMERGENCY III [facility] SERVICES T VISIT MODERATE SEVERITY EMERGENCY 70433 VIJAY 1 1 MEM HOS[facility] DEPARTMEN INC T VISIT LIMITED/M INOR [facility] VIJAY - 1 1 [facility] OUTPATIEN INC T OFFICE 98565 [facility] CE[facility] OUTPATIEN 1 1 [facility] T VISIT FOR 25 SIGHT, MINUTES OFFICE 70396 VIJAY ARCOS OUTPATIEN 1 1 [facility] T VISIT HOSPITAL [address] - 1 1 KIRK OUTPATIEN MARIO T OFFICE 97866 [facility] CEPELA OUTPATIEN 1 1 [facility] 30 FOR MINUTES [facility] VIJAY - 1 1 [facility] OUTPATIEN INC T EMERGENCY 32124 ATA FROST DEPT 1 1 EMERGENCY VISIT SERVICES HIGH SEVERITY& THREAT FUNCJ EMERGENCY 60617 VIJAY 1 1 [facility] DEPARTMEN INC T VISIT HIGH/URGE NT SEVERITY OFFICE 92897 ST HARTIG OUTPATIEN 1 1 KIRK RUPA T VISIT 15 PHYSICIAN MINUTES S OFFICE 39930 MATHEWWNEELAM SHEWMAPENNY OUTPATIEN 1 1 VLADIMIR GRIFFIN T NEW [address] HARTIG OUTPATIEN 0 0 KIRK RUPA T VISIT 15 PHYSICIAN MINUTES S EMERGENCY 90443 ATA LALA DEPT 0 0 EMERGENCY JALYN VISIT SERVICES HIGH SEVERITY& THREAT [facility] VIJAY - 0 0 [facility] OUTPATIEN INC T EMERGENCY 45218 VIJAY 0 0 [facility] DEPARTMEN INC T VISIT LOW/MODER SEVERITY OFFICE 57132 ST HARTIG OUTPATIEN 0 0 KIRK RUPA T VISIT 15 PHYSICIAN MINUTES S EMERGENCY 73438 ST PERAZZO 0 0 KIRK GIOVANY DEPARTMEN MED CTR T VISIT MODERATE SEVERITY OFFICE 43398 ST HARTIG OUTPATIEN 0 0 KIRK RUPA T VISIT 15 PHYSICIAN MINUTES S OFFICE 58381 ST HARTIG OUTPATIEN 0 0 KIRK RUPA T VISIT 15 PHYSICIAN MINUTES S OFFICE [address]80 ST GENO OUTPATIEN 0 0 KIRK ER BRA T VISIT 25 PHYSICIAN MINUTES S OFFICE [address] ST QUATKEMEY OUTPATIEN 0 0 KIRK ER BRA T VISIT 15 PHYSICIAN MINUTES [facility] ST - 0 0 KIRK OUTPATIEN T MEDICALCE NTER OFFICE 78195 ST QUATKEMEY OUTPATIEN 0 0 KIRK ER BRA T VISIT 15 PHYSICIAN MINUTES S OFFICE [address]363 ST QUATKEMEY OUTPATIEN 0 0 KIRK ER, T VISIT CRANE 25 PHYSICIAN A MINUTES [facility] ST - 0 0 KIRK OUTPATIEN T MEDICALCE NT OFFICE 65984 WOMEN'S VU, OUTSTEPHANYEN 9 9 HEALTH QUYEN J T VISIT CLINIC OF 25 MINUTES [facility] OFFICE 83905 Christian FLORES 9 9 MEDICAL J T VISIT GROUP 15 MINUTES [facility] ST - 9 9 [facility] VIJAY - 9 9 [facility] T EMERGENCY 12482 VIJAY 9 9 [facility] DEPARTMEN INC T VISIT LOW/MODER SEVERITY EMERGENCY 64848 ATA RANDALL, 9 9 EMERGENCY MOHAN DEPARTMEN SERVICES O T VISIT MODERATE ASSOCIATE SEVERITY S EMERGENCY [address]39[address] ST MENDIETA, 9 9 KIRK Willett DEPARTMEN MED CTR T VISIT HIGH/URGE NT SEVERITY EMERGENCY 81843 ST WALKER, 9 9 KIRK [place] DEPARTMEN MED CTR T VISIT HIGH/URGE NT SEVERITY OFFICE 89124 FAITH DASILVA CONSULTAT 9 9 [facility] & RKHOI NEW/ESTAB ER L PATIENT 60 MIN OFFICE 95814 Christian FLORES 9 9 MEDICAL J T VISIT GROUP 15 MINUTES OFFICE 73385 Christian FLORES 9 9 MEDICAL J T VISIT GROUP 25 MINUTES EMERGENCY 43731 [facility] KIRK SIU Fer VISIT MED CTR HIGH SEVERITY& THREAT FUNCJ OFFICE 93795 Christian FLORES 9 9 MEDICAL J T VISIT GROUP 15 MINUTES HOSPITAL - 8 8 [facility] T MEDICALCE NTER OFFICE 81772 ROLANDO DAS 8 8 [facility] MAGY Fer T VISIT UROLOGY 25 PSC MINUTES EMERGENCY 90006 [facility] 8 8 [facility] DEPARTMEN INC T VISIT HIGH/URGE NT SEVERITY [facility]OSPITAL [facility] - 8 8 [facility] T [facility] - 8 8 [facility] OUTPATIEN INC T EMERGENCY 69213 MARK ANTHONY VARELA, [address] [facility] T VISIT ON HIGH/URGE NT SEVERITY HOSPITAL [facility] - 8 8 [facility] OUTPATIEN INC T EMERGENCY 95282 [facility] 8 8 [facility] DEPARTMEN INC T VISIT LOW/MODER SEVERITY HOSPITAL [facility] OFF[facility] 08672 Christian FLORES 8 8 MEDICAL J T VISIT GROUP 25 MINUTES HOSPITAL [facility] 8 8 [facility] T OFFICE 21486 Christian FLORES 8 8 MEDICAL J T VISIT GROUP 25 MINUTES EMERGENCY 99771 ATA BECERRIL, 8 8 EMERG [facility]RE[facility] DEPARTMEN SERV T VISIT ASSOC HIGH/URGE NT SEVERITY EMERGENCY 16835 ATA YAO, 8 8 [facility]ER[facility] HIGH/URGE NT SEVERITY OFFICE 33463 [facility] 8 8 [facility] QU[facility]EN [place] T VISIT CLINIC OF 15 MINUTES [facility] VIJAY - 8 8 [facility] OUTPATIEN INC T EMERGENCY 09287 [facility] 8 8 [facility] DEPARTMEN INC T VISIT HIGH/URGE NT SEVERITY
--- OUTSIDE RECORDS SUMMARY | 2017-05-09 05:47 | External Medical Summary Rpt | CCD ---
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 20 CA 10 73 09 09 RE GA 0 RY MG PH J AR TA MA BL CY ET # 3 NA 68 07 10 02 60 30 TO 41 ME Ac WV 46 -0 -2 .0 TA 39 LT [...] 01 60 30 TO 41 ME Ac WV 78 -1 -2 .0 TA 77 LT [...] MA CY TA # BL 4 ET WV 68 09 10 00 12 3 CL 20 CL Ac OM 38 -2 -0 .0 IN 13 AR ti ET 20 4- 8- 00 IC 09 KE ve OLGUIN 04 20 20 ZI 10 09 09 PH DE NE 1 AR RE MA K 25 CY J MG TA BL ET ZY 00 09 10 00 30 30 GR 93 LE Ac WV 00 -2 -0 .0 AN 80 HM ti EX 24 5- 8- 00 T 29 KU ve A 11 20 20 CO HL 10 [address] RA MG UG CH S EL TA WI J BL LL ET IA MS TO WN AL 00 09 09 00 60 30 TO 41 ME Ac WV 78 -1 -2 .0 TA 77 LT ti AZ 11 4- 4- 00 L 75 ON ve OL 07 20 20 CA AM 91 09 09 RE GA 1 0 RY PH J MG AR MA TA CY BL # ET 4 NA 68 07 09 01 60 30 TO 41 ME Ac WV 46 -0 -2 .0 TA 39 LT [...] 1- 4- 00 L 36 L ve WV 51 20 20 CA AM 90 09 [...] 1- 7- 00 L 36 L ve WV 51 20 20 CA AM 90 09 09 RE RA 1 L HB PH R AR 20 MA CY MG # 4 TA BL ET AL 00 07 08 00 60 30 TO 41 ME Ac WV 78 -0 -2 .0 TA 39 LT ti AZ 11 7- 7- 00 L 18 ON ve OL 07 20 20 CA AM 91 09 09 RE GA 1 0 RY PH J MG AR MA TA CY BL # ET 4 ZY 00 07 08 00 30 30 TO 41 ME Ac WV 00 -0 -1 .0 TA 39 LT [...] 00 60 30 TO 41 ME Ac WV 46 -0 -1 .0 TA 39 LT [...] 00 60 30 TO 30 ME Ac WV 78 -0 -1 .0 TA 38 LT ti AZ 11 7- 6- 00 L 04 ON ve OL 07 20 20 CA AM 91 09 09 RE GA 1 0 RY PH J MG AR MA TA CY BL # ET 3 NA 68 07 07 00 60 30 TO 30 ME Ac WV 46 -0 -1 .0 TA 38 LT ti OX 20 9- 6- 00 L 74 ON ve EN 19 20 20 CA 00 09 09 RE GA 50 5 RY 0 PH J MG AR MA TA CY BL # ET 3 ZY 00 05 07 01 30 30 TO 40 ME Ac WV 00 -1 -0 .0 TA 62 LT ti EX 24 8- 2- 00 L 04 ON ve A 11 20 20 CA 10 73 09 09 RE GA 0 RY MG PH J AR TA MA BL CY ET # 4 NA 68 05 07 01 60 30 TO 40 ME Ac WV 46 -1 -0 .0 TA 62 LT [...] 01 60 30 TO 40 ME Ac WV 78 -1 -0 .0 TA 62 LT [...] 00 30 30 TO 40 ME Ac WV 00 -1 -0 .0 TA 62 LT [...] 00 60 30 TO 40 ME Ac WV 78 -1 -0 .0 TA 62 LT [...] 00 60 30 TO 40 ME Ac WV 46 -1 -0 .0 TA 62 LT [...] 05 30 30 TO 35 ME Ac WV 00 -0 -0 .0 TA 59 LT ti EX 24 9- 7- 00 L 53 ON ve A 11 20 20 CA 10 73 08 09 RE GA 0 RY MG PH J AR TA MA BL CY ET # 4 AL 00 03 05 01 60 30 TO 40 ME Ac WV 78 -2 -0 .0 TA 02 LT [...] 05 60 30 TO 35 ME Ac WV 46 -0 -0 .0 TA 59 LT [...] 04 30 30 TO 35 ME Ac WV 00 -0 -0 .0 TA 59 LT ti EX 24 03-26- 00 L 53 ON ve A 11 20 20 CA 10 73 08 09 RE GA 0 RY MG PH J AR TA MA BL CY ET # 4 NA 68 12 04 04 60 30 TO 35 ME Ac WV 46 -0 -0 .0 TA 59 LT [...] 00 60 30 TO 40 ME Ac WV 78 -2 -0 .0 TA 02 LT [...] 00 14 7 RI 77 SW Ac WV 17 -2 -0 .0 TE 66 EE [...] 03 60 30 TO 35 ME Ac WV 46 -0 -1 .0 TA 59 LT [...] 01 60 30 TO 36 ME Ac WV 78 -0 -1 .0 TA 24 LT ti AZ 11 3- 2- 00 L 62 ON ve OL 07 20 20 CA AM 91 09 09 RE GA 1 0 RY PH J MG AR MA TA CY BL # ET 4 ZY 00 12 03 03 30 30 TO 35 ME Ac WV 00 -0 -1 .0 TA 59 LT [...] 02 30 30 TO 35 ME Ac WV 00 -0 -1 .0 TA 59 LT ti EX 24 9- 2- 00 L 53 ON ve A 11 20 20 CA 10 73 08 09 RE GA 0 RY MG PH J AR TA MA BL CY ET # 4 AL 00 02 02 00 60 30 TO 36 ME Ac WV 78 -0 -1 .0 TA 24 LT [...] 02 60 30 TO 35 ME Ac WV 46 -0 -1 .0 TA 59 LT ti OX 20 9- 2- 00 L 50 ON ve EN 19 20 20 CA 00 08 09 RE GA 50 5 RY 0 PH J MG AR MA TA CY BL # ET 4 CI 00 12 01 00 14 7 CL 18 AD Ac WV 14 -3 -1 .0 IN 48 KI ti OF 39 1- 5- 00 IC 88 NS ve LO 92 20 20 XA 80 08 09 PH TI CI 1 AR MO N MA TH HC CY Y L D 50 0 MG TA B AL 00 12 01 01 60 30 TO 35 ME Ac WV 78 -0 -1 .0 TA 59 LT ti AZ 11 9- 5- 00 L 49 ON ve OL 07 20 20 CA AM 91 08 09 RE GA 1 0 RY PH J MG AR MA TA CY BL # ET 4 ZY 00 12 01 01 30 30 TO 35 ME Ac WV 00 -0 -1 .0 TA 59 LT ti EX 24 9- 5- 00 L 53 ON ve A 11 20 20 CA 10 73 08 09 RE GA 0 RY MG PH J AR TA MA BL CY ET # 4 NA 68 12 01 01 60 30 TO 35 ME Ac WV 46 -0 -1 .0 TA 59 LT [...] 00 60 30 TO 35 ME Ac WV 76 -0 -1 .0 TA 59 LT [...] 00 60 30 TO 35 ME Ac WV 46 -0 -1 .0 TA 59 LT ti OX 20 9- 8- 00 L 50 ON ve EN 19 20 20 CA 00 08 08 RE GA 50 5 RY 0 PH J MG AR MA TA CY BL # ET 4 ZY 00 12 12 00 30 30 TO 35 ME Ac WV 00 -0 -1 .0 TA 59 LT [...] AR MO MA TH CY Y D WV 00 11 12 00 20 5 CL [...] 03 60 30 PH 33 ME Ac WV 46 -0 -0 .0 AR 76 LT ti OX 20 8- 7- 00 MC 87 ON ve EN 19 20 20 AR 00 08 08 E GA 50 5 CR RY 0 IT J MG TE ND TA EN BL N ET ZY 00 07 11 03 30 30 PH 33 ME Ac WV 00 -0 -0 .0 AR 76 LT [...] 02 60 30 PH 33 ME Ac WV 09 -0 -2 .0 AR 76 LT ti OX 30 8 6 MC 87 ON ve EN 14 20 20 AR 90 08 08 E GA 50 5 CR RY 0 IT J MG TE ND TA EN BL N ET ZY 00 07 09 02 30 30 PH 33 ME Ac WV 00 -0 -2 .0 AR 76 LT ti EX 24 8 MC 89 ON ve A 11 20 20 AR 10 73 08 08 E GA 0 CR RY MG IT J TE TA ND BL EN ET N CL 00 08 09 01 60 30 PH 68 ME Ac ON 09 -1 -2 .0 AR 91 LT ti AZ 30 2 6- MC 2 ON ve EP 83 20 [...] 76 LT ti AZ 30 8- 4- 00 MC 88 ON ve EP 83 20 20 AR AM 31 08 08 E GA 1 0 CR RY IT J MG TE ND TA EN BL N ET NA 00 07 08 01 60 30 PH 33 ME Ac WV 09 -0 -1 .0 AR 76 LT ti OX 30 8- 4- 00 MC 87 ON ve EN 14 20 20 AR 90 08 08 E GA 50 5 CR RY 0 IT J MG TE ND TA EN BL N ET FL 00 07 08 01 30 30 PH 33 ME Ac UO 78 -0 -1 .0 AR 76 LT ti XE 12 8 4 MC 91 ON ve TI 82 20 20 AR NE 40 08 08 E GA 1 CR RY HC IT J L TE 40 ND EN MG N CA PS UL E ZY 00 07 08 01 30 30 PH 33 ME Ac WV 00 -0 -1 .0 AR 76 LT [...] 20 AI IN 20 08 08 D ME E 5 PH CH HY AR AE CL M L AT #3 S E 93 10 8 0 MG CA P AC 00 08 08 00 8. 2 RI 74 GA Ac ET 09 -0 -1 00 TE 45 IN ti AM 30 7- 4- 0 84 EY ve IN 15 20 20 AI OP 01 08 08 D ME HE 0 PH CH N- AR AE [...] 00 30 30 PH 33 ME Ac WV 00 -0 -1 .0 AR 76 LT ti EX 24 8- 7- 00 MC 89 ON ve A 11 20 20 AR 10 73 08 08 E GA 0 CR RY MG IT J TE TA ND BL EN ET N NA 00 07 07 00 60 30 PH 33 ME Ac WV 09 -0 -1 .0 AR 76 LT [...] 01 30 30 KR 61 No Ac WV 00 -0 -0 .0 OG 92 t ti EX 24 4- 8- 00 ER 95 Av ve A 11 20 20 3 ai 10 73 08 08 PH la 0 AR bl MG M e L- TA 35 BL 9 ET ZY 00 02 04 00 30 30 RI 32 No Ac WV 00 -0 -1 .0 TE 76 t [...] 00 30 30 KR 61 No Ac WV 00 -0 -1 .0 OG 92 t [...] bl IT e TE ND EN N WV 00 01 03 00 12 2 RI [...] TE ND TA EN BL N ET Procedures Procedure DOS Code Location Performer Comment [facility] A0427 [facility] 7 AMBULANCE AMBULANCE ALS SERVICE SERVICE EMERGENCY TRANSPORT LEVEL 1 ALS A0398 [facility] ROUTINE 7 AMBULANCE AMBULANCE DISPOSABL SERVICE SERVICE E SUPPLIES GROUND A0425 [facility] [address] [facility] 7 KIRK DAY MANAGEMEN PHYSICIAN T > 30 S MIN SBSQ 69505 [facility] 7 KIRK CARE/DAY 25 PHYSICIAN MINUTES S INITIAL 83385 [facility] 7 DISEASE CARE/DAY CONSULTAN 50 TS I MINUTES CRITICAL 99624 [facility] 7 EMERGENCY ILL/INJUR ED PHYSICIAN PATIENT S ADDL 30 MIN CRITICAL 90846 [facility] 7 EMERGENCY ILL/INJUR ED PHYSICIAN PATIENT S INIT 30-74 MIN GROUND A0425 [facility] 7 CO CO PER AMBULANCE AMBULANCE STATUTE TAXIN TAXIN MILE AMBULANCE A0429 DENNIS DENNIS SERVICE 7 CO CO BLS AMBULANCE AMBULANCE [place] [address] RADIOLOGY BRANDSER HEAD/BRAI 7 N W/O ASSOCIATE CONTRAST S OF [facility] MATERIAL COLLECTIO [address] N VENOUS 7 [facility] BLOOD [place] [address] [facility]. MAGNESIUM 7 [facility] MARIO MARIO POTASSIUM 24541 [facility] SERUM 7 [facility] PLASMA/[place] [address] VIJAY LINARES PHOSPHORU 7 [facility] [place] [address] VIJAY LINARES MAGNESIUM 7 [place] [address] VIJAY LINARES LIPASE 7 [facility] INC INC COMPREHEN 33590 VIJAY LINARES SIVE 7 [facility] METABOLIC INC INC PANEL URNLS DIP 16645 VIJAY LINARES 7 [facility] STICK/TAB INC [place] [address] VIJAY LINARES ABDOMEN & 7 [facility] PELVIS INC INC W/O CONTRAST MATERIAL ECG 83562 VIJAY LINARES ROUTINE 7 [facility] ECG INC INC W/LEAST 12 LDS TRCG ONLY W/O I&R URINE 21356 VIJAY VIJAY 7 [facility] TEST INC [place] [address] VIJAY LINARES AMYLASE 7 [facility] INC INC FINAL G9638 MIGUELITO JOHNS REPORTS 7 MEDICAL W/O DOC IMAGING 1/MORE ASS DOSE REDUCTION TECH CULTURE 71271 VIJAY LINARES BACTERIAL 7 [facility] INC INC QUANTTATI VE COLONY COUNT URINE CULTURE 12853 VIJAY LINARES BCT 7 [facility] ISOL&PRSM INC INC PTV ID ISOLATE EA URINE FINAL G9551 MIGUELITO JOHNS REPR ABD 7 MEDICAL IMAG STS IMAGING W/O ASS INCIDNT FND LES NTD: BLOOD 20080 VIJAY LINARES COUNT 7 [facility] COMPLETE INC INC AUTO&AUTO DIFRNTL WBC ECG 79957 VIJAY GARCIA JR ROUTINE 7 [facility] W/LEAST P 12 LDS I&[place] [address] VIJAY VIJAY INFUSION 7 [facility] THERAPY/P INC INC ROPHYLAXI S /DX 1ST TO 1 [place] [address] VIJAYMARCUS ZAMORANOON INFUSION 7 [facility] THER INC INC PROPH ADDL SEQUENTIA L TO 1 HR SUSCEPTIB 89462 VIJAY LINARES LTY STDY 7 [facility] ANTIMICRB INC INC IAL MICRO/AGA R DILUTJ RADEX 51502 RADIOLOGY WALI FOOT 7 COMPLETE ASSOCIATE MINIMUM 3 S OF NOTH VIEWS RADIOLOGI 51745 RADIOLOGY BRANDSER C EXAM 7 KNEE ASSOCIATE COMPLETE S OF NOTH 4/MORE VIEWS RADEX 03813 RADIOLOGY BRANDSER ANKLE 7 COMPLETE ASSOCIATE MINIMUM 3 S OF NOTH VIEWS INCISION 11343 [facility]ACKEN & 7 EMERGENCY DRAINAGE ABSCESS PHYSICIAN SIMPLE/SI S NGLE COMPREHEN [address] SIVE 7 KIRK KIRK METABOLIC PANEL HEALTHCAR HEALTHCAR E EDGE E EDGE OBSERVATI 15838 [facility] WARNER ON CARE 6 MEDICAL DISCHARGE SERV FOUNDATIO MANAGEMEN N T INITIAL 35410 [facility] WARNER OBSERVATI 6 MEDICAL ON SERV CARE/DAY FOUNDATIO 70 N MINUTES CRITICAL 20948 [facility] 6 PHYSICIAN ILL/INJUR S, PLLC ED PATIENT INIT 30-74 MIN AMB A0427 [facility] SERVICE 6 AMBULANCE AMBULANCE ALS SERVICE SERVICE EMERGENCY TRANSPORT LEVEL 1 GROUND A0425 ULISSES [facility] MILEAGE 6 AMBULANCE AMBULANCE [place] [address] MIGUELITO JOHNS HEAD/BRAI 6 MEDICAL N W/O IMAGING CONTRAST ASS MATERIAL RADEX 65748 [place] CK TRIPP FOOT 6 MEDICAL COMPLETE SERV MINIMUM 3 FOUNDATIO VIEWS N MRI BRAIN 76151 [place] FAM MEJIA BRAIN 6 MEDICAL STEM W/[place] [address] MIGUELITO JOHNS CERVICAL 6 MEDICAL SPINE W/O IMAGING CONTRAST ASS MATERIAL RADIOLOGI 39804 [place] TRUE QASIM C 6 MEDICAL EXAMINATI SERV ON KNEE 3 FOUNDATIO VIEWS N ECG 36806 VIJAY MEYERS ROUTINE 6 [facility] W/LEAST P 12 LDS I&[place] [address] VIJAY LINARES INFUSION 6 [facility] THERAPY/P INC INC ROPHYLAXI S /DX 1ST TO 1 HR THERAPEUT 91363 VIJAY LINARES IC 6 [facility] INJECTION INC INC IV PUSH EACH NEW DRUG URNLS DIP 62997 VIJAY LINARES 6 [facility] STICK/TAB INC INC LET REAGENT AUTO MICROSCOP Y BLOOD 70523 VIJAY LINARES COUNT 6 [facility] COMPLETE INC INC AUTO&AUTO DIFRNTL WBC CULTURE 03891 VIJAY LINARES BCT 6 [facility] ISOL&PRSM INC INC PTV ID ISOLATE EA URINE CULTURE 01251 VIJAY LINARES BACTERIAL 6 [facility] INC INC QUANTTATI VE COLONY COUNT URINE URINE 72809 VIJAY LINARES 6 [facility] TEST INC INC [place] [address] VIJAY LINARES MAGNESIUM 6 [place] [address] VIJAY LINARES PHOSPHORU 6 [facility] S INC INC INORGANIC COMPREHEN 22285 VIJAY LINARES SIVE 6 [facility] METABOLIC INC INC PANEL SUSCEPTIB 18846 VIJAY LINARES LTY STDY 6 [facility] ANTIMICRB INC INC IAL MICRO/[place] [address] MAGNESIUM 6 [facility] MED CTR COMMERCIAL ASSISTANT ST COMMERCIAL ASSISTANT ST POTASSIUM [address] SERUM 6 [facility] PLASMA/WH MED CTR MED CTR OLE BLOOD COMMERCIAL ASSISTANT ST COMMERCIAL ASSISTANT ST THERAPEUT [address] ST [facility] KELSI IC 6 [facility] PROPHYLAC TIC/DX PHYSICIAN INJECTION S SUBQ/IM INJECTION J1040 ST [facility] KELSI 6 [facility] METHYLPRE DNISOLONE PHYSICIAN ACETATE S 80 [place] [address] VIJAY LINARES INFUSION 6 [facility] THER INC INC PROPH ADDL SEQUENTIA L TO 1 HR ECG 77068 VIJAY GARCIA JR ROUTINE 6 [facility] W/LEAST P 12 LDS I&[place] [address] VIJAY LINARES INFUSION 6 [facility] THERAPY/P INC INC ROPHYLAXI S /DX 1ST TO 1 HR BLOOD 99417 VIJAY LINARES COUNT 6 [facility] COMPLETE INC INC AUTO&[place] [address] VIJAY LINAERS TROPONIN 6 [facility] QUANTITAT INC INC KATHIA UNCLASSIF J3490 VIJAY LINARES IED DRUGS 6 [facility] INC INC CULTURE 71905 VIJAY LINARES BACTERIAL 6 [facility] INC INC QUANTTATI VE COLONY COUNT URINE CULTURE 03731 VIJAY LINARES BCT 6 [facility] ISOL&PRSM INC INC PTV ID ISOLATE EA URINE RADIOLOGI 89108 VIJAY LINARES C 6 [facility] EXAMINATI INC INC ON CHEST SINGLE VIEW FRONTAL CREATINE 11034 VIJAY LINARES KINASE MB 6 [facility] FRACTION INC INC ONLY ECG 88447 VIJAY LINARES ROUTINE 6 [facility] ECG INC INC W/LEAST 12 LDS TRCG ONLY W/O I&[place] [address] VIJAY LINARES HEAD/BRAI 6 [facility] N W/O INC INC CONTRAST MATERIAL URINE 25668 VIJAY LINARES 6 [facility] TEST INC INC VISUAL COLOR CMPRSN METHS GROUND A0425 ULISSES GTZ MILEAGE 6 AMBULANCE AMBULANCE PER SERVICE SERVICE STATUTE MILE DRUG TST G0477 VIJAY LINARES PRESUMP;C 6 [facility] PBL BEING INC INC READ DC OPT OBV ONLY DRUG TEST G0480 VIJAY LINARES DEFINITV [address] ID INC INC METH P DAY 1-7 DRUG CL CREATINE 01959 VIJAY LINARES KINASE 6 [facility] TOTAL INC INC AMB A0427 ULISSES GTZ SERVICE 6 AMBULANCE AMBULANCE ALS SERVICE SERVICE EMERGENCY TRANSPORT LEVEL 1 COMPREHEN 80386 VIJAY LINARES SIVE 6 [facility] METABOLIC INC INC PANEL SUSCEPTIB 99240 VIJAY LINARES LTY STDY 6 [facility] ANTIMICRB INC INC IAL MICRO/AGA R DILUTJ COLLECTIO [address] N VENOUS 6 [facility] KIRK BLOOD MARIO MARIO VENIPUNCT URE POTASSIUM [address] SERUM 6 [facility] KIRK PLASMA/WH MARIO MARIO OLE BLOOD CULTURE [address] BACTERIAL 6 [facility] KIRK MARIO MARIO QUANTTATI VE COLONY COUNT URINE CULTURE [address] BACTERIAL 6 [facility] MED CTR MED CTR QUANTTATI COMMERCIAL ASSISTANT ST COMMERCIAL ASSISTANT ST VE COLONY COUNT URINE CULTURE [address] BCT 6 [facility] ISOL&PRSM MED CTR MED CTR PTV ID COMMERCIAL ASSISTANT ST COMMERCIAL ASSISTANT ST ISOLATE EA URINE BLOOD [address] COUNT 6 [facility] COMPLETE MED CTR MED CTR AUTO&AUTO COMMERCIAL ASSISTANT ST COMMERCIAL [place]IST[place] [address] MAGNESIUM 6 [facility] MED CTR COMMER[address]IST[address] ST COMMER[address] BASIC [address] METABOLIC 6 [facility] PANEL MED CTR MED CTR CALCIUM COMMERCIAL ASSIST[address] ST COMMERCIAL ASSIST[address] ST TOTAL SUSCEPTIB [address] ST LTY STDY 6 KIRK BRADLEY ANTIMICRB MED CTR MED CTR IAL COMMERCIAL ASSISTANT ST COMMERCIAL ASSISTANT ST MICRO/AGA R DILUTJ URINE 71416 VIJAY LINARES 5 [facility] TEST INC INC VISUAL COLOR CMPRSN METHS URNLS DIP 65448 VIJAY LINARES 5 [facility] STICK/TAB INC INC LET REAGENT AUTO MICROSCOP Y CYSTO 46411 VIJAY LINARES W/SIMPLE 5 [facility] REMOVAL INC INC STONE & STENT CULTURE 88971 VIJAY LINARES BACTERIAL 5 [facility] INC INC QUANTTATI VE COLONY COUNT URINE RADEX 89624 VIJAY LINARES ABDOMEN 1 5 [facility] INC INC ANTEROPOS TERIOR VIEW URINE 24707 VIJAY LINARES 5 [facility] TEST INC INC VISUAL COLOR CMPRSN METHS STENT C2617 VIJAY LINARES NON-COR 5 [facility] TEMPORARY [place] [address] VIJAY LINARES INFUSION 5 [facility] THERAPY INC INC PROPHYLAX IS/DX EA HOUR CYSTO/URE 36216 VIJAY LINARES TERO 5 [facility] W/LITHOTR INC INC IPSY &INDWELL STENT INSRT INJECTION J0131 VIJAY LINARES 5 [facility] ACETAMINO INC INC PHEN 10 MG INTRO 10827 VIJAY LINARES URETERAL 5 [facility] CATH/STEN INC INC T PRQ RS&I INJECTION J2405 VIJAY LINARES 5 [facility] ONDANSETR INC INC ON HCL PER 1 MG ANES 28173 [facility] NEVAREZ ECHO TRURL 5 ANESTH FRAGMNTJ OF THE MANJ&/[place] [address] [facility] ABDOMEN & 5 MEDICAL BRIE PELVIS IMAGING W/O ASS CONTRAST MATERIAL BASIC 05578 DANA Dempsey METABOLIC 5 [facility] TY PANEL [facility] CALCIUM TOTAL COLLECTIO 39000 K[facility]SON Gordon VENOUS 5 PRIMARY BLOOD CARE VENIPUNCT URE BLOOD 67063 DANA Dempsey COUNT 5 TRINAGIN TRINAGIN COMPLETE MEM H[facility]OS AUTO&AUTO DIFRNTL WBC CULTURE 98727 DANA Dempsey BACTERIAL 5 HAGGIN HAGGIN [facility] MEM HOS QUANTTATI VE COLONY COUNT URINE MRI BRAIN 84372 DANA Dempsey BRAIN 5 KARSON MENAGIN STEM W/O MEM H[facility] W/CONTRAS T MATERIAL INJECTION A9579 DANA Dempsey 5 HAGGIN TRINAGIN GADOLINIU [facility] M BASED MR CONTRAST NOS ML MRI ORBIT 30917 [facility] MARY FACE & 5 RADIOLOGY NECK W/O & ASSOCIATE W/CONTRAS T MATRL URNLS DIP 58287 KARSON QUEEN 5 PRIMARY STICK/TAB CARE LET RGNT NON-AUT[place] [address] DANA Dempsey THYROID 5 KARSON MENAGIN STIMULATI [facility] [place] [address] DANA Dempsey BLOOD/URI 5 KARSON MENAGIN C ACID [facility] COMPREHEN 99217 DANA Dempsey SIVE 5 HAGGIN HAGGIN METABOLIC [facility] PANEL CYANOCOBA 02060 DANA Dempsey LOLY 5 HAGGIN HAGGIN VITAMIN [place] B-12 [place] [address] [facility] ABDOMEN & 5 RADIOLOGY RADIOLOGY PELVIS W/O ASSOCIATE ASSOCIATE CONTRST 1/> BODY RE THER 22264 DANA Dempsey PROPH/DX 5 HAGGIN HAGGIN NJX IV [facility] PUSH SINGLE/1S T SBST/DRUG BLOOD 96407 SURAJ SURAJ COUNT 5 HERNANDEZ HERNANDEZ COMPLETE REGIONAL REGIONAL AUTO&AUTO ME ME DIFRNTL WBC BASIC 61904 SURAJ SURAJ METABOLIC 5 HERNANDEZ HERNANDEZ PANEL REGIONAL REGIONAL CALCIUM ME ME TOTAL THER 23594 SURAJ SURAJ PROPH/DX 5 HERNANDEZ HRENANDEZ NJX IV REGIONAL REGIONAL PUSH ME ME SINGLE/1S T SBST/[place] [address] SURAJ SURAJ ABDOMEN & 5 HERNANDEZ HERNANDEZ PELVIS REGIONAL REGIONAL W/O ME ME CONTRAST MATERIAL URNLS DIP 26351 SURAJ SURAJ 5 DAVID CHAVIRAELL STICK/TAB REGIONAL REGIONAL LET ME ME REAGENT AUTO MICROSCOP Y CYSTO 15098 MILY LOMELISHRUTHI W/URETERO 5 [facility] W/RMVL/MA PSC [place] STONES ANES 66675 [place] [facility] TRURL 5 ANESTHESI CRY FRAGMNTJ A MANJ&/RMV ASSOCIAT L URETERAL CALCULUS LEVEL I 19086 [place] [facility] SURG 5 PATHOLOGY MOHAMUD PATHOLOGY ASSOCIAT GROSS EXAMINATI ON ONLY CYSTO 66821 MILY LOMELISHRUTHI W/INSERT 5 [facility] STENT PSC ECG 16644 SURAJ HEMPEL ROUTINE 5 [facility] ECG REGG MED W/LEAST CT 12 LDS I&[place] [address] [facility] ABDOMEN & 5 RADIOLOGY PELVIS W/O ASSOCIATE CONTRAST MATERIAL GROUND A0425 [facility] MILEAGE 5 EMERG EMERG PER MEDICALSE MEDICALSE STATUTE R R MILE INITIAL 37356 [facility] CL[facility]IC [address] [place] [address] DANA Dempsey ABDOMEN & 5 HAGGIN HAGGIN PELVIS [facility] W/O CONTRAST MATERIAL URNLS DIP 09587 DANA Dempsey 5 KARSON HAGGIN STICK/TAB MEM HOS MEM HOS LET REAGENT AUTO MICROSCOP Y THERAPEUT 70383 DANA Dempsey IC 5 HAGGIN HAGGIN PROPHYLAC MEM HOS MEM HOS TIC/DX INJECTION SUBQ/IM INJECTION J2550 DANA Dempsey 5 HAGGIN HAGGIN PROMETHAZ [facility] HOS INE HCL UP TO 50 MG INJECTION J2175 DANA Dempsey 5 HAGGIN HAGGIN MEPERIDIN [facility] E HCL PER 100 MG INJECTION J1885 DANA Dempsey 5 HAGGIN HAGGIN KETOROLAC [facility] TROMETHAM INE PER 15 MG MRI 14250 [place] [facility] SPINAL 5 RADIOLOGY RUPA CANAL LUMBAR ASSOCIATE W/O CONTRAST MATERIAL RADEX 24182 [facility] STEFANY SPINE 5 RADIOLOGY LUMBOSACR AL ASSOCIATE MINIMUM 4 VIEWS INJECTION J1885 DANA Dempsey 5 HAGGIN HAGGIN KETOROLAC [facility] TROMETHAM INE PER 15 MG UNCLASSIF J3490 DANA Dempsey IED DRUGS 5 [facility]AGGIN HAGGIN [facility] THER 59546 DANA Dempsey PROPH/DX 5 HAGGIN HAGGIN NJX IV [facility] H[facility] PUSH SINGLE/1S T SBST/DRUG GONADOTRO 62846 DANA Dempsey PIN 5 HAGGIN HAGGIN CHORIONIC [facility] MEM HOS QUALITATI VE BLOOD 69601 DANA Dempsey COUNT 5 HAGGIN HAGGIN COMPLETE [facility] AUTO&AUTO DIFRNTL WBC THERAPEUT 18515 DANA Dempsey IC 5 HAGGIN HAGGIN INJECTION [facility] IV PUSH EACH NEW DRUG INJECTION J2405 DANA Dempsey 5 HAGGIN HAGGIN ONDANSETR [facility]OS [facility] ON HCL PER 1 MG URNLS DIP 23875 DANA Dempsey 5 HAGGIN HAGGIN STICK/TAB [facility] [place] [address] DANA Dempsey ABDOMEN & 5 HAGGIN HAGGIN PELVIS [facility] W/O CONTRAST MATERIAL GROUND A0425 [facility] MILEAGE 5 EMERG EMERG PER MEDICALSE MEDICALSE STATUTE R R MILE AMBULANCE A0429 [facility] SERVICE 5 EMERG EMERG BLS MEDICALSE MEDICALSE EMERGENCY R R TRANSPORT COMPREHEN 76723 DANA Dempsey SIVE 5 HAGGIN HAGGIN METABOLIC [facility] PANEL COLLECTIO 56488 DANA Dempsey N VENOUS 5 HAGGIN HAGGIN BLOOD [facility] H[facility] MEM HOS VENIPUNCT URE THERAPEUT 50446 DANA Dempsey IC 5 HAGGIN HAGGIN PROPHYLAC MEM HOS MEM HOS TIC/DX INJECTION SUBQ/IM RADEX 50583 [facility] M[facility] ABDOMEN 4 RADIOLOGY COMPL W/DCBTS&/ ASSOCIATE ERC VIEWS RADEX 70433 [place] [facility] FOOT 4 RADIOLOGY RUPA COMPLETE MINIMUM 3 ASSOCIATE VIEWS RADEX 49455 [place] [facility] ANKLE 4 RADIOLOGY RUPA COMPLETE MINIMUM [place] [address] [place] [facility] 4 [facility] STIMULAT[facility] [place] [address] [place] [facility] THYROXINE HOSP HOSP RADEX 17253 [facility] S[facility] SPINE 4 RADIOLOGY ADA LUMBOSACR AL 2/3 ASSOCIATE VIEWS RADEX 78438 [facility] GABY SPINE 4 KARIME LUMBOSACR FAMILY AL MEDICAL MINIMUM 4 VIEWS CULTURE 08086 SURAJ SURAJ BACTERIAL 4 HERNANDEZ HERNANDEZ REGIONAL REGIONAL QUANTTATI ME ME VE COLONY COUNT URINE THERAPEUT 67707 SURAJ SURAJ IC 4 HERNANDEZ HERNANDEZ INJECTION REGIONAL REGIONAL [place] [address] SURAJ SURAJ INFUSION 4 HERNANDEZ HERNANDEZ THERAPY/P REGIONAL REGIONAL ROPHYLAXI ME ME S /DX 1ST TO 1 HR RADEX 75980 SURAJ SURAJ ABDOMEN 4 HERNANDEZ HERNANDEZ COMPL REGIONAL REGIONAL W/DCBTS&/ [place] [address] SURAJ SURAJ ABDOMEN & 4 HERNANDEZ HERNANDEZ PELVIS REGIONAL REGIONAL W/O ME ME CONTRAST MATERIAL URNLS DIP 70554 SURAJ SURAJ 4 HERNANDEZ HERNANDEZ STICK/TAB REGIONAL REGIONAL LET [place] [address] [place] TRANSVAGI 4 MEDICAL MEDICAL NAL SERV SERV FOUNDATIO FOUNDATIO US PELVIC [address] [place] MICHELLE 4 MEDICAL LEANNE NONOBSTET SERV ANTONINO IMAGE FOUNDATIO DCMTN LIMITED/F /U RADEX 83909 CNTR[place] WESTERFIE RIBS UNI 4 RADIOLOGY LD IV ALL W/POSTERO ANT CH MINIMUM 3 [place] [address] NICKELS NICKELS EXTREMITY 4 LATOYA LATOYA NON-VASC REAL-TIME IMG LMTD RADEX ABD 82993 NICKELS NICKELS COMPL 4 LATOYA LATOYA AQT ABD W/S/E/D VIEWS 1 VIEW CH WRIST L3908 ADVANCED ADVANCED HAND 3 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 ORTHOSIS IES INC IES INC EXT CONTROL COCK-UP PREFAB RADEX 88711 WALI WALI WRIST 3 TREVIN TREVIN COMPLETE MINIMUM 3 VIEWS GROUND A0425 [facility]URAL MILEAGE 3 [facility] AMB A0427 [place] [place] SERVICE 3 [facility] TRANSPORT LEVEL 1 ALS A0398 [place] [place] ROUTINE 3 [facility] SUPPLIES RADEX HIP 56100 LERMA LERMA 3 BRA BRA UNILATERA L COMPLETE MINIMUM [address] [place] [address] [facility] ABDOMEN & 3 Y OF RAFAEL PELVIS [facility] W/O I PHY CONTRAST MATERIAL GROUND A0425 RURAL RURAL MILEAGE 3 [facility] ALS A0398 RURAL RURAL ROUTINE 3 [facility] SUPPLIES AMB A0427 RURAL RURAL SERVICE 3 [facility] TRANSPORT LEVEL 1 RADEX 19199 BRANDSER BRANDSER SACRUM & 3 NOELLE NOELLE COCCYX MINIMUM 2 VIEWS RADEX 03563 RADIOLOGY [place] ABDOMEN 1 2 BRA ASSOCIATE [place] [address] RISON ALL RISON ALL DX/THER 2 SBST EPIDURAL/ SUBARACH LUMBAR/SA CRAL MODERATE 97811 RISON ALL RISON ALL SEDATJ 2 SAME PHYS/QHP 5/>YRS INIT 30 MIN FLUOR 18437 RISON ALL RISON ALL NEEDLE/CA 2 TH SPINE/PAR ASPINAL DX/THER ADDON INJ J0702 RISON ALL RISON ALL BETAMETHA 2 SONE ACETATE & PHOSPHATE 3 MG RINGERS J7120 RISON ALL RISON ALL LACTATE 2 INFUSION UP TO 1000 CC LOCM Q9967 RISON ALL INES CAM 300-399 2 MG/ML IODINE CONCENTRA TION PER ML LOCM Q9967 RISON ALL RISON ALL 300-399 2 MG/ML IODINE CONCENTRA TION PER ML INJ J0702 RISON ALL RISON ALL BETAMETHA 2 SONE ACETATE & PHOSPHATE 3 MG FLUOR 53369 RISON ALL RISON ALL NEEDLE/CA 2 TH SPINE/PAR ASPINAL DX/[place] NJX 77672 RISON ALL RISON ALL DX/THER 2 SBST EPIDURAL/ SUBARACH LUMBAR/SA CRAL CRTCHS E0114 ADVANCED ADVANCED UNDARM 2 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 OTH THAN IES INC IES INC WOOD PAIR PAD TIP&HNDGR IP RADEX 78332 RADIOLOGY DOERGER FOOT 2 KIR COMPLETE ASSOCIATE MINIMUM 3 S OF NOTH VIEWS SURGICAL L3260 ADVANCED ADVANCED BOOT/SHOE 2 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 EACH IES INC IES INC INJECTION J1040 [facility] 2 RUPA RUPA METHYLPRE DNISOLONE ACETATE 80 MG THERAPEUT 04853 [facility] IC 2 RUPA RUPA PROPHYLAC TIC/DX INJECTION SUBQ/IM AMBULANCE A0429 RURAL/MET RURAL/MET SERVICE 1 RO RO BLS AMBULANCE AMBULANCE EMERGENCY TRANSPORT GROUND A0425 RURAL/MET RURAL/MET MILEAGE 1 RO RO PER AMBULANCE AMBULANCE STATUTE MILE THERAPEUT 55114 [facility] [address] IC 1 KIRK GOODE PROPHYLAC TIC/DX PHYSICIAN INJECTION S SUBQ/IM INJECTION J0696 [facility] [address] 1 KIRK GOODE CEFTRIAXO NE SODIUM PHYSICIAN PER 250 S MG GROUND A0425 [facility] MILEAGE 1 AMBULANCE AMBULANCE PER SERVICE SERVICE STATUTE MILE AMB A0427 [facility] SERVICE 1 AMBULANCE AMBULANCE ALS SERVICE SERVICE EMERGENCY TRANSPORT LEVEL 1 ORBITOTOM 63909 [facility] CEPE[facility] Y W/O 1 CENTERS MAR BONE FLAP FOR SIGHT, W/[place] [address] [facility] SURG 1 [facility] PATHOLOGY MED CTR GROSS&JALYN ROSCOPIC EXAM IMHISTOCH 97512 [facility] EM/CYTCHM [address] ANTIBODY STAIN PROCEDURE CJP 97391 [facility] CEPELA RCNSTJ 1 CENTERS MAR CUL-DE-SA FOR C BUCCAL SIGHT, GRF/XTNSV REARRGMT ANESTHESI 22196 INDEPENDE COSTANTIN A EYE NOT 1 NT I CAR ANESTHESI OTHERWISE OLOGIST SPECIFIED CYSTO 90375 NEW NEW W/URETERO 1 [facility] SCOPY [facility]INIC CLINIC W/LITHOTR PSC PSC IPSY PROSTHETI L8699 NEW NEW C IMPLANT 1 [facility] NOT CLINIC CLINIC OTHERWISE PSC PSC SPECIFIED ANES 23508 ANESTHESI GRABMAYER TRURL 1 A RUPA FRAGMNTJ ASSOCIATE MANJ&/RMV S, PSC L URETERAL CALCULUS CYSTO 26507 NEW NEW W/INSERT 1 [facility] URETERAL CLINIC CLINIC STENT PSC PSC URNLS DIP 32383 VIJAY ARCOS 1 [facility] LET RGNT P NON-AUTO W/O MICRSCP CT ORBIT 17838 RADIOLOGY GEORGE BYR SELLA/POS 1 T ASSOCIATE FOSSA/EAR S PSC W/CONTRAS T MATRL XTRNL 79314 [facility] CE[facility] OCULAR 1 CENTERS MAR PHOTOG FOR W/I&[place], [place] [address] VIJAY LINARES INFUSION 1 [facility] THERAPY/P INC INC ROPHYLAXI S /DX 1ST TO 1 HR 3D 94396 [facility] LOPEZ RENDERING 1 MEDICAL GUTIERREZ IMAGING W/INTERP& ASS POSTPROC DIFF WORK STATION URINE 68046 VIJAY LINARES 1 [facility] TEST INC INC VISUAL COLOR CMPRSN METHS URNLS DIP 61172 VIJAY LINARES 1 [facility] STICK/TAB INC [place] [address] VENUSSADE JESSICA ABDOMEN & 1 MEDICAL GUTIERREZ PELVIS IMAGING W/O ASS CONTRAST MATERIAL DETERMINA 64489 SHEWMAKER SHEWMAKER TION 1 VLADIMIR GRIFFIN REFRACTIV E STATE RADIOLOGI 83630 [facility] JESSICA C 0 MEDICAL GUTIERREZ EXAMINATI IMAGING ON PELVIS ASS 1/2 VIEWS RADIOLOGI 00864 [facility] JESSICA C 0 MEDICAL GUTIERREZ EXAMINATI IMAGING ON CHEST ASS SINGLE VIEW FRONTAL RADEX 58047 [facility] MALIKJESSICA ELBOW 0 MEDICAL GUTIERREZ COMPLETE IMAGING MINIMUM 3 ASS VIEWS RADEX 13572 [facility] MALIKJESSICA HAND 0 MEDICAL GUTIERREZ MINIMUM 3 IMAGING VIEWS ASS RADEX 20410 [facility] WADSWORTHJESSICA ANKLE 0 MEDICAL GUTIERREZ COMPLETE IMAGING MINIMUM 3 ASS VIEWS RADEX 45216 [facility] LOPEZ SPINE 0 MEDICAL GUTIERREZ CERVICAL IMAGING 6 OR MORE ASS VIEWS THERAPEUT 41111 [facility] [address] IC 0 KIRK GOODE PROPHYLAC TIC/DX PHYSICIAN INJECTION S SUBQ/IM HEMOGLOBI 16314 [facility] N 0 KIRK BRADLEY GLYCOSYLA BLAIRE A1C MEDICALCE MEDICALCE NTER NTER BLOOD [address] COUNT 0 KIRK BRADLEY COMPLETE AUTO&AUTO MEDICALCE MEDICALCE DIFRNTL NTER NTER WBC AMBULANCE A0429 GALLATIN GALLATIN SERVICE 0 [place] K[place] BLS [address] COURT EMERGENCY TRANSPORT GROUND A0425 GALLATIN GALLATIN MILEAGE 0 CO KERRI CO KERRI [place] [address] ST ROSS, SURG 0 KIRK [facility] PATHOLOGY MED CTR GROSS&JALYN ROSCOPIC EXAM ANTIBODY 85771 COMBINED COMBINED CHLAMYDIA 9 PHYSICIAN PHYSICIAN S LAB S LAB CUL BACT 95596 COMBINED COMBINED XCPT 9 PHYSICIAN PHYSICIAN URINE S LAB S LAB BLOOD/STO OL AEROBIC ISOL MRI 59854 RADIOLOGY AVI, SPINAL 9 HEAVEN G CANAL ASSOCIATE LUMBAR S PSC W/O CONTRAST MATERIAL SERVICES 13592 Christian FLORES PROVIDED 9 MEDICAL J OFFICE GROUP OTH/THN REG SCHED HOURS URINE 11898 VIJAY LINARES 9 [facility] TEST INC INC VISUAL COLOR CMPRSN METHS RADEX 03305 [facility] MALIKJESSICA, FOOT 9 MEDICAL BISI COMPLETE IMAGING MINIMUM 3 ASSOCIATE VIEWS S RADEX 60896 [place] JESSICA, ANKLE 9 MEDICAL BISI COMPLETE IMAGING MINIMUM 3 ASSOCIATE VIEWS S RADEX 94781 KUNATH, COLGLAZIE SPINE 9 LOPEZ & R, LUMBOSACR [place] AL 2/3 ER L VIEWS RADIOLOGI 42905 KUNATH, COLGLAZIE C 9 LOPEZ & R, EXAMINATI [place] ON FOOT 2 ER L VIEWS RADEX 99166 KUNATH, COLGLAZIE HAND 2 9 LOPEZ & R, VIEWS TEMMING MAYCO ER L BLOOD 29808 [facility] WEBB COUNT 9 MEDICAL J COMPLETE GROUP AUTO&AUTO DIFRNTL WBC CYSTO 31521 JOANA ARCOS, W/SIMPLE 8 LTH MAGY D REMOVAL UROLOGY STONE & PSC STENT URNLS DIP 28471 JOANA ARCOS, 8 LTH MAGY D STICK/TAB UROLOGY LET RGNT PSC AUTO W/O MICROSCOP Y RADEX 31971 OFFICE NATA, ABDOMEN 1 8 ISA Gonzales DIAGNOSTI ANTEROPOS C TERIOR SERVICES VIEW URNLS DIP 02825 SUMMChristian HILTON 8 MEDICAL J STICK/TAB GROUP LET RGNT AUTO W/O MICROSCOP Y CULTURE [address] BACTERIAL 8 KIRK BRADLEY QUANTTATI MEDICALCE MEDICALCE VE COLONY NTER NTER COUNT URINE CYSTO 04907 JOANA ARCOS, W/URETERO 8 LTH MAGY D SCOPY UROLOGY W/LITHOTR PSC IPSY ANES 14368 ANESTHESI KIRK, LITHOTRP 8 A SAM A [employer] ASSOCIATE SHOCK S, PSC WAVE W/O WATER BATH RADEX 17944 [place] TAMI, ABDOMEN 1 8 RADIOLOGY NUPUR M ANTEROPOS TERIOR VIEW URNLS DIP 66188 VIJAY LINARES 8 [facility] STICK/TAB INC INC LET REAGENT AUTO MICROSCOP Y URINE 08611 VIJAY LINARES 8 [facility] TEST INC INC VISUAL COLOR CMPRSN METHS 3D 00588 VIJAY LINARES RENDERING 8 [facility] INC INC W/INTERP& POSTPROC DIFF WORK STATION BASIC 57547 VIJAY LINARES METABOLIC 8 [facility] [address] MIGUELITO PHYLLIS, ABDOMEN 8 MEDICAL PHIL P W/O IMAGING CONTRAST ASSOCIATE MATERIAL S BLOOD 93879 VIJAY LINARES COUNT 8 [facility] COMPLETE INC INC AUTO&AUTO DIFRNTL WBC CULTURE 44440 VIJAY LINARES BACTERIAL 8 [facility] INC INC QUANTTATI VE COLONY COUNT URINE CT PELVIS 50295 VIJAY LINARES W/O 8 [facility] CONTRAST INC INC MATERIAL SUSCEPTIB 94277 VIJAY LINARES LTY STDY 8 [facility] ANTIMICRB INC INC IAL MICRO/[place] [address] THYROID 8 KIRK KIRK STIMULATI NG MEDICALCE MEDICALCE HORMONE NTER NTER TSH SEDIMENTA [address] TION RATE 8 KIRK KIRK RBC AUTOMATED MEDICALCE MEDICALCE NTER NTER RHEUMATOI [address] D FACTOR 8 KIRK KIRK QUALITATI VE MEDICALCE MEDICALCE NTER NTER BLOOD [address] COUNT 8 KIRK KIRK COMPLETE AUTO&AUTO MEDICALCE MEDICALCE DIFRNTL NTER NTER WBC CHOLESTER [address] OL 8 KIRK KIRK SERUM/WHO LE BLOOD MEDICALCE MEDICALCE TOTAL NTER NTER BASIC [address] METABOLIC 8 KIRK KIRK PANEL CALCIUM MEDICALCE MEDICALCE TOTAL NTER NTER COLLECTIO 26653 [facility] WEBB N VENOUS 8 MEDICAL J BLOOD GROUP VENIPUNCT URE HEPATIC [address] FUNCTION 8 KIRK KIRK PANEL [place] [address] BLOOD/URI 8 KIRK KIRK C ACID MEDICALCE MEDICALCE NTER NTER RADEX [address] SPINE 8 [facility] AL 2/[address] SPINE 8 [facility] 3 VIEWS INCISION 83182 ATA BECERRIL, & 8 EMERG DREUX DRAINAGE SERV ABSCESS ASSOC COMPLICAT ED/MULTIP LE AMBULANCE A0429 TRANSCARE TRANSCARE SERVICE 8 OF [facility] EMERGENCY , INC. , INC. TRANSPORT GROUND A0425 TRANSCARE TRANSCARE MILEAGE 8 OF [facility] STATUTE , [employer]. , INC. MILE 62677 [place] NEERU FERGUSON 8 ROSEANNE DUEÑAS IMAGING ASSOCIATE S URINE 53305 VIJAY LINARES 8 [facility] TEST INC INC VISUAL COLOR CMPRSN METHS BASIC 47079 VIJAY LINARES METABOLIC 8 [facility] PANEL INC INC CALCIUM TOTAL URNLS DIP 58559 VIJAY LINARES 8 [facility] STICK/TAB INC INC LET REAGENT AUTO MICROSCOP Y BLOOD 47502 VIJAY LINARES COUNT 8 [facility] COMPLETE INC INC AUTO&AUTO DIFRNTL WBC Encounters Encounter Start End Date Code Location Performer Type Date EMERGENCY 86593 FRANCO LALA DEPT 7 7 PHYSICIAN VISIT S, PLLC HIGH SEVERITY& THREAT FUNCJ OFFICE 09616 [facility] 7 7 KIRK T VISIT 15 PHYSICIAN MINUTES S OFFICE 61886 [facility] OUTPATI 7 7 KIRK T VISIT [address]IC[address] S [facility] [facility] - 7 7 [facility] VIJAY - 7 7 [facility] OUTPATIEN INC T EMERGENCY 64385 VIJAY 7 7 [facility] DEPARTMEN INC T VISIT HIGH/URGE NT SEVERITY EMERGENCY 23794 MAISHA MURRIETA 7 7 EMERGENCY DEPARTMEN T VISIT PHYSICIAN HIGH/URGE S NT SEVERITY EMERGENCY 98338 [facility] 7 7 EMERGENCY DEPARTMEN T VISIT PHYSICIAN HIGH/URGE S NT SEVERITY HOSPITAL - 7 7 KIRK OUTPATIEN [facility] EMERGENCY 39665 [facility] DEPT 6 6 MEDICAL VISIT SERV HIGH FOUNDATIO SEVERITY& N THREAT FUNCJ EMERGENCY 26851 VIJAY 6 6 MEM [facility] DEPARTMEN INC T VISIT MODERATE SEVERITY HOSPITAL VIJAY - 6 6 [facility] OUTPATIEN [facility] EMERGENCY 27796 FRANCO LALA 6 6 PHYSICIAN JALYN DEPARTMEN S, [facility] T VISIT HIGH/URGE NT SEVERITY OFFICE 31819 [facility] 6 6 KIRK T VISIT 25 PHYSICIAN MINUTES [facility] ST - 6 6 KIRK OUTPATIEN MED CTR T [facility] VIJAY - 6 6 MEM [facility] OUTPATIEN [facility] EMERGENCY 47481 VIJAY DEPT 6 6 MEM [facility] VISIT INC HIGH SEVERITY& THREAT FUNCJ OFFICE 61434 [facility] KATIA OUTPATIEN 6 6 DISEASE HORACIO T NEW 60 CONSULTAN MINUTES [facility] ST[facility] - 6 6 KIRK OUTPATIEN MARIO T OFFICE 41013 [facility] KIRK II ALETHA T VISIT 15 PHYSICIAN MINUTES [facility] ST - 6 6 [facility] OUTPATIEN MED CTR T [facility] VIJAY - 5 5 [facility] OUTPATIEN [facility] VIJAY - 5 5 [facility] OUTPATIEN [facility] VIJAY - 5 5 MEM [facility] OUTPATIEN [facility] T OFFICE 87175 VIJAY ARCOS OUTPATIEN 5 5 [facility] 20 HOSPITAL MINUTES HOSPITAL VIJAY - 5 5 MEM [facility] OUTPATIEN INC T OFFICE 23131 [facility] 5 5 PRIMARY T VISIT CARE 15 MINUTES HOSPITAL DANA Dempsey - PARMINDER 5 5 [facility] DANA Dempsey - 5 5 [facility] T OFFICE 44812 [facility] 5 5 PRIMARY T VISIT CARE 15 MINUTES HOSPITAL DANA Dempsey - PARMINDER 5 5 [facility] EMERGENCY 63110 [facility] GENE Ribeiro DEPT 5 5 RIMMA VISIT EMERGENCY HIGH PHYS SEVERITY& THREAT [facility] DANA Dempsey - 5 5 [facility] T EMERGENCY 59375 SURAJ 5 [facility] VISIT ME MODERATE SEVERITY EMERGENCY 82803 [facility] DEPT 5 5 RIMMA VISIT EMERGENCY HIGH PHYS SEVERITY& THREAT [facility] SURAJ - 5 5 HERNANDEZ OUTPATIEN REGIONAL T ME EMERGENCY 85373 [facility] DEPT 5 5 RIMMA SANTOSH VISIT EMERGENCY HIGH PHYS SEVERITY& THREAT [facility] DANA Dempsey - 5 5 [facility] T EMERGENCY 98403 DANA Dempsey 5 5 [facility] DEPARTMEN [facility] H[facility] T VISIT MODERATE SEVERITY EMERGENCY 26477 DANA Dempsey 5 5 [facility] DEPARTMEN [facility] T VISIT MODERATE SEVERITY HOSPITAL DANA Dempsey - 5 5 [facility] T [facility]GENCY 34037 [facility] RIMMA MAGDALENA DEPARTMEN EMERGENCY T VISIT PHYS MODERATE SEVERITY HOSPITAL DANA Dempsey - 5 5 [facility] T EMERGENCY 65622 DANA Dempsey 5 5 [facility] DEPARTMEN [facility] T VISIT HIGH/URGE NT SEVERITY EMERGENCY 34099 DANA Dempsey 5 5 [facility] DEPARTMEN [facility] H[facility] T VISIT MODERATE SEVERITY HOSPITAL DANA Dempsey - 5 5 [facility]IEN [facility] T EMERGENCY 02053 [facility] 5 5 RIMMA DEPARTMEN EMERGENCY T VISIT PHYS HIGH/URGE NT SEVERITY HOSPITAL DANA Dempsey - 5 5 [facility] T EMERGENCY 62128 [facility] 5 5 RIMMA ALETHA VISIT EMERGENCY HIGH PHYS SEVERITY& THREAT FUNCJ EMERGENCY 18401 DANA Dempsey 5 5 [facility] DEPARTMEN [facility] T VISIT HIGH/URGE NT SEVERITY EMERGENCY 25482 [facility] 5 5 RIMMA DEPARTMEN EMERGENCY T VISIT PHYS MODERATE SEVERITY HOSPITAL DANA Dempsey - 5 5 [facility] T [facility]OSPITAL SURAJ - 4 4 [facility] REGIONAL T ME EMERGENCY 18407 [facility] DEPT 4 4 RIMMA VISIT EMERGENCY HIGH PHYS SEVERITY& THREAT FUNCJ EMERGENCY 61157 SURAJ 4 4 [facility] REGIONAL T VISIT ME HIGH/URGE NT SEVERITY EMERGENCY 45405 [facility] EHS 4 4 RIMMA DEPARTMEN EMERGENCY T VISIT PHYS HIGH/URGE NT SEVERITY HOSPITAL FORT - 4 4 [facility] OUT[facility] T EMERGENCY 55553 FORT 4 4 [facility] DEPARTMEN HOSP T VISIT MODERATE SEVERITY HOSPITAL FORT - 4 4 [facility] OUT[facility]EN [facility]OSP T EMERGENCY 81917 [facility] RICHARD DEPT 4 4 RIMMA N RUPA VISIT EMERGENCY HIGH PHYS SEVERITY& THREAT FUNCJ EMERGENCY 35406 [facility] GUERRANT 4 4 RIMMA NOELLE DEPARTMEN EMERGENCY T VISIT PHYS MODERATE SEVERITY HOSPITAL SURAJ - 4 4 HERNANDEZ OUTPATIEN REGIONAL T ME OFFICE 02151 ALFONSO GRIFFIN OUTPATIEN 4 4 KARIME T VISIT FAMILY 15 MEDICAL MINUTES EMERGENCY 77266 [facility] ROBBINS 4 4 RIMMA PENG DEPARTMEN EMERGENCY T VISIT SERV HIGH/URGE NT SEVERITY EMERGENCY 58708 [facility] PASCALE CASTRO 4 4 RIMMA DEPARTMEN EMERGENCY T VISIT PHYS MODERATE SEVERITY OFFICE 48271 [place] GRIFFIN OUTPATIEN 4 4 KARIME T VISIT FAMILY 15 MEDICAL MINUTES EMERGENCY 74629 [facility] JEF REEDER 4 4 RIMMA [facility] EMERGENCY T VISIT PHYS MODERATE SEVERITY HOSPITAL SURAJ - 4 4 HERNANDEZ OUTPATIEN REGIONAL T ME OFFICE 62126 [facility] 4 4 KARIME T NEW 30 FAMILY MINUTES MEDICAL EMERGENCY 02900 [facility] DEPT 4 4 RIMMA VISIT EMERGENCY HIGH PHYS SEVERITY& THREAT FUN EMERGENCY 21223 [facility] PARI MAGDALENA DEPT 4 4 RIMMA VISIT EMERGENCY HIGH PHYSI SEVERITY& THREAT FUN EMERGENCY 12179 FAM GOODE DEPT 4 4 VISIT HIGH SEVERITY& THREAT FUN EMERGENCY 25465 [facility] 4 4 DEPARTMEN T VISIT HIGH/URGE NT SEVERITY HOSPITAL [facility] - 4 4 [facility] T [facility]ERGENC[facility] 13714 UNIVERSIT 4 4 Y [facility] T VISIT HIGH/URGE NT SEVERITY OFFICE 81144 HOBLIZARIEL HOBLIMARY ANN OUTPATIEN 3 3 ANTONINO ANTONINO T NEW 30 MINUTES EMERGENCY 78397 MADINA Justin 3 3 HOWIE DENISE DEPARTMEN T VISIT MODERATE SEVERITY EMERGENCY 00162 TIMMY CHRIS 3 3 DEPARTMEN T VISIT MODERATE SEVERITY EMERGENCY 24000 BOSSMAN Galaviz 3 3 DEPARTMEN T VISIT HIGH/URGE NT SEVERITY EMERGENCY 03795 RONNA BROWNINGANGER 3 3 MARK CROSSI DEPARTMEN T VISIT MODERATE SEVERITY EMERGENCY 61688 MEGAN GUZMAN 3 3 LATOYA LATOYA DEPARTMEN T VISIT HIGH/URGE NT SEVERITY EMERGENCY 55324 DENISE HAMMONDY 3 3 GRE GRE DEPARTMEN T VISIT MODERATE SEVERITY EMERGENCY 85461 SELPH SCO SELPH SCO 3 3 DEPARTMEN T VISIT HIGH/URGE NT SEVERITY EMERGENCY 78608 TIMMY CHRIS 3 3 DEPARTMEN T VISIT HIGH/URGE NT SEVERITY OFFICE 02840 RISON ALL RISON ALL OUTPATIEN 2 2 T VISIT 10 MINUTES OFFICE 90462 PARIS PARIS OUTPATIEN 2 2 JALYN JALYN T VISIT 10 MINUTES OFFICE 99654 [facility] OUTPATIEN 2 2 JALYN JALYN T VISIT [address] SELPH SCO 2 2 KIRK [facility] MED CTR T VISIT MODERATE SEVERITY OFFICE 80623 RISON ALL RISON ALL OUTPATIEN 2 2 T VISIT 15 MINUTES OFFICE 22591 CASEY VIR CASEY VIR OUTPATIEN 2 2 T VISIT [address] [facility]OCK TRO 2 2 [facility] VISIT HIGH/URGE NT SEVERITY EMERGENCY 72799 GANIM HUGH GANIM HUGH 2 2 DEPARTMEN T VISIT MODERATE SEVERITY OFFICE 54177 MELISSA TORRES OUTPATIEN 2 2 RUPA RUPA T VISIT 25 MINUTES OFFICE 94506 RISON ALL RISON ALL OUTPATIEN 2 2 T NEW 30 MINUTES OFFICE 26009 HARTKARINA HARTIG OUTPATIEN 2 2 RUPA RUPA T VISIT 15 MINUTES OFFICE 94800 HARTKARINA HARTIG OUTPATIEN 2 2 RUPA RUPA T VISIT [address] BRACKEN 1 1 KIRK [facility] VISIT PRACTICE MODERATE SEVERITY OFFICE 59389 CASEY VIR CASEY VIR OUTPATIEN 1 1 T VISIT [address] [facility] 1 1 KIRK JOHNS T VISIT 15 PHYSICIAN MINUTES S OFFICE [address] NEEDHAMKARINA OUTPATIEN 1 1 KIRK RUPA T VISIT 15 PHYSICIAN MINUTES S EMERGENCY 67811 ATA MELO 1 1 EMERGENCY III [facility] SERVICES T VISIT MODERATE SEVERITY EMERGENCY 94216 [facility] VIJAY - 1 1 [facility] T OFFICE [address] [facility] CEPELA OUTPATIEN 1 1 [facility] VISIT FOR 25 SIGHT, MINUTES OFFICE 38734 VIJAY ARCOS OUTPATIEN 1 1 [facility] T VISIT HOSPITAL [address] - 1 1 [facility] OUTPATIEN MARIO T OFFICE [address] [facility] CEPELA OUTPATIEN 1 1 [facility] NEW 30 FOR MINUTES SIGHT, EMERGENCY 27094 VIJAY 1 [facility]IGH/URGE NT SEVERITY EMERGENCY 85118 ATA FROST DEPT 1 1 EMERGENCY VISIT SERVICES [facility]IGH SEVERITY& [facility] VIJAY - 1 1 [facility] INC T OFFICE [address] [facility] H[facility]IG OUTPATIEN 1 1 [facility] RUPA T VISIT 15 PHYSICIAN MINUTES S OFFICE 86830 SHEWNEELAM SHEWMAKER OUTPATIEN 1 1 VLADIMIR GRIFFIN T NEW [address] [facility] OUTPATIEN 0 0 [facility] RUPA T VISIT 15 PHYSICIAN MINUTES S HOSPITAL VIJAY - 0 0 [facility] OUTPATIEN INC T EMERGENCY 61222 VIJAY 0 0 [facility] DEPARTMEN INC T VISIT LOW/MODER SEVERITY EMERGENCY 72105 [facility] DEPT 0 0 EMERGENCY JALYN VISIT SERVICES HIGH SEVERITY& THREAT FUNCJ OFFICE 76246 ST HARTIG OUTPATIEN 0 0 [facility] RUPA T VISIT 15 PHYSICIAN MINUTES S EMERGENCY [address]126 ST PERAZZO 0 0 [facility] GIOVANY DEPARTMEN MED CTR T VISIT MODERATE SEVERITY OFFICE 03155 ST [facility] OUTPATIEN 0 0 [facility] RUPA T VISIT 15 PHYSICIAN MINUTES S OFFICE [address] [facility] HARTIG OUTPATIEN 0 0 [facility] RUPA T VISIT 15 PHYSICIAN MINUTES S OFFICE [address] QUATKEMEY OUTPATIEN 0 0 [facility] ER BRA T VISIT 25 PHYSICIAN MINUTES S OFFICE 864[address] [facility]ATK[facility] OUTPATIEN 0 0 [facility] ER BRA T VISIT [address] [facility] [address] - 0 0 [facility] OUTPATIEN T MEDICALCE NTER OFFICE 73559 ST QUATK[facility] OUTPATIEN 0 0 [facility] ER BRA T VISIT 15 PHYSICIAN MINUTES S OFFICE [address] [facility] QUATK[facility] OUTPATIEN 0 0 [facility] ER, T VISIT CRANE 25 PHYSICIAN A MINUTES [facility] - 0 0 K[facility] T MEDICALCE NTER OFFICE 44733 [facility] 9 9 HEALTH QUYEN J T VISIT CLINIC [facility] 25 MIN[facility]ES [facility] 54287 Christian FLORES 9 9 MEDICAL J T VISIT GROUP [address] - 9 9 [facility] EMERGENCY 77831 VIJAY 9 9 [facility] DEPARTMEN INC T VISIT LOW/MODER SEVERITY EMERGENCY 07134 ATA RANDALL, 9 9 EMERGENCY MOHAN DEPARTMEN SERVICES O T VISIT MODERATE ASSOCIATE SEVERITY [facility] VIJAY - 9 9 [facility] 28770 [facility] 9 K[facility] Willett DEPARTMEN MED CTR T VISIT HIGH/URGE NT SEVERITY EMERGENCY 28679 [facility], 9 9 [facility] [place] DEPARTMEN MED CTR T VISIT HIGH/URGE NT SEVERITY OFFICE 45126 FAITH DASILVA CONSULTAT 9 9 JOHN & RKHOI/ESTAB ER L PATIENT 60 MIN OFFICE 00308 Christian FLORES 9 9 MEDICAL J T VISIT GROUP 15 MINUTES OFFICE 29900 Christian FLORES 9 9 MEDICAL J T VISIT GROUP [address] WALKER, DEPT 9 9 [facility] [place] VISIT MED CTR HIGH SEVERITY& THREAT FUN OFFICE 24453 Christian FLORES 9 9 MEDICAL J T VISIT GROUP [address] - 8 8 [facility] OFFICE 89610 JOANA VALLERAHAT [facility] 8 8 [facility] MAGY Fer T VISIT UROLOGY 25 PSC MINUTES HOSPITAL VIJAY - 8 8 [facility] OUTPATI[facility] INC T EMERGENCY 76986 VIJAY 8 8 [facility] DEPART[facility] INC T VISIT HIGH/URGE NT SEVERITY HOSPITAL VIJAY - 8 8 [facility] OUTPATIEN INC T EMERGENCY 89836 MARK ANTHONY VARELA, [address] [facility] T VISIT ON HIGH/URGE NT SEVERITY EMERGENCY 97394 VIJAY 8 8 [facility] DEPART[facility] INC T VISIT LOW/MODER SEVERITY [facility] - 8 8 [facility] T OFFICE [id number] Christian FLORES 8 8 MEDICAL J T VISIT GROUP [address] - [address] [facility] [address] - 8 8 [facility] T OFFICE [id number] [facility] J T VISIT GROUP 25 MINUTES EMERGENCY 24006 ATA BECERRIL, 8 8 [facility] DREUX [facility] HIGH/URGE NT SEVERITY EMERGENCY 36334 ATA YAO, 8 8 [facility] SONY D [facility] HIGH/URGE NT SEVERITY OFFICE 41635 [facility] 8 8 [facility] J T VISIT CLINIC OF 15 MINUTES [facility] VIJAY - 8 8 [facility] OUTPATIEN INC T EMERGENCY [id number] VIJAY 8 8 [facility] DEPARTMEN INC T VISIT HIGH/URGE NT SEVERITY
--- OUTSIDE RECORDS SUMMARY | 2017-05-09 05:47 | External Medical Summary Rpt | CCD ---
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 08 09 RE GA 1 0 RY PH J MG AR MA TA CY BL # ET 4 ZY 00 12 01 01 30 30 TO 35 ME Ac MN 00 -0 -1 .0 TA 59 LT ti EX 24 9- 5- 00 L 53 ON ve A 11 20 20 CA 10 73 08 09 RE GA 0 RY MG PH J AR TA MA BL CY ET # 4 NA 68 12 01 01 60 30 TO 35 ME Ac MN 46 -0 -1 .0 TA 59 LT [...] 00 60 30 TO 35 ME Ac MN 76 -0 -1 .0 TA 59 LT [...] 00 60 30 TO 35 ME Ac MN 46 -0 -1 .0 TA 59 LT ti OX 20 9- 8- 00 L 50 ON ve EN 19 20 20 CA 00 08 08 RE GA 50 5 RY 0 PH J MG AR MA TA CY BL # ET 4 ZY 00 12 12 00 30 30 TO 35 ME Ac MN 00 -0 -1 .0 TA 59 LT [...] AR MO MA TH CY Y D MN 00 11 12 00 20 5 CL [...] 03 60 30 PH 33 ME Ac MN 46 -0 -0 .0 AR 76 LT ti OX 20 8- 7- 00 MC 87 ON ve EN 19 20 20 AR 00 08 08 E GA 50 5 CR RY 0 IT J MG TE ND TA EN BL N ET ZY 00 07 11 03 30 30 PH 33 ME Ac MN 00 -0 -0 .0 AR 76 LT [...] 02 60 30 PH 33 ME Ac MN 09 -0 -2 .0 AR 76 LT ti OX 30 8 6 MC 87 ON ve EN 14 20 20 AR 90 08 08 E GA 50 5 CR RY 0 IT J MG TE ND TA EN BL N ET ZY 00 07 09 02 30 30 PH 33 ME Ac MN 00 -0 -2 .0 AR 76 LT [...] 01 60 30 PH 33 ME Ac MN 09 -0 -1 .0 AR 76 LT [...] 01 30 30 PH 33 ME Ac MN 00 -0 -1 .0 AR 76 LT [...] 20 AI IN 20 08 08 D WA E 5 PH CH HY AR AE CL M L AT #3 S E 93 10 8 0 MG CA P AC 00 08 08 00 8. 2 RI 74 GA Ac ET 09 -0 -1 00 TE 45 IN ti AM 30 7- 4- 0 84 EY ve IN 15 20 20 AI OP 01 08 08 D WA HE 0 PH CH N- AR AE [...] 00 30 30 PH 33 ME Ac MN 00 -0 -1 .0 AR 76 LT ti EX 24 8- 7- 00 MC 89 ON ve A 11 20 20 AR 10 73 08 08 E GA 0 CR RY MG IT J TE TA ND BL EN ET N NA 00 07 07 00 60 30 PH 33 ME Ac MN 09 -0 -1 .0 AR 76 LT [...] 01 30 30 KR 61 No Ac MN 00 -0 -0 .0 OG 92 t ti EX 24 4- 8- 00 ER 95 Av ve A 11 20 20 3 ai 10 73 08 08 PH la 0 AR bl MG M e L- TA 35 BL 9 ET ZY 00 02 04 00 30 30 RI 32 No Ac MN 00 -0 -1 .0 TE 76 t [...] 00 30 30 KR 61 No Ac MN 00 -0 -1 .0 OG 92 t [...] bl IT e TE ND EN N MN 00 01 03 00 12 2 RI [...] Procedures Procedure DOS Code Location Performer Comment [facility] A0427 [facility] 7 AMBULANCE AMBULANCE ALS SERVICE SERVICE EMERGENCY TRANSPORT LEVEL 1 ALS A0398 [facility] ROUTINE 7 AMBULANCE AMBULANCE DISPOSABL SERVICE SERVICE E SUPPLIES [facility]0425 [facility] 06[facility] 7 KIRK DAY MANAGEMEN PHYSICIAN T > 30 S MIN SBSQ 83997 [facility] 7 KIRK CARE/DAY 25 PHYSICIAN MINUTES S INITIAL 49342 [facility] 7 DISEASE CARE/DAY CONSULTAN 50 TS I MINUTES CRITICAL 99067 [facility] 7 EMERGENCY ILL/INJUR ED PHYSICIAN PATIENT S ADDL 30 MIN CRITICAL 72933 [facility] 7 EMERGENCY ILL/INJUR ED PHYSICIAN PATIENT S INIT 30-74 MIN GROUND A0425 [facility] DENNIS MILEAGE 7 CO CO PER AMBULANCE AMBULANCE STATUTE TAXIN TAXIN MILE AMBULANCE A0429 DENNIS DENNIS SERVICE 7 CO CO BLS AMBULANCE AMBULANCE [place] [address] RADIOLOGY BRANDSER HEAD/BRAI 7 N W/O ASSOCIATE CONTRAST S OF [facility] MATERIAL COLLECTIO [address] N VENOUS 7 [facility] BLOOD [place] [address] [facility] MAGNESIUM 7 [facility] MARIO MARIO POTASSIUM 97666 [facility] SERUM 7 [facility] PLASMA/[place] [address] VIJAY LINARES PHOSPHORU 7 [facility] [place] [address] VIJAY LINARES MAGNESIUM 7 [place] [address] VIJAY LINARES LIPASE 7 [facility] INC INC COMPREHEN 95513 VIJAY LINARES SIVE 7 [facility] METABOLIC INC INC PANEL URNLS DIP 40636 [facility]JAY LINARES 7 [facility] STICK/TAB INC [place] [address] VIJAY LINARES ABDOMEN & 7 [facility] PELVIS INC INC W/O CONTRAST MATERIAL ECG 30252 VIJAY LINARES ROUTINE 7 [facility] ECG INC INC W/LEAST 12 LDS TRCG ONLY W/O I&R URINE 16413 VIJAY VIJAY 7 [facility] TEST INC INC [place] [address] VIJAY LINARES AMYLASE 7 [facility] INC INC FINAL G9638 MIGUELITO JOHNS REPORTS 7 MEDICAL W/O DOC IMAGING 1/MORE ASS DOSE REDUCTION TECH CULTURE 61164 VIJAY LINARES BACTERIAL 7 [facility] INC INC QUANTTATI VE COLONY COUNT URINE CULTURE 68454 VIJAY LINARES BCT 7 [facility] ISOL&PRSM INC INC PTV ID ISOLATE EA URINE FINAL G9551 MIGUELITO JOHNS REPR ABD 7 MEDICAL IMAG STS IMAGING W/O ASS INCIDNT FND LES NTD: BLOOD 18152 VIJAY LINARES COUNT 7 [facility] COMPLETE INC INC AUTO&AUTO DIFRNTL WBC ECG 47988 VIJAY GARCIA JR ROUTINE 7 [facility] W/LEAST P 12 LDS I&[place] [address] VIJAY VIJAY INFUSION 7 [facility] THERAPY/P INC INC ROPHYLAXI S /DX 1ST TO 1 [place] [address] VIJAYMARCUS ZAMORANOON INFUSION 7 [facility] THER INC INC PROPH ADDL SEQUENTIA L TO 1 HR SUSCEPTIB 76265 VIJAY LINARES LTY STDY 7 [facility] ANTIMICRB INC INC IAL MICRO/AGA R DILUTJ RADEX 32428 RADIOLOGY WALI FOOT 7 COMPLETE ASSOCIATE MINIMUM 3 S OF NOTH VIEWS RADIOLOGI 33882 RADIOLOGY BRANDSER C EXAM 7 KNEE ASSOCIATE COMPLETE S OF NOTH 4/MORE VIEWS RADEX 06043 RADIOLOGY BRANDSER ANKLE 7 COMPLETE ASSOCIATE MINIMUM 3 S OF NOTH VIEWS INCISION 33206 [facility] & 7 EMERGENCY DRAINAGE ABSCESS PHYSICIAN SIMPLE/SI S NGLE COMPREHEN [address] ST [address] SIVE 7 [facility]IRK METABOLIC PANEL HEALTHCAR HEALTHCAR E EDGE E EDGE OBSERVATI 42292 [facility] WARNER ON CARE 6 MEDICAL DISCHARGE SERV FOUNDATIO MANAGEMEN N T INITIAL 08199 [facility] WARNER OBSERVATI 6 MEDICAL ON SERV CARE/DAY FOUNDATIO 70 N MINUTES CRITICAL 31162 [facility] 6 PHYSICIAN ILL/INJUR S, PLLC ED PATIENT INIT 30-74 MIN AMB A0427 [facility] SERVICE 6 AMBULANCE AMBULANCE ALS SERVICE SERVICE EMERGENCY TRANSPORT LEVEL 1 GROUND A0425 [facility]ISS[facility] MILEAGE 6 AMBULANCE AMBUL[place] [address] MIGUELITO JOHNS HEAD/BRAI 6 MEDICAL N W/O IMAGING CONTRAST ASS MATERIAL RADEX 05827 [place] CK TRIPP FOOT 6 MEDICAL COMPLETE SERV MINIMUM 3 FOUNDATIO VIEWS N MRI BRAIN 91753 [place] FAM MEJIA BRAIN 6 MEDICAL STEM W/[place] [address] MIGUELITO JOHNS CERVICAL 6 MEDICAL SPINE W/O IMAGING CONTRAST ASS MATERIAL RADIOLOGI 73619 [place] TRUE QASIM C 6 MEDICAL EXAMINATI SERV ON KNEE 3 FOUNDATIO VIEWS N ECG 96760 VIJAY MEYERS ROUTINE 6 [facility] W/LEAST P 12 LDS I&[place] [address] VIJAY LINARES INFUSION 6 [facility] THERAPY/P INC INC ROPHYLAXI S /DX 1ST TO 1 HR THERAPEUT 11375 VIJAY LINARES IC 6 [facility] INJECTION INC INC IV PUSH EACH NEW DRUG URNLS DIP 58631 VIJAY LINARES 6 [facility] STICK/TAB INC INC LET REAGENT AUTO MICROSCOP Y BLOOD 47402 VIJAY LINARES COUNT 6 [facility] COMPLETE INC INC AUTO&AUTO DIFRNTL WBC CULTURE 48895 VIJAY LINARES BCT 6 [facility] ISOL&PRSM INC INC PTV ID ISOLATE EA URINE CULTURE 29660 VIJAY LINARES BACTERIAL 6 [facility] INC INC QUANTTATI VE COLONY COUNT URINE URINE 26440 VIJAY LINARES 6 [facility] TEST INC INC [place] [address] VIJAY LINARES MAGNESIUM 6 [place] [address] VIJAY LINARES PHOSPHORU 6 [facility] S INC INC INORGANIC COMPREHEN 80406 VIJAY LINARES SIVE 6 [facility] METABOLIC INC INC PANEL SUSCEPTIB 09646 VIJAY LINARES LTY STDY 6 [facility] ANTIMICRB INC INC [place] [address] MAGNESIUM 6 [facility] FISHER DIVING [facility] FISHER [facility] ST POTASSIUM [address] SERUM 6 [facility] PLASMA/WH MED CTR MED CTR OLE BLOOD FISHER DIVING ST FISHER DIVING ST THERAPEUT [address] [facility] KELSI IC 6 [facility] PROPHYLAC TIC/DX PHYSICIAN INJECTION S SUBQ/IM INJECTION J1040 [facility] KELSI 6 [facility] METHYLPRE DNISOLONE PHYSICIAN ACETATE S 80 [place] [address] VIJAY LINARES INFUSION 6 [facility] THER INC INC PROPH ADDL SEQUENTIA L TO 1 HR ECG 68637 VIJAY GARCIA JR ROUTINE 6 [facility] W/LEAST P 12 LDS I&[place] [address] VIJAY LINARES INFUSION 6 [facility] THERAPY/P INC INC ROPHYLAXI S /DX 1ST TO 1 HR BLOOD 88541 VIJAY LINARES COUNT 6 [facility] COMPLETE INC INC AUTO&[place] [address] VIJAY LINARES TROPONIN 6 [facility] QUANTITAT INC INC KATHIA UNCLASSIF J3490 VIJAY LINARES IED DRUGS 6 [facility] INC INC CULTURE 73016 VIJAY LINARES BACTERIAL 6 [facility] INC INC QUANTTATI VE COLONY COUNT URINE CULTURE 39359 VIJAY LINARES BCT 6 [facility] ISOL&PRSM INC INC PTV ID ISOLATE EA URINE RADIOLOGI 69227 VIJAY LINARES C 6 [facility] EXAMINATI INC INC ON CHEST SINGLE VIEW FRONTAL CREATINE 96626 VIJAY LINARES KINASE MB 6 [facility] FRACTION INC INC ONLY ECG 06948 VIJAY LINARES ROUTINE 6 [facility] ECG INC INC W/LEAST 12 LDS TRCG ONLY W/O I&[place] [address] VIJAY LINARES HEAD/BRAI 6 [facility] N W/O INC INC CONTRAST MATERIAL URINE 06043 VIJAY LINARES 6 [facility] [...] METH P DAY 1-7 DRUG CL CREATINE 18125 VIJAY LINARES KINASE 6 [facility] TOTAL INC INC AMB A0427 ULISSES GTZ SERVICE 6 AMBULANCE AMBULANCE ALS SERVICE SERVICE EMERGENCY TRANSPORT LEVEL 1 COMPREHEN 64977 VIJAY LINARES SIVE 6 [facility] METABOLIC INC INC PANEL SUSCEPTIB 80746 VIJAY LINARES LTY STDY 6 [facility] ANTIMICRB INC INC IAL MICRO/AGA R DILUTJ COLLECTIO [address] N VENOUS 6 [facility] KIRK BLOOD MARIO MARIO VENIPUNCT URE POTASSIUM [address] SERUM 6 [facility] PLASMA/WH MARIO MARIO OLE BLOOD CULTURE [address] BACTERIAL 6 [facility]IR[facility] MARIO MARIO QUANTTATI VE COLONY COUNT URINE CULTURE [address] BACTERIAL 6 [facility] MED [facility] MED CTR QUANTTATI FISHER DIVING ST FISHER DIVING ST VE COLONY COUNT URINE CULTURE [address] BCT 6 [facility] ISOL&PRSM MED CTR MED CTR PTV ID FISHER DIVING ST FISHER DIVING ST ISOLATE EA URINE BLOOD [address] COUNT 6 [facility] COMPLETE MED CTR MED CTR AUTO&AUTO FISHER DIVING ST [place] [address] MAGNESIUM 6 [facility] MED [facility] MED CTR FISHER [address] BASIC [address] METABOLIC 6 K[facility] PANEL MED CTR MED CTR CALCIUM FISHER DIV[address] ST FISHER [address] TOTAL SUSCEPTIB [address] ST LTY STDY 6 KIRK BRADLEY ANTIMICRB MED CTR MED CTR IAL FISHER DIVING ST FISHER DIVING ST MICRO/AGA R DILUTJ URINE 83309 VIJAY LINARES 5 [facility] TEST INC INC VISUAL COLOR CMPRSN METHS URNLS DIP 25487 VIJAY LINARES 5 [facility] STICK/TAB INC INC LET REAGENT AUTO MICROSCOP Y CYSTO 86583 VIJAY LINARES W/SIMPLE 5 [facility] REMOVAL INC INC STONE & STENT CULTURE 26903 VIJAY LINARES BACTERIAL 5 [facility] INC INC QUANTTATI VE COLONY COUNT URINE RADEX 90107 VIJAY LINARES ABDOMEN 1 5 [facility] INC INC ANTEROPOS TERIOR VIEW URINE 46219 VIJAY LINARES 5 [facility] TEST INC INC VISUAL COLOR CMPRSN METHS STENT C2617 VIJYA LINARES NON-COR 5 [facility] TEMPORARY [place] [address] VIJAY LINARES INFUSION 5 [facility] THERAPY INC INC PROPHYLAX IS/DX EA HOUR CYSTO/URE 62022 VIJAY LINARES TERO 5 [facility] W/LITHOTR INC INC IPSY &INDWELL STENT INSRT INJECTION J0131 VIJAY LINARES 5 [facility] ACETAMINO INC INC PHEN 10 MG INTRO 02976 VIJAY LINARES URETERAL 5 [facility] CATH/STEN INC INC T PRQ RS&I INJECTION J2405 VIJAY LINARES 5 [facility] ONDANSETR INC INC ON HCL PER 1 MG ANES 51165 [facility] NEVAREZ ECHO TRURL 5 ANESTH FRAGMNTJ OF THE MANJ&/[place] [address] [facility] ABDOMEN & 5 MEDICAL BRIE PELVIS IMAGING W/O ASS CONTRAST MATERIAL BASIC 32871 DANA Dempsey METABOLIC 5 [facility] TY PANEL [facility] CALCIUM TOTAL COLLECTIO 85018 KARSON Gordon VENOUS 5 PRIMARY BLOOD CARE VENIPUNCT URE BLOOD 18944 DANA Dempsey COUNT 5 TRINAGIN TRINAGIN COMPLETE MEM [facility] AUTO&AUTO DIFRNTL WBC CULTURE 13423 DANA Dempsey BACTERIAL 5 HAGGIN HAGGIN [facility]OS QUANTTATI VE COLONY COUNT URINE MRI BRAIN 91279 DANA Dempsey BRAIN 5 KARSON MENAGIN STEM W/O MEM H[facility] W/CONTRAS T MATERIAL INJECTION A9579 DANA Dempsey 5 HAGGIN TRINAGIN GADOLINIU [facility] M BASED MR CONTRAST NOS ML MRI ORBIT 83042 [facility] MARY FACE & 5 RADIOLOGY NECK W/O & ASSOCIATE W/CONTRAS T MATRL URNLS DIP 69212 KARSON QUEEN 5 PRIMARY STICK/TAB CARE LET RGNT NON-AUT[place] W/[place] [address] DANA Dempsey THYROID 5 KARSON MENAGIN STIMULATI MEM [facility] [place] [address] DANA Dempsey BLOOD/URI 5 KARSON MENAGIN C ACID [facility] COMPREHEN 95007 DANA Dempsey SIVE 5 HAGGIN HAGGIN METABOLIC [facility] PANEL CYANOCOBA 89457 DANA Dempsey LOLY 5 HAGGIN HAGGIN VITAMIN [place] B-12 [place] [address] [facility] ABDOMEN & 5 RADIOLOGY RADIOLOGY PELVIS W/O ASSOCIATE ASSOCIATE CONTRST 1/> BODY RE THER 86887 DANA Dempsey PROPH/DX 5 HAGGIN HAGGIN NJX IV [facility] PUSH SINGLE/1S T SBST/DRUG BLOOD 62121 SURAJ SURAJ COUNT 5 HERNANDEZ HERNANDEZ COMPLETE REGIONAL REGIONAL AUTO&AUTO ME ME DIFRNTL WBC BASIC 15745 SURAJ SURAJ METABOLIC 5 HERNANDEZ HERNANDEZ PANEL REGIONAL REGIONAL CALCIUM ME ME TOTAL THER 69887 SURAJ SURAJ PROPH/DX 5 HERNANDEZ HERNANDEZ NJX IV REGIONAL REGIONAL PUSH ME ME SINGLE/1S T SBST/[place] [address] SURAJ SURAJ ABDOMEN & 5 HERNANDEZ HERNANDEZ PELVIS REGIONAL REGIONAL W/O ME ME CONTRAST MATERIAL URNLS DIP 89428 SURAJ SURAJ 5 DAVID CHAVIRAELL STICK/TAB REGIONAL REGIONAL LET ME ME REAGENT AUTO MICROSCOP Y CYSTO 61689 MILY LOMELISHRUTHI W/URETERO 5 [facility] W/RMVL/MA PSC NJ STONES ANES 09862 [facility] [place] TRURL 5 ANESTHESI CRY FRAGMNTJ A MANJ&/RMV ASSOCIAT [place] L[place] I [address] [facility] SURG 5 PATHOLOGY MOHAMUD PATHOLOGY ASSOCIAT GROSS EXAMINATI ON ONLY CYSTO 77867 MILY LOMELISHRUTHI W/INSERT 5 [facility] URETERAL CLINIC STENT PSC ECG 82735 SURAJ HEMPEL ROUTINE 5 [facility] ANTONINO ECG REGG MED W/LEAST CT 12 LDS I&[place] [address] [facility] ABDOMEN & 5 RADIOLOGY PELVIS W/O ASSOCIATE CONTRAST MATERIAL GROUND A0425 [employer] MILEAGE 5 EMERG EMERG PER MEDICALSE MEDICALSE STATUTE R R MILE INITIAL 65476 [facility] 5 [facility] CARE/DAY CLINIC CLINIC [address] [place] [address] DANA Dempsey ABDOMEN & 5 HAGGIN HAGGIN PELVIS [facility] W/O CONTRAST MATERIAL URNLS DIP 21076 DANA Dempsey 5 KARSON HAGGIN STICK/TAB [facility] MEM HOS LET REAGENT AUTO MICROSCOP Y THERAPEUT 79569 DANA Dempsey IC 5 HAGGIN HAGGIN PROPHYLAC [...] HOS TROMETHAM INE PER 15 MG MRI 23290 [facility] [address] SPINAL 5 RADIOLOGY RUPA CANAL LUMBAR ASSOCIATE W/O CONTRAST MATERIAL RADEX 77032 [facility] MIC[facility] STEFANY SPINE 5 RADIOLOGY LUMBOSACR AL ASSOCIATE MINIMUM 4 VIEWS INJECTION J1885 DANA Dempsey 5 HAGGIN HAGGIN KETOROLAC MEM HOS MEM HOS TROMETHAM INE PER 15 MG UNCLASSIF J3490 DANA Dempsey IED DRUGS 5 HAGGIN HAGGIN [facility] THER 06358 DANA Dempsey PROPH/DX 5 HAGGIN HAGGIN NJX IV MEM H[facility] PUSH SINGLE/1S T SBST/DRUG GONADOTRO 62693 DANA Dempsey PIN 5 HAGGIN HAGGIN CHORIONIC MEM [facility] MEM HOS QUALITATI VE BLOOD 25149 DANA Dempsey COUNT 5 HAGGIN HAGGIN COMPLETE [facility]OS AUTO&AUTO DIFRNTL WBC THERAPEUT 84009 DANA Dempsey IC 5 HAGGIN HAGGIN INJECTION [facility] MEM [facility]OS IV PUSH EACH NEW DRUG INJECTION J2405 DANA Dempsey 5 HAGGIN HAGGIN ONDANSETR MEM HOS MEM HOS ON HCL PER 1 MG URNLS DIP 98829 DANA Dempsey 5 HAGGIN HAGGIN STICK/TAB [facility] [place] [address] DANA Dempsey ABDOMEN & 5 HAGGIN HAGGIN PELVIS [facility] W/O CONTRAST MATERIAL GROUND A0425 [employer] MILEAGE 5 EMERG EMERG PER MEDICALSE MEDICALSE STATUTE R R MILE AMBULANCE A0429 [employer] SERVICE 5 EMERG EMERG BLS MEDICALSE MEDICALSE EMERGENCY R R TRANSPORT COMPREHEN 94328 DANA Dempsey SIVE 5 HAGGIN HAGGIN METABOLIC [facility] PANEL COLLECTIO 01963 DANA Dempsey N VENOUS 5 HAGGIN HAGGIN BLOOD [facility] MEM HOS VENIPUNCT URE THERAPEUT 43181 DANA Dempsey IC 5 HAGGIN HAGGIN PROPHYLAC [facility] TIC/DX INJECTION SUBQ/IM RADEX 53368 [facility] ABDOMEN 4 RADIOLOGY COMPL W/DCBTS&/ ASSOCIATE ERC VIEWS RADEX 01013 [facility] [address] FOOT 4 RADIOLOGY RUPA COMPLETE MINIMUM 3 ASSOCIATE VIEWS RADEX 29643 [facility] ANKLE 4 RADIOLOGY RUPA COMPLETE MINIMUM 3 [place] [address] [place] THYROID 4 [facility] STIMULATI [place] [address] [place] FREE 4 [facility] THYROXINE HOSP HOSP RADEX 90718 [facility] SMOOTH SPINE 4 RADIOLOGY ADA LUMBOSACR AL 2/3 ASSOCIATE VIEWS RADEX 23910 [facility] GABY SPINE 4 KARIME LUMBOSACR FAMILY AL MEDICAL MINIMUM 4 VIEWS CULTURE 65209 SURAJ SURAJ BACTERIAL 4 HERNANDEZ HERNANDEZ REGIONAL REGIONAL QUANTTATI ME ME VE COLONY COUNT URINE THERAPEUT 78101 SURAJ SURAJ IC 4 HERNANDEZ HERNANDEZ INJECTION REGIONAL REGIONAL [place] [address] SURAJ SURAJ INFUSION 4 HERNANDEZ HERNANDEZ THERAPY/P REGIONAL REGIONAL ROPHYLAXI ME ME S /DX 1ST TO 1 HR RADEX 56480 SURAJ SURAJ ABDOMEN 4 HERNANDEZ HERNANDEZ COMPL REGIONAL REGIONAL W/DCBTS&/ [place] [address] SURAJ SURAJ ABDOMEN & 4 HERNANDEZ HERNANDEZ PELVIS REGIONAL REGIONAL W/O ME ME CONTRAST MATERIAL URNLS DIP 08637 SURAJ SURAJ 4 HERNANDEZ HERNANDEZ STICK/TAB REGIONAL REGIONAL LET [place] [address] [place] TRANSVAGI 4 MEDICAL MEDICAL NAL SERV SERV FOUNDATIO FOUNDATIO US PELVIC [address] [place] MICHELLE 4 MEDICAL LEANNE NONOBSTET SERV ANTONINO IMAGE FOUNDATIO DCMTN LIMITED/F /U RADEX 05330 [facility] [place] WESTERFI[place] RIBS UNI 4 RADIOLOGY LD IV ALL W/POSTERO ANT CH MINIMUM 3 [place] [address] NICKELS NICKELS EXTREMITY 4 LATOYA LATOYA NON-VASC REAL-TIME IMG LMTD RADEX ABD 54022 NICKELS NICKELS COMPL 4 LATOYA LATOYA AQT ABD W/S/E/D VIEWS 1 VIEW CH WRIST L3908 ADVANCED ADVANCED HAND 3 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 ORTHOSIS IES INC IES INC EXT CONTROL COCK-UP PREFAB RADEX 79370 WALI WALI WRIST 3 TREVIN TREVIN COMPLETE MINIMUM 3 VIEWS GROUND A0425 [facility] [place] MILEAGE 3 [facility] AMB A0427 [place] SERVICE 3 [facility] TRANSPORT LEVEL 1 ALS A0398 [place] ROUTINE 3 [facility] SUPPLIES RADEX HIP 37403 LERMA LERMA 3 BRA BRA UNILATERA L COMPLETE [place] [place] [address] [facility] ABDOMEN & 3 Y OF RAFAEL PELVIS [facility] W/O I PHY CONTRAST MATERIAL GROUND A0425 R[place] RURAL MILEAGE 3 [facility] ALS A0398 [place] ROUTINE 3 [facility] SUPPLIES AMB A0427 [facility] SERVICE 3 [facility] TRANSPORT LEVEL 1 RADEX 30218 BRANDSER BRANDSER SACRUM & 3 NOELLE NOELLE COCCYX MINIMUM 2 VIEWS RADEX 11524 RADIOLOGY [place] ABDOMEN 1 2 BRA ASSOCIATE [place] [address] RISON ALL RISON ALL DX/THER 2 SBST EPIDURAL/ SUBARACH LUMBAR/SA CRAL MODERATE 30364 RISON ALL RISON ALL SEDATJ 2 SAME PHYS/QHP 5/>YRS INIT 30 MIN FLUOR 50113 RISON ALL RISON ALL NEEDLE/CA 2 TH [...] SONE ACETATE & PHOSPHATE 3 MG FLUOR 62329 RISON ALL RISON ALL NEEDLE/CA 2 TH SPINE/PAR ASPINAL DX/[place] [address] RISON ALL RISON ALL DX/THER 2 SBST EPIDURAL/ SUBARACH LUMBAR/SA CRAL CRTCHS E0114 ADVANCED ADVANCED UNDARM 2 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 OTH THAN IES INC IES INC WOOD PAIR PAD TIP&HNDGR IP RADEX 12933 RADIOLOGY DOERGER FOOT 2 KIR COMPLETE ASSOCIATE MINIMUM 3 S OF NOTH VIEWS SURGICAL L3260 ADVANCED ADVANCED BOOT/SHOE 2 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 EACH IES INC IES INC INJECTION J1040 [facility] RUPA RUPA METHYLPRE DNISOLONE ACETATE 80 MG THERAPEUT 47733 [facility] IC 2 RUPA RUPA PROPHYLAC TIC/DX INJECTION SUBQ/IM AMBULANCE A0429 RURAL/MET RURAL/MET SERVICE 1 RO RO BLS AMBULANCE AMBULANCE EMERGENCY TRANSPORT GROUND A0425 RURAL/MET RURAL/MET MILEAGE 1 RO RO PER AMBULANCE AMBULANCE STATUTE MILE THERAPEUT 58190 [facility] IC 1 KIRK GOODE PROPHYLAC TIC/DX PHYSICIAN INJECTION S SUBQ/IM INJECTION J0696 [facility] 1 KIRK GOODE CEFTRIAXO NE SODIUM PHYSICIAN PER 250 S MG GROUND A0425 [facility] MILEAGE 1 AMBULANCE AMBULANCE PER SERVICE SERVICE STATUTE MILE AMB A0427 [facility] SERVICE 1 AMBULANCE AMBULANCE ALS SERVICE SERVICE EMERGENCY TRANSPORT LEVEL 1 ORBITOTOM 14953 [facility] Y W/O 1 CENTERS MAR BONE FLAP FOR SIGHT, W/[place] [address] [facility] SURG 1 [place] [facility] GROSS&JALYN ROSCOPIC EXAM IMHISTOCH 25376 [facility] EM/CYTCHM [address] ANTIBODY STAIN PROCEDURE CJP 04889 [facility] RCNSTJ 1 CENTERS MAR CUL-DE-SA FOR C BUCCAL SIGHT, GRF/XTNSV REARRGMT ANESTHESI 95664 INDEPENDE COSTANTIN A EYE NOT 1 NT I CAR ANESTHESI OTHERWISE OLOGIST SPECIFIED CYSTO 13109 NEW NEW W/URETERO 1 [facility] SCOPY CLINIC CLINIC W/LITHOTR PSC PSC IPSY PROSTHETI L8699 NEW NEW C IMPLANT 1 [facility] NOT CLINIC CLINIC OTHERWISE PSC PSC SPECIFIED ANES 60418 ANESTHESI GRABMAYER TRURL 1 A RUPA FRAGMNTJ ASSOCIATE MANJ&/RMV S, PSC L URETERAL CALCULUS CYSTO 27723 NEW NEW W/INSERT 1 [facility] URETERAL CLINIC CLINIC STENT PSC PSC URNLS DIP 57092 VIJAY ARCOS 1 [facility] LET RGNT P NON-AUTO W/O MICRSCP CT ORBIT 21768 RADIOLOGY GEORGE BYR SELLA/POS 1 T ASSOCIATE FOSSA/EAR S PSC W/CONTRAS T MATRL XTRNL 23498 [facility]-STATE CEPELA OCULAR 1 [facility] MAR PHOTOG FOR W/I&[place], [place] [address] VIJAY LINARES INFUSION 1 [facility] THERAPY/P INC INC ROPHYLAXI S /DX 1ST TO 1 HR 3D 35532 [facility] LOPEZ RENDERING 1 MEDICAL GUTIERREZ IMAGING W/INTERP& ASS POSTPROC DIFF WORK STATION URINE 28440 VIJAY LINARES 1 [facility] TEST INC INC VISUAL COLOR CMPRSN METHS URNLS DIP 11231 VIJAY LINARES 1 [facility] STICK/TAB INC [place] [address] V[place] JESSICA ABDOMEN & 1 MEDICAL GUTIERREZ PELVIS IMAGING W/O ASS CONTRAST MATERIAL DETERMINA 05525 SHEWMAKER SHEWMAKER TION 1 VLADIMIR GRIFFIN REFRACTIV E STATE RADIOLOGI 26706 [facility] JESSICA C 0 MEDICAL GUTIERREZ EXAMINATI IMAGING ON PELVIS ASS 1/2 VIEWS RADIOLOGI 74697 [facility] JESSICA C 0 MEDICAL GUTIERREZ EXAMINATI IMAGING ON CHEST ASS SINGLE VIEW FRONTAL RADEX 38265 [facility] MALIKJESSICA ELBOW 0 MEDICAL GUTIERREZ COMPLETE IMAGING MINIMUM 3 ASS VIEWS RADEX 86171 [facility] MALIKJESSICA HAND 0 MEDICAL GUTIERREZ MINIMUM 3 IMAGING VIEWS ASS RADEX 95543 [facility] WADSWORTHJESSICA ANKLE 0 MEDICAL GUTIERREZ COMPLETE IMAGING MINIMUM 3 ASS VIEWS RADEX 94417 [facility] LOPEZ SPINE 0 MEDICAL GUTIERREZ CERVICAL IMAGING 6 OR MORE ASS VIEWS THERAPEUT 18493 [facility] IC 0 KIRK GOODE PROPHYLAC TIC/DX PHYSICIAN INJECTION S SUBQ/IM HEMOGLOBI 78653 [facility] N 0 KIRK BRADLEY GLYCOSYLA BLAIRE A1C MEDICALCE MEDICALCE NTER NTER BLOOD [address] COUNT 0 KIRK BRADLEY COMPLETE AUTO&AUTO MEDICALCE MEDICALCE DIFRNTL NTER NTER WBC AMBULANCE A0429 GALLATIN GALLATIN SERVICE 0 [place] EKRRI BLS [address] COURT EMERGENCY TRANSPORT GROUND A0425 GALLATIN GALLATIN MILEAGE 0 CO [place] K[place]RI [place] [address] ST ROSS, SURG 0 [facility] GROSS&JALYN ROSCOPIC EXAM ANTIBODY 95834 COMBINED COMBINED CHLAMYDIA 9 PHYSICIAN PHYSICIAN S LAB S LAB CUL BACT 55194 COMBINED COMBINED XCPT 9 PHYSICIAN PHYSICIAN URINE S LAB S LAB BLOOD/STO OL AEROBIC ISOL MRI 23472 RADIOLOGY AVI, SPINAL 9 HEAVEN G CANAL ASSOCIATE LUMBAR S PSC W/O CONTRAST MATERIAL SERVICES 65561 Christian FLORES PROVIDED 9 MEDICAL J OFFICE GROUP OTH/THN REG SCHED HOURS URINE 67403 VIJAY LINARES 9 [facility] TEST INC INC VISUAL COLOR CMPRSN METHS RADEX 06088 [facility] MALIKJESSICA, FOOT 9 MEDICAL BISI COMPLETE IMAGING MINIMUM 3 ASSOCIATE VIEWS S RADEX 19655 [place] JESSICA, ANKLE 9 MEDICAL BISI COMPLETE IMAGING MINIMUM 3 ASSOCIATE VIEWS S RADEX 69047 KUNATH, COLGLAZIE SPINE 9 LOPEZ & R, LUMBOSACR [place] AL 2/3 ER L VIEWS RADIOLOGI 30568 KUNATH, COLGLAZIE C 9 LOPEZ & R, EXAMINATI TEMMING MAY[place] ON FOOT 2 ER L VIEWS RADEX 62281 KUNATH, COLGLAZIE HAND 2 9 LOPEZ & R, VIEWS TEMMING MAYCO ER L BLOOD 38583 [facility] Christian WEBB COUNT 9 MEDICAL J COMPLETE GROUP AUTO&AUTO DIFRNTL WBC CYSTO 19484 JOANA ARCOS, W/SIMPLE 8 LTH MAGY D REMOVAL UROLOGY STONE & PSC STENT URNLS DIP 66205 JOANA ARCOS, 8 LTH MAGY D STICK/TAB UROLOGY LET RGNT PSC AUTO W/O MICROSCOP Y RADEX 38354 OFFICE NATA, ABDOMEN 1 8 ISA Gonzales DIAGNOSTI ANTEROPOS C TERIOR SERVICES VIEW URNLS DIP 13272 SUMMChristian HILTON 8 MEDICAL J STICK/TAB GROUP LET RGNT AUTO W/O MICROSCOP Y CULTURE [address] BACTERIAL 8 KIRK BRADLEY QUANTTATI MEDICALCE MEDICALCE VE COLONY NTER NTER COUNT URINE CYSTO 31876 JOANA ARCOS, W/URETERO 8 LTH MAGY D SCOPY UROLOGY W/LITHOTR PSC IPSY ANES 89065 ANESTHESI KIRK, LITHOTRP 8 A SAM A [employer] ASSOCIATE SHOCK S, PSC WAVE W/O WATER BATH RADEX 00441 [place] TAMI, ABDOMEN 1 8 RADIOLOGY NUPUR M ANTEROPOS TERIOR VIEW URNLS DIP 19482 VIJAY LINARES 8 [facility] STICK/TAB INC INC LET REAGENT AUTO MICROSCOP Y URINE 69045 VIJAY LINARES 8 [facility] TEST INC INC VISUAL COLOR CMPRSN METHS 3D 28714 VIJAY LINARES RENDERING 8 [facility] INC INC W/INTERP& POSTPROC DIFF WORK STATION BASIC 42506 VIJAY LINARES METABOLIC 8 [facility] [address] MIGUELITO PHYLLIS, ABDOMEN 8 MEDICAL PHIL P W/O IMAGING CONTRAST ASSOCIATE MATERIAL S BLOOD 02128 VIJAY LINARES COUNT 8 [facility] COMPLETE INC INC AUTO&AUTO DIFRNTL WBC CULTURE 21813 VIJAY LINARES BACTERIAL 8 [facility] INC INC QUANTTATI VE COLONY COUNT URINE CT PELVIS 54469 VIJAY LINARES W/O 8 [facility] CONTRAST INC INC MATERIAL SUSCEPTIB 24503 VIJAY LINARES LTY STDY 8 [facility] ANTIMICRB INC INC IAL MICRO/[place] [address] THYROID 8 KIRK KIRK STIMULATI NG MEDICALCE MEDICALCE HORMONE NTER NTER TSH SEDIMENTA [address] TION RATE 8 KIRK KIRK RBC AUTOMATED MEDICALCE MEDICALCE NTER NTER RHEUMATOI [address] D FACTOR 8 KIRK KIRK QUALITATI VE MEDICALCE MEDICALCE NTER NTER BLOOD [address] COUNT 8 KIRK KIRK COMPLETE AUTO&AUTO MEDICALCE MEDICALCE DIFRNTL NTER NTER WBC CHOLESTER [address] OL 8 KIRK KIRK SERUM/WHO LE BLOOD MEDICALCE MEDICALCE TOTAL NTER NTER BASIC [address] METABOLIC 8 KIRK KIRK PANEL CALCIUM MEDICALCE MEDICALCE TOTAL NTER NTER COLLECTIO 47615 [facility] Christian WEBB N VENOUS 8 MEDICAL J BLOOD GROUP VENIPUNCT URE HEPATIC [address] FUNCTION 8 KIRK KIRK PANEL [place] [address] BLOOD/URI 8 KIRK KIRK C ACID MEDICALCE MEDICALCE NTER NTER RADEX [address] SPINE 8 [facility] 2/[address] SPINE 8 [facility] 3 VIEWS INCISION 53050 ATA BECERRIL, & 8 EMERG DREUX DRAINAGE SERV ABSCESS ASSOC COMPLICAT ED/MULTIP LE AMBULANCE A0429 TRANSCARE TRANSCARE SERVICE 8 OF [facility] EMERGENCY , INC. , INC. TRANSPORT GROUND A0425 TRANSCARE TRANSCARE MILEAGE 8 OF [facility] STATUTE , Trippifi. , INC. MILE 16302 [place] NEERU FERGUSON 8 ROSEANNE DUEÑAS IMAGING ASSOCIATE S URINE 08289 VIJAY LINARES 8 [facility] TEST INC INC VISUAL COLOR CMPRSN METHS BASIC 35839 VIJAY LINARES METABOLIC 8 [facility] PANEL INC INC CALCIUM TOTAL URNLS DIP 62686 VIJAY LINARES 8 [facility] STICK/TAB INC INC LET REAGENT AUTO MICROSCOP Y BLOOD 92638 VIJAY LINARES COUNT 8 [facility] COMPLETE INC INC AUTO&AUTO DIFRNTL WBC Encounters Encounter Start End Date Code Location Performer Type Date EMERGENCY 66816 FRANCO LALA DEPT 7 7 PHYSICIAN VISIT S, PLLC HIGH SEVERITY& THREAT FUNCJ OFFICE 49959 [facility] 7 7 KIRK T VISIT 15 PHYSICIAN MINUTES S OFFICE 91261 [facility] OUTPATI 7 7 KIRK T VISIT [address] [facility] - 7 7 [facility] VIJAY - 7 7 [facility] OUTPATIEN INC T EMERGENCY 09942 VIJAY 7 7 [facility] DEPARTMEN INC T VISIT HIGH/URGE NT SEVERITY EMERGENCY 47368 MAISHA MURRIETA 7 7 EMERGENCY DEPARTMEN T VISIT PHYSICIAN HIGH/URGE S NT SEVERITY EMERGENCY 38441 [facility] 7 7 EMERGENCY DEPARTMEN T VISIT PHYSICIAN HIGH/URGE S NT SEVERITY HOSPITAL - 7 7 [facility] 68885 [facility] 6 6 MEDICAL VISIT SERV HIGH FOUNDATIO SEVERITY& N THREAT FUNCJ EMERGENCY 75967 VIJAY 6 6 MEM [facility] DEPARTMEN INC T VISIT MODERATE SEVERITY HOSPITAL VIJAY - 6 6 [facility] OUTPATIEN [facility] EMERGENCY 68484 FRANCO LALA 6 6 PHYSICIAN JALYN DEPARTMEN S, [facility] T VISIT HIGH/URGE NT SEVERITY OFFICE 02244 [facility] 6 KIRK T VISIT 25 PHYSICIAN MINUTES [facility] ST - 6 6 [facility] OUTPATIEN MED CTR T [facility] VIJAY - 6 6 MEM [facility] OUTPATIEN [facility] EMERGENCY 45953 VIJAY DEPT 6 6 MEM HOSP VISIT INC HIGH SEVERITY& THREAT FUNCJ OFFICE 63189 [facility] KATIA OUTPATIEN 6 6 DISEASE HORACIO T NEW 60 CONSULTAN MINUTES [facility] ST[facility] - 6 6 KIR[facility] OUTPATIEN MARIO T OFFICE 66900 [facility] KIRK II ALETHA T VISIT 15 PHYSICIAN MINUTES [facility] ST - 6 6 [facility] OUTPATIEN MED CTR T [facility] VIJAY - 5 5 [facility] OUTPATIEN [facility] VIJAY - 5 5 [facility] OUTPATIEN [facility] VIJAY - 5 5 [facility] OUTPATIEN [facility] T OFFICE 94969 VIJAY ARCOS OUTPATIEN 5 5 [facility] 20 HOSPITAL MINUTES HOSPITAL VIJAY - 5 5 [facility] OUTPATIEN INC T OFFICE 99238 [facility] 5 5 PRIMARY T VISIT CARE 15 MINUTES HOSPITAL DANA Dempsey - PARMINDER 5 5 [facility] DANA Dempsey - 5 5 [facility] T OFFICE 46907 [facility] OUTPATI[facility] 5 5 PRIMARY T VISIT CARE 15 MINUTES HOSPITAL DANA Dempsey - PARMINDER 5 5 [facility] EMERGENCY 80226 [facility] GENE Ribeiro DEPT 5 5 RIMMA VISIT EMERGENCY HIGH PHYS SEVERITY& THREAT [facility] DA[facility] Demp[facility] - 5 5 [facility] T EMERGENCY 56780 SURAJ 5 5 [facility] ME MODERATE SEVERITY EMERGENCY 02329 [facility] DEPT 5 5 RIMMA VISIT EMERGENCY HIGH PHYS SEVERITY& THREAT [facility] SURAJ - 5 5 HERNANDEZ OUTPATIEN REGIONAL T ME EMERGENCY 22043 [facility] DEPT 5 5 RIMMA SANTOSH VISIT EMERGENCY HIGH PHYS SEVERITY& THREAT [facility] DANA Dempsey - 5 5 [facility] T EMERGENCY 69283 DANA Dempsey 5 5 [facility] DEPARTMEN [facility] H[facility] T VISIT MODERATE SEVERITY EMERGENCY 50251 DANA Dempsey 5 5 [facility] DEPARTMEN [facility] T VISIT MODERATE SEVERITY HOSPITAL DANA Dempsey - 5 5 [facility] T EMERGENCY 65469 [facility] RIMMA MAGDALENA DEPARTMEN EMERGENCY T VISIT PHYS MODERATE SEVERITY HOSPITAL DANA Dempsey - 5 5 [facility] T EMERGENCY 69215 DANA Dempsey 5 5 [facility] DEPARTMEN [facility] T VISIT HIGH/URGE NT SEVERITY EMERGENCY 43055 DANA Dempsey 5 5 [facility] DEPARTMEN [facility] H[facility] T VISIT MODERATE SEVERITY HOSPITAL DANA Dempsey - 5 5 [facility] T EMERGENCY [address] [facility] 5 5 RIMMA DEPARTMEN EMERGENCY T VISIT PHYS HIGH/URGE NT SEVERITY HOSPITAL DANA Dempsey - 5 5 [facility] T EMERGENCY 51973 [facility] 5 RIMMA ALETHA VISIT EMERGENCY HIGH PHYS SEVERITY& THREAT FUNCJ EMERGENCY 95947 DANA Dempsey 5 5 [facility] DEPARTMEN [facility] T VISIT HIGH/URGE NT SEVERITY EMERGENCY 47929 [facility] 5 5 RIMMA DEPARTMEN EMERGENCY T VISIT PHYS MODERATE SEVERITY HOSPITAL DANA Dempsey - 5 5 [facility] T HOSPITAL SURAJ - 4 4 [facility] ME EMERGENCY 98099 [facility] DEPT 4 4 RIMMA VISIT EMERGENCY HIGH PHYS SEVERITY& THREAT FUNCJ EMERGENCY 08571 SURAJ 4 4 [facility] T VISIT ME HIGH/URGE NT SEVERITY EMERGENCY 42163 [facility] 4 4 RIMMA DEPARTMEN EMERGENCY T VISIT PHYS HIGH/URGE NT SEVERITY HOSPITAL FORT - 4 4 [facility] OUT[facility]IEN HOSP T EMERGENCY 62900 FORT 4 4 [facility] DEPARTMEN HOSP T VISIT MODERATE SEVERITY HOSPITAL FORT - 4 4 [facility] OUTPATIEN [facility]OSP T EMERGENCY 70307 [facility] RICHARD DEPT 4 4 RIMMA N RUPA VISIT EMERGENCY HIGH PHYS SEVERITY& THREAT FUNCJ EMERGENCY 78527 [facility] GUERRANT 4 4 RIMMA NOELLE DEPARTMEN EMERGENCY T VISIT PHYS MODERATE SEVERITY HOSPITAL SURAJ - 4 4 HERNANDEZ OUTPATIEN REGIONAL T ME OFFICE 83674 ALFONSO GRIFFIN OUTPATIEN 4 4 KARIME T VISIT FAMILY 15 MEDICAL MINUTES EMERGENCY 54277 [facility] ROBBINS 4 4 RIMMA PENG DEPARTMEN EMERGENCY T VISIT SERV HIGH/URGE NT SEVERITY EMERGENCY 25578 [facility] PASCALE CASTRO 4 4 RIMMA DEPARTMEN EMERGENCY T VISIT PHYS MODERATE SEVERITY OFFICE 60848 [place] [place] GRIFFIN OUTPATIEN 4 4 KARIME T VISIT FAMILY 15 MEDICAL MINUTES EMERGENCY 83466 [facility] JEF REEDER 4 4 RIMMA [facility] EMERGENCY T VISIT PHYS MODERATE SEVERITY HOSPITAL SURAJ - 4 4 HERNANDEZ OUTPATIEN REGIONAL T ME OFFICE 80180 [facility] 4 4 KARIME T NEW 30 FAMILY MINUTES MEDICAL EMERGENCY 36529 [facility] DEPT 4 4 RIMMA VISIT EMERGENCY HIGH PHYS SEVERITY& THREAT FUN EMERGENCY 56757 [facility] PARI MAGDALENA DEPT 4 4 RIMMA VISIT EMERGENCY HIGH PHYSI SEVERITY& THREAT FUN EMERGENCY 37098 FAM GOODE DEPT 4 4 VISIT HIGH SEVERITY& THREAT FUN EMERGENCY 64675 [facility] 4 4 DEPARTMEN T VISIT HIGH/URGE NT SEVERITY HOSPITAL [facility] - 4 4 [facility] 64523 UNIVERSIT 4 4 Y [facility] T VISIT HIGH/URGE NT SEVERITY OFFICE 11150 HOBLIZARIEL HOBLIMARY ANN OUTPATIEN 3 3 ANTONINO ANTONINO T NEW 30 MINUTES EMERGENCY 79359 MADINA Justin 3 3 HOWIE DENISE DEPARTMEN T VISIT MODERATE SEVERITY EMERGENCY 38985 TIMMY CHRIS 3 3 DEPARTMEN T VISIT MODERATE SEVERITY EMERGENCY 86435 BOSSMAN Galaviz 3 3 DEPARTMEN T VISIT HIGH/URGE NT SEVERITY EMERGENCY 39547 RONNA BROWNINGANGER 3 3 MARK CROSSI DEPARTMEN T VISIT MODERATE SEVERITY EMERGENCY 20619 MEGAN GUZMAN 3 3 LATOYA LATOYA DEPARTMEN T VISIT HIGH/URGE NT SEVERITY EMERGENCY 08853 DENISE HAMMONDY 3 3 GRE GRE DEPARTMEN T VISIT MODERATE SEVERITY EMERGENCY 79061 SELPH SCO SELPH SCO 3 3 DEPARTMEN T VISIT HIGH/URGE NT SEVERITY EMERGENCY 41036 TIMMY CHRIS 3 3 DEPARTMEN T VISIT HIGH/URGE NT SEVERITY OFFICE 26998 RISON ALL RISON ALL OUTPATIEN 2 2 T VISIT 10 MINUTES OFFICE 84148 PARIS PARIS OUTPATIEN 2 2 JALYN JALYN T VISIT 10 MINUTES OFFICE 32450 [facility] OUTPATIEN 2 2 JALYN JALYN T VISIT [address] SELPH SCO 2 2 KIRK [facility] MED CTR T VISIT MODERATE SEVERITY OFFICE 81442 RISON ALL RISON ALL OUTPATIEN 2 2 T VISIT 15 MINUTES OFFICE 65103 CASEY VIR CASEY VIR OUTPATIEN 2 2 T VISIT [address] [facility] TRO 2 2 [facility] T VISIT HIGH/URGE NT SEVERITY EMERGENCY 46635 GANIM HUGH GANIM HUGH 2 2 DEPARTMEN T VISIT MODERATE SEVERITY OFFICE 36309 MELISSA TORRES OUTPATIEN 2 2 RUPA RUPA T VISIT 25 MINUTES OFFICE 46005 RISON ALL RISON ALL OUTPATIEN 2 2 T NEW 30 MINUTES OFFICE 79532 HARTKARINA HARTIG OUTPATIEN 2 2 RUPA RUPA T VISIT 15 MINUTES OFFICE 23765 HARTKARINA HARTIG OUTPATIEN 2 2 RUPA RUPA T VISIT [address] BRACKEN 1 1 KIRK [facility] T VISIT PRACTICE MODERATE SEVERITY OFFICE 01022 CASEY VIR CASEY VIR OUTPATIEN 1 1 T VISIT [address] [facility] OUTPATIEN 1 1 KIRK JOHNS T VISIT 15 PHYSICIAN MINUTES S OFFICE 60976 [address] FRANKLINKARINA OUTPATIEN 1 1 KIRK RUPA T VISIT 15 PHYSICIAN MINUTES S EMERGENCY 49263 ATA MELO 1 1 EMERGENCY III [facility] T VISIT MODERATE SEVERITY EMERGENCY 54950 VIJAY 1 1 [facility]/M [facility] VIJAY - 1 1 [facility] OUTPATIEN INC T OFFICE 85270 [facility] CEPELA OUTPATIEN 1 1 [facility] VISIT FOR 25 SIGHT, MINUTES OFFICE 24037 VIJAY ARCOS OUTPATIEN 1 1 [facility] T VISIT HOSPITAL [address] - 1 1 KIRK OUTPATIEN MARIO T OFFICE 98570 [facility] CEPELA OUTPATIEN 1 1 [facility] NEW 30 FOR MINUTES SIGHT, EMERGENCY 85845 VIJAY 1 1 [facility] T VISIT HIGH/URGE NT SEVERITY EMERGENCY 49251 ATA FROST DEPT 1 1 EMERGENCY VISIT SERVICES HIGH SEVERITY& TH[facility]AT [facility] VIJAY - 1 1 [facility] OUTPATIEN INC T OFFICE [address] [facility] HARTIG OUTPATIEN 1 1 KIRK RUPA T VISIT 15 PHYSICIAN MINUTES S OFFICE 48797 SHEWNEELAM SHEWMAKER OUTPATIEN 1 1 VLADIMIR GRIFFIN T NEW [address] HARTIG OUTPATIEN 0 0 KIRK RUPA T VISIT 15 PHYSICIAN MINUTES S HOSPITAL VIJAY - 0 0 [facility] OUTPATIEN INC T EMERGENCY 79099 VIJAY 0 0 [facility] DEPARTMEN INC T VISIT LOW/MODER SEVERITY EMERGENCY 34662 [facility] DEPT 0 0 EMERGENCY JALYN VISIT SERVICES HIGH SEVERITY& THREAT FUNCJ OFFICE 03034 ST HARTIG OUTPATIEN 0 0 KIRK RUPA T VISIT 15 PHYSICIAN MINUTES S EMERGENCY 66365 ST PERAZZO 0 0 KIRK GIOAVNY DEPARTMEN MED CTR T VISIT MODERATE SEVERITY OFFICE 45773 ST HARTIG OUTPATIEN 0 0 KIRK RUPA T VISIT 15 PHYSICIAN MINUTES S OFFICE 76381 ST HARTIG OUTPATIEN 0 0 KIRK RUPA T VISIT 15 PHYSICIAN MINUTES S OFFICE 8[address] ST QUATKEMEY OUTPATIEN 0 0 KIRK ER BRA T VISIT 25 PHYSICIAN MINUTES S OFFICE 10615 ST QUATKEMEY OUTPATIEN 0 0 KIRK ER BRA T VISIT [address] PHYSIC[address] [facility] - 0 0 KIRK OUTPATIEN T MEDICALCE NTER OFFICE 13206 ST QUATKEMEY OUTPATIEN 0 0 KIRK ER BRA T VISIT 15 PHYSICIAN MINUTES S OFFICE 49[address] [facility] QUATKEMEY OUTPATIEN 0 0 KIRK ER, T VISIT CRANE 25 PHYSICIAN A MINUTES [facility] 0 [facility] MED[facility] NTER OFF[facility] 14191 [facility] 9 9 HEALTH QUYEN J T VISIT CLINIC [facility] [address] [facility] 16091 Christian FLORES 9 9 MEDICAL J T VISIT GROUP [address] - 9 9 [facility] 40647 VIJAY 9 9 MEM HOS[facility] DEPARTMEN INC T VISIT LOW/MODER SEVERITY EMERGENCY 70110 ATA RANDALL, 9 9 EMERGENCY MOHAN DEPARTMEN SERVICES O T VISIT MODERATE ASSOCIATE SEVERITY [facility] VIJAY - 9 9 [facility] 34139 [facility] 9 KIRK Willett DEPARTMEN MED CTR T VISIT HIGH/URGE NT SEVERITY EMERGENCY 13201 [facility], 9 9 KIRK [place] DEPARTMEN MED CTR T VISIT HIGH/URGE NT SEVERITY OFFICE 30525 FAITH DASILVA CONSULTAT 9 9 JOHN & RKHOI/ESTAB ER L PATIENT 60 MIN OFFICE 05586 Christian FLORES 9 9 MEDICAL J T VISIT GROUP 15 MINUTES OFFICE 66446 Christian FLORES 9 9 MEDICAL J T VISIT GROUP [address] WALKER, DEPT 9 9 KIRK [place] VISIT MED CTR HIGH SEVERITY& THREAT FUN OFFICE 37533 Christian FLORES 9 9 MEDICAL J T VISIT GROUP [address] - 8 8 [facility] OFFICE 90289 [facility] 8 8 [facility] MGAY Fer T VISIT UROLOGY 25 PSC MINUTES HOSPITAL VIJAY - 8 8 [facility] OUTPATIEN INC T EMERGENCY 12384 VIJAY 8 8 [facility] DEPARTMEN INC T VISIT HIGH/URGE NT SEVERITY HOSPITAL VIJAY - 8 8 [facility] OUTPATIEN INC T EMERGENCY 56209 [facility] VARELA, 8 8 [facility] T VISIT ON HIGH/URGE NT SEVERITY EMERGENCY 15828 VIJAY 8 8 [facility] DEPARTMEN INC T VISIT LOW/MODER SEVERITY HOSPITAL VIJAY - 8 8 [facility] OUTPATIEN [facility] T OFFICE 86547 Christian FLORES 8 8 MEDICAL J T VISIT GROUP [address] - 8 8 [facility] ST - 8 8 [facility] T OFFICE [id number] [facility] T VISIT GROUP 25 MINUTES EMERGENCY 30304 ATA BECERRIL, 8 8 [facility]OC HIGH/URGE NT SEVERITY EMERGENCY 58719 ATA YAO, 8 8 [facility] HIGH/URGE NT SEVERITY OFFICE 83961 [facility] VU 8 8 [facility] J T VISIT CLINIC OF 15 MINUTES [facility] VIJAY - 8 8 [facility] OUTPATIEN INC T EMERGENCY [id number] VIJAY 8 8 [facility] DEPARTMEN INC T VISIT HIGH/URGE NT SEVERITY
--- OUTSIDE RECORDS SUMMARY | 2017-05-09 05:51 | External Medical Summary Rpt | CCD ---
Demographics Preferred Language French Marital Status Unknown Sabianism Affiliation Unknown Race Unknown Ethnic Group Unknown Author Author , TOAN JOYA Address Unknown Phone Immunization Unable to retrieve immunization data due to connection failure with Immunization Registry. Please try again later.
--- OUTSIDE RECORDS SUMMARY | 2017-05-09 05:51 | External Medical Summary Rpt | CCD ---
Demographics Preferred Language [place] Marital Status Unknown Spiritism Affiliation Unknown Race Unknown Ethnic Group Unknown Author Author , TOAN JOYA Address Unknown Phone Immunization Unable to retrieve immunization data due to connection failure with Immunization Registry. Please try again later.
[2017-05-09 06:10] VITALS: BP 98/58
[2017-05-09 06:30] VITALS: BP 98/58
--- NOTE | 2017-05-09 07:37 | PHARMACY CLINIC NOTE ---
Patient Demographics Patient Demographics Admission date: 05/09/17 Date: 05/09/17 Time: 0736 Allergies Coded Allergies: Penicillins (Mild, 06/20/16) HEIGHT- FT: 5 IN: 5.00 K.132 VTE General Information Labs: Laboratory Tests 05/09 220 Hematology Hgb (12.2 - 16.2 g/dL) 12.6 Hct (37.0 - 47.0 %) 36.8 L Plt Count (142 - 424 K/mm3) 298 Disclaimer The following section includes nursing documentation that has been pulled in for pharmacy review. Patient's VTE score: 3 Patient's VTE Risk: LOW RISK Clinical trial participant? No VTE prophylaxis NQF [id number] VTE prophylaxis ordered? Yes Type of prophylaxis/treatment: BLAIRE at 0737
[2017-05-09 08:30] VITALS: BP 98/59
--- NOTE | 2017-05-09 09:46 | Discharge Summary Standard ---
Demographics: Admit date: 05/09/17 Chief complaint: drug use PRIMARY DIAGNOSIS: MANIC Allergies: Coded Allergies: Penicillins (Mild, 06/20/16) History of present illness: History of present illness: this wf with hx of bipolar disease who reports using street drugs yesterday and was seen in the ed with agitated behavior - she has reported grief reaction to family member and concern about skin infection denied iv drug use Past medical history: Family HX Family Hx Insignificant Yes Immunization HX DT/Tetanus 1-4 Years Ago Flu Refused Pneumonia Refuses TB Test in last year No General CAD? No Angina: No OR: No Hypertension? No Hyperlipidemia? Yes CHF? No DVT? No PE? No COPD? Yes Asthma? No Anemia? No GERD? Yes Gastric ulcers? No GI Bleed? No Hernia? No Thyroid Problems? No Hypothyroidism? No CVA? No Seizures? No Diabetes? No Renal Insuffiency? Yes UTI? Yes Stones? Yes BPH? No GB Disease: Yes Nephritic Syndrome? No Asplenia? No Hepatitis? No Sickle Cell Disease? No Arthritis? Yes Migraines? No Cataracts? No Glaucoma? No MRSA? No HIV? No TB? No Anxiety? Yes Depression? Yes Cancer? No More? Yes Additional hx: BARTTER SYNDROME CHRONIC HYPOKALEMIA Past Surgical HX Previous Surgery?Y TUBAL Appendectomy GALL BLADDER EXP LAP-ENDOMETRIOSIS L EYE KIDNEY STONE URETEROSCOPY 04/22/15 Current home meds: Active Scripts Potassium Chloride (K-Dur) 20 MEQ PO TID #90 TER Prov: 04/14/17 Reported Medications Gabapentin (Gabapentin 800MG) 800 MG PO TID Ondansetron (Zofran 4MG Odt) 4 MG PO DAILYP PRN nausea Acetaminophen (Acetaminophen Extra Strength) 1,000 MG PO Q6HP PRN pain Spironolactone (Aldactone) 25 MG NG DAILY Omeprazole 20 MG PO DAILY CETIRIZINE HCL (Zyrtec) 10 MG PO DAILY Doxepin Hcl (Doxepin) Olanzapine 20 MG PO DAILY #30 Social Hx: Smoking HX Tobacco Yes Type Cigarettes Packs/day < 1 PACK Are you/the child exposed to second-hand smoke: Yes Alcohol Alcohol: No Hx of Drug Use Drug Use? Yes Drug(s) of Choice: see chart Patien't marital status is single Patient's support system is fair Review of systems: Constitutional see HPI, other. No: fever. Eyes No: blurred vision, decreased acuity. Ears, Nose, Mouth, Throat No ear discharge, No epistaxis, No throat pain Respiratory No: cough, shortness of breath, wheezing. Cardiovascular No chest pain, No palpitations, No syncope Gastrointestinal/Abdominal see HPI, No diarrhea, poor fluid intake, No vomiting Genitourinary No: dysuria, frequency, hesitancy, hematuria. Musculoskeletal No: back pain, joint pain, joint swelling, neck pain. Skin No: rash. Neurological No: headache, seizure disorder. Psychiatric Yes: no symptoms reported, other. No: depressed. Comment: not suicidial or delusional Exam: Lab data for last 24 hours: Laboratory Tests 05/09/17234: Opiates Screen NEGATIVE, Urine Methadone Screen NEGATIVE, Barbiturates NEGATIVE, Phencyclidine Screen NEGATIVE, Amphetamines Screen POSITIVE H, Benzodiazepines Screen NEGATIVE, Cocaine Screen NEGATIVE, Marijuana (THC) Screen NEGATIVE, Urine Color DK YELLOW, Urine Appearance CLOUDY, Urine pH 6.0, Ur Specific [place] >= 1.030, Urine Protein 2+ H, Urine Ketones TRACE H, Urine Blood TRACE-INTACT, Urine Nitrate POSITIVE H, Urine Bilirubin NEGATIVE, Urine Urobilinogen 1.0, Ur Leukocyte Esterase NEGATIVE, Urine RBC 3-5, Urine WBC 3-5, Ur Squamous Epith Cells FEW, Urine Bacteria 4+, Urine Glucose NEGATIVE 05/09/17219: Lactic Acid 1.0 05/09/17219: Sodium 137, Potassium 3.2 L, Chloride 104, Carbon Dioxide 20 L, BUN 15, Creatinine 1.4 H, Estimated Creat Clear 73, Estimated GFR (MDRD) 42 L, Glucose 91, Calcium 9.1, Total Bilirubin 0.6, AST 39 H, ALT 26, Alkaline Phosphatase 102, Total Protein 8.2, Albumin 3.6, Globulin 4.6 H, Albumin/Globulin Ratio 0.8 L, WBC 11.1 H, RBC 4.30, Hgb 12.6, Hct 36.8 L, MCV 85.7, RDW 13.0, Plt Count 298, MPV 8.8, Gran % 64.3, Gran # 7.2, Lymphocytes % 25.8, Monocytes % 7.0, Eosinophils % 2.5, Basophils % 0.4, Lymphocytes # 2.9, Monocytes # 0.8, Eosinophils # 0.3, Basophils # 0.0, PUBS MCHC 34.3, MCH 29.4 Microbiology 05/09 235 URINE CC: Urine Culture - RECD 05/09 220 BLOOD: Anaerobic Blood Culture - RECD 05/09 220 BLOOD: Aerobic Blood Culture - RECD 05/09 220 BLOOD: Anaerobic Blood Culture - RECD 05/09 220 BLOOD: Aerobic Blood Culture - RECD Admission vital signs: 1ST Vital Signs Result Date Time Pulse Ox 97 05/09 127 B/P 144/94 05/09 127 Temp 99.4 05/09 127 Pulse 121 05/09 127 Resp 22 05/09 127 O2 Delivery ROOM AIR 05/09 610 Exam General appearance: alert, awake Eyes: anicteric, PERRLA ENT: dry mucous membranes Neck: no JVD Cardiovascular: regular rate & rhythm, no murmur Respiratory: no respiratory distress ABD: soft Genitourinary: no dysuria Extremities: moves all Musculoskeletal: equal muscle strength Skin: dry 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 Follow up Follow up in office in: 5 DAYS with: Vincent Sanchez APRN Comment: will talk with family at [id number]
[2017-05-09] MEDS ORDERED: BACTRIM DS 8001 TA1 PO (13:51)
[2017-05-09 15:07] VITALS: BP 98/59
== END 2017-05-09 14:50 | disposition home or self-care (01) ==
LOC: ER 01:22 → 2ND 05:09
PROVIDERS: Emergency Medicine
DX: F31.9 Bipolar disorder, unspecified (principal); R45.1 Restlessness and agitation; F99 Mental disorder, not otherwise specified; T43.624A Poisoning by amphetamines, undetermined, initial encounter; Z72.0 Tobacco use; F43.21 Adjustment disorder with depressed mood
CPT/HCPCS: G0378